=== PATIENT | male | born 1935 | race Caucasian/White ===

== ENCOUNTER 2016-09-10 12:15 | Emergency (ER) | payer OTHER, MEDICARE ==
[2016-09-10] MEDS ORDERED: SODIUM CHLORIDE 1,000 ML IV STA (12:25)
--- NOTE | 2016-09-10 12:25 | PDOC ---
History of Present Illness - History of Present Illness Initial Comments: 09/10/16 12:51 The patient is a 80 year old male with a past medical hx of CAD, ESRD on dialysis (, , and ), CHF, COPD, syncope, bronchitis, anemia, HTN, hypercholesterolemia, afib on coumadin, and thoracic aortic aneurysm who presents to the ED from dialysis for evaluation of bleeding from his fistula for three hours. The patient states he was at his routine fistula appointment today when he began to bleed from his fistula. He reports Dr. Martel held pressure on the site of bleeding for three hours and then decided to send the patient to the ED for further evaluation. The patient denies chest pain, SOB, headache, weakness The patient denies fever, chills The patient denies nausea, vomiting, diarrhea Allergies: enoxaparin sodium, lidocaine, and heparin Social: No toxic habits reported PCP: <Loren Short - Last Filed: 09/10/16 12:54> <Jalen Neff - Last Filed: 09/10/16 19:17> - General Stated Complaint: BLEEDING Time Seen by Provider: 09/10/16 12:24 Past History <Loren Short - Last Filed: 09/10/16 12:54> - Past Medical History Anemia: Yes Asthma: No Cancer: No Cardiac Disorders: Yes (atrial fibrillation,CAD, aortic stenosis, aortic aneurysm) CVA: No COPD: Yes CHF: No Dementia: No Diabetes: Yes Dialysis: Yes (//WED) GI Disorders: No Disorders: No HTN: Yes Hypercholesterolemia: Yes Kidney Stones: (renal failure shiley to right chest, av fistula to left arm) Liver Disease: No Seizures: No Thyroid Disease: No - Surgical History Abdominal Surgery: No Appendectomy: No Cardiac Surgery: No Cholecystectomy: No Lung Surgery: (left arm fistula, right chest shiley) Neurologic Surgery: No Orthopedic Surgery: No - Psycho/Social/Smoking Cessation Hx Anxiety: No Suicidal Ideation: No Smoking Status: No Smoking History: Never smoked Have you smoked in the past 12 months: No Number of Cigarettes Smoked Daily: 0 If you are a former smoker, when did you quit?: 40 years ago Hx Alcohol Use: No Drug/Substance Use Hx: No Substance Use Type: None Hx Substance Use Treatment: No <Jalen Neff - Last Filed: 09/10/16 19:17> - Past Medical History Allergies/Adverse Reactions: Allergies Allergy/AdvReac Type Severity Reaction Status Date / Time enoxaparin sodium Allergy Verified 09/10/16 12:28 [From Lovenox] heparin (porcine) Allergy heparin Verified 09/10/16 12:28 [Heparin,Porcine] induced platelet antibody lidocaine Allergy Verified 09/10/16 12:28 Home Medications: Ambulatory Orders Alprazolam 0.25 mg PO DAILY 10/07/13 Atorvastatin Ca [Lipitor] 10 mg PO HS 10/07/13 Sevelamer Carbonate [Renvela -] 3 tab PO TID 10/07/13 Warfarin Sodium [Coumadin] 7.5 mg PO DAILY 10/07/13 Metoprolol Succinate [Toprol XL -] 25 mg PO DAILY #0 10/13/13 Cinacalcet HCl [Sensipar] 30 mg PO DAILY 10/30/14 Sodium Bicarbonate 650 mg PO DAILY 10/30/14 Review of Systems - Review of Systems Able to Perform ROS?: Yes Comments:: 09/10/16 12:52 CONSTITUTIONAL: Absent: fever, chills, diaphoresis, generalized weakness, malaise, loss of appetite HEENT: Absent: rhinorrhea, nasal congestion, throat pain, throat swelling, difficulty swallowing, mouth swelling, ear pain, eye pain, visual Changes CARDIOVASCULAR: Absent: chest pain, syncope, palpitations, irregular heart rate, lightheadedness , peripheral edema RESPIRATORY: Absent: cough, shortness of breath, dyspnea with exertion, orthopnea, wheezing, stridor, hemoptysis GASTROINTESTINAL: Absent: abdominal pain, abdominal distension, nausea, vomiting, diarrhea, constipation, melena, hematochezia GENITOURINARY: Absent: dysuria, frequency, urgency, hesitancy, hematuria, flank pain, genital pain MUSCULOSKELETAL: +Left upper fistula bleeding. Absent: myalgia, arthralgia, joint swelling SKIN: Absent: rash, itching, pallor HEMATOLOGIC/IMMUNOLOGIC: Absent: easy bleeding, easy bruising, lymphadenopathy, frequent infections ENDOCRINE: Absent: unexplained weight gain, unexplained weight loss, heat intolerance, cold intolerance NEUROLOGIC: Absent: headache, focal weakness or paresthesias, dizziness, unsteady gait, seizure, mental status changes, bladder or bowel incontinence PSYCHIATRIC: Absent: anxiety, depression, suicidal or homicidal ideation, hallucinations. <Loren Short - Last Filed: 09/10/16 12:54> *Physical Exam - Vital Signs Last Vital Signs Temp Pulse Resp BP Pulse Ox 97.3 F L 82 20 159/104 100 09/10/16 12:28 09/10/16 12:28 09/10/16 12:28 09/10/16 12:28 09/10/16 12:28 - Physical Exam Comments: 09/10/16 12:54 GENERAL: +Conversant. Well developed, well nourished. Awake and alert. In no acute distress. HEENT: Normocephalic, atraumatic. PERRLA, EOMI. No conjunctival pallor. Sclera are non- icteric. Moist mucous membranes. Oropharynx is clear. NECK: Supple. Full ROM. No JVD. Carotid pulses 2+ and symmetric, without bruits. No thyromegaly. No lymphadenopathy. CARDIOVASCULAR: Regular rate and rhythm. No murmurs, rubs, or gallops. Distal pulses are 2+ and symmetric. PULMONARY: No evidence of respiratory distress. Lungs clear to auscultation bilaterally. No wheezing, rales or rhonchi. ABDOMINAL: Soft. Non-tender. Non-distended. No rebound or guarding. No organomegaly. Normoactive bowel sounds. MUSCULOSKELETAL Normal range of motion at all joints. No bony deformities or tenderness. No CVA tenderness. EXTREMITIES: +Left upper fistula, can feel the thrill of the fistula, arterial pump shooting up in the air three feet. No cyanosis. No clubbing. No edema. No calf tenderness. SKIN: Warm and dry. Normal capillary refill. No rashes. No jaundice. NEUROLOGICAL: Alert, awake, appropriate. Cranial nerves 2-12 intact. No deficits to light touch and temperature in face, upper extremities and lower extremities. No motor deficits in the in face, upper extremities and lower extremities. Normoreflexic in the upper and lower extremities. PSYCHIATRIC: Cooperative. Good eye contact. Appropriate mood and affect. <PiliLoren singh - Last Filed: 09/10/16 12:54> ED Treatment Course - LABORATORY CBC & Chemistry Diagram: 09/10/16 12:35 <DejaLoren - Last Filed: 09/10/16 12:54> - LABORATORY CBC & Chemistry Diagram: 09/10/16 11:30 09/10/16 12:35 <Jalen Neff - Last Filed: 09/10/16 19:17> Medical Decision Making - Critical Care Time Total Critical Care Time (minutes): 35 Critical Care Statement: The care of this patient involved high complexity decision making to prevent further life threatening deterioration of the patient 's condition and/or to evalute & treat vital organ system(s) failure or risk of failure. - Medical Decision Making 09/10/16 15:38 bleeding shunt stopped by Dr. Coco Griffith. No further bleeding. <Jalen Neff - Last Filed: 09/10/16 19:17> *DC/Admit/Observation/Transfer - Attestations Scribe Attestion: 09/10/16 12:51 Documentation prepared by Loren Short, acting as medical center manager for Jalen Neff MD, MD/DO. <Loren Short - Last Filed: 09/10/16 12:54> - Discharge Dispostion Admit: No <Jalen Neff - Last Filed: 09/10/16 19:17> Diagnosis at time of Disposition: Hemorrhage from dialysis shunt - Discharge Dispostion Disposition: HOME Condition at time of disposition: Improved - Referrals Referrals: Paul Harris MD [Primary Care Provider] -
[2016-09-10 12:30] VITALS: BMI 26.6
[2016-09-10 13:04] LABS: ALBUMIN 3.8 g/dl (3.4-5.0); BILIRUBIN,TOTAL 0.5 mg/dL (0.2-1.0); CALCIUM 9.1 mg/dL (8.5-10.1); CREATININE 6.4 mg/dL (0.7-1.3); TOT PROT 7.7 g/dl (6.4-8.2)
[2016-09-10 13:12] LABS: INR 3.91 (0.82-1.09); PROTHROMBIN TIME (PATIENT) 44.2 SEC (9.98-11.88)
[2016-09-10] MEDS ORDERED: LIDOCAINE HCL 2% (20ML MULTI-DOSE VIAL) NR ONE (13:20)
[2016-09-10 14:46] LABS: BASOPHIL 1.6 % (0-2.0); EOSINOPHIL 5.4 % (0-4.5); MCH 33.2 pg (25.7-33.7); MCHC 32.9 g/dl (32.0-35.9); MEAN PLT VOLUME 8.3 fl (7.5-11.1); NEUTROPHILS 63.1 % (42.8-82.8); PLATELET COUNT 275 K/MM3 (134-434); RDW 15.1 % (11.9-15.9); WHITE BLOOD COUNT 7.1 K/mm3 (4.0-10.0)
[2016-09-10 15:07] VITALS: BP 137/73; PULSE 80; TEMP 97.9
--- NOTE | 2016-09-14 16:24 | EKG ---
Test Reason : Blood Pressure : / mmHG Vent. Rate : 082 BPM Atrial Rate : 416 BPM P-R Int : 000 ms QRS Dur : 090 ms QT Int : 410 ms P-R-T Axes : 000 049 051 degrees QTc Int : 479 ms ATRIAL FIBRILLATION ABNORMAL ECG WHEN COMPARED WITH ECG OF 09-OCT-2013 14:59, NO SIGNIFICANT CHANGE WAS FOUND Confirmed by BERT STORY MD ([id number]) on 09/14/2016 4:23:45 PM Referred By: Confirmed By:BERT STORY MD
== END 2016-09-10 15:55 | disposition home or self-care (01) ==
LOC: JER 12:15
PROC: 3E0337Z Introduction of Electrolytic and Water Balance Substance into Peripheral Vein, Percutaneous Approach (ICD-10-PCS; principal; 2016-09-10)
DX: T82.838A Hemorrhage due to vascular prosthetic devices, implants and grafts, initial encounter (principal); I25.10 Atherosclerotic heart disease of native coronary artery without angina pectoris; I13.2 Hypertensive heart and chronic kidney disease with heart failure and with stage 5 chronic kidney disease, or end stage renal disease; N18.6 End stage renal disease; I50.9 Heart failure, unspecified; Z99.2 Dependence on renal dialysis; I48.91 Unspecified atrial fibrillation; Z79.01 Long term (current) use of anticoagulants; E78.00 Pure hypercholesterolemia, unspecified; Z86.79 Personal history of other diseases of the circulatory system
CPT/HCPCS: 36415; 80053; 85025; 85610; 85730; 86850; 86900; 86901; 93005; 93010; 99283-25

== ENCOUNTER 2017-10-29 12:08 | Inpatient (IN) | payer OTHER, MEDICARE ==
--- NOTE | 2017-10-29 12:44 | PDOC ---
History of Present Illness - General Chief Complaint: Pain Stated Complaint: RIGHT HIP PAIN Time Seen by Provider: 10/29/17 12:13 History Source: Patient Exam Limitations: No Limitations - History of Present Illness Initial Comments: 10/29/17 12:46 81y M hx of CAD, ESRD (T, , , last dialysis yesterday), CHF, COPD, Afib on coumadin, anemia, htn, hl, presents with complaint of R hip pain. The patient noticed having mild R hip pain starting yesterday. The pain was worse with movement especially when he is sitting or gettin gup from a seated position. Pt notes the pain is worse in the r hip/groin and radiates up to the r flank. pt deniess any injuries, falls. he noticed the pain after coming bcak from dialysis yesterday while he was in bed. Pt denies any fever/chills, n/v, diarrhea. pt does not produce urine. pt does endorse history of a kidney stone in the past but does not recall if this is simialr as it was 30 years + since his last kidney stone. pt denies any cp, sob, numbness/tingling/weakness. pt took tylenol with minimal improvement of his pain 1 hr ago. Past History - Past Medical History Allergies/Adverse Reactions: Allergies Allergy/AdvReac Type Severity Reaction Status Date / Time enoxaparin sodium Allergy Verified 10/29/17 12:29 [From Lovenox] heparin (porcine) Allergy heparin Verified 10/29/17 12:29 [Heparin,Porcine] induced platelet antibody lidocaine Allergy Verified 10/29/17 12:29 Home Medications: Ambulatory Orders Sevelamer Carbonate [Renvela -] 3 tab PO TID 10/07/13 Metoprolol Succinate [Toprol XL -] 25 mg PO DAILY #0 10/13/13 Warfarin Na [Coumadin] 6 mg PO HS 10/29/17 Anemia: Yes Asthma: No Cancer: No Cardiac Disorders: Yes (atrial fibrillation,CAD, aortic stenosis, aortic aneurysm) CVA: No COPD: No CHF: No Dementia: No Diabetes: Yes Dialysis: Yes (//WED) GI Disorders: No Disorders: No HTN: Yes Hypercholesterolemia: Yes Kidney Stones: (renal failure shiley to right chest, av fistula to left arm) Liver Disease: No Seizures: No Thyroid Disease: No - Surgical History Abdominal Surgery: No Appendectomy: No Cardiac Surgery: No Cholecystectomy: No Lung Surgery: (left arm fistula, right chest shiley) Neurologic Surgery: No Orthopedic Surgery: No - Suicide/Smoking/Psychosocial Hx Smoking Status: No Smoking History: Former smoker Have you smoked in the past 12 months: No Number of Cigarettes Smoked Daily: 0 If you are a former smoker, when did you quit?: 42 years ago Information on smoking cessation initiated: No Hx Alcohol Use: No Drug/Substance Use Hx: No Substance Use Type: None Hx Substance Use Treatment: No Review of Systems - Review of Systems Able to Perform ROS?: Yes Comments:: 10/29/17 12:50 Constitutional - no reported Fever, Chills, HEENT: no reported vision changes, sore throat Respiratory: no reported cough, sob, hemoptysis Cardiac: no reported chest pain, palpitations, light headedness, leg swelling Abd/GI: no reported abd pain, nausea, vomiting, blood per rectum, melena, diarrhea : no reported dysuria, frequency, discharge Musculskelatal +hip pain no reported back pain, joint swelling skin - no reported bruising, erythema, rash neurological: no reported headache, numbness, focal weakness, tingling, ataxia, hematologic: no reported anemia, easy bruising, easy bleeding *Physical Exam - Vital Signs Last Vital Signs Temp Pulse Resp BP Pulse Ox 97.6 F 68 18 157/76 96 10/29/17 12:10 10/29/17 12:10 10/29/17 12:10 10/29/17 12:10 10/29/17 12:10 - Physical Exam Comments: 10/29/17 12:50 GENERAL: The patient is awake, alert, and fully oriented, Nontoxic - in no acute distress. HEAD: Normocephalic, atraumatic. EYES: extraocular movements intact, sclera anicteric, conjunctiva clear. ENT: Normal voice, Moist mucous membranes. NECK: Normal range of motion, supple LUNGS: Breath sounds equal, clear to auscultation bilaterally. No wheezes, no rhonchi, no rales. HEART:irregular, systolic murmer noted on left sternal border ABDOMEN: Soft, mild lower quadrant tenderness, normoactive bowel sounds. No guarding, no rebound. No CVA tenderness, no hernias appreciated, no testicular or scrotal tenderness appreciated. EXTREMITIES: minimal discomfort on passive flexion of his right hip, no discomfort on logroll, normal range of motion. NEUROLOGICAL: No facial assymetry, Normal speech, PSYCH: Normal mood, normal affect. SKIN: Warm, Dry, normal turgor ED Treatment Course - LABORATORY CBC & Chemistry Diagram: 10/29/17 15:30 10/29/17 15:30 Medical Decision Making - Medical Decision Making 10/29/17 12:54 81-year-old gentleman history of multiple medical problems presenting with 1 day of mild right hip pain that is worse when he gets up from a seated position , no associated fever, chills, nausea, vomiting, urinary symptoms, diarrhea. On exam the patient has mild tenderness in the right lower quadrant, unremarkable hip exam. Differential for the patient's symptoms includes, MSK cause, kidney stone, appendicitis. No clinical signs of infection, obstruction Will obtain hip x-ray and will reassess need for further imaging 10/29/17 14:18 pts xray negative for acute disease pt still with mild RLQ tenderness will ck CT abd to r/o stone vs appendicitis 10/29/17 17:07 CT shows large rectus sheath heamtoma inR suprahterapehtic will observe in med/surg agree with admission *DC/Admit/Observation/Transfer Diagnosis at time of Disposition: Elevated INR Hematoma of rectus sheath Qualifiers: Encounter type: initial encounter Qualified Code(s): S30.1XXA - Contusion of abdominal wall, initial encounter - Discharge Dispostion Condition at time of disposition: Stable Admit: Yes - Referrals Referrals: Brittany Hanna MD [Staff Physician] - - Patient Instructions - Post Discharge Activity
[2017-10-29 15:52] LABS: BASO % 0.7 % (0-2.0); EOS % 1.4 % (0-4.5); HEMATOCRIT 36.8 % (35.4-49); HEMOGLOBIN 12.1 GM/dl (11.7-16.9); LYMPH % 8.9 % (8-40); MCH 32.3 pg (25.7-33.7); MCHC 32.9 g/dl (32.0-35.9); MEAN CELL VOLUME 98.2 fl (80-96); MEAN PLT VOLUME 8.9 fl (7.5-11.1); MONO % 11.3 % (3.8-10.2); NEUT % 77.7 % (42.8-82.8); PLATELET COUNT 197 K/MM3 (134-434); RBC 3.74 M/mm3 (4.00-5.60); RDW 17.2 % (11.9-15.9); WHITE BLOOD COUNT 10.5 K/mm3 (4.0-10.8)
[2017-10-29 16:03] LABS: INR 3.83 (0.82-1.09); PROTHROMBIN TIME (PATIENT) 41.8 SEC (10.2-13.0)
[2017-10-29 16:06] LABS: ALBUMIN 3.6 g/dl (3.5-5.0); ALK PHOS 84 U/L (32-92); ANION GAP 13 (8-16); BILIRUBIN,TOTAL 1.2 mg/dl (0.2-1.0); BLOOD UREA NITROGEN 72 mg/dl (7-18); CALCIUM 9.3 mg/dl (8.4-10.2); CHLORIDE 97 mmol/L (98-107); CO2 25 mmol/L (22-28); CREATININE 6.5 mg/dl (0.6-1.3); GLUCOSE,RANDOM 86 mg/dl (74-106); POTASSIUM 4.7 mmol/L (3.5-5.1); SGOT/AST 17 U/L (10-42); SGPT/ALT 19 U/L (10-40); SODIUM 135 mmol/L (136-145); TOT PROT 6.8 g/dl (6.4-8.3)
[2017-10-29] MEDS ORDERED: traMADol HCL 50 MG TABLET PO ONE (16:46)
[2017-10-29] MEDS ORDERED: traMADol HCL 50 MG TABLET ONE (17:05)
--- NOTE | 2017-10-29 22:00 | HP ---
Admitting History and Physical - Admission Chief Complaint: Rt Groin and Hip Pain History of Present Illness: 81 yrs old man H/O HTN, CKD stage 5 on HD Wednesday, and wednesday, Chronic afib on Coumadin rate controlled, ASa AR and TR under close monitoring, yesterday resent to Ed width C/O Rt Hip and groin pain after he received HD on , patient denies any trauma, fall , fever chills or dysuria, in the Ed patient patient INR was supratherapeutric Ct abd shows large rectal seath mematoma with stable H/h patient admitted for close observation , no c/o chest pain SOB or Palpitation - Past Medical History Cardiovascular: Yes: AFIB, Aneurysm, CAD, CHF, HTN, Hyperlipdemia Pulmonary: Yes: Bronchitis, COPD Renal/: Yes: Renal Failure, Hemodialysis - Past Surgical History Past Surgical History: Yes: AV Fistula/Graft - Smoking History Smoking history: Former smoker Have you smoked in the past 12 months: No Aproximately how many cigarettes per day: 0 If you are a former smoker, when did you quit?: 42 years ago - Alcohol/Substance Use Hx Alcohol Use: No Home Medications - Allergies Allergies/Adverse Reactions: Allergies Allergy/AdvReac Type Severity Reaction Status Date / Time enoxaparin sodium Allergy Verified 10/29/17 12:29 [From Lovenox] heparin (porcine) Allergy heparin Verified 10/29/17 12:29 [Heparin,Porcine] induced platelet antibody lidocaine Allergy Verified 10/29/17 12:29 - Home Medications Home Medications: Ambulatory Orders Sevelamer Carbonate [Renvela -] 3 tab PO TID 10/07/13 Metoprolol Succinate [Toprol XL -] 25 mg PO DAILY #0 10/13/13 Warfarin Na [Coumadin] 6 mg PO HS 10/29/17 Family Disease History - Family Disease History Family History: Unremarkable Review of Systems - Review of Systems Constitutional: denies: Chills, Diaphoresis HENT: denies: Difficult Swallowing, Ear Discharge Neck: denies: Decreased ROM, Lumps, Pain on Movement Cardiovascular: denies: Chest Pain, Edema, Palpitations, Shortness of Breath Respiratory: denies: Cough, Exercise Intolerance, Hemoptysis, Orthopnea Gastrointestinal: denies: Abdominal Pain, Bloating, Constipation Genitourinary: denies: Burning, Discharge, Dysuria Musculoskeletal: reports: Other (Rt Hip and Groin Pain) Neurological: denies: Change in LOC, Change in Speech Endocrine: denies: Excessive Sweating, Flushing Hematology/Lymphatic: reports: Easily Bruised, Excessive Bleeding Physical Examination Vital Signs: Vital Signs Temperature 97.8 F 10/29/17 20:34 Pulse Rate 69 10/29/17 20:34 Respiratory Rate 18 10/29/17 20:34 Blood Pressure 155/80 10/29/17 20:34 O2 Sat by Pulse Oximetry (%) 95 10/29/17 17:59 Constitutional: Yes: Well Nourished, No Distress Eyes: Yes: Conjunctiva Clear, EOM Intact, PERRL HENT: Yes: Atraumatic, Normocephalic. No: Drooling Neck: Yes: Supple, Trachea Midline. No: Decreased ROM Cardiovascular: Yes: Pulse Irregular, Murmur (Systolic), S1, S2. No: Bruit, JVD Gastrointestinal: Yes: Normal Bowel Sounds, Soft, Abdomen, Obese, Other Renal/: No: CVA Tenderness - Left Musculoskeletal: Yes: Other (Rt Groin pain and Hip ain). No: Joint Swelling, Muscle Pain, Muscle Weakness Edema: No Peripheral Pulses WNL: Yes Peripheral Pulses: Left Doralis Pedis: 0, Right Dorsalis Pedis: 0 Integumentary: Yes: Bruising (Ant bad wall Rt just below umbilicus) Neurological: Yes: Alert, Oriented. No: Aphasia, Asterixis, Ataxia ...Motor Strength: WNL, LUE, LLE, RUE, RLE Psychiatric: Yes: WNL, Alert, Oriented Labs: CBC, BMP 10/29/17 15:30 10/29/17 15:30 Laboratory Results - last 24 hr 10/29/17 10/29/17 10/29/17 15:30 15:30 15:30 WBC 10.5 RBC 3.74 L Hgb 12.1 Hct 36.8 MCV 98.2 H MCH 32.3 MCHC 32.9 RDW 17.2 H Plt Count 197 MPV 8.9 Neutrophils % 77.7 Lymphocytes % 8.9 Monocytes % 11.3 H Eosinophils % 1.4 Basophils % 0.7 PT with INR 41.8 H INR 3.83 H Sodium 135 L Potassium 4.7 Chloride 97 L Carbon Dioxide 25 Anion Gap 13 BUN 72 H Creatinine 6.5 H Creat Clearance w eGFR 8.29 Random Glucose 86 Calcium 9.3 Total Bilirubin 1.2 H AST 17 ALT 19 Alkaline Phosphatase 84 Total Protein 6.8 Albumin 3.6 Blood Type Antibody Screen Imaging - Results Cat Scan: Report Reviewed (Abd: Rt Rectal sheath Hematoma 8.5X 4.5 X9.5) Problem List - Problems (1) Supratherapeutic INR Assessment/Plan: Will Hold Coumadin Vit K 2.5 mg PO patient is hemodynamically stable and no major bleeding F/U H/H after q6 hrs Code(s): R79.1 - ABNORMAL COAGULATION PROFILE (2) Hematoma of rectus sheath Assessment/Plan: Spontaneous /Traumatic cold compression F/U H/h Code(s): S30.1XXA - CONTUSION OF ABDOMINAL WALL, INITIAL ENCOUNTER Qualifiers: Encounter type: initial encounter Qualified Code(s): S30.1XXA - Contusion of abdominal wall, initial encounter (3) ESRD (end stage renal disease) on dialysis Code(s): N18.6 - END STAGE RENAL DISEASE; Z99.2 - DEPENDENCE ON RENAL DIALYSIS (4) HTN (hypertension) Assessment/Plan: Well controlledcont all home meds Code(s): I10 - ESSENTIAL (PRIMARY) HYPERTENSION (5) COPD (chronic obstructive pulmonary disease) Assessment/Plan: Stable cont all home meds Code(s): J44.9 - CHRONIC OBSTRUCTIVE PULMONARY DISEASE, UNSPECIFIED (6) Rt groin pain Assessment/Plan: Due To Heamtoma Tylenol No 3 PRN Code(s): R10.31 - RIGHT LOWER QUADRANT PAIN (7) Chronic a-fib Assessment/Plan: Rate controlled on AC , Hold Coumadin Code(s): I48.2 - CHRONIC ATRIAL FIBRILLATION
[2017-10-29] MEDS: ACETAMINOPHEN WITH CODEINE 300MG/30MG TABLET PO SCH ×2 (23:55→23:59)
[2017-10-29] MEDS: SEVELAMER CARBONATE 800 MG TAB (FP) PO SCH (23:55)
[2017-10-30] MEDS: ACETAMINOPHEN WITH CODEINE 300MG/30MG TABLET PO SCH ×2 (00:03→06:10)
[2017-10-30 00:17] LABS: BASO % 0.4 % (0-2.0); EOS % 2.4 % (0-4.5); HEMATOCRIT 31.3 % (35.4-49); HEMOGLOBIN 10.5 GM/dL (11.7-16.9); LYMPH % 11.1 % (8-40); MCH 33.2 pg (25.7-33.7); MCHC 33.7 g/dl (32.0-35.9); MEAN CELL VOLUME 98.6 fl (80-96); MEAN PLT VOLUME 8.9 fl (7.5-11.1); MONO % 12.2 % (3.8-10.2); NEUT % 73.9 % (42.8-82.8); PLATELET COUNT 171 K/MM3 (134-434); RBC 3.18 M/mm3 (4.00-5.60); RDW 17.7 % (11.9-15.9)
[2017-10-30] MEDS ORDERED: PHYTONADIONE 5 MG TABLET PO ONE (01:07)
[2017-10-30 03:44] VITALS: BMI 29.7
[2017-10-30 08:21] LABS: BASO % 0.8 % (0-2.0); EOS % 2.7 % (0-4.5); HEMATOCRIT 30.1 % (35.4-49); HEMOGLOBIN 10.2 GM/dL (11.7-16.9); LYMPH % 12.2 % (8-40); MCH 33.6 pg (25.7-33.7); MEAN PLT VOLUME 8.9 fl (7.5-11.1); MONO % 12.7 % (3.8-10.2); NEUT % 71.6 % (42.8-82.8); PLATELET COUNT 156 K/MM3 (134-434); RBC 3.04 M/mm3 (4.00-5.60); RDW 17.1 % (11.9-15.9)
[2017-10-30 08:27] LABS: PROTHROMBIN TIME (PATIENT) 45.4 SEC (9.98-11.88)
[2017-10-30 08:35] LABS: INR 4.02 (0.82-1.09)
[2017-10-30 08:41] LABS: ALBUMIN 3.2 g/dl (3.4-5.0); ANION GAP 12 (8-16); BLOOD UREA NITROGEN 91 mg/dL (7-18); CALCIUM 8.5 mg/dL (8.5-10.1); CHLORIDE 99 mmol/L (98-107); CO2 26 mmol/L (21-32); GLUCOSE,RANDOM 79 mg/dL (74-106); POTASSIUM 4.6 mmol/L (3.5-5.1); SODIUM 137 mmol/L (136-145)
[2017-10-30 08:51] LABS: ALK PHOS 86 U/L (45-117); BILIRUBIN,TOTAL 0.9 mg/dL (0.2-1.0); SGOT/AST 12 U/L (15-37); SGPT/ALT 17 U/L (12-78); TOT PROT 6.3 g/dl (6.4-8.2)
[2017-10-30 09:30] LABS: CREATININE 7.8 mg/dL (0.7-1.3)
[2017-10-30] MEDS ORDERED: SODIUM CHLORIDE 250 ML IV PRN (10:20)
[2017-10-30] MEDS ORDERED: EPOETIN ALFA 10,000 UNIT/1 ML VIAL IVPUSH ONE (10:24)
[2017-10-30] MEDS: metoPROLOL SUCCINATE 25 MG TAB.SR.24H (FP) PO SCH (10:27)
[2017-10-30] MEDS: SEVELAMER CARBONATE 800 MG TAB (FP) PO SCH ×3 (10:27→17:33)
--- NOTE | 2017-10-30 10:34 | CONSULT ---
Consult - text type - Consultation Consultation Note: Renal Consult for ESRD on HD This is a 81 year old woman with PMhx of ESRD on HD, Hypertension, AFib on Coumadin who presented with complaints of right sided abd pain/hip pain and to have a rectus sheath hematoma with INR of 4. Pt denies any trauma to his abdomen. No flank pain. No recent procedures done. Last had dialysis on w/o complication. No SOB, chest pain, N/V/D, lightheadedness. PMhx: as above Allergies: NDKA ROS: as per HPI Family Hx: NC Social Hx NO T/A/D Home Medications Medication Instructions Recorded Sevelamer Carbonate [Renvela -] 3 tab PO TID 10/07/13 Metoprolol Succinate [Toprol XL -] 25 mg PO DAILY #0 10/13/13 Warfarin Na [Coumadin] 6 mg PO HS 10/29/17 Vital Signs Temperature 98.2 F 10/30/17 06:00 Pulse Rate 80 10/30/17 06:00 Respiratory Rate 20 10/30/17 06:00 Blood Pressure 120/68 10/30/17 06:00 O2 Sat by Pulse Oximetry (%) 95 10/29/17 17:59 Intake & Output 10/27/17 10/28/17 10/29/17 10/30/17 23:59 23:59 23:59 23:59 Intake Total 400 240 Output Total 0 Balance 400 240 Weight 83.007 kg 83.642 kg NAD awake and alert RRR, NO M/R CTA, no rales soft, mild tenderness, right sided brusing No LE edema, clubbing or cyanosis left arm AVF CBC, BMP 10/30/17 07:50 10/30/17 07:50 Current Medications Epoetin Randy (Epogen -) 10,000 unit IVPUSH ONCE ONE Stop: 10/30/17 10:25 Sodium Chloride (Normal Saline -) 250 mls @ 3,000 mls/hr IV PRN PRN PRN Reason: hypotension Metoprolol Succinate (Toprol Xl -) 25 mg PO DAILY [facility] Last Admin: 10/30/17 10:27 Dose: 25 mg Sevelamer Carbonate (Renvela -) 2,400 mg PO TIDCM [facility] Last Admin: 10/30/17 10:27 Dose: 2,400 mg 81 year old woman with PMhx of ESRD on HD, Hypertension, AFib on Coumadin who presented with complaints of right sided abd pain/hip pain and to have a rectus sheath hematoma with INR of 4 #ESRD on HD for dialysis today as inpatient Tx time 3 hrs 15 mins goal UF 1.5L as tolerated will continue HD 3x weekly dose all meds for intermittent HD no heparin to be given with dialysis #Rectus Sheath hematoma/Anemia Hgb stable over the past 8 hours holding warfarin trend INR Trend CBC shamar give YESSICA with HD no acute indication for transfusion #Renal Osteodystrophy continue Renvela, Renal diet trend phos levels Thank you Will follow Juan Christensen DO
--- NOTE | 2017-10-30 10:44 | PN ---
Progress Note, Physician Chief Complaint: C/O Rt Groin Pain - Current Medication List Current Medications: Active Medications Epoetin Randy (Procrit -) 10,000 unit IVPUSH ONCE ONE Stop: 10/30/17 10:25 Sodium Chloride (Normal Saline -) 250 mls @ 3,000 mls/hr IV PRN PRN PRN Reason: hypotension Metoprolol Succinate (Toprol Xl -) 25 mg PO DAILY [facility] Last Admin: 10/30/17 10:27 Dose: 25 mg Sevelamer Carbonate (Renvela -) 2,400 mg PO TIDCM [facility] Last Admin: 10/30/17 10:27 Dose: 2,400 mg - Objective Vital Signs: Vital Signs Temperature 98.2 F 10/30/17 06:00 Pulse Rate 80 10/30/17 06:00 Respiratory Rate 20 10/30/17 06:00 Blood Pressure 120/68 10/30/17 06:00 O2 Sat by Pulse Oximetry (%) 95 10/29/17 17:59 Constitutional: Yes: Well Nourished, No Distress Eyes: Yes: Conjunctiva Clear, EOM Intact, PERRL HENT: Yes: Atraumatic, Normocephalic. No: Drooling Neck: Yes: Supple, Trachea Midline. No: Decreased ROM Cardiovascular: Yes: Pulse Irregular, Murmur (Systolic), S1, S2. No: Bruit, JVD Gastrointestinal: Yes: Normal Bowel Sounds, Soft, Abdomen, Obese, Other Renal/: No: CVA Tenderness - Left Musculoskeletal: Yes: Other (Rt Groin pain and Hip ain). No: Joint Swelling, Muscle Pain, Muscle Weakness Edema: No Peripheral Pulses WNL: Yes Peripheral Pulses: Left Doralis Pedis: 0, Right Dorsalis Pedis: 0 Integumentary: Yes: Bruising (Ant bad wall Rt just below umbilicus) Neurological: Yes: Alert, Oriented. No: Aphasia, Asterixis, Ataxia ...Motor Strength: WNL, LUE, LLE, RUE, RLE Labs: CBC, BMP 10/30/17 07:50 10/30/17 07:50 INR, PTT INR 4.02 (0.82-1.09) H* 10/30/17 07:50 Problem List - Problems (1) Supratherapeutic INR Assessment/Plan: Will Hold Coumadin recived Vit K 2.5 mg PO patient is hemodynamically stable 2nd H/H drop am H/H stable will F/U H/H in PM Rpt INR 4.0 will F/U INR in PM Code(s): R79.1 - ABNORMAL COAGULATION PROFILE (2) Hematoma of rectus sheath Assessment/Plan: Spontaneous /Traumatic cold compression F/U H/h Code(s): S30.1XXA - CONTUSION OF ABDOMINAL WALL, INITIAL ENCOUNTER Qualifiers: Encounter type: initial encounter Qualified Code(s): S30.1XXA - Contusion of abdominal wall, initial encounter (3) ESRD (end stage renal disease) on dialysis Assessment/Plan: On HD F/U Renal recommendations, schedule for HD Today Code(s): N18.6 - END STAGE RENAL DISEASE; Z99.2 - DEPENDENCE ON RENAL DIALYSIS (4) HTN (hypertension) Assessment/Plan: Well controlledcont all home meds Code(s): I10 - ESSENTIAL (PRIMARY) HYPERTENSION (5) COPD (chronic obstructive pulmonary disease) Assessment/Plan: Stable cont all home meds Code(s): J44.9 - CHRONIC OBSTRUCTIVE PULMONARY DISEASE, UNSPECIFIED (6) Rt groin pain Assessment/Plan: Due To Heamtoma Tylenol No 3 PRN Code(s): R10.31 - RIGHT LOWER QUADRANT PAIN (7) Chronic a-fib Assessment/Plan: Rate controlled on AC , Hold Coumadin Code(s): I48.2 - CHRONIC ATRIAL FIBRILLATION (8) Anemia due to blood loss Assessment/Plan: In the setting High INR now H/H stable F/U H/H in PM Code(s): D50.0 - IRON DEFICIENCY ANEMIA SECONDARY TO BLOOD LOSS (CHRONIC)
[2017-10-30] MEDS: oxyCODONE HCL 5 MG TABLET PO PRN ×2 (11:26→18:28)
[2017-10-30 18:46] LABS: BASO % 0.5 % (0-2.0); EOS % 1.9 % (0-4.5); HEMATOCRIT 32.5 % (35.4-49); HEMOGLOBIN 10.9 GM/dL (11.7-16.9); LYMPH % 8.5 % (8-40); MCH 33.2 pg (25.7-33.7); MCHC 33.5 g/dl (32.0-35.9); MEAN CELL VOLUME 99.2 fl (80-96); MEAN PLT VOLUME 9.1 fl (7.5-11.1); MONO % 11.1 % (3.8-10.2); PLATELET COUNT 182 K/MM3 (134-434); RBC 3.27 M/mm3 (4.00-5.60); RDW 17.3 % (11.9-15.9); WHITE BLOOD COUNT 8.2 K/mm3 (4.0-10.0)
[2017-10-30 18:57] LABS: INR 2.74 (0.82-1.09)
[2017-10-31] MEDS: oxyCODONE HCL 5 MG TABLET PO PRN ×2 (06:18→12:26)
[2017-10-31 07:28] LABS: BASO % 0.8 % (0-2.0); EOS % 2.4 % (0-4.5); HEMOGLOBIN 10.8 GM/dL (11.7-16.9); LYMPH % 11.6 % (8-40); MCH 33.5 pg (25.7-33.7); MCHC 33.7 g/dl (32.0-35.9); MEAN CELL VOLUME 99.6 fl (80-96); MEAN PLT VOLUME 8.8 fl (7.5-11.1); MONO % 12.1 % (3.8-10.2); NEUT % 73.1 % (42.8-82.8); PLATELET COUNT 177 K/MM3 (134-434); RBC 3.22 M/mm3 (4.00-5.60); RDW 17.7 % (11.9-15.9); WHITE BLOOD COUNT 9.3 K/mm3 (4.0-10.0)
[2017-10-31 07:51] LABS: INR 1.9 (0.82-1.09); PROTHROMBIN TIME (PATIENT) 21.5 SEC (9.98-11.88)
[2017-10-31 07:55] LABS: ANION GAP 15 (8-16); BLOOD UREA NITROGEN 47 mg/dL (7-18); CALCIUM 9.3 mg/dL (8.5-10.1); CHLORIDE 96 mmol/L (98-107); CO2 28 mmol/L (21-32); CREATININE 5.5 mg/dL (0.7-1.3); GLUCOSE,RANDOM 88 mg/dL (74-106); MAGNESIUM 2.5 mg/dL (1.8-2.4); PHOSPHOROUS 5.1 mg/dL (2.5-4.9); POTASSIUM 4.2 mmol/L (3.5-5.1); SODIUM 139 mmol/L (136-145)
[2017-10-31] MEDS: SEVELAMER CARBONATE 800 MG TAB (FP) PO SCH ×2 (08:38→12:30)
--- NOTE | 2017-10-31 09:34 | CON.CARD ---
Consult Consult Specialty:: Cardiology dr. Metzger - History of Present Illness Chief Complaint: r flank/rrectus abdominal muscle pain History of Present Illness: 81y M hx of CAD, ESRD (T, , , last dialysis yesterday), CHF, COPD, Afib on coumadin, anemia, htn, hl, presents with complaint of R hip pain. The patient noticed having mild R hip pain starting yesterday. The pain was worse with movement especially when he is sitting or gettin gup from a seated position. Pt notes the pain is worse in the r hip/groin and radiates up to the r flank. pt deniess any injuries, falls. he noticed the pain after coming bcak from dialysis yesterday while he was in bed. Pt denies any fever/chills, n/v, diarrhea. pt does not produce urine. pt does endorse history of a kidney stone in the past but does not recall if this is simialr as it was 30 years + since his last kidney stone. pt denies any cp, sob, numbness/tingling/weakness. pt took tylenol with minimal improvement of his pain 1 hr ago. - Past Medical History Cardio/Vascular: Yes: AFIB, Aneurysm, CAD, CHF, HTN, Hyperlipdemia Pulmonary: Yes: Bronchitis, COPD Renal/: Yes: Renal Failure, Hemodialysis - Past Surgical History Past Surgical History: Yes: AV Fistula/Graft - Alcohol/Substance Use Hx Alcohol Use: No - Smoking History Smoking history: Former smoker Have you smoked in the past 12 months: No Aproximately how many cigarettes per day: 0 If you are a former smoker, when did you quit?: 42 years ago Home Medications - Allergies Allergies/Adverse Reactions: Allergies Allergy/AdvReac Type Severity Reaction Status Date / Time enoxaparin sodium Allergy Verified 10/29/17 12:29 [From Lovenox] heparin (porcine) Allergy heparin Verified 10/29/17 12:29 [Heparin,Porcine] induced platelet antibody lidocaine Allergy Verified 10/29/17 12:29 - Home Medications Home Medications: Ambulatory Orders Sevelamer Carbonate [Renvela -] 3 tab PO TID 10/07/13 Metoprolol Succinate [Toprol XL -] 25 mg PO DAILY #0 10/13/13 Warfarin Na [Coumadin] 6 mg PO HS 03/09/18 Review of Systems - Review of Systems Constitutional: reports: No Symptoms Eyes: reports: No Symptoms HENT: reports: No Symptoms Neck: reports: No Symptoms Cardiovascular: reports: No Symptoms Gastrointestinal: reports: No Symptoms Genitourinary: reports: No Symptoms Breasts: reports: No Symptoms Reported Musculoskeletal: reports: Muscle Pain Integumentary: reports: No Symptoms Neurological: reports: No Symptoms Endocrine: reports: No Symptoms Hematology/Lymphatic: reports: No Symptoms Psychiatric: reports: No Symptoms Vital Signs: Vital Signs Temperature 99.2 F 10/31/17 06:00 Pulse Rate 93 H 10/31/17 06:00 Respiratory Rate 17 10/31/17 06:00 Blood Pressure 122/74 10/31/17 06:00 O2 Sat by Pulse Oximetry (%) 94 L 10/30/17 21:00 Constitutional: Yes: Well Nourished, No Distress, Calm Eyes: Yes: WNL, Conjunctiva Clear, EOM Intact HENT: Yes: WNL, Atraumatic, Normocephalic Neck: Yes: WNL, Supple, Trachea Midline Respiratory: Yes: WNL, Regular, CTA Bilaterally Gastrointestinal: Yes: WNL, Normal Bowel Sounds Renal/: Yes: WNL Cardiovascular: Yes: WNL, Pulse Irregular Heart Sounds: Yes: S1, S2 Murmur: Yes: Systolic Murmur Musculoskeletal: Yes: Other (hematoma, eccymoisis of r abd rectus muscle.) Extremities: Yes: WNL Integumentary: Yes: WNL Neurological: Yes: WNL, Alert, Oriented ...Motor Strength: WNL Psychiatric: Yes: WNL, Alert, Oriented - Other Data Labs, Other Data: CBC, BMP 10/31/17 07:05 10/31/17 07:05 INR, PTT INR 1.90 (0.82-1.09) H D 10/31/17 07:05 Laboratory Tests 10/29/17 10/29/17 10/29/17 15:30 15:30 15:30 WBC 10.5 RBC 3.74 L Hgb 12.1 Hct 36.8 MCV 98.2 H MCH 32.3 MCHC 32.9 RDW 17.2 H Plt Count 197 MPV 8.9 Neutrophils % 77.7 Lymphocytes % 8.9 Monocytes % 11.3 H Eosinophils % 1.4 Basophils % 0.7 PT with INR 41.8 H INR 3.83 H Sodium 135 L Potassium 4.7 Chloride 97 L Carbon Dioxide 25 Anion Gap 13 BUN 72 H Creatinine 6.5 H Creat Clearance w eGFR 8.29 Random Glucose 86 Calcium 9.3 Phosphorus Magnesium Total Bilirubin 1.2 H AST 17 ALT 19 Alkaline Phosphatase 84 Total Protein 6.8 Albumin 3.6 Blood Type Antibody Screen 10/30/17 10/30/17 10/30/17 00:00 02:35 07:50 WBC 9.0 8.0 RBC 3.18 L 3.04 L Hgb 10.5 L 10.2 L Hct 31.3 L 30.1 L MCV 98.6 H 99.0 H MCH 33.2 33.6 MCHC 33.7 34.0 RDW 17.7 H D 17.1 H Plt Count 171 D 156 MPV 8.9 8.9 Neutrophils % 73.9 71.6 Lymphocytes % 11.1 D 12.2 Monocytes % 12.2 H 12.7 H Eosinophils % 2.4 2.7 Basophils % 0.4 0.8 PT with INR INR Sodium Potassium Chloride Carbon Dioxide Anion Gap BUN Creatinine Creat Clearance w eGFR Random Glucose Calcium Phosphorus Magnesium Total Bilirubin AST ALT Alkaline Phosphatase Total Protein Albumin Blood Type B POSITIVE Antibody Screen Negative 10/30/17 10/30/17 10/30/17 07:50 07:50 18:15 WBC 8.2 RBC 3.27 L Hgb 10.9 L Hct 32.5 L MCV 99.2 H MCH 33.2 MCHC 33.5 RDW 17.3 H Plt Count 182 MPV 9.1 Neutrophils % 78.0 Lymphocytes % 8.5 D Monocytes % 11.1 H Eosinophils % 1.9 Basophils % 0.5 PT with INR 45.40 H INR 4.02 H* Sodium 137 Potassium 4.6 D Chloride 99 Carbon Dioxide 26 Anion Gap 12 BUN 91 H D Creatinine 7.8 H* Creat Clearance w eGFR 6.72 Random Glucose 79 Calcium 8.5 Phosphorus Magnesium Total Bilirubin 0.9 D AST 12 L D ALT 17 D Alkaline Phosphatase 86 Total Protein 6.3 L Albumin 3.2 L Blood Type Antibody Screen 10/30/17 10/31/17 10/31/17 18:15 07:05 07:05 WBC 9.3 RBC 3.22 L Hgb 10.8 L Hct 32.0 L MCV 99.6 H MCH 33.5 MCHC 33.7 RDW 17.7 H Plt Count 177 MPV 8.8 Neutrophils % 73.1 Lymphocytes % 11.6 D Monocytes % 12.1 H Eosinophils % 2.4 Basophils % 0.8 PT with INR 31.00 H 21.50 H INR 2.74 H D 1.90 H D Sodium Potassium Chloride Carbon Dioxide Anion Gap BUN Creatinine Creat Clearance w eGFR Random Glucose Calcium Phosphorus Magnesium Total Bilirubin AST ALT Alkaline Phosphatase Total Protein Albumin Blood Type Antibody Screen 10/31/17 07:05 WBC RBC Hgb Hct MCV MCH MCHC RDW Plt Count MPV Neutrophils % Lymphocytes % Monocytes % Eosinophils % Basophils % PT with INR INR Sodium 139 Potassium 4.2 Chloride 96 L Carbon Dioxide 28 Anion Gap 15 BUN 47 H D Creatinine 5.5 H D Creat Clearance w eGFR Random Glucose 88 Calcium 9.3 Phosphorus 5.1 H Magnesium 2.5 H D Total Bilirubin AST ALT Alkaline Phosphatase Total Protein Albumin Blood Type Antibody Screen Imaging - Results EKG: Image Reviewed (af rep abn) Problem List - Problems (1) Anemia due to blood loss Code(s): D50.0 - IRON DEFICIENCY ANEMIA SECONDARY TO BLOOD LOSS (CHRONIC) (2) COPD (chronic obstructive pulmonary disease) Code(s): J44.9 - CHRONIC OBSTRUCTIVE PULMONARY DISEASE, UNSPECIFIED (3) Chronic a-fib Code(s): I48.2 - CHRONIC ATRIAL FIBRILLATION (4) ESRD (end stage renal disease) on dialysis Code(s): N18.6 - END STAGE RENAL DISEASE; Z99.2 - DEPENDENCE ON RENAL DIALYSIS (5) Elevated INR Code(s): R79.1 - ABNORMAL COAGULATION PROFILE (6) HTN (hypertension) Code(s): I10 - ESSENTIAL (PRIMARY) HYPERTENSION (7) Hematoma of rectus sheath Code(s): S30.1XXA - CONTUSION OF ABDOMINAL WALL, INITIAL ENCOUNTER Qualifiers: Encounter type: initial encounter Qualified Code(s): S30.1XXA - Contusion of abdominal wall, initial encounter (8) Rt groin pain Code(s): R10.31 - RIGHT LOWER QUADRANT PAIN (9) Supratherapeutic INR Code(s): R79.1 - ABNORMAL COAGULATION PROFILE (10) Bleeding from dialysis shunt Code(s): T82.838A - HEMORRHAGE DUE TO VASCULAR PROSTH DEV/GRFT, INIT Qualifiers: Encounter type: initial encounter Qualified Code(s): T82.838A - Hemorrhage due to vascular prosthetic devices, implants and grafts, initial encounter (11) Hemorrhage from dialysis shunt Code(s): T82.838A - HEMORRHAGE DUE TO VASCULAR PROSTH DEV/GRFT, INIT Assessment/Plan supraterapeutic INR - abdominal rectus muscle bleed CAD, ESRD (T, Th, SA, last dialysis yesterday), CHF, COPD, Afib on coumadin, anemia, htn thoracic aortic aneurysm systolic ejection murmur - severe TR 2012 mild 2012 Plan; hold Coumadin risks of CVA explained INR normalizing s/p vit K obtain records re prior cardiac w/u ?CAD, aortic aneurysm recent ECHO etc. Cardiac wei stable coverage dr. Metzger
[2017-10-31] MEDS: metoPROLOL SUCCINATE 25 MG TAB.SR.24H (FP) PO SCH (09:35)
[2017-10-31] MEDS ORDERED: DOCUSATE SODIUM 100 MG CAPSULE (FP) PO PRN (13:06)
--- NOTE | 2017-10-31 13:12 | DS ---
Physical Examination Vital Signs: Vital Signs Temperature 99.2 F 10/31/17 06:00 Pulse Rate 93 H 10/31/17 06:00 Respiratory Rate 17 10/31/17 06:00 Blood Pressure 122/74 10/31/17 06:00 O2 Sat by Pulse Oximetry (%) 94 L 10/30/17 21:00 HEENT: MM Moist mild anemia NECK: No JVd No bruit CHEST: CTA B/L CVS: S!S2 IR no m/g/r ABD:Rt lower q ant abd wall just below umbilicus echymoses, Rt Groin tenderness , BS + EXT: Trace mikayla afeet, no calf tenderness [facility] non focal Labs: CBC, BMP 10/31/17 07:05 10/31/17 07:05 Laboratory Results - last 24 hr 10/30/17 10/30/17 10/31/17 18:15 18:15 07:05 WBC 8.2 9.3 RBC 3.27 L 3.22 L Hgb 10.9 L 10.8 L Hct 32.5 L 32.0 L MCV 99.2 H 99.6 H MCH 33.2 33.5 MCHC 33.5 33.7 RDW 17.3 H 17.7 H Plt Count 182 177 MPV 9.1 8.8 Neutrophils % 78.0 73.1 Lymphocytes % 8.5 D 11.6 D Monocytes % 11.1 H 12.1 H Eosinophils % 1.9 2.4 Basophils % 0.5 0.8 PT with INR 31.00 H INR 2.74 H D Sodium Potassium Chloride Carbon Dioxide Anion Gap BUN Creatinine Random Glucose Calcium Phosphorus Magnesium 10/31/17 10/31/17 07:05 07:05 WBC RBC Hgb Hct MCV MCH MCHC RDW Plt Count MPV Neutrophils % Lymphocytes % Monocytes % Eosinophils % Basophils % PT with INR 21.50 H INR 1.90 H D Sodium 139 Potassium 4.2 Chloride 96 L Carbon Dioxide 28 Anion Gap 15 BUN 47 H D Creatinine 5.5 H D Random Glucose 88 Calcium 9.3 Phosphorus 5.1 H Magnesium 2.5 H D Discharge Summary Reason For Visit: RIGHT HIP PAIN Current Active Problems Anemia due to blood loss (Acute) COPD (chronic obstructive pulmonary disease) (Acute) Chronic a-fib (Acute) ESRD (end stage renal disease) on dialysis (Acute) Elevated INR (Acute) HTN (hypertension) (Acute) Hematoma of rectus sheath (Acute) Rt groin pain (Acute) Supratherapeutic INR (Acute) Hospital Course: 81 yrs old man H/O HTN, CKD stage 5 on HD Wednesday, and wednesday, Chronic afib on Coumadin rate controlled, ASa AR and TR under close monitoring, yesterday resent to Ed width C/O Rt Hip and groin pain after he received HD on , patient denies any trauma, fall , fever chills or dysuria, in the Ed patient patient INR was supratherapeutric Ct abd shows large rectus sheath Hematoma with stable H/h, patient dropped H/h in subsequent CBC, so received 2 .5 mg Vit K PO, subsequence H/h remained stable, INR dropped to 1.92, evaluated by cardiology consult, patient Rt Groin pain improved but persisted . RpT CT shows no enlargement of Hematoma, discusses with Cardiology consult to resume Coumadin at half dose 3.0 mg daily and Tpt H/H in PMD office, Condition: Stable - Instructions Diet, Activity, Other Instructions: as advised Referrals: Brittany Hanna MD [Staff Physician] - Paul Harris MD [Primary Care Provider] - 11/02/17 Disposition: HOME - Home Medications Comprehensive Discharge Medication List: Ambulatory Orders Sevelamer Carbonate [Renvela -] 3 tab PO TID 10/07/13 Metoprolol Succinate [Toprol XL -] 25 mg PO DAILY #0 10/13/13 Docusate Sodium [Colace -] 100 mg PO BID PRN capsule 10/31/17 Warfarin Na [Coumadin -] 3 mg PO DAILY@1800 tablet 10/31/17 oxyCODONE HCL [Roxicodone -] 5 mg PO Q6H PRN 7 Days #28 tablet MDD 4 10/31/17
[2017-10-31 13:43] VITALS: BP 128/66; PULSE 84; TEMP 97.6
[2017-10-31] MEDS ORDERED: WARFARIN NA 3 MG TABLET PO SCH (18:00)
[2017-11-02 00:10] LABS: HBSAG SCREEN Negative (Negative); HEP A AB, IGM Negative (Negative); HEP B CORE AB, TOT Positive (Negative)
--- NOTE | 2017-11-02 12:55 | EKG ---
Test Reason : Blood Pressure : / mmHG Vent. Rate : 082 BPM Atrial Rate : 082 BPM P-R Int : 000 ms QRS Dur : 098 ms QT Int : 376 ms P-R-T Axes : 000 059 -07 degrees QTc Int : 439 ms Poor data quality ATRIAL FIBRILLATION NONSPECIFIC ST AND T WAVE ABNORMALITY ABNORMAL ECG WHEN COMPARED WITH ECG OF 10-SEP-2016 13:39, ST NOW DEPRESSED IN ANTERIOR LEADS T WAVE INVERSION NOW EVIDENT IN INFERIOR LEADS T WAVE INVERSION NOW EVIDENT IN ANTERIOR LEADS Confirmed by MD NELLY, RACIEL ([id number]) on 11/02/2017 12:54:46 PM Referred By: MD SHARPE Confirmed By:RACIEL VILLEGAS MD
== END 2017-10-31 15:39 | disposition home or self-care (01) | DRG 604 ==
LOC: FER 12:08 → SUPCPDRO 12:08 → J5S 21:20
PROVIDERS: ADMIT Internal Medicine; ATTEND Internal Medicine
PROC: 5A1D90Z Performance of Urinary Filtration, Continuous, Greater than 18 hours Per Day (ICD-10-PCS; principal; 2017-10-30)
DX: S30.1XXA Contusion of abdominal wall, initial encounter (principal); N18.6 End stage renal disease; I12.0 Hypertensive chronic kidney disease with stage 5 chronic kidney disease or end stage renal disease; T82.838A Hemorrhage due to vascular prosthetic devices, implants and grafts, initial encounter; X58.XXXA Exposure to other specified factors, initial encounter; Y93.9 Activity, unspecified; Y92.89 Other specified places as the place of occurrence of the external cause; Y99.9 Unspecified external cause status; R79.1 Abnormal coagulation profile; Z99.2 Dependence on renal dialysis; I48.2 Chronic atrial fibrillation; D50.0 Iron deficiency anemia secondary to blood loss (chronic); R10.31 Right lower quadrant pain; J44.9 Chronic obstructive pulmonary disease, unspecified; N25.0 Renal osteodystrophy; I71.2 Thoracic aortic aneurysm, without rupture
CPT/HCPCS: 36415; 73523-TC-FY; 74176-TC; 80048; 80053; 83735; 84100; 85025; 85610; 86704; 86706; 86708; 86850; 86900; 86901; 87340; 93005; 93010; 99283-25; J0885

== ENCOUNTER 2018-01-23 00:30 | Inpatient (IN) | payer OTHER, MEDICARE ==
--- NOTE | 2018-01-23 03:12 | PDOC ---
History of Present Illness - General Chief Complaint: Shortness of Breath Stated Complaint: SOB Time Seen by Provider: 01/23/18 03:08 - History of Present Illness Initial Comments: 01/23/18 04:17 The patient is an 82 year old with a history of CHF, COPD, ESRD on dialysis ( , , Wed) who presents for evaluation of SOB. The patient reports receiving his Wednesday dialysis and after began experiencing a sensation of SOB prompting his presentation to the ED for further evaluation. He otherwise denies fevers, chills, chest pain, cough, nausea, vomiting, abdominal pain, increased swelling, or changes with urination or bowel movements. Past History - Past Medical History Allergies/Adverse Reactions: Allergies Allergy/AdvReac Type Severity Reaction Status Date / Time enoxaparin sodium Allergy Verified 01/23/18 02:44 [From Lovenox] heparin (porcine) Allergy heparin Verified 01/23/18 02:44 [Heparin,Porcine] induced platelet antibody lidocaine Allergy Verified 01/23/18 02:44 Home Medications: Ambulatory Orders Sevelamer Carbonate [Renvela -] 3 tab PO TID 10/07/13 Metoprolol Succinate [Toprol XL -] 25 mg PO DAILY #0 10/13/13 Docusate Sodium [Colace -] 100 mg PO BID PRN capsule 10/31/17 Warfarin Na [Coumadin -] 3 mg PO DAILY@1800 tablet 10/31/17 oxyCODONE HCL [Roxicodone -] 5 mg PO Q6H PRN 7 Days #28 tablet MDD 4 10/31/17 Cinacalcet HCl [Sensipar -] 30 mg PO BID 01/24/18 Anemia: Yes Asthma: No Cancer: No Cardiac Disorders: Yes (atrial fibrillation,CAD, aortic stenosis, aortic aneurysm) CVA: No COPD: No CHF: No Dementia: No Diabetes: Yes Dialysis: Yes (//WED) GI Disorders: No Disorders: No HTN: Yes Hypercholesterolemia: Yes Kidney Stones: (renal failure shiley to right chest, av fistula to left arm) Liver Disease: No Seizures: No Thyroid Disease: No - Surgical History Abdominal Surgery: No Appendectomy: No Cardiac Surgery: No Cholecystectomy: No Lung Surgery: (left arm fistula, right chest shiley) Neurologic Surgery: No Orthopedic Surgery: No - Suicide/Smoking/Psychosocial Hx Smoking Status: No Smoking History: Never smoked Have you smoked in the past 12 months: No Number of Cigarettes Smoked Daily: 0 If you are a former smoker, when did you quit?: 42 years ago Information on smoking cessation initiated: No Hx Alcohol Use: No Drug/Substance Use Hx: No Substance Use Type: None Hx Substance Use Treatment: No Review of Systems - Review of Systems Comments:: 01/23/18 04:20 Constitutional: No fevers, chills, fatigue, malaise HEENT: No Rhinorrhea, nasal congestion, visual changes Cardiovascular: No chest pain, syncope, palpitations, lightheadedness Respiratory: SOB. No Cough, Hemoptysis, Gastrointestinal: No Abdominal pain, Nausea, Vomiting, Constipation, Diarrhea, Melena Genitourinary: No Dysuria, Frequency, Urgency, Hesitancy, Hematuria, Flank pain Musculoskeletal: No Myalgia, arthralgia Skin: No rashes, itching, bruising, pallor Neurologic: No Headache, Dizziness, Numbness, Weakness, or Tingling Psychiatric: No Hallucinations. No SI or HI *Physical Exam - Vital Signs Last Vital Signs Temp Pulse Resp BP Pulse Ox 97.4 F L 88 19 118/74 96 01/23/18 00:55 01/23/18 00:55 01/23/18 00:55 01/23/18 00:55 01/23/18 00:55 - Physical Exam Comments: 01/23/18 04:21 General Appearance: Nourished. No Apparent Distress HEENT: EOMI, RL. No Pharyngeal Erythema, Tonsillar Exudate, Tonsillar Erythema Neck: No Cervical Lymphadenopathy Respiratory/Chest: Lungs Clear, Normal Breath Sounds. No Crackles, Rales, Rhonchi, Wheezing Cardiovascular: Regular Rhythm, Regular Rate. No Murmur, Gallops, Rubs Gastrointestinal/Abdominal: Normal Bowel Sounds, Soft. No Guarding, Rebound, Tenderness Musculoskeletal: No CVA Tenderness Extremity: Left AV Fistula. Normal Capillary Refill Integumentary: Normal Color, Dry, Warm Neurologic: Fully Oriented, Alert, Normal Mood/Affect, Normal Response, ED Treatment Course - LABORATORY CBC & Chemistry Diagram: 01/25/18 05:30 01/25/18 05:30 Medical Decision Making - Medical Decision Making 01/23/18 04:22 The patient is an 82 year old with a history of CHF, COPD, ESRD on dialysis ( Tues, Thurs, Sat) who presents for evaluation of SOB. Differential includes but is not limited to: CHF, ACS, COPD, Infectious, metabolic derangement. Given the patient's history and physical exam, we will obtain a cbc, cmp, troponin, bnp, ekg, and chest plain film to evaluate further for possible etiologies. We will continue to monitor and reassess while here in the ED. 01/23/18 06:23 CBC, cmp, are unremarkable. BNP is elevated to [id number] and troponin is elevated to 0.06. Given the patient's results and chest plain film, we are concerned his symptoms are due to a chf exacerbation. We believe the patient requires admission for further management at this time. *DC/Admit/Observation/Transfer Diagnosis at time of Disposition: CHF exacerbation - Discharge Dispostion Condition at time of disposition: Stable - Referrals - Patient Instructions - Post Discharge Activity
[2018-01-23] MEDS ORDERED: ACETAMINOPHEN 325 MG TABLET (FP) PO ONE (04:08)
[2018-01-23 05:18] LABS: BASO % 1.1 % (0-2.0); EOS % 3.8 % (0-4.5); HEMATOCRIT 32.3 % (35.4-49); HEMOGLOBIN 10.6 GM/dL (11.7-16.9); LYMPH % 12.2 % (8-40); MCH 33.2 pg (25.7-33.7); MCHC 32.7 g/dl (32.0-35.9); MEAN CELL VOLUME 101.4 fl (80-96); MEAN PLT VOLUME 8.6 fl (7.5-11.1); MONO % 13.4 % (3.8-10.2); NEUT % 69.5 % (42.8-82.8); PLATELET COUNT 191 K/MM3 (134-434); RBC 3.19 M/mm3 (4.00-5.60); RDW 19.9 % (11.9-15.9); WHITE BLOOD COUNT 5.4 K/mm3 (4.0-10.0)
--- NOTE | 2018-01-23 05:35 | PDOC ---
Attending Attestation - Resident Resident Name: Will Hilliard - ED Attending Attestation I have performed the following: I have examined & evaluated the patient, The case was reviewed & discussed with the resident, I agree w/resident's findings & plan - HPI HPI: 01/23/18 05:31 Pt comes with SOB; he was dialyzed earlier today. No fevers and no chills. - Physicial Exam PE: 01/23/18 05:31 Agree with resident exam. - Medical Decision Making 01/23/18 05:35 Pt has cardiomegaly on the CXR 01/23/18 07:11 BNP is 100,000+; pt will be admitted or CHF exacerbation
[2018-01-23 05:38] LABS: INR 2.57 (0.82-1.09)
[2018-01-23 05:50] LABS: ALBUMIN 3.3 g/dl (3.4-5.0); ALK PHOS 141 U/L (45-117); ANION GAP 10 (8-16); BILIRUBIN,TOTAL 0.9 mg/dL (0.2-1.0); BLOOD UREA NITROGEN 38 mg/dL (7-18); CALCIUM 8.6 mg/dL (8.5-10.1); CHLORIDE 101 mmol/L (98-107); CO2 28 mmol/L (21-32); GLUCOSE,RANDOM 87 mg/dL (74-106); POTASSIUM 3.9 mmol/L (3.5-5.1); SGOT/AST 27 U/L (15-37); SGPT/ALT 19 U/L (12-78); SODIUM 139 mmol/L (136-145); TOT PROT 7.4 g/dl (6.4-8.2)
[2018-01-23] MEDS ORDERED: ACETAMINOPHEN 325 MG TABLET (FP) ONE ×2 (05:54→19:00)
[2018-01-23 06:04] LABS: N-TERMINAL BNP 120006.45 pg/ml (5-450)
[2018-01-23] MEDS ORDERED: METOCLOPRAMIDE HCL INJECTION 10 MG/2 ML VIAL IVPUSH ONE (07:29)
[2018-01-23] MEDS ORDERED: METOCLOPRAMIDE HCL INJECTION 10 MG/2 ML VIAL ONE (07:39)
--- NOTE | 2018-01-23 07:52 | PDOC ---
*Physical Exam - Vital Signs Last Vital Signs Temp Pulse Resp BP Pulse Ox 97.9 F 88 18 152/79 96 01/23/18 05:03 01/23/18 00:55 01/23/18 05:03 01/23/18 05:03 01/23/18 05:03 - Physical Exam Comments: 01/23/18 07:48 GENERAL: Awake, alert, and fully oriented, in no acute distress HEAD: No signs of trauma, normocephalic, atraumatic EYES: PERRLA, EOMI, sclera anicteric, conjunctiva clear ENT: Auricles normal inspection, hearing grossly normal, nares patent, oropharynx clear without exudates. Moist mucosa LUNGS: No distress, speaks full sentences, clear to auscultation bilaterally HEART: Regular rate and rhythm, normal S1 and S2, no murmurs, rubs or gallops, peripheral pulses normal and equal bilaterally. EXTREMITIES: Normal inspection, Normal range of motion, no edema. No clubbing or cyanosis. NEUROLOGICAL: Cranial nerves II through XII grossly intact. Normal speech, no focal sensorimotor deficits SKIN: Warm, Dry, normal turgor, no rashes or lesions noted. ED Treatment Course - LABORATORY CBC & Chemistry Diagram: 01/23/18 05:03 01/23/18 05:03 - ADDITIONAL ORDERS Additional order review: Laboratory Results 01/23/18 01/23/18 01/23/18 05:06 05:03 05:03 PT with INR 29.00 H INR 2.57 H D PTT (Actin FS) 37.0 H Sodium 139 Potassium 3.9 Chloride 101 Carbon Dioxide 28 Anion Gap 10 BUN 38 H Creatinine 5.0 H Creat Clearance w eGFR 11.19 Random Glucose 87 Calcium 8.6 Total Bilirubin 0.9 AST 27 D ALT 19 Alkaline Phosphatase 141 H D Creatine Kinase 55 Troponin I 0.06 H D B-Natriuretic Peptide Cancelled 918714.45 H Total Protein 7.4 Albumin 3.3 L 01/23/18 05:03 RBC 3.19 L MCV 101.4 H MCHC 32.7 RDW 19.9 H MPV 8.6 Neutrophils % 69.5 Lymphocytes % 12.2 Monocytes % 13.4 H Eosinophils % 3.8 Basophils % 1.1 - Medications Given in the ED: ED Medications Discontinued Medications Generic Name Dose Route Start Last Admin Trade Name Freq PRN Reason Stop Dose Admin Acetaminophen 650 mg 06/03/18 04:08 01/23/18 04:57 Tylenol - PO 01/23/18 04:09 650 mg ONCE ONE Administration Medical Decision Making - Medical Decision Making 01/23/18 07:[address] Hilliard. Patient is 82M with history of CHF, COPD, ESRD here with SOB. Pending admission call-back, stable. Admitted to Dr Cook. Given reglan for headache of insidious onset after tylenol failed. *DC/Admit/Observation/Transfer Diagnosis at time of Disposition: CHF exacerbation - Discharge Dispostion Condition at time of disposition: Stable Decision to Admit order: Yes Decision to Admit order Date/Time: Decision to Admit Order Category Date Time Status Decision to Admit to Hospital Routine Admission 01/23/18 07:47 Ordered - Referrals Referrals: Paul Harris MD [Primary Care Provider] - - Patient Instructions - Post Discharge Activity
[2018-01-23] MEDS ORDERED: DOCUSATE SODIUM 100 MG CAPSULE (FP) PO PRN (07:58)
[2018-01-23] MEDS: metoPROLOL SUCCINATE 25 MG TAB.SR.24H (FP) PO SCH (10:09)
[2018-01-23] MEDS ORDERED: METOPROLOL TARTRATE 25 MG TABLET (FP) ONE (10:22)
--- NOTE | 2018-01-23 12:45 | HP ---
Admitting History and Physical - Primary Care Physician PCP: Paul Harris - Admission Chief Complaint: SOB History of Present Illness: 81 yrs old man H/O HTN, CKD stage 5 on HD, anuric, Wednesday, and Wednesday, Chronic afib on Coumadin rate controlled, AR S/P TAVR at [facility] 4 wks ago, subsequent ECHO show normal functioning valve 2 wks ago, and TR , patient has been having SOB and Rt sided temporal head ache for past few days, under close monitoring, yesterday after dialysis session went home and c /o worsening SON , PNd and orthopnea family brought him to [facility] for evaluation, on arrival to [facility] patient was SOB and mild tachycardia denies any chest pain , cough or SOB , lab shows elevated BNP and mildly elevated trop I admitted for further management, at the time of examinationstill c/o SOB, denies any chest pain, patient also c/o Rt temporal and ocular pain, no visusal changes , no H/O migraine. - Past Medical History Cardiovascular: Yes: AFIB, Aneurysm, CAD, CHF, HTN, Hyperlipdemia Pulmonary: Yes: Bronchitis, COPD Renal/: Yes: Renal Failure, Hemodialysis - Past Surgical History Past Surgical History: Yes: AV Fistula/Graft - Smoking History Smoking history: Never smoked Have you smoked in the past 12 months: No Aproximately how many cigarettes per day: 0 If you are a former smoker, when did you quit?: 42 years ago - Alcohol/Substance Use Hx Alcohol Use: No Home Medications - Allergies Allergies/Adverse Reactions: Allergies Allergy/AdvReac Type Severity Reaction Status Date / Time enoxaparin sodium Allergy Verified 01/23/18 02:44 [From Lovenox] heparin (porcine) Allergy heparin Verified 01/23/18 02:44 [Heparin,Porcine] induced platelet antibody lidocaine Allergy Verified 01/23/18 02:44 - Home Medications Home Medications: Ambulatory Orders Sevelamer Carbonate [Renvela -] 3 tab PO TID 10/07/13 Metoprolol Succinate [Toprol XL -] 25 mg PO DAILY #0 10/13/13 Docusate Sodium [Colace -] 100 mg PO BID PRN capsule 10/31/17 Warfarin Na [Coumadin -] 3 mg PO DAILY@1800 tablet 10/31/17 oxyCODONE HCL [Roxicodone -] 5 mg PO Q6H PRN 7 Days #28 tablet MDD 4 10/31/17 Family Disease History - Family Disease History Family History: Unremarkable Review of Systems - Review of Systems Constitutional: denies: Chills, Diaphoresis, Fever HENT: denies: Difficult Swallowing, Ear Discharge, Ear Pain Neck: denies: Decreased ROM, Lumps, Pain on Movement, Stiffness Cardiovascular: reports: Palpitations, Shortness of Breath. denies: Chest Pain , Edema Respiratory: reports: Exercise Intolerance, Orthopnea. denies: Cough, Hemoptysis Gastrointestinal: denies: Abdominal Pain, Bloating, Constipation, Diarrhea Genitourinary: denies: Burning, Discharge, Dysuria Musculoskeletal: denies: Back Pain, Crepitus, Decreased ROM Hematology/Lymphatic: denies: Easily Bruised, Excessive Bleeding Physical Examination Vital Signs: Vital Signs Temperature 98.4 F 01/23/18 10:35 Pulse Rate 77 01/23/18 10:35 Respiratory Rate 16 01/23/18 10:35 Blood Pressure 111/74 01/23/18 10:35 O2 Sat by Pulse Oximetry (%) 97 01/23/18 10:35 Constitutional: Yes: Well Nourished, No Distress, Calm HENT: Yes: Atraumatic, Normocephalic. No: Drooling, Epistaxis, Pharyngeal Erythema Neck: Yes: Supple, Trachea Midline. No: Decreased ROM, Lymphadenopathy Cardiovascular: Yes: Pulse Irregular, Murmur (SM in AA), S1, S2. No: JVD Respiratory: Yes: Regular, Rales, SOB Gastrointestinal: Yes: Normal Bowel Sounds, Soft. No: Distention, Hematemesis Musculoskeletal: No: Back Pain, Joint Stiffness, Joint Swelling Edema: RUE: Trace, LLE: Trace Peripheral Pulses WNL: Yes Peripheral Pulses: Right Radial: 0, Left Doralis Pedis: 0 Neurological: Yes: Alert, Oriented. No: Aphasia, Asterixis ...Motor Strength: WNL Labs: CBC, BMP 01/23/18 05:03 01/23/18 05:03 Imaging - Results Chest X-ray: Report Reviewed (Pulmonary congestion) EKG: Report Reviewed (Afib) Problem List - Problems (1) CHF exacerbation Assessment/Plan: Unknown EF will F/U Cardiology recommondation patient has Diastolic dysfunctions due to AR and , ECHO cardiogram, cardiology and Renal consultation to evaluate iif patient needs extra volume removal Code(s): I50.9 - HEART FAILURE, UNSPECIFIED (2) COPD (chronic obstructive pulmonary disease) Assessment/Plan: Albuterol MDI PRN Code(s): J44.9 - CHRONIC OBSTRUCTIVE PULMONARY DISEASE, UNSPECIFIED (3) Chronic a-fib Assessment/Plan: Rate controlled on Coumadin INR therapeutic Code(s): I48.2 - CHRONIC ATRIAL FIBRILLATION (4) HTN (hypertension) Assessment/Plan: Well controlled cont Current meds Code(s): I10 - ESSENTIAL (PRIMARY) HYPERTENSION (5) ESRD (end stage renal disease) on dialysis Assessment/Plan: 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 Code(s): R51 - HEADACHE
[2018-01-23] MEDS: SEVELAMER CARBONATE 800 MG TAB (FP) PO SCH ×2 (13:30→22:07)
[2018-01-23] MEDS: oxyCODONE HCL 5 MG TABLET PO PRN (13:56)
[2018-01-23] MEDS ORDERED: oxyCODONE HCL 5 MG TABLET ONE (13:59)
[2018-01-23] MEDS ORDERED: LORATADINE 10 MG TABLET ONE (16:44)
[2018-01-23] MEDS: LORATADINE 10 MG TABLET PO SCH (16:45)
[2018-01-23] MEDS ORDERED: WARFARIN NA 3 MG TABLET PO SCH (18:00)
[2018-01-23] MEDS ORDERED: WARFARIN NA 1 MG TABLET (FP) ONE (18:42)
[2018-01-23] MEDS: ARTIFICIAL TEARS (POLYVINYL ALCOHOL 1.4%) OPTH DROPS OU PRN (18:59)
[2018-01-23] MEDS: ACETAMINOPHEN 325 MG TABLET (FP) PO PRN (19:01)
--- NOTE | 2018-01-23 22:06 | EKG ---
Test Reason : Blood Pressure : / mmHG Vent. Rate : 078 BPM Atrial Rate : 044 BPM P-R Int : 000 ms QRS Dur : 096 ms QT Int : 420 ms P-R-T Axes : 000 076 011 degrees QTc Int : 478 ms ATRIAL FLUTER WITH VARIABLE CONDUCTION INCOMPLETE RIGHT BUNDLE BRANCH BLOCK ABNORMAL ECG WHEN COMPARED WITH ECG OF 29-OCT-2017 19:24, INCOMPLETE RIGHT BUNDLE BRANCH BLOCK IS NOW PRESENT Confirmed by OSCAR RYAN MD ([id number]) on 01/23/2018 10:06:02 PM Referred By: Confirmed By:OSCAR RYAN MD
[2018-01-24] MEDS ORDERED: ACETAMINOPHEN 325 MG TABLET (FP) ONE ×3 (02:14→16:13)
[2018-01-24] MEDS ORDERED: oxyCODONE HCL 5 MG TABLET ONE ×3 (02:15→16:13)
[2018-01-24] MEDS: oxyCODONE HCL 5 MG TABLET PO PRN ×3 (02:22→22:04)
[2018-01-24] MEDS: ARTIFICIAL TEARS (POLYVINYL ALCOHOL 1.4%) OPTH DROPS OU PRN (02:23)
[2018-01-24] MEDS: ACETAMINOPHEN 325 MG TABLET (FP) PO PRN ×3 (02:23→22:05)
[2018-01-24 06:14] LABS: BASO % 1.9 % (0-2.0); EOS % 4.1 % (0-4.5); HEMATOCRIT 32.7 % (35.4-49); HEMOGLOBIN 10.8 GM/dL (11.7-16.9); LYMPH % 27.3 % (8-40); MCH 33.3 pg (25.7-33.7); MCHC 32.9 g/dl (32.0-35.9); MEAN PLT VOLUME 8.8 fl (7.5-11.1); NEUT % 46.7 % (42.8-82.8); PLATELET COUNT 181 K/MM3 (134-434); RBC 3.23 M/mm3 (4.00-5.60); RDW 19.5 % (11.9-15.9); WHITE BLOOD COUNT 5.1 K/mm3 (4.0-10.0)
[2018-01-24 06:28] LABS: INR 2.39 (0.82-1.09)
[2018-01-24 06:46] LABS: ANION GAP 15 (8-16); BLOOD UREA NITROGEN 59 mg/dL (7-18); CALCIUM 8.9 mg/dL (8.5-10.1); CHLORIDE 100 mmol/L (98-107); CO2 24 mmol/L (21-32); CREATININE 6.4 mg/dL (0.7-1.3); GLUCOSE,RANDOM 86 mg/dL (74-106); POTASSIUM 4.3 mmol/L (3.5-5.1); SODIUM 139 mmol/L (136-145)
[2018-01-24 07:09] LABS: ERYTHROCYTE SEDIMENTATION RATE 69 mm/hr (0-20)
--- NOTE | 2018-01-24 09:15 | CON.CARD ---
Cardiology Consult (text) - Consultation Consultation Note: Cardiology Consult Dictated IMP: ESRD Permanent AF on warfarin Severe s/p TAVR recently at [place] Severe PHTN H/o HIT, DVT, IVC filter Now with worsening GRAVES, right sided facial pruritis/discomfort REC: 1. TELE 2. Echo to assess AVR, PHTN, r/o pericardial disease 3. Coumadin for INR goal 2.5-3.0 4. Optho eval 5. Will consult pulmonary as CXR does not show signs of gross overload despite markedly elevated BNP which may be due to chronic valve disease, severe PHTN in setting of ESRD.
[2018-01-24] MEDS: SEVELAMER CARBONATE 800 MG TAB (FP) PO SCH ×3 (09:29→18:02)
[2018-01-24] MEDS: metoPROLOL SUCCINATE 25 MG TAB.SR.24H (FP) PO SCH (09:30)
[2018-01-24] MEDS: LORATADINE 10 MG TABLET PO SCH (09:30)
--- NOTE | 2018-01-24 10:18 | CONS ---
DATE OF CONSULTATION: 01/24/2018 CARDIOLOGY CONSULTATION REQUESTED BY: Paul Harris MD REASON FOR CONSULTATION: Shortness of breath. 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 Patient had severe aortic stenosis, symptomatic, and recently underwent TAVR at [facility] approximately 1.5 months ago. He recovered well and had been feeling much improved with decreased exertional dizziness and more overall energy with improved exertional capacity. He now presents to the emergency room with several days of a constellation of symptoms including rhinorrhea, worsening dyspnea on exertion since Wednesday, as well as right-sided facial pruritus and ocular discomfort which began 2 days ago. Despite trying some [id number] allergy medication, his symptoms of rhinorrhea and dyspnea progressed prompting him to come to the emergency room. In the ER, his BNP was found to be markedly elevated. His chest x-ray, which I reviewed personally, shows cardiomegaly, but does not show any gross evidence of CHF. He denies fevers, chills, cough. He denies palpitations or chest pain. He does have some mild bilateral lower extremity edema which began about 1 week ago. PAST MEDICAL HISTORY: He denied any recent dietary indiscretions. CURRENT MEDICATIONS: Include Tylenol 650 mg p.o. q.6 p.r.n., Colace 100 mg p.o. b.i.d. p.r.n., Claritin 10 mg p.o. daily, Toprol XL 25 mg p.o. daily, oxycodone 5 mg p.o. q.6 p.r.n., Renvela and Coumadin 3 mg p.o. q.6 p.r.n. ALLERGIES: HE IS ALLERGIC TO LOVENOX, HEPARIN, AND LIDOCAINE. It should be noted that he had a history of heparin-induced thrombocytopenia. FAMILY HISTORY: Noncontributory to this presentation. SOCIAL HISTORY: Patient lives alone, has a daughter who is actively involved in his care. 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 He nerve smoked. He denies any alcohol or drugs. PHYSICAL EXAMINATION: General: He is comfortable in no distress. Vital Signs: Temperature 97.9, pulse 85, blood pressure 136/79, initial blood pressure 152/80. His oxygen saturation is 97% on room air. HEENT: His right eye is mildly erythematous and watery. He is anicteric. Neck: No JVD or bruits. Heart: S1, 2. Soft systolic murmur at the right sternal border. Chest: Decreased breath sounds at the bases but otherwise no active wheezing. Abdomen: Soft, nontender. No rebound or guarding. Extremities: Significant for 1+ ankle edema bilaterally. DIAGNOSTIC STUDIES: His EKG showed atrial fibrillation, 78 beats per minute with nonspecific ST changes as well as an incomplete right bundle branch block. LABS: White count 5.1, hematocrit 32.7, platelets 181. INR 2.4. Sodium 139, potassium 4.3, BUN 59, creatinine 6.4. Troponin 0.06. CK negative, 55. Second troponin stable at 0.06. His BNP was 120,000. IMPRESSION:1. End-stage renal disease on dialysis. 2. Permanent atrial fibrillation on warfarin. 3. Severe aortic stenosis, status post transcatheter aortic valve replacement at [facility]. 4. Severe pulmonary hypertension. 5. History of heparin-induced thrombocytopenia. 6. Deep vein thrombosis, inferior vena cava filter many years ago. 7. Worsening dyspnea on exertion, right-sided facial pruritus, and discomfort. RECOMMENDATIONS: 1. Telemetry monitoring to rule out rapid atrial fibrillation as an etiology of dyspnea. 2. Echocardiogram today to assess his aortic valve replacement, reassess pulmonary hypertension, and to rule out pericardial disease which can occur post procedurally in TAVR as well as in patients with end-stage renal disease. 3. Coumadin for an INR goal of 2.5 to 3.0. 4. Opto evaluation for his right-sided ocular pruritus/pain. 5. Will also consult Pulmonary as his chest x-ray does not show any cross evidence of volume overload despite the markedly elevated BNP which could be due to chronic valvular disease, chronic severe pulmonary hypertension in the setting of end-stage renal disease. ROSITA NOE M.D. [id number]
[2018-01-24 10:24] LABS: ANISOCYTOSIS 1+; PLATELET ESTIMATE NORMAL
--- NOTE | 2018-01-24 13:29 | PN ---
Progress Note, Physician Chief Complaint: pt sitting in chair in no acute distress. reports moderate pain of right frontal / optic region without improvement. also reports mild sob, unable to lay flat per pt. denies chest pain, n/v/d, unilateral weakness, loss of vision, diplopia - Current Medication List Current Medications: Active Medications Acetaminophen (Tylenol -) 650 mg PO Q6H PRN PRN Reason: HEADACHE Last Admin: 01/24/18 09:23 Dose: 650 mg Artificial Tears (Artificial Tears) 1 drop OU Q6H PRN PRN Reason: DRY EYES Last Admin: 01/24/18 02:23 Dose: 1 drop Docusate Sodium (Colace -) 100 mg PO BID PRN PRN Reason: CONSTIPATION Last Admin: 01/23/18 13:56 Dose: 100 mg Loratadine (Claritin -) 10 mg PO DAILY [facility] Last Admin: 01/24/18 09:30 Dose: 10 mg Metoprolol Succinate (Toprol Xl -) 25 mg PO DAILY [facility] Last Admin: 01/24/18 09:30 Dose: 25 mg Oxycodone HCl (Roxicodone -) 5 mg PO Q6H PRN PRN Reason: PAIN LEVEL 6-10 Last Admin: 01/24/18 09:23 Dose: 5 mg Sevelamer Carbonate (Renvela -) 2,400 mg PO TIDCM [facility] Last Admin: 01/24/18 09:29 Dose: 2,400 mg Warfarin Sodium (Coumadin -) 3 mg PO DAILY@1800 [facility] Last Admin: 01/23/18 18:42 Dose: 3 mg - Objective Vital Signs: Vital Signs Temperature 97.5 F L 01/24/18 10:52 Pulse Rate 88 01/24/18 10:52 Respiratory Rate 17 01/24/18 10:52 Blood Pressure 140/77 01/24/18 10:52 O2 Sat by Pulse Oximetry (%) 97 01/24/18 07:06 Constitutional: Yes: Well Nourished, No Distress Eyes: Yes: Conjunctiva Clear, Other (protruding, +pain, +numbness). No: Diplopia, Ptosis Cardiovascular: Yes: WNL, Regular Rate and Rhythm Respiratory: Yes: WNL, Regular, CTA Bilaterally, SOB. No: Rhonchi, Tachypnea, Wheezes Gastrointestinal: Yes: WNL, Normal Bowel Sounds. No: Distention, Tenderness Edema: Yes Edema: LLE: 2+, RLE: 2+ Neurological: Yes: WNL, Alert, Oriented Psychiatric: Yes: WNL, Alert, Oriented Labs: CBC, BMP 01/24/18 05:48 01/24/18 05:48 INR, PTT INR 2.39 (0.82-1.09) H 01/24/18 05:48 - ....Imaging Chest X-ray: Report Reviewed Ultrasound: Report Reviewed (B/L doppler of LE's neg) EKG: Report Reviewed Problem List - Problems (1) Temporal headache Code(s): R51 - HEADACHE (2) COPD (chronic obstructive pulmonary disease) Code(s): J44.9 - CHRONIC OBSTRUCTIVE PULMONARY DISEASE, UNSPECIFIED (3) Chronic a-fib Code(s): I48.2 - CHRONIC ATRIAL FIBRILLATION (4) ESRD (end stage renal disease) on dialysis Code(s): N18.6 - END STAGE RENAL DISEASE; Z99.2 - DEPENDENCE ON RENAL DIALYSIS (5) HTN (hypertension) Code(s): I10 - ESSENTIAL (PRIMARY) HYPERTENSION Assessment/Plan IMP: ESRD- //wed schedule Permanent AF on warfarin Severe s/p TAVR recently at [facility] Severe PHTN H/o HIT, DVT, IVC filter Worsening GRAVES right sided temporal/optic pain/discomfort PLAN: 1. Nephrology consulted, HD tmrw 2. Echo reviewed, no acute findings, continue home meds, cardiology following 3. INR at goal , Home dose coumadin :6mg, verified with PCP, resume 4. Optho eval pending, rheum consult ordered, esr elevation in 60s- r/o temp arteritis, prn analgesics 5. pulm consult pending to r/o pulm etiology of worsening sob Throughout the day, pt started to c/o worsening right sided optic pain/headache with optic numbess/increased projection. Case discussed with , , . and I spoke to Opth and he has refused to see the pt. consulted for ophtho. Rheum to see pt tonight. In the setting of pt's symptoms, and elevated ESR, will need to r/o temp arteritis, will try 1 dose of 60mg predisone and monitor. Head CT and Chest CT without acute findings. I will start pt on Tobramycin eye drops to assess improvement as well. Will continue to monitor.
--- NOTE | 2018-01-24 15:49 | PN ---
Progress Note (short form) - Note Progress Note: Cardiology follow up Echo shows normal fxn TAVR Moderate MR No pericardial effusion Normal EF PA pressure severely elevated, chronically. RVSP 70s post TAVR now in 90s LE Duplex negative DVT b/l, INR therapeutic. Doubt PE. Now having worsening pain and numbness over right eye. No loss of vision. Elevated ESR REC: 1. Neuro consult/ optho counsult 2. Rheum to see 3. D/w Pulmonary, will repeat CXR given orthopnea sx 4. Admit to telemetry
[2018-01-24] MEDS ORDERED: CLOPIDOGREL BISULFATE 75 MG TABLET (FP) ONE (16:13)
--- NOTE | 2018-01-24 17:11 | CONSULT ---
Consult - text type - Consultation Consultation Note: Neurology History of Present Illness The patient is an 82 year old with a history of CHF, COPD, ESRD on dialysis ( , , Wed) who presents for evaluation of SOB. The patient reports receiving his Wednesday dialysis and after began experiencing a sensation of SOB prompting his presentation to the ED for further evaluation. I was consulted by Cardiology, Dr. St, as patient was reporting symptoms of R eye pain and discomfort. He states it has been occuring for a few weeks and was accompanied at bedside with his daughter. Extraoccular movements were intact and he did not have diplopia. Ct head completed and did not show acute changes. Discussed with family and nitroglycerin supervisor plan for MRI brain and they were in agreement. Also spoke to primary team. Optho consult pending and may provide more insight. Rheum consulted to evaluate for giant cell arteritis. He otherwise denies fevers, chills, chest pain, cough, nausea, vomiting, abdominal pain, increased swelling, or changes with urination or bowel movements. Past History - Past Medical History Allergies/Adverse Reactions: Allergies Allergy/AdvReac Type Severity Reaction Status Date / Time enoxaparin sodium Allergy Verified 01/23/18 02:44 [From Lovenox] heparin (porcine) Allergy heparin Verified 01/23/18 02:44 [Heparin,Porcine] induced platelet antibody lidocaine Allergy Verified 01/23/18 02:44 Home Medications: Ambulatory Orders Sevelamer Carbonate [Renvela -] 3 tab PO TID 10/07/13 Metoprolol Succinate [Toprol XL -] 25 mg PO DAILY #0 10/13/13 Docusate Sodium [Colace -] 100 mg PO BID PRN capsule 10/31/17 Warfarin Na [Coumadin -] 3 mg PO DAILY@1800 tablet 10/31/17 oxyCODONE HCL [Roxicodone -] 5 mg PO Q6H PRN 7 Days #28 tablet MDD 4 10/31/17 Anemia: Yes Asthma: No Cancer: No Cardiac Disorders: Yes (atrial fibrillation,CAD, aortic stenosis, aortic aneurysm) CVA: No COPD: No CHF: No Dementia: No Diabetes: Yes Dialysis: Yes (//WED) GI Disorders: No Disorders: No HTN: Yes Hypercholesterolemia: Yes Kidney Stones: (renal failure shiley to right chest, av fistula to left arm) Liver Disease: No Seizures: No Thyroid Disease: No - Surgical History Abdominal Surgery: No Appendectomy: No Cardiac Surgery: No Cholecystectomy: No Lung Surgery: (left arm fistula, right chest shiley) Neurologic Surgery: No Orthopedic Surgery: No - Suicide/Smoking/Psychosocial Hx Smoking Status: No Smoking History: Never smoked Have you smoked in the past 12 months: No Number of Cigarettes Smoked Daily: 0 If you are a former smoker, when did you quit?: 42 years ago Information on smoking cessation initiated: No Hx Alcohol Use: No Drug/Substance Use Hx: No Substance Use Type: None Hx Substance Use Treatment: No Review of Systems Constitutional: No fevers, chills, fatigue, malaise HEENT: No Rhinorrhea, nasal congestion, + R eye discomfort Cardiovascular: No chest pain, syncope, palpitations, lightheadedness Respiratory: SOB. No Cough, Hemoptysis, Gastrointestinal: No Abdominal pain, Nausea, Vomiting, Constipation, Diarrhea, Melena Genitourinary: No Dysuria, Frequency, Urgency, Hesitancy, Hematuria, Flank pain Musculoskeletal: No Myalgia, arthralgia Skin: No rashes, itching, bruising, pallor Neurologic: No Headache, Dizziness, Numbness, Weakness, or Tingling Psychiatric: No Hallucinations. No SI or HI *Physical Exam Vital Signs Period Temp Pulse Resp BP Sys/Montalvo Pulse Ox Last 24 Hr 97.5 F-97.9 F 85-88 17-18 135-140/69-77 97-97 General Appearance: Nourished. No Apparent Distress HEENT: EOMI, RL, R eye conunctival erythema noted, No Pharyngeal Erythema, Tonsillar Exudate, Tonsillar Erythema Neck: No Cervical Lymphadenopathy Respiratory/Chest: Lungs Clear, Normal Breath Sounds. No Crackles, Rales, Rhonchi, Wheezing Cardiovascular: Regular Rhythm, Regular Rate. No Murmur, Gallops, Rubs Gastrointestinal/Abdominal: Normal Bowel Sounds, Soft. No Guarding, Rebound, Tenderness Musculoskeletal: No CVA Tenderness Extremity: Left AV Fistula. Normal Capillary Refill Integumentary: Normal Color, Dry, Warm Neurologic: Fully Oriented, Alert, Normal Mood/Affect, Normal Response, Moves all extremities equally, light touch intact, gait deferred CBCD WBC 5.1 K/mm3 (4.0-10.0) 01/24/18 05:48 RBC 3.23 M/mm3 (4.00-5.60) L 01/24/18 05:48 Hgb 10.8 GM/dL (11.7-16.9) L 01/24/18 05:48 Hct 32.7 % (35.4-49) L 01/24/18 05:48 MCV 101.0 fl (80-96) H 01/24/18 05:48 MCHC 32.9 g/dl (32.0-35.9) 01/24/18 05:48 RDW 19.5 % (11.9-15.9) H 01/24/18 05:48 Plt Count 181 K/MM3 (134-434) 01/24/18 05:48 MPV 8.8 fl (7.5-11.1) 01/24/18 05:48 CMP Sodium 139 mmol/L (136-145) 01/24/18 05:48 Potassium 4.3 mmol/L (3.5-5.1) 01/24/18 05:48 Chloride 100 mmol/L (98-107) 01/24/18 05:48 Carbon Dioxide 24 mmol/L (21-32) 01/24/18 05:48 Anion Gap 15 (8-16) 01/24/18 05:48 BUN 59 mg/dL (7-18) H D 01/24/18 05:48 Creatinine 6.4 mg/dL (0.7-1.3) H D 01/24/18 05:48 Creat Clearance w eGFR 11.19 (>60) 01/23/18 05:03 Random Glucose 86 mg/dL (74-106) 01/24/18 05:48 Calcium 8.9 mg/dL (8.5-10.1) 01/24/18 05:48 Total Bilirubin 0.9 mg/dL (0.2-1.0) 01/23/18 05:03 AST 27 U/L (15-37) D 01/23/18 05:03 ALT 19 U/L (12-78) 01/23/18 05:03 Alkaline Phosphatase 141 U/L (45-117) H D 01/23/18 05:03 Total Protein 7.4 g/dl (6.4-8.2) 01/23/18 05:03 Albumin 3.3 g/dl (3.4-5.0) L 01/23/18 05:03 CARDIAC ENZYMES Creatine Kinase 55 IU/L (39-308) 01/23/18 05:03 Troponin I 0.06 ng/ml (0.00-0.05) H 01/23/18 08:55 CT head reviewed Plan: 82 year old with a history of CHF, COPD, ESRD on dialysis (, , Wed) who presents for evaluation of SOB. The patient reports receiving his Wednesday dialysis and after began experiencing a sensation of SOB prompting his presentation to the ED for further evaluation. I was consulted by Cardiology, Dr. St, as patient was reporting symptoms of R eye pain and discomfort. He states it has been occuring for a few weeks and was accompanied at bedside with his daughter. Extraoccular movements were intact and he did not have diplopia. Ct head completed and did not show acute changes. Discussed with family and nitroglycerin supervisor plan for MRI brain and they were in agreement. Also spoke to primary team. Optho consult pending and may provide more insight. Rheum consulted to evaluate for giant cell arteritis. Will order MRI brain to rule out CVA. Fall precautions. ESRD/HD per Renal. Monitor BP, maintain normotensive range, cardiology following.
--- NOTE | 2018-01-24 17:47 | PN ---
Progress Note (short form) - Note Progress Note: PULMONARY CONSULTATION DICTATED 01/24/18 IMP DYSPNEA/ORTHOPNEA SEVERE PULMONARY HTN,VOLUME OVERLOAD S/P TAVR AFIB ESRD ON HD H/O HIT,DVT S/P IVC FILTER ? TEMPORAL ARTERITIS PLAN HD PER RENAL SUPPLEMENTAL O2 DAILY WTS AC STRICT I+OS RHEUMATOLOGY EVALUATION DR SHARPE Problem List - Problems (1) Pulmonary hypertension Code(s): I27.20 - PULMONARY HYPERTENSION, UNSPECIFIED (2) Aortic stenosis Code(s): I35.0 - NONRHEUMATIC AORTIC (VALVE) STENOSIS (3) CHF exacerbation Code(s): I50.9 - HEART FAILURE, UNSPECIFIED Qualifiers: Heart failure type: diastolic Qualified Code(s): I50.33 - Acute on chronic diastolic (congestive) heart failure (4) Chronic a-fib Code(s): I48.2 - CHRONIC ATRIAL FIBRILLATION (5) ESRD (end stage renal disease) on dialysis Code(s): N18.6 - END STAGE RENAL DISEASE; Z99.2 - DEPENDENCE ON RENAL DIALYSIS (6) HTN (hypertension) Code(s): I10 - ESSENTIAL (PRIMARY) HYPERTENSION (7) Dyspnea and respiratory abnormalities Code(s): R06.00 - DYSPNEA, UNSPECIFIED; R06.89 - OTHER ABNORMALITIES OF BREATHING (8) Orthopnea Code(s): R06.01 - ORTHOPNEA
[2018-01-24 17:49] VITALS: BMI 29.2
[2018-01-24] MEDS ORDERED: WARFARIN NA 3 MG TABLET PO SCH (18:00)
[2018-01-24] MEDS ORDERED: TOBRAMYCIN 0.3% OPHTH SOLN 5 ML BOTTLE OD SCH (18:00)
[2018-01-24] MEDS: CLOPIDOGREL BISULFATE 75 MG TABLET (FP) PO SCH (18:06)
[2018-01-24] MEDS ORDERED: predniSONE 20 MG TABLET (UD) PO ONE ×2 (18:18→22:19)
--- NOTE | 2018-01-24 19:14 | CONS ---
PULMONARY CONSULTATION DATE OF CONSULTATION: 01/24/2018 REFERRING PHYSICIAN: Jalen Metzger MD The patient is an 82-year-old white male with past medical history of hypertension; chronic kidney disease, stage 5, currently maintained on hemodialysis 3 times weekly; chronic atrial fibrillation maintained on anticoagulation; AI status post TAVR at [facility] 4 weeks ago; severe pulmonary hypertension; tricuspid regurgitation; hyperlipidemia; hypertension; congestive heart failure, admitted to [facility] with increasing shortness of breath, dyspnea on exertion, and orthopnea. Patient states for the past few months and a half or so he started developing increasing shortness of breath and dyspnea on exertion, status post TAVR, did not offer significant improvement. He states he has been progressively more short of breath and developed orthopnea when he lies down. He has to get right up secondary to severe dyspnea. He denies any chest pain, nausea, vomiting, or diaphoresis. He also has been complaining of some right-sided temporal headache for the past few days. Patient was admitted with the above. On admission, he was evaluated by Dr. Metzger for cardiology consultation. Echocardiogram today reveals normal left ventricular systolic function with the right ventricle not well visualized. Left atrium is severely dilated, as well as the right atrium is severely dilated. There is [id number] mitral annulus calcification. There is also [id number] tricuspid regurgitation. Pulmonary systolic pressure was 91. Prostatic aortic valve was in normal position. Patient denies any history of tobacco use. There is no history of occupational exposure to chemicals or fumes. PAST MEDICAL HISTORY: Again includes end-stage renal disease on hemodialysis; permanent atrial fibrillation on Coumadin; abdominal wall hematoma several months ago; history of DVT with heparin-induced thrombocytopenia, status post IVC filter many years ago; severe pulmonary hypertension; severe aortic stenosis, status post TAVR. REVIEW OF SYSTEMS: Positive orthopnea. Positive dyspnea on exertion. No chest pain. No palpitations. No cough. No hemoptysis. No abdominal pain. Positive lower extremity edema. CURRENT MEDICATIONS: Include Tylenol, Tobrex, Coumadin, Toprol, Colace, Artificial Tears, Roxicodone, Renvela, Plavix, Claritin. PHYSICAL EXAMINATION: General: The patient is a well-developed, well-nourished male, awake, alert, in no acute distress, sitting out of bed in chair. Vital Signs: He is afebrile. Blood pressure 130/80, respiratory rate is 18, O2 saturation is 97% on room air. HEENT: Normocephalic, atraumatic. Neck: Supple. Heart: Regular. S1, S2. Chest: Clear. Abdomen: Soft. Bowel sounds positive. Extremities: Bilateral lower extremity edema, 3+ to 4+. LABORATORY DATA: WBC is 5.1, hemoglobin 10.8, hematocrit 32.7, with platelet count of 181,000. INR is 2.39. BUN 59, creatinine 6.4. Chest CT reveals no evidence of acute infiltrates or masses. There was chronic lung disease. No acute pathology within the chest and cardiomegaly and small pericardial effusion and trace amount of ascites. Head CT: No evidence of acute intracranial pathology. IMPRESSION: 1. Dyspnea, orthopnea, most likely secondary to severe pulmonary hypertension, volume overload 2. End-stage renal disease on hemodialysis. 3. Thoracic aortic aneurysm, stable. 4. History of anemia. 5. Hypertension. 6. History of heparin-induced thrombocytopenia status post inferior vena cava filter. 7. R/O Temporal Arteritis PLAN: Continue hemodialysis as per Renal, strict I's and O's, daily weights, supplemental O2, inhaled bronchodilators p.r.n.Rheumatology evaluation. PERNELL SHARPE M.D. THONY/[id number] MTDD
--- NOTE | 2018-01-24 20:15 | PN ---
Progress Note (short form) - Note Progress Note: spoke with Dr. Diamond who stated that his exam was significant for decreased sensation and blepharitis in right eye, symptoms of his external ocular disease. Rest of exam normal. Plan: 1. artificial tears for right eye, 1 gtt q3h 2. discontinue tobramycin eye drops
--- NOTE | 2018-01-24 20:41 | CONSULT ---
Consult - text type - Consultation Consultation Note: Renal Consult for ESRD on HD This is a 82 year old gentleman with PMhx of ESRD on HD (TTS), CHF, COPD who presented with SOB and admitted for evaluation. Pt last had dialysis on Wednesday. Pt reports experiencing SOB on wednesday night. + LE edmea, N/V/D. No Fever, chills. No LI, confusion, lethargy or weakness. PMhx: as above Allergies: NKDA Family Hx: NC Social hx: No T/A/D ROS: as per HPI Home Medications Medication Instructions Recorded Sevelamer Carbonate [Renvela -] 3 tab PO TID 10/07/13 Metoprolol Succinate [Toprol XL -] 25 mg PO DAILY #0 10/13/13 Docusate Sodium [Colace -] 100 mg PO BID PRN capsule 10/31/17 Warfarin Na [Coumadin -] 3 mg PO DAILY@1800 tablet 10/31/17 oxyCODONE HCL [Roxicodone -] 5 mg PO Q6H PRN 7 Days #28 tablet 10/31/17 MDD 4 Cinacalcet HCl [Sensipar -] 30 mg PO BID 01/24/18 Vital Signs Temperature 98.2 F 01/24/18 17:15 Pulse Rate 75 01/24/18 17:15 Respiratory Rate 18 01/24/18 17:15 Blood Pressure 130/80 01/24/18 17:15 O2 Sat by Pulse Oximetry (%) 98 01/24/18 17:49 NAD awake and alert MMM No JVD RRR CTA, no rales soft NT/ND + edema in LE CBC, BMP 01/24/18 05:48 01/24/18 05:48 Current Medications Acetaminophen (Tylenol -) 650 mg PO Q6H PRN PRN Reason: HEADACHE Last Admin: 01/24/18 09:23 Dose: 650 mg Artificial Tears (Artificial Tears) 1 drop OD Q3H PRN PRN Reason: DRY EYES Clopidogrel Bisulfate (Plavix -) 75 mg PO DAILY [facility] Last Admin: 01/24/18 18:06 Dose: 75 mg Docusate Sodium (Colace -) 100 mg PO BID PRN PRN Reason: CONSTIPATION Last Admin: 01/23/18 13:56 Dose: 100 mg Loratadine (Claritin -) 10 mg PO DAILY [facility] Last Admin: 01/24/18 09:30 Dose: 10 mg Metoprolol Succinate (Toprol Xl -) 25 mg PO DAILY [facility] Last Admin: 01/24/18 09:30 Dose: 25 mg Oxycodone HCl (Roxicodone -) 5 mg PO Q6H PRN PRN Reason: PAIN LEVEL 6-10 Last Admin: 01/24/18 09:23 Dose: 5 mg Sevelamer Carbonate (Renvela -) 2,400 mg PO TIDCM [facility] Last Admin: 01/24/18 18:02 Dose: 2,400 mg Warfarin Sodium (Coumadin -) 6 mg PO DAILY@1800 [facility] Last Admin: 01/24/18 18:23 Dose: 6 mg 82 year old gentleman with PMhx of ESRD on HD (TTS), CHF, COPD who presented with SOB and admitted for evaluation. #SOB w/o overt fluid overload/CHF #ESRD on HD #CHF #r/o temporal arteritis /LI #Renal Osteodystrophy CT of the chest w/o evidence of fluid overload will plan for dialysis tomorrow in AM with UF as tolerated Neurology and Rheum follow up for LI will continue YESSICA with HD Continue Renvela TID with meals Renal Diet, 1.2L fluid restriction Thank you Will follow Juan Berrios DO
[2018-01-24] MEDS ORDERED: SODIUM CHLORIDE 250 ML IV PRN (20:44)
[2018-01-24] MEDS: CINACALCET HCL 30 MG TAB (FP) PO SCH (21:32)
[2018-01-24] MEDS: ARTIFICIAL TEARS (POLYVINYL ALCOHOL 1.4%) OPTH DROPS OD PRN ×2 (21:33→22:35)
--- NOTE | 2018-01-24 21:59 | CONSULT ---
Consult Consult Specialty:: Rheumatology - History of Present Illness History of Present Illness: 82 year old with a history of CAD, CHF, Hyperlipidemia, HTN, severe aortic stenosis, S/P TAVR, pulmonary hypertension, A. fib, COPD, ESRD on HD admitted with headache and SOB. HPI: In previous notes in the chart it is indicated that the patient has had pain in the right supraorbital and parietal region for few weeks. The patient reports he started with the symptoms only 2 days ago. He denies shoulder, hip or other peripheral joint pain and denies jaw pain, jaw claudication or changes in vision. On admission ESR was 69 and today 86. Creatinine [address] scan of the head : changes suggestive of chronic small vessel ischemia. The patient received today one dose of Prednisone 60 mg PO. - History Source History Provided By: Patient, Medical Record Limitations to Obtaining History: No Limitations - Past Medical History Cardio/Vascular: Yes: AFIB, Aneurysm, CAD, CHF, HTN, Hyperlipdemia Pulmonary: Yes: Bronchitis, COPD Renal/: Yes: Renal Failure, Hemodialysis - Past Surgical History Past Surgical History: Yes: AV Fistula/Graft - Alcohol/Substance Use Hx Alcohol Use: No - Smoking History Smoking history: Never smoked Have you smoked in the past 12 months: No Aproximately how many cigarettes per day: 0 If you are a former smoker, when did you quit?: 42 years ago Home Medications - Allergies Allergies/Adverse Reactions: Allergies Allergy/AdvReac Type Severity Reaction Status Date / Time enoxaparin sodium Allergy Verified 01/23/18 02:44 [From Lovenox] heparin (porcine) Allergy heparin Verified 01/23/18 02:44 [Heparin,Porcine] induced platelet antibody lidocaine Allergy Verified 01/23/18 02:44 - Home Medications Home Medications: Ambulatory Orders Sevelamer Carbonate [Renvela -] 3 tab PO TID 10/07/13 Metoprolol Succinate [Toprol XL -] 25 mg PO DAILY #0 10/13/13 Docusate Sodium [Colace -] 100 mg PO BID PRN capsule 10/31/17 Warfarin Na [Coumadin -] 3 mg PO DAILY@1800 tablet 10/31/17 oxyCODONE HCL [Roxicodone -] 5 mg PO Q6H PRN 7 Days #28 tablet MDD 4 10/31/17 Cinacalcet HCl [Sensipar -] 30 mg PO BID 06/04/18 Review of Systems - Review of Systems Constitutional: reports: Malaise Eyes: reports: No Symptoms HENT: reports: No Symptoms Neck: reports: No Symptoms Cardiovascular: reports: Shortness of Breath Respiratory: reports: SOB Gastrointestinal: reports: No Symptoms Musculoskeletal: reports: No Symptoms Neurological: reports: Other (See HPI) Physical Exam Vital Signs: Vital Signs Temperature 98.6 F 01/24/18 21:14 Pulse Rate 77 01/24/18 21:14 Respiratory Rate 20 01/24/18 21:14 Blood Pressure 121/67 01/24/18 21:14 O2 Sat by Pulse Oximetry (%) 98 01/24/18 17:49 Constitutional: Yes: No Distress Eyes: Yes: WNL HENT: Yes: Other (Temporal artery in the right parieto-frontal region is prominent (as compared to the left side) but not tender.) Neck: Yes: WNL Cardiovascular: Yes: WNL Respiratory: Yes: WNL Musculoskeletal: Yes: Other (No active joints) Labs: CBC, BMP 01/24/18 05:48 01/24/18 05:48 Problem List - Problems (1) Temporal arteritis Assessment/Plan: Probable temporal arteritis. Plan: The patient received today Prednisone 60 mg. I will increase the dose to 80 mg/d (for 1 mg/kg/d). The patient is reluctant to have a temporal artery biopsy. I spoke with his daughter who suggested to have Dr Alba talk to him (he has done several procedures in the patient). Risk for the procedure based on anticoagulation. If it is no done he should continue treatment considering he has the disease. Code(s): M31.6 - OTHER GIANT CELL ARTERITIS
[2018-01-25] MEDS: oxyCODONE HCL 5 MG TABLET PO PRN (06:30)
[2018-01-25] MEDS: ACETAMINOPHEN 325 MG TABLET (FP) PO PRN ×2 (06:34→17:42)
[2018-01-25 06:54] LABS: BASO % 0.6 % (0-2.0); EOS % 0.1 % (0-4.5); HEMATOCRIT 33.7 % (35.4-49); HEMOGLOBIN 11.1 GM/dL (11.7-16.9); LYMPH % 15.9 % (8-40); MCH 33.4 pg (25.7-33.7); MCHC 33.1 g/dl (32.0-35.9); MEAN CELL VOLUME 101.2 fl (80-96); MEAN PLT VOLUME 9.2 fl (7.5-11.1); MONO % 2.2 % (3.8-10.2); NEUT % 81.2 % (42.8-82.8); PLATELET COUNT 175 K/MM3 (134-434); RBC 3.33 M/mm3 (4.00-5.60); RDW 19.8 % (11.9-15.9); WHITE BLOOD COUNT 2.5 K/mm3 (4.0-10.0)
[2018-01-25 07:19] LABS: CHLORIDE 98 mmol/L (98-107); POTASSIUM 5.7 mmol/L (3.5-5.1); SODIUM 135 mmol/L (136-145)
[2018-01-25 07:28] LABS: ANION GAP 16 (8-16); BLOOD UREA NITROGEN 76 mg/dL (7-18); CALCIUM 9.2 mg/dL (8.5-10.1); CO2 21 mmol/L (21-32); GLUCOSE,RANDOM 145 mg/dL (74-106)
[2018-01-25 07:33] LABS: CREATININE 7.7 mg/dL (0.7-1.3)
[2018-01-25] MEDS: predniSONE 20 MG TABLET (UD) PO SCH (07:52)
[2018-01-25] MEDS: SEVELAMER CARBONATE 800 MG TAB (FP) PO SCH ×3 (07:52→17:38)
--- NOTE | 2018-01-25 08:45 | PN ---
Progress Note, Physician Chief Complaint: Appreciate rheum input: prob temp arteritis, refused bx, started on Prednisone Appreciate optho consult, reviewed in paper chart TELE: reviewed, Controlled AF. Ventricular couplet. Head CT without acute changes Chest CT: chronic lung dz, ascites, small Pericardial effusion; no sig pleural effusions History of Present Illness: Still having pain in and around right eye. Less erythematous today Denies CP. +Orthopnea - Current Medication List Current Medications: Active Medications Acetaminophen (Tylenol -) 650 mg PO Q6H PRN PRN Reason: HEADACHE Last Admin: 01/25/18 06:34 Dose: 650 mg Artificial Tears (Artificial Tears) 1 drop OD Q3H PRN PRN Reason: DRY EYES Last Admin: 01/24/18 22:35 Dose: 1 drop Cinacalcet (Sensipar -) 30 mg PO BID [facility] Last Admin: 01/24/18 21:32 Dose: 30 mg Clopidogrel Bisulfate (Plavix -) 75 mg PO DAILY [facility] Last Admin: 01/24/18 18:06 Dose: 75 mg Docusate Sodium (Colace -) 100 mg PO BID PRN PRN Reason: CONSTIPATION Last Admin: 01/23/18 13:56 Dose: 100 mg Epoetin Randy (Epogen -) 4,000 unit IVPUSH ONCE ONE Stop: 01/25/18 06:01 Sodium Chloride (Normal Saline -) 250 mls @ 3,000 mls/hr IV PRN PRN PRN Reason: Hypotension during Dialysis Stop: 01/25/18 20:44 Loratadine (Claritin -) 10 mg PO DAILY [facility] Last Admin: 01/24/18 09:30 Dose: 10 mg Metoprolol Succinate (Toprol Xl -) 25 mg PO DAILY [facility] Last Admin: 01/24/18 09:30 Dose: 25 mg Oxycodone HCl (Roxicodone -) 5 mg PO Q6H PRN PRN Reason: PAIN LEVEL 6-10 Last Admin: 01/25/18 06:30 Dose: 5 mg Prednisone (Deltasone -) 80 mg PO DAILY@0800 [facility] Last Admin: 01/25/18 07:52 Dose: 80 mg Sevelamer Carbonate (Renvela -) 2,400 mg PO TIDCM [facility] Last Admin: 01/25/18 07:52 Dose: 2,400 mg Warfarin Sodium (Coumadin -) 6 mg PO DAILY@1800 [facility] Last Admin: 01/24/18 18:23 Dose: 6 mg - Objective Vital Signs: Vital Signs Temperature 98.2 F 01/25/18 05:33 Pulse Rate 70 01/25/18 05:33 Respiratory Rate 20 01/25/18 05:33 Blood Pressure 144/80 01/25/18 05:33 O2 Sat by Pulse Oximetry (%) 96 01/24/18 23:02 Constitutional: Yes: Calm Eyes: Yes: Other (Right sclera erythematous, watery.) Cardiovascular: Yes: Pulse Irregular Respiratory: Yes: CTA Bilaterally (no rales or wheezing) Gastrointestinal: Yes: Soft, Ascites Edema: Yes Edema: LLE: 1+, RLE: 1+ Neurological: Yes: Alert, Oriented ...Motor Strength: WNL Labs: CBC, BMP 01/25/18 05:30 01/25/18 05:30 INR, PTT INR 2.39 (0.82-1.09) H 01/24/18 05:48 Laboratory Tests 01/25/18 01/25/18 05:30 05:30 WBC 2.5 L D Hgb 11.1 L Plt Count 175 Sodium 135 L Potassium 5.7 H D BUN 76 H D Creatinine 7.7 H* D C-Reactive Protein 1.5 H - ....Imaging EKG: Image Reviewed Assessment/Plan IMP: Suspected temporal arteritis Severe chronic PHTN with GRAVES ESRD Permanent AF on warfarin Severe s/p TAVR recently at [place] H/o HIT, DVT, IVC filter REC: 1. Prednisone as per Rheum, Vascular to consult 2. For HD today 3. Echo shows normal fxning aortic prosthesis; moderate MR and severe chronic PHTN. His GRAVES is likely multifactorial and due to combination of chronic diastolic CHF secondary to hypertensive heart disease/ previous longstanding , chronic severe PHTN and MR which may behave more "severely" depending on BP and volume status. Recommend consultation with PHTN specialist once recovers from acute episode of temporal arteritis.
--- NOTE | 2018-01-25 09:02 | PN ---
Progress Note (short form) - Note Progress Note: Neurology History of Present Illness The patient is an 82 year old with a history of CHF, COPD, ESRD on dialysis ( , , Wed) who presents for evaluation of SOB. The patient reports receiving his Wednesday dialysis and after began experiencing a sensation of SOB prompting his presentation to the ED for further evaluation. I was consulted by Cardiology, Dr. St, as patient was reporting symptoms of R eye pain and discomfort. He states it has been occuring for a few weeks (though Rheum notes 2 days) and was accompanied at bedside with his daughter who I spoke to in detail in the ER. Extraoccular movements were intact and he did not have diplopia. Ct head completed and did not show acute changes. Discussed with family and business transformation analyst plan for MRI brain and they were in agreement. MRI brain ordered, pending, discussed with nurse to have imaging completed. Optho consult in chart (handwritten note, not in meditech, can be found in physical chart) which mentioned blephiritis but no acute retinal injury. Caratact report which is stable per Optho. 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 Rheum increased prednisone and recommended temporal artery biopsy. Per notes, patient reluctant but may be amenable to Dr. Alba performing procedure as he had relationship with the patient. He does continue to report retro-orbital and right temporal pain. Active Medications Acetaminophen (Tylenol -) 650 mg PO Q6H PRN PRN Reason: HEADACHE Last Admin: 01/25/18 06:34 Dose: 650 mg Artificial Tears (Artificial Tears) 1 drop OD Q3H PRN PRN Reason: DRY EYES Last Admin: 01/24/18 22:35 Dose: 1 drop Cinacalcet (Sensipar -) 30 mg PO BID [facility] Last Admin: 01/24/18 21:32 Dose: 30 mg Clopidogrel Bisulfate (Plavix -) 75 mg PO DAILY [facility] Last Admin: 01/24/18 18:06 Dose: 75 mg Docusate Sodium (Colace -) 100 mg PO BID PRN PRN Reason: CONSTIPATION Last Admin: 01/23/18 13:56 Dose: 100 mg Epoetin Randy (Epogen -) 4,000 unit IVPUSH ONCE ONE Stop: 01/25/18 06:01 Sodium Chloride (Normal Saline -) 250 mls @ 3,000 mls/hr IV PRN PRN PRN Reason: Hypotension during Dialysis Stop: 01/25/18 20:44 Loratadine (Claritin -) 10 mg PO DAILY [facility] Last Admin: 01/24/18 09:30 Dose: 10 mg Metoprolol Succinate (Toprol Xl -) 25 mg PO DAILY [facility] Last Admin: 01/24/18 09:30 Dose: 25 mg Oxycodone HCl (Roxicodone -) 5 mg PO Q6H PRN PRN Reason: PAIN LEVEL 6-10 Last Admin: 01/25/18 06:30 Dose: 5 mg Prednisone (Deltasone -) 80 mg PO DAILY@0800 [facility] Last Admin: 01/25/18 07:52 Dose: 80 mg Sevelamer Carbonate (Renvela -) 2,400 mg PO TIDCM [facility] Last Admin: 01/25/18 07:52 Dose: 2,400 mg Warfarin Sodium (Coumadin -) 6 mg PO DAILY@1800 [facility] Last Admin: 01/24/18 18:23 Dose: 6 mg *Physical Exam Vital Signs Period Temp Pulse Resp BP Sys/Montalvo Pulse Ox Last 24 Hr 97.5 F-98.6 F 70-88 17-20 121-144/62-80 96-98 General Appearance: Nourished. No Apparent Distress HEENT: EOMI, RL, R eye conunctival erythema noted, No Pharyngeal Erythema, Tonsillar Exudate, Tonsillar Erythema Neck: No Cervical Lymphadenopathy Respiratory/Chest: Lungs Clear, Normal Breath Sounds. No Crackles, Rales, Rhonchi, Wheezing Cardiovascular: Regular Rhythm, Regular Rate. No Murmur, Gallops, Rubs Gastrointestinal/Abdominal: Normal Bowel Sounds, Soft. No Guarding, Rebound, Tenderness Musculoskeletal: No CVA Tenderness Extremity: Left AV Fistula. Normal Capillary Refill Integumentary: Normal Color, Dry, Warm Neurologic: Fully Oriented, Alert, Normal Mood/Affect, Normal Response, Moves all extremities equally, light touch intact, gait deferred CBCD WBC 2.5 K/mm3 (4.0-10.0) L D 01/25/18 05:30 RBC 3.33 M/mm3 (4.00-5.60) L 01/25/18 05:30 Hgb 11.1 GM/dL (11.7-16.9) L 01/25/18 05:30 Hct 33.7 % (35.4-49) L 01/25/18 05:30 MCV 101.2 fl (80-96) H 01/25/18 05:30 MCHC 33.1 g/dl (32.0-35.9) 01/25/18 05:30 RDW 19.8 % (11.9-15.9) H 01/25/18 05:30 Plt Count 175 K/MM3 (134-434) 01/25/18 05:30 MPV 9.2 fl (7.5-11.1) 01/25/18 05:30 CMP Sodium 135 mmol/L (136-145) L 01/25/18 05:30 Potassium 5.7 mmol/L (3.5-5.1) H D 01/25/18 05:30 Chloride 98 mmol/L (98-107) 01/25/18 05:30 Carbon Dioxide 21 mmol/L (21-32) 01/25/18 05:30 Anion Gap 16 (8-16) 01/25/18 05:30 BUN 76 mg/dL (7-18) H D 01/25/18 05:30 Creatinine 7.7 mg/dL (0.7-1.3) H* D 01/25/18 05:30 Creat Clearance w eGFR 11.19 (>60) 01/23/18 05:03 Calcium 9.2 mg/dL (8.5-10.1) 01/25/18 05:30 Total Bilirubin 0.9 mg/dL (0.2-1.0) 01/23/18 05:03 AST 27 U/L (15-37) D 01/23/18 05:03 ALT 19 U/L (12-78) 01/23/18 05:03 Alkaline Phosphatase 141 U/L (45-117) H D 01/23/18 05:03 Total Protein 7.4 g/dl (6.4-8.2) 01/23/18 05:03 Albumin 3.3 g/dl (3.4-5.0) L 01/23/18 05:03 CT head reviewed Plan: 82 year old with a history of CHF, COPD, ESRD on dialysis ([place] [place]) who presents for evaluation of SOB. The patient reports receiving his Wednesday dialysis and after began experiencing a sensation of SOB prompting his presentation to the ED for further evaluation. I was consulted by Cardiology, Dr. St, as patient was reporting symptoms of R eye pain and discomfort. He states it has been occuring for a few weeks and was accompanied at bedside with his daughter. Extraoccular movements were intact and he did not have diplopia. Ct head completed and did not show acute changes. MRI brain ordered, pending, discussed with nurse to have imaging completed. Optho consult in chart (handwritten note, not in meditech, can be found in physical chart) which mentioned blephiritis but no acute retinal injury. Caratact report which is stable per Optho. 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 Rheum increased prednisone and recommended temporal artery biopsy. Per notes, patient reluctant but may be amenable to Dr. Alba performing procedure as he had relationship with the patient. Agree with steroids especially in context of symptoms with elevated ESR as noted ESRD/HD per Renal, not reviewed. Pain control Monitor BP, maintain normotensive range, cardiology following Fall precautions
[2018-01-25 10:40] LABS: ERYTHROCYTE SEDIMENTATION RATE 51 mm/hr (0-20)
[2018-01-25 11:09] LABS: PHOSPHOROUS 7.4 mg/dL (2.5-4.9)
[2018-01-25] MEDS ORDERED: EPOETIN ALFA 2,000 UNIT/1 ML VIAL IVPUSH ONE (12:00)
--- NOTE | 2018-01-25 12:36 | PN ---
Progress Note, Physician Chief Complaint: Mr Dahl says he still has right sided eye pain and headache. No cp or n/v. He is unsure if shortness of breath is improved or not. - Current Medication List Current Medications: Active Medications Acetaminophen (Tylenol -) 650 mg PO Q6H PRN PRN Reason: HEADACHE Last Admin: 01/25/18 06:34 Dose: 650 mg Artificial Tears (Artificial Tears) 1 drop OD Q3H PRN PRN Reason: DRY EYES Last Admin: 01/24/18 22:35 Dose: 1 drop Cinacalcet (Sensipar -) 30 mg PO BID [facility] Last Admin: 01/24/18 21:32 Dose: 30 mg Clopidogrel Bisulfate (Plavix -) 75 mg PO DAILY [facility] Last Admin: 01/24/18 18:06 Dose: 75 mg Docusate Sodium (Colace -) 100 mg PO BID PRN PRN Reason: CONSTIPATION Last Admin: 01/23/18 13:56 Dose: 100 mg Sodium Chloride (Normal Saline -) 250 mls @ 3,000 mls/hr IV PRN PRN PRN Reason: Hypotension during Dialysis Stop: 01/25/18 20:44 Loratadine (Claritin -) 10 mg PO DAILY [facility] Last Admin: 01/24/18 09:30 Dose: 10 mg Metoprolol Succinate (Toprol Xl -) 25 mg PO DAILY [facility] Last Admin: 01/24/18 09:30 Dose: 25 mg Oxycodone HCl (Roxicodone -) 5 mg PO Q6H PRN PRN Reason: PAIN LEVEL 6-10 Last Admin: 01/25/18 06:30 Dose: 5 mg Prednisone (Deltasone -) 80 mg PO DAILY@0800 [facility] Last Admin: 01/25/18 07:52 Dose: 80 mg Sevelamer Carbonate (Renvela -) 2,400 mg PO TIDCM [facility] Last Admin: 01/25/18 07:52 Dose: 2,400 mg Warfarin Sodium (Coumadin -) 6 mg PO DAILY@1800 [facility] Last Admin: 01/24/18 18:23 Dose: 6 mg - Objective Vital Signs: Vital Signs Temperature 36.4 C L 01/25/18 10:00 Pulse Rate 82 01/25/18 10:00 Respiratory Rate 18 01/25/18 10:00 Blood Pressure 138/82 01/25/18 10:00 O2 Sat by Pulse Oximetry (%) 98 01/25/18 07:00 Constitutional: Yes: Well Nourished, No Distress, Calm Cardiovascular: Yes: Regular Rate and Rhythm. No: Gallop, Murmur, Rub Respiratory: Yes: Regular, CTA Bilaterally. No: Rales, Rhonchi, Wheezes Gastrointestinal: Yes: Normal Bowel Sounds, Soft. No: Distention, Tenderness Extremities: Yes: WNL Edema: No Labs: CBC, BMP 01/25/18 05:30 01/25/18 05:30 INR, PTT INR 2.39 (0.82-1.09) H 01/24/18 05:48 Problem List - Problems (1) Temporal arteritis Assessment/Plan: -appreciate rheumatology and neurology assistance -awaiting MRI, attempting to get type of valve replacement -continue prednisone 80mg daily -patient refusing biopsy currently, but says will d/w vascular surgery Code(s): M31.6 - OTHER GIANT CELL ARTERITIS (2) Aortic stenosis Assessment/Plan: -replaced Code(s): I35.0 - NONRHEUMATIC AORTIC (VALVE) STENOSIS (3) CHF exacerbation Assessment/Plan: -continue HD for fluid removal -cardiology following Code(s): I50.9 - HEART FAILURE, UNSPECIFIED Qualifiers: Heart failure type: diastolic Qualified Code(s): I50.33 - Acute on chronic diastolic (congestive) heart failure (4) Chronic a-fib Assessment/Plan: -continue toprol xl and coumadin -cardiology following Code(s): I48.2 - CHRONIC ATRIAL FIBRILLATION (5) ESRD (end stage renal disease) on dialysis Assessment/Plan: -appreciate nephrology assistance -continue HD TRS Code(s): N18.6 - END STAGE RENAL DISEASE; Z99.2 - DEPENDENCE ON RENAL DIALYSIS (6) HTN (hypertension) Assessment/Plan: -controlled -continue current management Code(s): I10 - ESSENTIAL (PRIMARY) HYPERTENSION
--- NOTE | 2018-01-25 13:15 | PN ---
Progress Note (short form) - Note Progress Note: PULMONARY States breathing is improving. Currently on HD with close to 4kg removal. Last Vital Signs Temp Pulse Resp BP Pulse Ox 97.5 F L 70 18 121/69 98 01/25/18 10:00 01/25/18 12:30 01/25/18 12:30 01/25/18 12:30 01/25/18 07:00 Gen: NAD at rest Heart: RRR Lung: decreased breath sounds at the bases Abd: soft, nontender Ext: trace edema CBC, BMP 01/25/18 05:30 01/25/18 05:30 Active Medications Acetaminophen (Tylenol -) 650 mg PO Q6H PRN PRN Reason: HEADACHE Last Admin: 01/25/18 06:34 Dose: 650 mg Artificial Tears (Artificial Tears) 1 drop OD Q3H PRN PRN Reason: DRY EYES Last Admin: 01/24/18 22:35 Dose: 1 drop Cinacalcet (Sensipar -) 30 mg PO BID [facility] Last Admin: 01/24/18 21:32 Dose: 30 mg Clopidogrel Bisulfate (Plavix -) 75 mg PO DAILY [facility] Last Admin: 01/24/18 18:06 Dose: 75 mg Docusate Sodium (Colace -) 100 mg PO BID PRN PRN Reason: CONSTIPATION Last Admin: 01/23/18 13:56 Dose: 100 mg Sodium Chloride (Normal Saline -) 250 mls @ 3,000 mls/hr IV PRN PRN PRN Reason: Hypotension during Dialysis Stop: 01/25/18 20:44 Loratadine (Claritin -) 10 mg PO DAILY [facility] Last Admin: 01/24/18 09:30 Dose: 10 mg Metoprolol Succinate (Toprol Xl -) 25 mg PO DAILY [facility] Last Admin: 01/24/18 09:30 Dose: 25 mg Oxycodone HCl (Roxicodone -) 5 mg PO Q6H PRN PRN Reason: PAIN LEVEL 6-10 Last Admin: 01/25/18 06:30 Dose: 5 mg Prednisone (Deltasone -) 80 mg PO DAILY@0800 [facility] Last Admin: 01/25/18 07:52 Dose: 80 mg Sevelamer Carbonate (Renvela -) 2,400 mg PO TIDCM [facility] Last Admin: 01/25/18 07:52 Dose: 2,400 mg Warfarin Sodium (Coumadin -) 6 mg PO DAILY@1800 [facility] Last Admin: 01/24/18 18:23 Dose: 6 mg A/P Volume Overload Pulmonary HTN Aortic Stenosis s/p TAVR Atrial Fibrillation ESRD on HD h/o HIT h/o DVT - HD per renal with ultrafiltration - daily weights - O2 to keep SpO2>90% - rate controlled - continue anticoagulation
[2018-01-25] MEDS: LORATADINE 10 MG TABLET PO SCH (14:44)
[2018-01-25] MEDS: metoPROLOL SUCCINATE 25 MG TAB.SR.24H (FP) PO SCH (14:45)
[2018-01-25] MEDS: CLOPIDOGREL BISULFATE 75 MG TABLET (FP) PO SCH (14:45)
[2018-01-25] MEDS: CINACALCET HCL 30 MG TAB (FP) PO SCH ×2 (14:45→21:44)
[2018-01-25] MEDS: ARTIFICIAL TEARS (POLYVINYL ALCOHOL 1.4%) OPTH DROPS OD PRN (14:46)
[2018-01-25] MEDS: HYDROmorphone HCL 2 MG TABLET PO PRN (14:46)
[2018-01-25 16:07] LABS: INR 3.65 (0.82-1.09); PROTHROMBIN TIME (PATIENT) 41.3 SEC (9.7-13.0)
--- NOTE | 2018-01-25 17:43 | PN ---
Progress Note (short form) - Note Progress Note: Renal follow up for ESRD Pt seen and examined at the bedside awake and alert still feels sob had dialysis earlier today with 3L UF no fever, chills has right sided headache Vital Signs Temperature 98.0 F 01/25/18 15:41 Pulse Rate 86 01/25/18 14:00 Respiratory Rate 18 01/25/18 14:00 Blood Pressure 124/58 01/25/18 14:00 O2 Sat by Pulse Oximetry (%) 96 01/25/18 15:00 Intake & Output 01/22/18 01/23/18 01/24/18 01/25/18 23:59 23:59 23:59 23:59 Intake Total 1090 600 Balance 1090 600 Weight 74.843 kg 82 kg 82.645 kg NAD awake and alert MMM No JVD RRR CTA, no rales soft NT/ND + edema in LE CBC, BMP 01/25/18 05:30 01/25/18 05:30 Current Medications Acetaminophen (Tylenol -) 650 mg PO Q6H PRN PRN Reason: HEADACHE Last Admin: 01/25/18 06:34 Dose: 650 mg Artificial Tears (Artificial Tears) 1 drop OD Q3H PRN PRN Reason: DRY EYES Last Admin: 01/25/18 14:46 Dose: 1 drop Cinacalcet (Sensipar -) 30 mg PO BID [facility] Last Admin: 01/25/18 14:45 Dose: Not Given Clopidogrel Bisulfate (Plavix -) 75 mg PO DAILY [facility] Last Admin: 01/25/18 14:45 Dose: Not Given Docusate Sodium (Colace -) 100 mg PO BID PRN PRN Reason: CONSTIPATION Last Admin: 01/23/18 13:56 Dose: 100 mg Hydromorphone HCl (Dilaudid -) 2 mg PO Q6H PRN PRN Reason: PAIN LEVEL 6-10 Last Admin: 01/25/18 14:46 Dose: 2 mg Sodium Chloride (Normal Saline -) 250 mls @ 3,000 mls/hr IV PRN PRN PRN Reason: Hypotension during Dialysis Stop: 01/25/18 20:44 Loratadine (Claritin -) 10 mg PO DAILY [facility] Last Admin: 01/25/18 14:44 Dose: 10 mg Metoprolol Succinate (Toprol Xl -) 25 mg PO DAILY [facility] Last Admin: 01/25/18 14:45 Dose: 25 mg Prednisone (Deltasone -) 80 mg PO DAILY@0800 [facility] Last Admin: 01/25/18 07:52 Dose: 80 mg Sevelamer Carbonate (Renvela -) 2,400 mg PO TIDCM [facility] Last Admin: 01/25/18 17:38 Dose: 2,400 mg Warfarin Sodium (Coumadin -) 6 mg PO DAILY@1800 [facility] Last Admin: 01/24/18 18:23 Dose: 6 mg 82 year old gentleman with PMhx of ESRD on HD (TTS), CHF, COPD who presented with SOB and admitted for evaluation. #SOB w/o overt fluid overload/CHF #ESRD on HD #CHF #r/o temporal arteritis /LI #Renal Osteodystrophy tolerated HD with UF well continue steroids per Neurology/Rheum will likely need specific tx of pulmonary hypertension Juan Berrios DO
[2018-01-25] MEDS ORDERED: CLOPIDOGREL BISULFATE 75 MG TABLET (FP) PO ONE (20:45)
--- NOTE | 2018-01-25 22:19 | CONSULT ---
Consult - History of Present Illness History of Present Illness: 82 year old man with ESRD on HD, CAD, CHF, HTN, S/P TAVR, pulmonary hypertension , A. fib, COPD, admitted with headache and SOB. Right sided headache has been present for several days without nausea, vomiting or visual changes. - History Source History Provided By: Patient, Medical Record - Past Medical History Cardio/Vascular: Yes: AFIB, Aneurysm, CAD, CHF, HTN, Hyperlipdemia Pulmonary: Yes: Bronchitis, COPD Renal/: Yes: Renal Failure, Hemodialysis - Past Surgical History Past Surgical History: Yes: AV Fistula/Graft - Alcohol/Substance Use Hx Alcohol Use: No - Smoking History Smoking history: Never smoked Have you smoked in the past 12 months: No Aproximately how many cigarettes per day: 0 If you are a former smoker, when did you quit?: 42 years ago Home Medications - Allergies Allergies/Adverse Reactions: Allergies Allergy/AdvReac Type Severity Reaction Status Date / Time enoxaparin sodium Allergy Verified 01/23/18 02:44 [From Lovenox] heparin (porcine) Allergy heparin Verified 01/23/18 02:44 [Heparin,Porcine] induced platelet antibody lidocaine Allergy Verified 01/23/18 02:44 - Home Medications Home Medications: Ambulatory Orders Sevelamer Carbonate [Renvela -] 3 tab PO TID 10/07/13 Metoprolol Succinate [Toprol XL -] 25 mg PO DAILY #0 10/13/13 Docusate Sodium [Colace -] 100 mg PO BID PRN capsule 10/31/17 Warfarin Na [Coumadin -] 3 mg PO DAILY@1800 tablet 10/31/17 oxyCODONE HCL [Roxicodone -] 5 mg PO Q6H PRN 7 Days #28 tablet MDD 4 10/31/17 Cinacalcet HCl [Sensipar -] 30 mg PO BID 01/24/18 Physical Exam Vital Signs: Vital Signs Temperature 97.7 F 01/25/18 20:52 Pulse Rate 84 01/25/18 20:52 Respiratory Rate 18 01/25/18 21:00 Blood Pressure 116/63 01/25/18 20:52 O2 Sat by Pulse Oximetry (%) 98 01/25/18 21:00 Constitutional: Yes: No Distress Eyes: Yes: WNL, EOM Intact HENT: Yes: Other (Right temporal pulse present and not tender.) Neck: Yes: Supple Labs: CBC, BMP 01/25/18 05:30 01/25/18 05:30 Problem List - Problems (1) Temporal headache Assessment/Plan: Right sided headache with elevated ESR and CRP in 82 year old suggests possible temporal arteritis. He continues to have severe pain despite starting Prednisone which usually helps relieve symptoms quickly. Plans for temporal artery biopsy were discussed with patient but after conferring with Dr. Harris surgery was cancelled. He stated that a negative biopsy would not change the treatment plan and steroids would be continued no matter what the biopsy showed. Code(s): R51 - HEADACHE
[2018-01-26] MEDS: ACETAMINOPHEN 325 MG TABLET (FP) PO PRN ×3 (04:08→21:43)
[2018-01-26 06:34] LABS: PROTHROMBIN TIME (PATIENT) 59.5 SEC (9.7-13.0)
[2018-01-26 06:45] LABS: BASO % 0.3 % (0-2.0); HEMATOCRIT 31.7 % (35.4-49); HEMOGLOBIN 10.6 GM/dL (11.7-16.9); LYMPH % 8.1 % (8-40); MCH 33.4 pg (25.7-33.7); MCHC 33.4 g/dl (32.0-35.9); MEAN CELL VOLUME 100.2 fl (80-96); MEAN PLT VOLUME 9.2 fl (7.5-11.1); MONO % 4.1 % (3.8-10.2); NEUT % 87.5 % (42.8-82.8); PLATELET COUNT 170 K/MM3 (134-434); RBC 3.16 M/mm3 (4.00-5.60); RDW 18.8 % (11.9-15.9); WHITE BLOOD COUNT 3.6 K/mm3 (4.0-10.0)
[2018-01-26 06:49] LABS: CALCIUM 9.2 mg/dL (8.5-10.1); CHLORIDE 98 mmol/L (98-107); POTASSIUM 4.9 mmol/L (3.5-5.1); SODIUM 136 mmol/L (136-145)
[2018-01-26 06:53] LABS: ANION GAP 10 (8-16); BLOOD UREA NITROGEN 45 mg/dL (7-18); CO2 28 mmol/L (21-32); CREATININE 5.2 mg/dL (0.7-1.3); GLUCOSE,RANDOM 150 mg/dL (74-106); MAGNESIUM 2.3 mg/dL (1.8-2.4); PHOSPHOROUS 5.8 mg/dL (2.5-4.9)
[2018-01-26 07:19] LABS: INR 5.27 (0.82-1.09)
[2018-01-26] MEDS: SEVELAMER CARBONATE 800 MG TAB (FP) PO SCH ×3 (08:10→17:44)
[2018-01-26] MEDS: predniSONE 20 MG TABLET (UD) PO SCH (08:10)
--- NOTE | 2018-01-26 08:31 | PN ---
Progress Note, Physician Chief Complaint: Alert, oriented. No acute distress - Current Medication List Current Medications: Active Medications Acetaminophen (Tylenol -) 650 mg PO Q6H PRN PRN Reason: HEADACHE Last Admin: 01/26/18 04:08 Dose: 650 mg Artificial Tears (Artificial Tears) 1 drop OD Q3H PRN PRN Reason: DRY EYES Last Admin: 01/25/18 14:46 Dose: 1 drop Cinacalcet (Sensipar -) 30 mg PO BID [facility] Last Admin: 01/25/18 21:44 Dose: 30 mg Clopidogrel Bisulfate (Plavix -) 75 mg PO DAILY [facility] Last Admin: 01/25/18 14:45 Dose: Not Given Docusate Sodium (Colace -) 100 mg PO BID PRN PRN Reason: CONSTIPATION Last Admin: 01/23/18 13:56 Dose: 100 mg Hydromorphone HCl (Dilaudid -) 2 mg PO Q6H PRN PRN Reason: PAIN LEVEL 6-10 Last Admin: 01/25/18 14:46 Dose: 2 mg Loratadine (Claritin -) 10 mg PO DAILY [facility] Last Admin: 01/25/18 14:44 Dose: 10 mg Metoprolol Succinate (Toprol Xl -) 25 mg PO DAILY [facility] Last Admin: 01/25/18 14:45 Dose: 25 mg Prednisone (Deltasone -) 80 mg PO DAILY@0800 [facility] Last Admin: 01/26/18 08:10 Dose: 80 mg Sevelamer Carbonate (Renvela -) 2,400 mg PO TIDCM [facility] Last Admin: 01/26/18 08:10 Dose: 2,400 mg - Objective Vital Signs: Vital Signs Temperature 97.8 F 01/26/18 06:00 Pulse Rate 78 01/26/18 06:00 Respiratory Rate 20 01/26/18 06:00 Blood Pressure 114/56 01/26/18 06:00 O2 Sat by Pulse Oximetry (%) 99 01/26/18 05:00 Constitutional: Yes: No Distress Cardiovascular: Yes: Pulse Irregular Respiratory: Yes: CTA Bilaterally Gastrointestinal: Yes: Soft Edema: No Neurological: Yes: Alert Labs: CBC, BMP 01/26/18 06:00 01/26/18 06:00 INR, PTT INR 5.27 (0.82-1.09) H* D 01/26/18 06:00 - ....Imaging EKG: Image Reviewed (Rate controlled AF) Assessment/Plan IMP: Suspected temporal arteritis Severe chronic PHTN with GRAVES ESRD Permanent AF on warfarin Severe s/p TAVR recently at [facility] H/o HIT, DVT, IVC filter REC: 1. Prednisone as per Rheum; biopsy held as high clinical suspicion TA and plan to continue course of steroids. Interrupting AC and Plavix also poses risk given his AF and recent TAVR; difficult to bridge w/ h/o of HIT and Lovenox allergy. 2. HD TIW 3. Echo shows normal fxning aortic prosthesis; moderate MR and severe chronic PHTN. His GRAVES is likely multifactorial and due to combination of chronic diastolic CHF secondary to hypertensive heart disease/ previous longstanding , chronic severe PHTN and MR which may behave more "severely" depending on BP and volume status. Recommend consultation with PHTN specialist once recovers from acute episode of temporal arteritis.
--- NOTE | 2018-01-26 09:14 | PN ---
Progress Note (short form) - Note Progress Note: Neurology History of Present Illness The patient is an 82 year old with a history of CHF, COPD, ESRD on dialysis ( , , Sat) who presents for evaluation of SOB. The patient reports receiving his Wednesday dialysis and after began experiencing a sensation of SOB prompting his presentation to the ED for further evaluation. I was consulted by Cardiology, Dr. St, as patient was reporting symptoms of R eye pain and discomfort. He states it has been occuring for a few weeks (though Rheum notes 2 days) and was accompanied at bedside with his daughter who I spoke to in detail in the ER. Extraoccular movements were intact and he did not have diplopia. Ct head completed and did not show acute changes. Discussed with family and nursing secretary plan for MRI brain but not able to complete due to valve as per conversations with nurse from yesterday. Therefore, repeat CT head ordered and without acute changes. Optho consult in chart (handwritten note, not in meditech, can be found in physical chart) which mentioned blephiritis but no acute retinal injury. Caratact report which is stable per Optho. 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 Rheum increased prednisone and recommended temporal artery biopsy. Dr. Alba, vascular surgeon, note reviewed. Per note, discussed with Dr. Leyva, PCP, who felt that we would continue treatment regardless and therefore obtaining biopsy would not business change manager. Patient feeling much better today. Nurse reports still some pain but much improved. Likely with combination of tylenol and prednisone, dilaudid also ordered. Active Medications Acetaminophen (Tylenol -) 650 mg PO Q6H PRN PRN Reason: HEADACHE Last Admin: 01/26/18 04:08 Dose: 650 mg Artificial Tears (Artificial Tears) 1 drop OD Q3H PRN PRN Reason: DRY EYES Last Admin: 01/25/18 14:46 Dose: 1 drop Cinacalcet (Sensipar -) 30 mg PO BID [facility] Last Admin: 01/25/18 21:44 Dose: 30 mg Clopidogrel Bisulfate (Plavix -) 75 mg PO DAILY [facility] Last Admin: 01/25/18 14:45 Dose: Not Given Docusate Sodium (Colace -) 100 mg PO BID PRN PRN Reason: CONSTIPATION Last Admin: 06/03/18 13:56 Dose: 100 mg Hydromorphone HCl (Dilaudid -) 2 mg PO Q6H PRN PRN Reason: PAIN LEVEL 6-10 Last Admin: 01/25/18 14:46 Dose: 2 mg Loratadine (Claritin -) 10 mg PO DAILY [facility] Last Admin: 01/25/18 14:44 Dose: 10 mg Metoprolol Succinate (Toprol Xl -) 25 mg PO DAILY [facility] Last Admin: 01/25/18 14:45 Dose: 25 mg Prednisone (Deltasone -) 80 mg PO DAILY@0800 [facility] Last Admin: 01/26/18 08:10 Dose: 80 mg Sevelamer Carbonate (Renvela -) 2,400 mg PO TIDCM [facility] Last Admin: 01/26/18 08:10 Dose: 2,400 mg *Physical Exam Vital Signs Period Temp Pulse Resp BP Sys/Montalvo Pulse Ox Last 24 Hr 97.5 F-98.0 F 60-90 18-20 114-144/56-92 96-99 General Appearance: Nourished. No Apparent Distress HEENT: EOMI, RL, R eye conunctival erythema improved, No Pharyngeal Erythema, Tonsillar Exudate, Tonsillar Erythema Neck: No Cervical Lymphadenopathy Respiratory/Chest: Lungs Clear, Normal Breath Sounds. No Crackles, Rales, Rhonchi, Wheezing Cardiovascular: Regular Rhythm, Regular Rate. No Murmur, Gallops, Rubs Gastrointestinal/Abdominal: Normal Bowel Sounds, Soft. No Guarding, Rebound, Tenderness Musculoskeletal: No CVA Tenderness Extremity: Left AV Fistula. Normal Capillary Refill Integumentary: Normal Color, Dry, Warm Neurologic: Fully Oriented, Alert, Normal Mood/Affect, Normal Response, Moves all extremities equally, light touch intact, gait deferred CBCD WBC 3.6 K/mm3 (4.0-10.0) L D 01/26/18 06:00 RBC 3.16 M/mm3 (4.00-5.60) L 01/26/18 06:00 Hgb 10.6 GM/dL (11.7-16.9) L 01/26/18 06:00 Hct 31.7 % (35.4-49) L 01/26/18 06:00 MCV 100.2 fl (80-96) H 01/26/18 06:00 MCHC 33.4 g/dl (32.0-35.9) 01/26/18 06:00 RDW 18.8 % (11.9-15.9) H 01/26/18 06:00 Plt Count 170 K/MM3 (134-434) 01/26/18 06:00 MPV 9.2 fl (7.5-11.1) 01/26/18 06:00 CMP Sodium 136 mmol/L (136-145) 01/26/18 06:00 Potassium 4.9 mmol/L (3.5-5.1) 01/26/18 06:00 Chloride 98 mmol/L (98-107) 01/26/18 06:00 Carbon Dioxide 28 mmol/L (21-32) D 01/26/18 06:00 Anion Gap 10 (8-16) 01/26/18 06:00 BUN 45 mg/dL (7-18) H D 01/26/18 06:00 Creatinine 5.2 mg/dL (0.7-1.3) H D 01/26/18 06:00 Creat Clearance w eGFR 11.19 (>60) 01/23/18 05:03 Calcium 9.2 mg/dL (8.5-10.1) 01/26/18 06:00 Total Bilirubin 0.9 mg/dL (0.2-1.0) 01/23/18 05:03 AST 27 U/L (15-37) D 01/23/18 05:03 ALT 19 U/L (12-78) 01/23/18 05:03 Alkaline Phosphatase 141 U/L (45-117) H D 01/23/18 05:03 Total Protein 7.4 g/dl (6.4-8.2) 01/23/18 05:03 Albumin 3.3 g/dl (3.4-5.0) L 01/23/18 05:03 CT head reviewed X 2 Plan: 82 year old with a history of CHF, COPD, ESRD on dialysis (, , Wed) who presents for evaluation of SOB. The patient reports receiving his Wednesday dialysis and after began experiencing a sensation of SOB prompting his presentation to the ED for further evaluation. I was consulted by Cardiology, Dr. St, as patient was reporting symptoms of R eye pain and discomfort. He states it has been occuring for a few weeks and was accompanied at bedside with his daughter. Extraoccular movements were intact and he did not have diplopia. Ct head completed and did not show acute changes. MRI brain not able to be completed due to valve Repeat CT head reviewed, no acute changes Optho consult in chart (handwritten note, not in meditech, can be found in physical chart) which mentioned blephiritis but no acute retinal injury. Caratact report which is stable per Optho. 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 Rheum increased prednisone and recommended temporal artery biopsy Dr. Alba, vascular surgeon, note reviewed. Per note, discussed with Dr. Leyva, PCP, who felt that we would continue treatment regardless and therefore obtaining biopsy would not business change manager. Defer to them regarding this Agree with steroids ESRD/HD per Renal, Pain control, on tylenol, Dilaudid also ordered PRN Monitor BP, maintain normotensive range, cardiology following Fall precautions
[2018-01-26] MEDS ORDERED: PHYTONADIONE 5 MG TABLET PO ONE (09:59)
[2018-01-26] MEDS: metoPROLOL SUCCINATE 25 MG TAB.SR.24H (FP) PO SCH (10:08)
[2018-01-26] MEDS: LORATADINE 10 MG TABLET PO SCH (10:08)
[2018-01-26] MEDS: PANTOPRAZOLE 40 MG TABLET (FP) PO SCH (10:09)
[2018-01-26] MEDS: CINACALCET HCL 30 MG TAB (FP) PO SCH ×2 (10:09→21:45)
[2018-01-26] MEDS: CLOPIDOGREL BISULFATE 75 MG TABLET (FP) PO SCH (10:11)
--- NOTE | 2018-01-26 10:45 | PN ---
Progress Note, Physician Chief Complaint: pt sitting in chair in no acute distress. reports moderate pain of right frontal / optic region with slight improvement. still has dyspnea. denies chest pain, n/ v/d, unilateral weakness, loss of vision, diplopia - Current Medication List Current Medications: Active Medications Acetaminophen (Tylenol -) 650 mg PO Q6H PRN PRN Reason: HEADACHE Last Admin: 01/26/18 04:08 Dose: 650 mg Artificial Tears (Artificial Tears) 1 drop OD Q3H PRN PRN Reason: DRY EYES Last Admin: 01/25/18 14:46 Dose: 1 drop Cinacalcet (Sensipar -) 30 mg PO BID [facility] Last Admin: 01/26/18 10:09 Dose: 30 mg Clopidogrel Bisulfate (Plavix -) 75 mg PO DAILY [facility] Last Admin: 01/26/18 10:11 Dose: 75 mg Docusate Sodium (Colace -) 100 mg PO BID PRN PRN Reason: CONSTIPATION Last Admin: 01/23/18 13:56 Dose: 100 mg Hydromorphone HCl (Dilaudid -) 2 mg PO Q6H PRN PRN Reason: PAIN LEVEL 6-10 Last Admin: 01/25/18 14:46 Dose: 2 mg Loratadine (Claritin -) 10 mg PO DAILY [facility] Last Admin: 01/26/18 10:08 Dose: 10 mg Metoprolol Succinate (Toprol Xl -) 25 mg PO DAILY [facility] Last Admin: 01/26/18 10:08 Dose: 25 mg Pantoprazole Sodium (Protonix -) 40 mg PO DAILY [facility] Last Admin: 01/26/18 10:09 Dose: 40 mg Prednisone (Deltasone -) 80 mg PO DAILY@0800 [facility] Last Admin: 01/26/18 08:10 Dose: 80 mg Sevelamer Carbonate (Renvela -) 2,400 mg PO TIDCM [facility] Last Admin: 01/26/18 08:10 Dose: 2,400 mg - Objective Vital Signs: Vital Signs Temperature 97.8 F 01/26/18 06:00 Pulse Rate 78 01/26/18 06:00 Respiratory Rate 20 01/26/18 06:00 Blood Pressure 114/56 01/26/18 06:00 O2 Sat by Pulse Oximetry (%) 99 01/26/18 05:00 Constitutional: Yes: Well Nourished, No Distress, Calm Eyes: Yes: Conjunctiva Clear, Other (right eye lid tenderness, mild erythema of lids, no drainage). No: Ptosis Cardiovascular: Yes: Pulse Irregular, Murmur Respiratory: Yes: Regular, CTA Bilaterally, Orthopnea, Rales (bibasilar), SOB on Exertion. No: Accessory Muscle Use, On Nasal O2, Rhonchi, Tachypnea, Wheezes Gastrointestinal: Yes: WNL, Normal Bowel Sounds, Soft. No: Distention, Tenderness Genitourinary: Yes: WNL Musculoskeletal: Yes: WNL Edema: Yes Edema: LLE: 1+, RLE: 1+ Neurological: Yes: WNL, Alert, Oriented Psychiatric: Yes: WNL, Alert, Oriented Labs: CBC, BMP 01/26/18 06:00 01/26/18 06:00 INR, PTT INR 5.27 (0.82-1.09) H* D 01/26/18 06:00 Problem List - Problems (1) Temporal headache Code(s): R51 - HEADACHE (2) COPD (chronic obstructive pulmonary disease) Code(s): J44.9 - CHRONIC OBSTRUCTIVE PULMONARY DISEASE, UNSPECIFIED (3) Chronic a-fib Code(s): I48.2 - CHRONIC ATRIAL FIBRILLATION (4) ESRD (end stage renal disease) on dialysis Code(s): N18.6 - END STAGE RENAL DISEASE; Z99.2 - DEPENDENCE ON RENAL DIALYSIS (5) HTN (hypertension) Code(s): I10 - ESSENTIAL (PRIMARY) HYPERTENSION (6) Aortic stenosis Code(s): I35.0 - NONRHEUMATIC AORTIC (VALVE) STENOSIS (7) CHF exacerbation Code(s): I50.9 - HEART FAILURE, UNSPECIFIED Qualifiers: Heart failure type: diastolic Qualified Code(s): I50.33 - Acute on chronic diastolic (congestive) heart failure (8) Orthopnea Code(s): R06.01 - ORTHOPNEA (9) Pulmonary hypertension Code(s): I27.20 - PULMONARY HYPERTENSION, UNSPECIFIED (10) Temporal arteritis Code(s): M31.6 - OTHER GIANT CELL ARTERITIS (11) Supratherapeutic INR Code(s): R79.1 - ABNORMAL COAGULATION PROFILE Assessment/Plan (1) Temporal arteritis Assessment/Plan: consistent with GCA mild relief of symptoms post steroids continue prednisone 80mg daily opth consult noted- blephiritis but no acute retinal injury rheum/vasc/neuro consult appreciated biopsy cancelled as pt and pcp do not prefer it at the moment Code(s): M31.6 - OTHER GIANT CELL ARTERITIS (2) Aortic stenosis Assessment/Plan: s/p TAVR Code(s): I35.0 - NONRHEUMATIC AORTIC (VALVE) STENOSIS (3) CHF exacerbation Assessment/Plan: echo without acute findings,shows normal fxning aortic prosthesis; moderate MR and severe chronic PHTN. cardiology following Code(s): I50.9 - HEART FAILURE, UNSPECIFIED Qualifiers: Heart failure type: diastolic Qualified Code(s): I50.33 - Acute on chronic diastolic (congestive) heart failure (4) Chronic a-fib Assessment/Plan: continue toprol xl inr supratherapeutic, no signs of bleeding, hold Coumadin for now cardiology following Code(s): I48.2 - CHRONIC ATRIAL FIBRILLATION (5) ESRD (end stage renal disease) on dialysis Assessment/Plan: HD TIW Nephrology following Code(s): N18.6 - END STAGE RENAL DISEASE; Z99.2 - DEPENDENCE ON RENAL DIALYSIS (6) HTN (hypertension) Assessment/Plan: controlled continue home meds Code(s): I10 - ESSENTIAL (PRIMARY) HYPERTENSION (9) Pulmonary hypertension Assessment/Plan: now with wilson/orthopnea pulm following PHTN specialist referral outpt Code(s): I27.20 - PULMONARY HYPERTENSION, UNSPECIFIED (11) Supratherapeutic INR Assessment/Plan: No signs of bleeding hold coumadin and monitor INR Code(s): R79.1 - ABNORMAL COAGULATION PROFILE 1300 called by RN to evaluate pt. Pt c/o dizziness without improvement. BP wnl. denies chest pain, sob, n/v/d, unilateral weakness. EKG, troponin, cbc ordered. Discussed with Neuro whether head CT should be repeated to r/o ICH, Neuro states low suspicion, monitor at the moment. Will closely monitor pt for further changes
--- NOTE | 2018-01-26 10:51 | PN ---
Progress Note, Physician History of Present Illness: pulmonary alert,oob-chair,less dyspneic. - Current Medication List Current Medications: Active Medications Acetaminophen (Tylenol -) 650 mg PO Q6H PRN PRN Reason: HEADACHE Last Admin: 01/26/18 04:08 Dose: 650 mg Artificial Tears (Artificial Tears) 1 drop OD Q3H PRN PRN Reason: DRY EYES Last Admin: 01/25/18 14:46 Dose: 1 drop Cinacalcet (Sensipar -) 30 mg PO BID [facility] Last Admin: 01/26/18 10:09 Dose: 30 mg Clopidogrel Bisulfate (Plavix -) 75 mg PO DAILY [facility] Last Admin: 01/26/18 10:11 Dose: 75 mg Docusate Sodium (Colace -) 100 mg PO BID PRN PRN Reason: CONSTIPATION Last Admin: 01/23/18 13:56 Dose: 100 mg Hydromorphone HCl (Dilaudid -) 2 mg PO Q6H PRN PRN Reason: PAIN LEVEL 6-10 Last Admin: 01/25/18 14:46 Dose: 2 mg Loratadine (Claritin -) 10 mg PO DAILY [facility] Last Admin: 01/26/18 10:08 Dose: 10 mg Metoprolol Succinate (Toprol Xl -) 25 mg PO DAILY [facility] Last Admin: 01/26/18 10:08 Dose: 25 mg Pantoprazole Sodium (Protonix -) 40 mg PO DAILY [facility] Last Admin: 01/26/18 10:09 Dose: 40 mg Prednisone (Deltasone -) 80 mg PO DAILY@0800 [facility] Last Admin: 01/26/18 08:10 Dose: 80 mg Sevelamer Carbonate (Renvela -) 2,400 mg PO TIDCM [facility] Last Admin: 01/26/18 08:10 Dose: 2,400 mg - Objective Vital Signs: Vital Signs Temperature 97.8 F 01/26/18 06:00 Pulse Rate 78 01/26/18 06:00 Respiratory Rate 20 01/26/18 06:00 Blood Pressure 114/56 01/26/18 06:00 O2 Sat by Pulse Oximetry (%) 99 01/26/18 05:00 Constitutional: Yes: Well Nourished, Calm Eyes: Yes: WNL HENT: Yes: WNL Neck: Yes: WNL Cardiovascular: Yes: Pulse Irregular, S1, S2 Respiratory: Yes: Rales (bibasilar rales) Gastrointestinal: Yes: Normal Bowel Sounds, Soft Extremities: Yes: WNL Edema: No Labs: CBC, BMP 01/26/18 06:00 01/26/18 06:00 INR, PTT INR 5.27 (0.82-1.09) H* D 01/26/18 06:00 Problem List - Problems (1) Pulmonary hypertension Code(s): I27.20 - PULMONARY HYPERTENSION, UNSPECIFIED (2) Aortic stenosis Code(s): I35.0 - NONRHEUMATIC AORTIC (VALVE) STENOSIS (3) CHF exacerbation Code(s): I50.9 - HEART FAILURE, UNSPECIFIED Qualifiers: Qualified Code(s): I50.33 - Acute on chronic diastolic (congestive) heart failure (4) Chronic a-fib Code(s): I48.2 - CHRONIC ATRIAL FIBRILLATION (5) ESRD (end stage renal disease) on dialysis Code(s): N18.6 - END STAGE RENAL DISEASE; Z99.2 - DEPENDENCE ON RENAL DIALYSIS (6) HTN (hypertension) Code(s): I10 - ESSENTIAL (PRIMARY) HYPERTENSION (7) Dyspnea and respiratory abnormalities Code(s): R06.00 - DYSPNEA, UNSPECIFIED; R06.89 - OTHER ABNORMALITIES OF BREATHING (8) Orthopnea Code(s): R06.01 - ORTHOPNEA Assessment/Plan MP DYSPNEA/ORTHOPNEA SEVERE PULMONARY HTN,VOLUME OVERLOAD S/P TAVR AFIB ESRD ON HD H/O HIT,DVT S/P IVC FILTER TEMPORAL ARTERITIS PLAN HD PER RENAL SUPPLEMENTAL O2 DAILY WTS AC STRICT I+OS PREDNISONE DR SHARPE Problem List - Problems (1) Pulmonary hypertension Code(s): I27.20 - PULMONARY HYPERTENSION, UNSPECIFIED (2) Aortic stenosis Code(s): I35.0 - NONRHEUMATIC AORTIC (VALVE) STENOSIS (3) CHF exacerbation Code(s): I50.9 - HEART FAILURE, UNSPECIFIED Qualifiers: Heart failure type: diastolic Qualified Code(s): I50.33 - Acute on chronic diastolic (congestive) heart failure (4) Chronic a-fib Code(s): I48.2 - CHRONIC ATRIAL FIBRILLATION (5) ESRD (end stage renal disease) on dialysis Code(s): N18.6 - END STAGE RENAL DISEASE; Z99.2 - DEPENDENCE ON RENAL DIALYSIS (6) HTN (hypertension) Code(s): I10 - ESSENTIAL (PRIMARY) HYPERTENSION (7) Dyspnea and respiratory abnormalities Code(s): R06.00 - DYSPNEA, UNSPECIFIED; R06.89 - OTHER ABNORMALITIES OF BREATHING (8) Orthopnea Code(s): R06.01 - ORTHOPNEA
[2018-01-26 14:01] LABS: BASO % 0.2 % (0-2.0); HEMATOCRIT 34.2 % (35.4-49); HEMOGLOBIN 11.1 GM/dL (11.7-16.9); LYMPH % 6.7 % (8-40); MCH 32.9 pg (25.7-33.7); MCHC 32.4 g/dl (32.0-35.9); MEAN CELL VOLUME 101.8 fl (80-96); MEAN PLT VOLUME 9.1 fl (7.5-11.1); MONO % 6.6 % (3.8-10.2); NEUT % 86.5 % (42.8-82.8); PLATELET COUNT 184 K/MM3 (134-434); RBC 3.36 M/mm3 (4.00-5.60); RDW 19.8 % (11.9-15.9); WHITE BLOOD COUNT 5.6 K/mm3 (4.0-10.0)
[2018-01-26] MEDS: POLYETHYLENE GLYCOL 3350 119 GM BTL PO SCH ×2 (14:58→21:46)
[2018-01-26] MEDS ORDERED: SODIUM CHLORIDE 250 ML IV PRN (17:36)
[2018-01-26] MEDS ORDERED: DOCUSATE SODIUM 100 MG CAPSULE (FP) PO PRN (19:30)
[2018-01-26] MEDS: HYDROmorphone HCL 2 MG TABLET PO PRN (20:15)
[2018-01-26] MEDS: ARTIFICIAL TEARS (POLYVINYL ALCOHOL 1.4%) OPTH DROPS OD PRN (21:42)
[2018-01-26] MEDS ORDERED: LORazepam 0.5 MG TABLET PO ONE (21:45)
[2018-01-27 00:07] LABS: HBSAG SCREEN Negative (Negative); HEP A AB, IGM Negative (Negative); HEP B CORE AB, TOT Positive (Negative)
[2018-01-27] MEDS: ARTIFICIAL TEARS (POLYVINYL ALCOHOL 1.4%) OPTH DROPS OD PRN ×2 (02:17→05:41)
[2018-01-27] MEDS: HYDROmorphone HCL 2 MG TABLET PO PRN ×2 (02:35→08:56)
[2018-01-27] MEDS: ACETAMINOPHEN 325 MG TABLET (FP) PO PRN (05:39)
[2018-01-27 06:30] LABS: BASO % 0.1 % (0-2.0); HEMATOCRIT 36.8 % (35.4-49); LYMPH % 8.7 % (8-40); MCH 33.2 pg (25.7-33.7); MCHC 32.5 g/dl (32.0-35.9); MEAN PLT VOLUME 9.3 fl (7.5-11.1); MONO % 4.6 % (3.8-10.2); NEUT % 86.6 % (42.8-82.8); PLATELET COUNT 188 K/MM3 (134-434); RBC 3.61 M/mm3 (4.00-5.60); RDW 19.7 % (11.9-15.9); WHITE BLOOD COUNT 7.4 K/mm3 (4.0-10.0)
[2018-01-27 06:49] LABS: ANION GAP 18 (8-16); BLOOD UREA NITROGEN 69 mg/dL (7-18); CALCIUM 9.7 mg/dL (8.5-10.1); CHLORIDE 90 mmol/L (98-107); CO2 25 mmol/L (21-32); CREATININE 6.3 mg/dL (0.7-1.3); GLUCOSE,RANDOM 142 mg/dL (74-106); MAGNESIUM 2.6 mg/dL (1.8-2.4); POTASSIUM 5.2 mmol/L (3.5-5.1); PROTHROMBIN TIME (PATIENT) 106.8 SEC (9.7-13.0); SODIUM 133 mmol/L (136-145)
[2018-01-27 06:50] LABS: INR 9.45 (0.82-1.09)
[2018-01-27] MEDS ORDERED: PHYTONADIONE 10 MG/1 ML AMP IVPB ONE (08:39)
--- NOTE | 2018-01-27 08:48 | PN ---
Progress Note, Physician Chief Complaint: persistent severe pain right eye History of Present Illness: TELE: rate controlled AF - Current Medication List Current Medications: Active Medications Acetaminophen (Tylenol -) 650 mg PO Q6H PRN PRN Reason: HEADACHE Last Admin: 01/27/18 05:39 Dose: 650 mg Artificial Tears (Artificial Tears) 1 drop OD Q3H PRN PRN Reason: DRY EYES Last Admin: 01/27/18 05:41 Dose: 1 drop Cinacalcet (Sensipar -) 30 mg PO BID [facility] Last Admin: 01/26/18 21:45 Dose: 30 mg Clopidogrel Bisulfate (Plavix -) 75 mg PO DAILY [facility] Docusate Sodium (Colace -) 100 mg PO BID PRN PRN Reason: CONSTIPATION Last Admin: 01/26/18 20:17 Dose: 100 mg Hydromorphone HCl (Dilaudid -) 2 mg PO Q6H PRN PRN Reason: PAIN LEVEL 6-10 Last Admin: 01/27/18 02:35 Dose: 2 mg Sodium Chloride (Normal Saline -) 250 mls @ 3,000 mls/hr IV PRN PRN PRN Reason: Hypotension during Dialysis Stop: 01/27/18 17:36 Loratadine (Claritin -) 10 mg PO DAILY [facility] Metoprolol Succinate (Toprol Xl -) 25 mg PO DAILY [facility] Pantoprazole Sodium (Protonix -) 40 mg PO DAILY [facility] Last Admin: 01/26/18 10:09 Dose: 40 mg Polyethylene Glycol (Miralax (For Daily Use) -) 17 gm PO BID [facility] Last Admin: 01/26/18 21:46 Dose: 17 gm Prednisone (Deltasone -) 80 mg PO DAILY@0800 [facility] Last Admin: 01/26/18 08:10 Dose: 80 mg Sevelamer Carbonate (Renvela -) 2,400 mg PO TIDCM [facility] - Objective Vital Signs: Vital Signs Temperature 97.6 F 01/27/18 05:00 Pulse Rate 71 01/27/18 05:00 Respiratory Rate 18 01/27/18 05:00 Blood Pressure 125/68 01/27/18 05:00 O2 Sat by Pulse Oximetry (%) 99 01/26/18 20:30 Constitutional: Yes: Anxious Cardiovascular: Yes: Pulse Irregular Respiratory: Yes: CTA Bilaterally (no rales, wheezing.) Gastrointestinal: Yes: Soft Edema: No Neurological: Yes: Alert, Oriented ...Motor Strength: WNL Labs: CBC, BMP 01/27/18 05:30 01/27/18 05:30 INR, PTT INR 9.45 (0.82-1.09) H* D 01/27/18 05:30 - ....Imaging EKG: Image Reviewed (Controlled AF, short 3 beat run NSVT) Assessment/Plan IMP: Suspected temporal arteritis, now with worsening eye pain, periorbital pain. Severe chronic PHTN with GRAVES ESRD Permanent AF on warfarin Supratherapeutic INR Severe s/p TAVR recently at [facility] H/o HIT, DVT, IVC filter REC: 1. Despite several days of steroids, patient now with worsened right periorbital pain since last night. Significant clinical change from yesterday. Discussed with PMD. Will transfer to tertiary center today for further evaluation. Patient accepted for transfer by Dr. Herrera at [facility]. 2. HD TIW- due today. Have d/w renal to perform HD prior to transfer. 3. Elevated INR, rising despite holding coumadin. Will give small dose Vitamin K and hold coumadin. 3. Echo shows normal fxning aortic prosthesis; moderate MR and severe chronic PHTN. His GRAVES is likely multifactorial and due to combination of chronic diastolic CHF secondary to hypertensive heart disease/ previous longstanding , chronic severe PHTN and MR which may behave more "severely" depending on BP and volume status. Recommend consultation with PHTN specialist at [facility]. Case d/w patient, PMD, Renal and daughter Marla.
[2018-01-27] MEDS: SEVELAMER CARBONATE 800 MG TAB (FP) PO SCH ×2 (08:56→12:00)
[2018-01-27] MEDS: predniSONE 20 MG TABLET (UD) PO SCH (08:57)
--- NOTE | 2018-01-27 09:14 | PN ---
Progress Note (short form) - Note Progress Note: Neurology History of Present Illness The patient is an 82 year old with a history of CHF, COPD, ESRD on dialysis ( , , Wed) who presents for evaluation of SOB. The patient reports receiving his Wednesday dialysis and after began experiencing a sensation of SOB prompting his presentation to the ED for further evaluation. I was consulted by Cardiology, Dr. St, as patient was reporting symptoms of R eye pain and discomfort. He states it has been occuring for a few weeks (though Rheum notes 2 days) and was accompanied at bedside with his daughter who I spoke to in detail in the ER. Extraoccular movements were intact and he did not have diplopia. Ct head completed and did not show acute changes. Discussed with family and roast master plan for MRI brain but not able to complete due to valve as per conversations with nurse from yesterday. Therefore, repeat CT head ordered and without acute changes. Optho consult in chart (handwritten note, not in meditech, can be found in physical chart) which mentioned blephiritis but no acute retinal injury. Caratact report which is stable per Optho. 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 Rheum increased prednisone and recommended temporal artery biopsy. Dr. Alba, vascular surgeon, note reviewed. Per note, discussed with Dr. Leyva, PCP, who felt that we would continue treatment regardless and therefore obtaining biopsy would not electronic data interchange specialist. Patient was feeling better yesterday morning during my encounter but today saying he's not feeling better at all. He says he still has pain behind his eye. Also c/o shortness of breath though comfortable appearing. Pulmonary following. Primary team mentioned dizzyness to my yesterday afternoon, when asked about it, he does says he's getting dizzy. Spoke with cardiology who has coordinated transfer to cardiology service at [facility] for higher level care. Active Medications Acetaminophen (Tylenol -) 650 mg PO Q6H PRN PRN Reason: HEADACHE Last Admin: 01/27/18 05:39 Dose: 650 mg Artificial Tears (Artificial Tears) 1 drop OD Q3H PRN PRN Reason: DRY EYES Last Admin: 01/27/18 05:41 Dose: 1 drop Cinacalcet (Sensipar -) 30 mg PO BID [facility] Last Admin: 01/26/18 21:45 Dose: 30 mg Clopidogrel Bisulfate (Plavix -) 75 mg PO DAILY [facility] Docusate Sodium (Colace -) 100 mg PO BID PRN PRN Reason: CONSTIPATION Last Admin: 01/26/18 20:17 Dose: 100 mg Hydromorphone HCl (Dilaudid -) 2 mg PO Q6H PRN PRN Reason: PAIN LEVEL 6-10 Last Admin: 01/27/18 08:56 Dose: 2 mg Sodium Chloride (Normal Saline -) 250 mls @ 3,000 mls/hr IV PRN PRN PRN Reason: Hypotension during Dialysis Stop: 01/27/18 17:36 Loratadine (Claritin -) 10 mg PO DAILY [facility] Metoprolol Succinate (Toprol Xl -) 25 mg PO DAILY [facility] Pantoprazole Sodium (Protonix -) 40 mg PO DAILY [facility] Last Admin: 01/26/18 10:09 Dose: 40 mg Phytonadione (Aqua Mephyton Injection -) 0.5 mg IVPB ONCE ONE Stop: 01/27/18 08:40 Polyethylene Glycol (Miralax (For Daily Use) -) 17 gm PO BID [facility] Last Admin: 01/26/18 21:46 Dose: 17 gm Prednisone (Deltasone -) 80 mg PO DAILY@0800 [facility] Last Admin: 01/27/18 08:57 Dose: 80 mg Sevelamer Carbonate (Renvela -) 2,400 mg PO TIDCM [facility] Last Admin: 01/27/18 08:56 Dose: 2,400 mg *Physical Exam Vital Signs Period Temp Pulse Resp BP Sys/Montalvo Pulse Ox Last 24 Hr 97.5 F-98.8 F 67-81 18-20 112-126/64-78 99-99 General Appearance: Nourished. No Apparent Distress HEENT: EOMI, RL, R eye conunctival erythema improved, No Pharyngeal Erythema, Tonsillar Exudate, Tonsillar Erythema Neck: No Cervical Lymphadenopathy Respiratory/Chest: Lungs Clear, Normal Breath Sounds. No Crackles, Rales, Rhonchi, Wheezing Cardiovascular: Regular Rhythm, Regular Rate. No Murmur, Gallops, Rubs Gastrointestinal/Abdominal: Normal Bowel Sounds, Soft. No Guarding, Rebound, Tenderness Musculoskeletal: No CVA Tenderness Extremity: Left AV Fistula. Normal Capillary Refill Integumentary: Normal Color, Dry, Warm Neurologic: Fully Oriented, Alert, Normal Mood/Affect, Normal Response, Moves all extremities equally, light touch intact, gait deferred CBCD WBC 7.4 K/mm3 (4.0-10.0) D 01/27/18 05:30 RBC 3.61 M/mm3 (4.00-5.60) L 01/27/18 05:30 Hgb 12.0 GM/dL (11.7-16.9) 01/27/18 05:30 Hct 36.8 % (35.4-49) 01/27/18 05:30 MCV 102.0 fl (80-96) H 01/27/18 05:30 MCHC 32.5 g/dl (32.0-35.9) 01/27/18 05:30 RDW 19.7 % (11.9-15.9) H 01/27/18 05:30 Plt Count 188 K/MM3 (134-434) 01/27/18 05:30 MPV 9.3 fl (7.5-11.1) 01/27/18 05:30 CMP Sodium 133 mmol/L (136-145) L 01/27/18 05:30 Potassium 5.2 mmol/L (3.5-5.1) H 01/27/18 05:30 Chloride 90 mmol/L (98-107) L 01/27/18 05:30 Carbon Dioxide 25 mmol/L (21-32) 01/27/18 05:30 Anion Gap 18 (8-16) H 01/27/18 05:30 BUN 69 mg/dL (7-18) H D 01/27/18 05:30 Creatinine 6.3 mg/dL (0.7-1.3) H D 01/27/18 05:30 Creat Clearance w eGFR 11.19 (>60) 01/23/18 05:03 Calcium 9.7 mg/dL (8.5-10.1) 01/27/18 05:30 Total Bilirubin 0.9 mg/dL (0.2-1.0) 01/23/18 05:03 AST 27 U/L (15-37) D 01/23/18 05:03 ALT 19 U/L (12-78) 01/23/18 05:03 Alkaline Phosphatase 141 U/L (45-117) H D 01/23/18 05:03 Total Protein 7.4 g/dl (6.4-8.2) 01/23/18 05:03 Albumin 3.3 g/dl (3.4-5.0) L 01/23/18 05:03 CT head reviewed X 2 Plan: 82 year old with a history of CHF, COPD, ESRD on dialysis (Tu, Th, Sat) who presents for evaluation of SOB. The patient reports receiving his Wednesday dialysis and after began experiencing a sensation of SOB prompting his presentation to the ED for further evaluation. I was consulted by Cardiology, Dr. St, as patient was reporting symptoms of R eye pain and discomfort. He states it has been occuring for a few weeks and was accompanied at bedside with his daughter. Extraoccular movements were intact and he did not have diplopia. Ct head completed and did not show acute changes. MRI brain not able to be completed due to valve Repeat CT head reviewed, no acute changes Optho consult in chart (handwritten note, not in meditech, can be found in physical chart) which mentioned blephiritis but no acute retinal injury. Caratact report which is stable per Optho. 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 Rheum increased prednisone and recommended temporal artery biopsy Dr. Alba, vascular surgeon, note reviewed. Per note, discussed with Dr. Leyva, PCP, who felt that we would continue treatment regardless and therefore obtaining biopsy would not electronic data interchange specialist. Defer to them regarding this Reports continued pain behind eye despite high dose steroids Plan for transfer per cardiology INR now increased to 9, consider holding plavix if cards agrees Will order repeat CT head ESRD/HD per Renal, Pain control, on tylenol, Dilaudid also ordered PRN Monitor BP, maintain normotensive range Rheum followup Fall precautions
[2018-01-27] MEDS ORDERED: HYDROmorphone HCL CARPU-JECT 1 MG/1 ML DISP.SYRIN IVPUSH ONE (09:16)
[2018-01-27] MEDS ORDERED: metoPROLOL SUCCINATE 25 MG TAB.SR.24H (FP) PO SCH (10:00)
[2018-01-27] MEDS ORDERED: LORATADINE 10 MG TABLET PO SCH (10:00)
[2018-01-27] MEDS ORDERED: CLOPIDOGREL BISULFATE 75 MG TABLET (FP) PO SCH (10:00)
[2018-01-27] MEDS ORDERED: PHYTONADIONE 10 MG/1 ML AMP ONE (10:22)
[2018-01-27] MEDS: morphine SULFATE 4 MG/ML VIAL IVPUSH PRN ×2 (10:29→19:49)
[2018-01-27] MEDS: CINACALCET HCL 30 MG TAB (FP) PO SCH (10:29)
--- NOTE | 2018-01-27 10:44 | DS ---
Physical Examination Vital Signs: Vital Signs Temperature 97.6 F 01/27/18 05:00 Pulse Rate 71 01/27/18 05:00 Respiratory Rate 18 01/27/18 05:00 Blood Pressure 125/68 01/27/18 05:00 O2 Sat by Pulse Oximetry (%) 99 01/26/18 20:30 Constitutional: Yes: Well Nourished, No Distress Eyes: Yes: Conjunctiva Clear, Other (right eye lid tenderness, mild erythema of lids, no drainage). No: Diplopia, Ptosis, Tearing Cardiovascular: Yes: Pulse Irregular, Murmur Respiratory: Yes: WNL, Regular, CTA Bilaterally, Orthopnea, Rales (bibasilar), SOB on Exertion. No: Accessory Muscle Use, On Nasal O2, Tachypnea, Wheezes Gastrointestinal: Yes: WNL, Normal Bowel Sounds, Soft, Abdomen, Obese. No: Distention, Tenderness Edema: Yes Edema: LLE: 1+, RLE: 1+ Neurological: Yes: WNL, Alert, Oriented. No: Confusion, Facial Droop, Loss of Sensation Psychiatric: Yes: WNL, Alert, Oriented Labs: CBC, BMP 01/27/18 05:30 01/27/18 05:30 Discharge Summary Reason For Visit: SOB Current Active Problems Aortic stenosis (Acute) CHF exacerbation (Acute) Dyspnea and respiratory abnormalities (Acute) Head ache (Acute) Orthopnea (Acute) Pulmonary hypertension (Acute) Supratherapeutic INR (Acute) Temporal arteritis (Acute) Temporal headache (Acute) Hospital Course: The patient is an 82 year old male with a history of CHF, COPD, ESRD on dialysis (, , Wed) who presents for evaluation of SOB/GRAVES/orthopnea after Wednesday dialysis & right eye discomfort/pain. Cardiology consulted. Echo shows normal fxning aortic prosthesis; moderate MR and severe chronic PHTN. Per cardiology, His GRAVES is likely multifactorial and due to combination of chronic diastolic CHF secondary to hypertensive heart disease/ previous longstanding , chronic severe PHTN and MR which can be aggravated depending on BP and volume status.Recommended consultation with PHTN specialist at [facility]. Pulm consult appreciated Patient reporting symptoms of R eye pain and discomfort without temporal artery tenderness. ESR elevation in 80s. With gradual worsening of his eye symptoms, pt started on po prednisone concerning for GCA. PT evaluated by Ophthalmology which mentioned blepharitis but no acute retinal injury. Caratact report which is stable per Optho. 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 Rheum recommended temporal artery biopsy. Vascular consult appreciated. After discussion with PCP, and pt, biopsy was not pursued as it would not mold changer/outcome. CT of head x3 benign. MRI unable to do due to recent valve repair. Patient was feeling better yesterday morning during my interaction. However in the afternoon, he c/o dizziness x 30 mins which resolved. Pt hemodynamically stable. CBC wnl. Today, pt reports he is feeling worse, with more right eye pain and worsening dizziness. His INR elevated today >9, low dose vitamin k 0.5mg given by cardiology. Repeat Head CT neg. Case discussed with cardiology and PCP who has coordinated transfer to cardiology service at [facility] for higher level care. Condition: Critical - Instructions Diet, Activity, Other Instructions: HOLD COUMADIN, MONITOR INR CLOSELY Referrals: Paul Harris MD [Primary Care Provider] - 1 Week Jalen Metzger MD [Staff Physician] - 1 Week Disposition: TRANSFER ACUTE CARE/OTHER HOSP - Home Medications Comprehensive Discharge Medication List: Ambulatory Orders Sevelamer Carbonate [Renvela -] 3 tab PO TID 10/07/13 Metoprolol Succinate [Toprol XL -] 25 mg PO DAILY #0 10/13/13 Docusate Sodium [Colace -] 100 mg PO BID PRN capsule 10/31/17 Cinacalcet HCl [Sensipar -] 30 mg PO BID 01/24/18 Acetaminophen [Tylenol .Regular Strength -] 650 mg PO Q6H PRN tablet 01/27/18 Clopidogrel Bisulfate [Plavix -] 75 mg PO DAILY tablet 01/27/18 HYDROmorphone [Dilaudid -] 2 mg PO Q6H PRN tablet MDD 15 01/27/18 Loratadine [Claritin -] 10 mg PO DAILY tablet 01/27/18 Pantoprazole Sodium [Protonix -] 40 mg PO DAILY tablet.ec 01/27/18 Polyethylene Glycol 3350 [Miralax 119 gm Btl -] 17 gm PO BID bottle 01/27/18 Polyvinyl Alcohol [Artificial Tears] 1 drop OD Q3H PRN drops 01/27/18 predniSONE [Deltasone -] 80 mg PO DAILY@0800 tablet 01/27/18
[2018-01-27] MEDS: POLYETHYLENE GLYCOL 3350 119 GM BTL PO SCH (10:59)
[2018-01-27] MEDS: PANTOPRAZOLE 40 MG TABLET (FP) PO SCH (11:00)
--- NOTE | 2018-01-27 15:59 | PN ---
Progress Note (short form) - Note Progress Note: Brief Hematology Consult Note: Chart reviewed. D/w daughter at bedside. Pt receiving HD. pt very fatigued/tired/eye pain. Most hx obtained from daughter and chart Constitutional: Yes: Well Nourished, No Distress, Calm Eyes: Yes: Conjunctiva Clear, Other (right eye lid tenderness, mild erythema of lids, no drainage). No: Ptosis Cardiovascular: Yes: Pulse Irregular, Murmur Respiratory: Decreased sounds Gastrointestinal: Yes: WNL, Normal Bowel Sounds, Soft. No: Distention, Tenderness Genitourinary: Yes: WNL Musculoskeletal: Yes: WNL Edema: Yes Edema: LLE: 1+, RLE: 1+ Neurological: Yes: drowsy Psychiatric: Yes: WNL, Alert, Oriente Temp Pulse Resp BP Pulse Ox 97.8 F 78 18 123/60 99 01/27/18 15:00 01/27/18 15:40 01/27/18 15:40 01/27/18 15:40 01/27/18 10:00 CBC, BMP 01/27/18 05:30 01/27/18 05:30 Current Medications Generic Name Dose Route Start Last Admin Trade Name Freq PRN Reason Stop Dose Admin Acetaminophen 650 mg 01/26/18 19:30 01/27/18 05:39 Tylenol - PO 650 mg Q6H PRN Administration HEADACHE Artificial Tears 1 drop 01/24/18 20:13 01/27/18 05:41 Artificial Tears OD 1 drop Q3H PRN Administration DRY EYES Cinacalcet 30 mg 01/24/18 22:00 01/27/18 10:29 Sensipar - PO Not Given BID [facility] Clopidogrel Bisulfate 75 mg 01/27/18 10:00 01/27/18 11:00 Plavix - PO Not Given DAILY [facility] Docusate Sodium 100 mg 01/26/18 19:30 01/26/18 20:17 Colace - PO 100 mg BID PRN Administration CONSTIPATION Sodium Chloride 250 mls @ 3,000 mls/hr 01/26/18 17:36 Normal Saline - IV 01/27/18 19:00 PRN PRN Hypotension during Dialysis Loratadine 10 mg 01/27/18 10:00 01/27/18 10:59 Claritin - PO Not Given DAILY [facility] Metoprolol Succinate 25 mg 01/27/18 10:00 01/27/18 10:30 Toprol Xl - PO Not Given DAILY [facility] Morphine Sulfate 2 mg 01/27/18 09:34 01/27/18 10:29 Morphine Sulfate IVPUSH 2 mg Q6H PRN Administration PAIN LEVEL 6-10 Pantoprazole Sodium 40 mg 01/26/18 10:00 01/27/18 11:00 Protonix - PO Not Given DAILY [facility] Polyethylene Glycol 17 gm 01/26/18 13:45 01/27/18 10:59 Miralax (For Daily Use) - PO Not Given BID [facility] Prednisone 80 mg 01/25/18 08:00 01/27/18 08:57 Deltasone - PO 80 mg DAILY@0800 [facility] Administration Sevelamer Carbonate 2,400 mg 01/27/18 08:00 01/27/18 12:00 Renvela - PO Not Given TIDCM [facility] Cause of elevated INR in 's case is multi-factorial, poor PO intake, high inflammorty state, congestion along with iatrogenic suppression of VitK. No Hepa being given in HD confirmed Vit K was administered today. r/o DIC. Pt presently undergoing HD, requested to repeat PT/INR/PTT/Fibrinogen . If stays here will follow closely, will need q12h coag studies.
--- NOTE | 2018-01-27 16:17 | PN ---
Progress Note (short form) - Note Progress Note: Renal follow up for ESRD Pt seen and examined at the bedside awake and alert continues to report SOB, and right sided headache for transfer to tertiary care center for dialysis today no fever, chills Vital Signs Temperature 97.8 F 01/27/18 15:00 Pulse Rate 78 01/27/18 15:40 Respiratory Rate 18 01/27/18 15:40 Blood Pressure 123/60 01/27/18 15:40 O2 Sat by Pulse Oximetry (%) 99 01/27/18 10:00 NAD RRR CTA, no rales soft NT/ND trace edema in LE CBC, BMP 01/27/18 05:30 01/27/18 05:30 Current Medications Acetaminophen (Tylenol -) 650 mg PO Q6H PRN PRN Reason: HEADACHE Last Admin: 01/27/18 05:39 Dose: 650 mg Artificial Tears (Artificial Tears) 1 drop OD Q3H PRN PRN Reason: DRY EYES Last Admin: 01/27/18 05:41 Dose: 1 drop Cinacalcet (Sensipar -) 30 mg PO BID [facility] Last Admin: 01/27/18 10:29 Dose: Not Given Clopidogrel Bisulfate (Plavix -) 75 mg PO DAILY [facility] Last Admin: 01/27/18 11:00 Dose: Not Given Docusate Sodium (Colace -) 100 mg PO BID PRN PRN Reason: CONSTIPATION Last Admin: 01/26/18 20:17 Dose: 100 mg Sodium Chloride (Normal Saline -) 250 mls @ 3,000 mls/hr IV PRN PRN PRN Reason: Hypotension during Dialysis Stop: 01/27/18 19:00 Loratadine (Claritin -) 10 mg PO DAILY [facility] Last Admin: 01/27/18 10:59 Dose: Not Given Metoprolol Succinate (Toprol Xl -) 25 mg PO DAILY [facility] Last Admin: 01/27/18 10:30 Dose: Not Given Morphine Sulfate (Morphine Sulfate) 2 mg IVPUSH Q6H PRN PRN Reason: PAIN LEVEL 6-10 Last Admin: 01/27/18 10:29 Dose: 2 mg Pantoprazole Sodium (Protonix -) 40 mg PO DAILY [facility] Last Admin: 01/27/18 11:00 Dose: Not Given Polyethylene Glycol (Miralax (For Daily Use) -) 17 gm PO BID [facility] Last Admin: 01/27/18 10:59 Dose: Not Given Prednisone (Deltasone -) 80 mg PO DAILY@0800 [facility] Last Admin: 01/27/18 08:57 Dose: 80 mg Sevelamer Carbonate (Renvela -) 2,400 mg PO TIDCM [facility] Last Admin: 01/27/18 12:00 Dose: Not Given 82 year old gentleman with PMhx of ESRD on HD (TTS), CHF, COPD who presented with SOB and admitted for evaluation. 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
[2018-01-27 17:30] LABS: PROTHROMBIN TIME (PATIENT) 53.6 SEC (9.7-13.0)
[2018-01-27 17:51] LABS: ACTIVATED PTT 36.2 SECONDS (26.9-34.4)
[2018-01-27 18:08] LABS: INR 4.74 (0.82-1.09)
[2018-01-27 19:51] VITALS: BP 132/73; PULSE 94; TEMP 98.4
== END 2018-01-27 20:26 | disposition short-term general hospital (02) | DRG 314 ==
LOC: JER 00:30 → JERBED 07:47 → J4W 01-24 17:09 → OBSVTOIN 01-26 10:57
PROVIDERS: ADMIT Internal Medicine; ATTEND Internal Medicine
DX: I27.20 Pulmonary hypertension, unspecified (principal); I50.33 Acute on chronic diastolic (congestive) heart failure; N18.6 End stage renal disease; I13.11 Hypertensive heart and chronic kidney disease without heart failure, with stage 5 chronic kidney disease, or end stage renal disease; I31.3 Pericardial effusion (noninflammatory); R18.8 Other ascites; J44.9 Chronic obstructive pulmonary disease, unspecified; Z99.2 Dependence on renal dialysis; I48.2 Chronic atrial fibrillation; Z79.01 Long term (current) use of anticoagulants; E78.5 Hyperlipidemia, unspecified; I35.0 Nonrheumatic aortic (valve) stenosis; R51 Headache; I34.0 Nonrheumatic mitral (valve) insufficiency; I36.1 Nonrheumatic tricuspid (valve) insufficiency; I71.2 Thoracic aortic aneurysm, without rupture; M31.6 Other giant cell arteritis; R79.1 Abnormal coagulation profile
CPT/HCPCS: 36415; 70450-TC; 71046-TC-FY; 71250-TC; 80048; 80053; 82550; 82962; 83735; 83880; 84100; 84484; 85025; 85384; 85610; 85651; 85730; 86140; 86704; 86706; 86708; 87081; 87340; 93005; 93010; 93306-TC; 93970-TC; 99285-25; G0378; J0885

== ENCOUNTER 2018-03-09 17:40 | Inpatient (IN) | payer OTHER, MEDICARE ==
--- NOTE | 2018-03-09 17:43 | PDOC ---
Rapid Medical Evaluation Time Seen by Provider: 03/09/18 17:40 Medical Evaluation: Allergies Allergy/AdvReac Type Severity Reaction Status Date / Time enoxaparin sodium Allergy Verified 01/23/18 02:44 [From Lovenox] heparin (porcine) Allergy heparin Verified 01/23/18 02:44 [Heparin,Porcine] induced platelet antibody lidocaine Allergy Verified 01/23/18 02:44 I have performed a brief in-person evaluation of this patient. The patient presents with a chief complaint of: sent in by Dr. Gonzales because INR is too high and needs vitamin K. No bleeding. INR was "unreadable " in the lab because it was so high. Pertinent physical exam findings: nothing I have ordered the following: labs, EKG The patient will proceed to the ED for further evaluation. Discharge Disposition - Diagnosis Elevated INR - Referrals - Patient Instructions - Post Discharge Activity
--- NOTE | 2018-03-09 17:46 | PDOC ---
History of Present Illness - General Chief Complaint: Revisit, Lab Variance Stated Complaint: WEAKNESS Time Seen by Provider: 03/09/18 17:40 - History of Present Illness Initial Comments: 82 year old male with PMH of Afib ( on Coumadin), ESRD (T, Th, Sat), and recent cardiac valve replacement (one month prior at [facility]) presenting because of "out of range" INR at his Coumadin check. Patient also admits to overall weakness over the past few days as well but no headaches, nausea, vomiting. FND, falls, chest pain, SOB, or other symptoms. Of note, patient has a resolving episode of right sided facial herpes Zoster with complication of right sided facial pain that is slowly resolving. 03/09/18 19:02 Past History - Past Medical History Allergies/Adverse Reactions: Allergies Allergy/AdvReac Type Severity Reaction Status Date / Time enoxaparin sodium Allergy Verified 03/09/18 17:41 [From Lovenox] heparin (porcine) Allergy heparin Verified 03/09/18 17:41 [Heparin,Porcine] induced platelet antibody lidocaine Allergy Verified 03/09/18 17:41 Home Medications: Ambulatory Orders Sevelamer Carbonate [Renvela -] 3 tab PO TID 10/07/13 Cinacalcet HCl [Sensipar -] 30 mg PO BID 01/24/18 Clopidogrel Bisulfate [Plavix -] 75 mg PO DAILY tablet 01/27/18 Polyvinyl Alcohol [Artificial Tears] 1 drop OD Q3H PRN drops 01/27/18 Metoprolol Succinate [Toprol XL -] 25 mg PO HS 03/09/18 Oxycodone HCl/Acetaminophen [Percocet 5-325 mg Tablet] 1 tab PO Q6H 03/09/18 Polyethylene Glycol 3350 [Miralax 119 gm Btl -] 17 gm PO Q2D 03/09/18 Warfarin Sodium [Coumadin] 6 mg PO 03/10/18 Acetaminophen [Tylenol .Regular Strength -] 325 mg PO Q6H PRN tablet 03/11/18 Amitriptyline HCl [Elavil -] 25 mg PO HS #14 tablet 03/11/18 Cinacalcet HCl [Sensipar -] 30 mg PO BID tab 03/11/18 Ciprofloxacin 0.3% Eye Drops [Ciloxan 0.3% Eye Drops -] 1 drop OD Q6HPO 7 Days # 1 drops 03/11/18 Gabapentin [Neurontin -] 300 mg PO DAILY capsule 03/11/18 Sulfacetamide/Prednisolone [Blephamide Eye Ointment] 3.5 gm OP TID 7 Days #2 oint...g. 03/11/18 oxyCODONE HCL [Roxicodone -] 5 mg PO Q6H PRN tablet MDD 30 03/11/18 Anemia: Yes Asthma: No Cancer: No Cardiac Disorders: Yes (atrial fibrillation,CAD, aortic stenosis, aortic aneurysm) CVA: No COPD: No CHF: No Dementia: No Diabetes: Yes Dialysis: Yes (//WED) GI Disorders: No Disorders: No HTN: Yes Hypercholesterolemia: Yes Kidney Stones: (renal failure shiley to right chest, av fistula to left arm) Liver Disease: No Seizures: No Thyroid Disease: No - Surgical History Abdominal Surgery: No Appendectomy: No Cardiac Surgery: No Cholecystectomy: No Lung Surgery: (left arm fistula, right chest shiley) Neurologic Surgery: No Orthopedic Surgery: No - Suicide/Smoking/Psychosocial Hx Smoking Status: No Smoking History: Never smoked Have you smoked in the past 12 months: No Number of Cigarettes Smoked Daily: 0 If you are a former smoker, when did you quit?: 42 years ago Hx Alcohol Use: No Drug/Substance Use Hx: No Substance Use Type: None Hx Substance Use Treatment: No Review of Systems - Review of Systems Constitutional: No: Chills, Diaphoresis HEENTM: No: Blurred Vision, Tearing, Recent change in vision Respiratory: No: Cough, Orthopnea, Stridor, Wheezing, Productive cough Cardiac (ROS): No: Chest Pain, Edema, Irregular Heart Rate, Lightheadedness ABD/GI: No: Nausea, Vomiting : No: Burning, Dysuria, Discharge Musculoskeletal: No: Back Pain, Gout Integumentary: No: Bruising, Erythema, Flushing, Lesions Neurological: No: Headache, Numbness, Paresthesia Psychiatric: No: Anxiety, Depression Hematologic/Lymphatic: Yes: Blood Clots, Easy Bleeding *Physical Exam - Physical Exam General Appearance: Yes: Nourished, Appropriately Dressed. No: Apparent Distress HEENT: positive: EOMI, RL, Normal Voice. negative: Normal ENT Inspection ( right sided slight conjunctival injection and scarring over upper right sided face from previous herpes zoster) Neck: positive: Trachea midline, Normal Thyroid, Supple. negative: Tender, Rigid Respiratory/Chest: positive: Lungs Clear, Normal Breath Sounds. negative: Chest Tender, Respiratory Distress, Accessory Muscle Use Cardiovascular: positive: Regular Rhythm, Regular Rate Gastrointestinal/Abdominal: positive: Normal Bowel Sounds, Flat, Soft. negative : Tender Lymphatic: negative: Adenopathy, Tenderness Musculoskeletal: positive: Normal Inspection. negative: Decreased Range of Motion Extremity: positive: Normal Capillary Refill, Normal Inspection, Normal Range of Motion. negative: Tender Integumentary: positive: Normal Color, Dry, Warm Neurologic: positive: Fully Oriented, Alert, Normal Mood/Affect, Normal Response , Motor Strength 12/25 ED Treatment Course - LABORATORY CBC & Chemistry Diagram: 03/13/18 06:10 03/13/18 06:10 Medical Decision Making - Medical Decision Making Patient with elevated INR for unclear reason and other labs WNL. CT head clear and patient will be admitted for further monitoring with supratherapeutic INR and workup for weakness. *DC/Admit/Observation/Transfer Diagnosis at time of Disposition: Elevated INR - Discharge Dispostion Condition at time of disposition: Fair - Prescriptions - Referrals - Patient Instructions - Post Discharge Activity
[2018-03-09 18:12] LABS: BASO % 1.4 % (0-2.0); HEMOGLOBIN 11.6 GM/dL (11.7-16.9); LYMPH % 17.5 % (8-40); MCH 33.5 pg (25.7-33.7); MCHC 32.3 g/dl (32.0-35.9); MEAN CELL VOLUME 103.6 fl (80-96); MEAN PLT VOLUME 9.1 fl (7.5-11.1); MONO % 14.9 % (3.8-10.2); NEUT % 63.2 % (42.8-82.8); PLATELET COUNT 213 K/MM3 (134-434); RBC 3.48 M/mm3 (4.00-5.60); RDW 20.6 % (11.9-15.9)
[2018-03-09 18:43] LABS: PROTHROMBIN TIME (PATIENT) 121.7 SEC (9.7-13.0)
[2018-03-09 18:44] LABS: INR 10.77 (0.82-1.09)
[2018-03-09 18:50] LABS: ALBUMIN 3.5 g/dl (3.4-5.0); ANION GAP 12 (8-16); BILIRUBIN,TOTAL 0.7 mg/dL (0.2-1.0); BLOOD UREA NITROGEN 44 mg/dL (7-18); CHLORIDE 101 mmol/L (98-107); CO2 25 mmol/L (21-32); CREATININE 6.3 mg/dL (0.7-1.3); GLUCOSE,RANDOM 104 mg/dL (74-106); SGOT/AST 22 U/L (15-37); SGPT/ALT 18 U/L (12-78); SODIUM 138 mmol/L (136-145); TOT PROT 7.5 g/dl (6.4-8.2)
[2018-03-09 18:52] LABS: ALK PHOS 142 U/L (45-117)
--- NOTE | 2018-03-09 19:38 | PDOC ---
Attending Attestation - Resident Resident Name: Mary Alice Garza - ED Attending Attestation I have performed the following: I have examined & evaluated the patient, The case was reviewed & discussed with the resident, I agree w/resident's findings & plan, Exceptions are as noted - Physicial Exam PE: 03/09/18 19:36 *Physical Exam General Appearance: Yes: Appropriately Dressed. No: Apparent Distress, Intoxicated HEENT: positive: EOMI, RL, Normal ENT Inspection, Normal Voice, TMs Normal, Pharynx Normal. negative: Pale Conjunctivae, Photophobia, Scleral Icterus (R), Scleral Icterus (L) Neck: positive: Trachea midline, Normal Thyroid, Supple. negative: Tender, Rigid, Carotid bruit, Stridor, Lymphadenopathy (R), Lymphadenopathy (L), Thyromegaly Respiratory/Chest: positive: Lungs Clear, Normal Breath Sounds. negative: Chest Tender, Respiratory Distress, Accessory Muscle Use, Labored Respiration, RES, Crackles, Rales, Rhonchi, Stridor, Wheezing, Dullness Cardiovascular: positive: Regular Rhythm, Regular Rate, S1, S2. negative: Edema , JVD, Murmur, Bradycardia, Tachycardia Vascular Pulses: Dorsalis-Pedis (R): 2+, Doralis-Pedis (L): 2+ Gastrointestinal/Abdominal: positive: Normal Bowel Sounds, Flat, Soft. negative : Tender, Organomegaly, Pulsatile Mass, Increased Bowel Sounds, Decreased BS, Distended, Guarding, Rebound, Hernia, Hepatomegaly, Spleenomegaly Lymphatic: negative: Adenopathy, Tenderness Musculoskeletal: positive: Normal Inspection. negative: CVA Tenderness, Decreased Range of Motion Extremity: positive: Normal Capillary Refill, Normal Inspection, Normal Range of Motion, Pelvis Stable. negative: Tender, Pedal Edema, Swelling, Erythema Integumentary: positive: Normal Color, Dry, Warm. negative: Cyanotic, Erythema , Jaundice, Rash Neurologic: positive: barrel inspector tight II-XII NML intact, Fully Oriented, Alert, Normal Mood/ Affect, Motor Strength 5/5. negative: EOM Palsy, Facial Droop, Sensory Deficit - Medical Decision Making 03/09/18 19:37 Pt to be admitted for further evaluation and care <Luis Biswas - Last Filed: 03/09/18 19:36> - HPI HPI: 03/09/18 20:41 The patient is an 82 year old male with a significant past medical history of afib on coumadin, recent cardiac valve replacement (1 month ago at [facility]), HTN, HLD, Dialysis (Tu,Thur,Sat), anemia, and diabetes who presents to the emergency department for evaluation of out of range INR during his Coumadin check. The patient reports generalized weakness over the last few days. Pt is currently recovering from right sided facial herpes Zoster. The patient denies recent falls or trauma, chest pain, shortness of breath, headache, and dizziness. Denies fever, chills, nausea, vomiting, and any urinary /bowel symptoms. Allergies: Enoxaparin sodium, heparin, lidocaine Past surgical history: VALVE REPLACEMENT, left arm fistula, right chest shiley Social history: No reported alcohol, cigarette, or drug use. PCP: Dr. Vines <Nba Betancourt - Last Filed: 03/09/18 20:53> Attestations - Attestations Documentation prepared by Nba Betancourt, acting as medical research scientist for Luis Biswas DO. <Nba Betancourt - Last Filed: 03/09/18 20:53>
[2018-03-09] MEDS ORDERED: PHYTONADIONE 5 MG TABLET PO ONE (20:05)
[2018-03-09] MEDS ORDERED: PHYTONADIONE 5 MG TABLET ONE (20:17)
--- NOTE | 2018-03-09 21:28 | HP ---
CHIEF COMPLAINT: elevated INR PCP: Dr. Vines HISTORY OF PRESENT ILLNESS: This is an 82 year old male with a past medical history of afib, AVR 2 months ago who presented to the at the request of his PCP for elevated INR. Pt with report of weakness. No other complaints on exam. Denies any bleeding or dark stools. ER course was notable for: (1) INR 10.77 (2) Hgb 11.6 (baseline 10-12) Recent Travel: [place] PAST MEDICAL HISTORY: Afib, AVR, CAD, aortic stenosis, aortic aneurysm, ESRD Tu,Th,Sa, HLD PAST SURGICAL HISTORY: L arm fistula AVR approx 1-2 mo ago Social History: Smoking: pt denies Alcohol: pt denies Drugs: pt denies Family History: pt unsure Allergies enoxaparin sodium [From Lovenox] Allergy (Verified 03/09/18 17:41) heparin (porcine) [Heparin,Porcine] Allergy (Verified 03/09/18 17:41) heparin induced platelet antibody as per Paul Tee lidocaine Allergy (Verified 03/09/18 17:41) HOME MEDICATIONS: 3 Medication Instructions Recorded Sevelamer Carbonate [Renvela -] 3 tab PO TID 10/07/13 Cinacalcet HCl [Sensipar -] 30 mg PO BID 01/24/18 Clopidogrel Bisulfate [Plavix -] 75 mg PO DAILY tablet 01/27/18 Polyvinyl Alcohol [Artificial 1 drop OD Q3H PRN drops 01/27/18 Tears] Gabapentin 300 mg PO TID 03/09/18 Metoprolol Succinate [Toprol XL -] 25 mg PO HS 03/09/18 Oxycodone HCl/Acetaminophen 1 tab PO Q6H 03/09/18 [Percocet 5-325 mg Tablet] Polyethylene Glycol 3350 [Miralax 17 gm PO Q2D 03/09/18 119 gm Btl -] REVIEW OF SYSTEMS CONSTITUTIONAL: Present: generalized weakness Absent: fever, chills, diaphoresis, malaise, loss of appetite, weight change HEENT: Absent: rhinorrhea, nasal congestion, throat pain, throat swelling, difficulty swallowing, mouth swelling, ear pain, eye pain, visual changes CARDIOVASCULAR: Absent: chest pain, syncope, palpitations, irregular heart rate, lightheadedness , peripheral edema RESPIRATORY: Absent: cough, shortness of breath, dyspnea with exertion, orthopnea, wheezing, stridor, hemoptysis GASTROINTESTINAL: Absent: abdominal pain, abdominal distension, nausea, vomiting, diarrhea, constipation, melena, hematochezia GENITOURINARY: Absent: dysuria, frequency, urgency, hesitancy, hematuria, flank pain, genital pain MUSCULOSKELETAL: Absent: myalgia, arthralgia, joint swelling, back pain, neck pain SKIN: Absent: rash, itching, pallor HEMATOLOGIC/IMMUNOLOGIC: Absent: easy bleeding, easy bruising, lymphadenopathy, frequent infections ENDOCRINE: Absent: unexplained weight gain, unexplained weight loss, heat intolerance, cold intolerance NEUROLOGIC: Absent: headache, focal weakness or paresthesias, dizziness, unsteady gait, seizure, mental status changes, bladder or bowel incontinence PSYCHIATRIC: Absent: anxiety, depression, suicidal or homicidal ideation, hallucinations. PHYSICAL EXAMINATION Vital Signs - 24 hr 3 03/09/18 17:42 Temperature 98.3 F Pulse Rate 83 Respiratory 18 Rate Blood Pressure 108/50 O2 Sat by Pulse 92 L Oximetry (%) GENERAL: Awake, alert, and fully oriented, in no acute distress. HEAD: Normal with no signs of trauma. EYES: Pupils equal, round and reactive to light, extraocular movements intact, sclera anicteric, conjunctiva clear. No lid lag. EARS, NOSE, THROAT: Ears normal, nares patent, oropharynx clear without exudates. Moist mucous membranes. NECK: Normal range of motion, supple without lymphadenopathy, JVD, or masses. LUNGS: Breath sounds equal, clear to auscultation bilaterally. No wheezes, and no crackles. No accessory muscle use. HEART: Regular rate and rhythm, normal S1 and S2 without murmur, rub or gallop. ABDOMEN: Soft, nontender, not distended, normoactive bowel sounds, no guarding, no rebound, no masses. No hepatomegaly or splenomegaly. MUSCULOSKELETAL: Normal range of motion at all joints. No bony deformities or tenderness. No CVA tenderness. UPPER EXTREMITIES: 2+ pulses, warm, well-perfused. No cyanosis. No clubbing. No peripheral edema. LOWER EXTREMITIES: 2+ pulses, warm, well-perfused. No calf tenderness. No peripheral edema. NEUROLOGICAL: Cranial nerves II-XII intact. Normal speech. Normal gait. PSYCHIATRIC: Cooperative. Good eye contact. Appropriate mood and affect. SKIN: Warm, dry, normal turgor, no rashes or lesions noted, normal capillary refill. Laboratory Results - last 24 hr 3 03/09/18 03/09/18 03/09/18 18:00 18:00 18:00 WBC 6.0 RBC 3.48 L Hgb 11.6 L Hct 36.0 MCV 103.6 H MCH 33.5 MCHC 32.3 RDW 20.6 H Plt Count 213 MPV 9.1 Absolute Neuts (auto) 3.8 Neutrophils % 63.2 D Lymphocytes % 17.5 D Monocytes % 14.9 H D Eosinophils % 3.0 D Basophils % 1.4 D Nucleated RBC % 0 PT with INR 121.70 H INR 10.77 H* Sodium 138 Potassium 5.0 Chloride 101 D Carbon Dioxide 25 Anion Gap 12 BUN 44 H Creatinine 6.3 H Creat Clearance w eGFR 8.57 Random Glucose 104 D Calcium 9.0 Total Bilirubin 0.7 AST 22 ALT 18 Alkaline Phosphatase 142 H Creatine Kinase 47 Troponin I 0.07 H Total Protein 7.5 Albumin 3.5 Blood Type B POSITIVE Antibody Screen Negative ECG atrial fibrillation vent rate 70, QRC [address] abnormality No acute NESS/STD Radiology Reports CT head THIS IS A PRELIMINARY REPORT FROM IMAGING LOWERATOR OPERATOR Impression: Negative unenhanced CT of the brain. Individualized dose optimization techniques were used for this CT. THIS DOCUMENT HAS BEEN ELECTRONICALLY SIGNED Von Cartagena MD 03/09/2018 19:14 EST ASSESSMENT/PLAN: 82yM with PMH Afib, AVR, CAD, aortic stenosis, aortic aneurysm, ESRD ,Th,Sa, HLD presented to the ED as per PCP for elevated INR Supratherapeutic INR - vitamin K 5mg po x 1 - will give FFP if any active bleeding - monitor for bleeding - repeat INR, CBC in am Afib - rate controlled - cont home toprol HS - resume warfarin when INR less than 3.5 AVR - resume warfarin when INR less than 3.5 CAD - cont plavix and toprol ESRD - renal consult for dialysis - cont sensipar and sevelamer s/p recent herpes zoster right face - completed valtrex - cont home gabapentin and percocet for pain DVT PPX - supratherapeutic INR FEN - tolerating po - BMP in am - renal diet as tolerated Visit type - Emergency Visit Emergency Visit: Yes ED Registration Date: 03/09/18 Care time: The patient presented to the Emergency Department on the above date and was hospitalized for further evaluation of their emergent condition. - New Patient This patient is new to me today: Yes Date on this admission: 03/09/18 - Critical Care Critical Care patient: No Hospitalist Screening - Colonoscopy Questionnaire Colonoscopy Questionnaire: Colonoscopy Questionnaire - Patient: 50 - 75 years old and never had a screening colonoscopy: No History of colon or rectal polyps, or CA: No History of IBD, Crohn's disease or UC: No History of abdominal radiation therapy as a child: No - Relative: 1 with colon or rectal CA, or polyps at age 60 or younger: No Colon or rectal CA diagnosed at age 45 or younger: No Multiple relatives with colon or rectal CA: No - Outcome: Screening Result: Negative Screen
[2018-03-09] MEDS ORDERED: GABAPENTIN 100 MG CAPSULE (FP) PO ONE (22:04)
[2018-03-09] MEDS ORDERED: GABAPENTIN 300 MG CAPSULE (FP) PO ONE (22:06)
[2018-03-09] MEDS ORDERED: GABAPENTIN 100 MG CAPSULE (FP) ONE (22:08)
[2018-03-09] MEDS ORDERED: ARTIFICIAL TEARS (POLYVINYL ALCOHOL 1.4%) OPTH DROPS OD PRN (22:15)
[2018-03-09] MEDS ORDERED: metoPROLOL SUCCINATE 25 MG TAB.SR.24H (FP) PO ONE (22:18)
[2018-03-09] MEDS ORDERED: ACETAMINOPHEN 325 MG TABLET (FP) PO PRN (23:03)
[2018-03-09] MEDS: CINACALCET HCL 30 MG TAB (FP) PO SCH (23:04)
[2018-03-10] MEDS: GABAPENTIN 300 MG CAPSULE (FP) PO SCH ×3 (05:54→22:43)
[2018-03-10 07:22] LABS: BASO % 1.5 % (0-2.0); EOS % 4.3 % (0-4.5); HEMATOCRIT 35.5 % (35.4-49); HEMOGLOBIN 11.8 GM/dL (11.7-16.9); LYMPH % 17.5 % (8-40); MCH 34.2 pg (25.7-33.7); MCHC 33.3 g/dl (32.0-35.9); MEAN CELL VOLUME 102.8 fl (80-96); MEAN PLT VOLUME 8.9 fl (7.5-11.1); MONO % 16.8 % (3.8-10.2); NEUT % 59.9 % (42.8-82.8); PLATELET COUNT 195 K/MM3 (134-434); RBC 3.46 M/mm3 (4.00-5.60); RDW 20.5 % (11.9-15.9); WHITE BLOOD COUNT 6.2 K/mm3 (4.0-10.0)
[2018-03-10 07:35] LABS: PROTHROMBIN TIME (PATIENT) 72.5 SEC (9.7-13.0)
[2018-03-10 07:57] LABS: INR 6.42 (0.82-1.09)
[2018-03-10 08:00] LABS: ANION GAP 13 (8-16); BLOOD UREA NITROGEN 52 mg/dL (7-18); CALCIUM 9.3 mg/dL (8.5-10.1); CHLORIDE 101 mmol/L (98-107); CO2 25 mmol/L (21-32); CREATININE 6.9 mg/dL (0.7-1.3); GLUCOSE,RANDOM 71 mg/dL (74-106); MAGNESIUM 2.4 mg/dL (1.8-2.4); PHOSPHOROUS 7.1 mg/dL (2.5-4.9); POTASSIUM 4.9 mmol/L (3.5-5.1); SODIUM 139 mmol/L (136-145)
[2018-03-10] MEDS: SEVELAMER CARBONATE 800 MG TAB (FP) PO SCH ×3 (08:29→16:46)
[2018-03-10] MEDS: oxyCODONE HCL 5 MG TABLET PO PRN (08:35)
[2018-03-10] MEDS ORDERED: PT OWN MED DRAWER 7, Y5N ONE (09:48)
[2018-03-10] MEDS: CINACALCET HCL 30 MG TAB (FP) PO SCH ×2 (10:01→22:44)
[2018-03-10] MEDS: CLOPIDOGREL BISULFATE 75 MG TABLET (FP) PO SCH (10:01)
--- NOTE | 2018-03-10 11:09 | CONSULT ---
Consult - text type - Consultation Consultation Note: Renal Consult for ESRD on HD This is a 82 year old gentleman with PMhx of ESRD on HD (TTS), Afib on Coumadin , COPD, CHF who presented with INR > 10. Pt's daughter says there may have been a mix up n his dosages at home and that resulted in the high INR. No bleeding noted by the patient. No abd pain, sob, chest pain, N/V/D. No fever or chills. last dialysis was Wednesday. PMHx: as above Allergies: Lidocaine, Heparin, Lovenox Family Hx: NC Social hx: No T/A/D ROS: as per HPI Home Medications Medication Instructions Recorded Sevelamer Carbonate [Renvela -] 3 tab PO TID 10/07/13 Cinacalcet HCl [Sensipar -] 30 mg PO BID 01/24/18 Clopidogrel Bisulfate [Plavix -] 75 mg PO DAILY tablet 01/27/18 Polyvinyl Alcohol [Artificial 1 drop OD Q3H PRN drops 01/27/18 Tears] Gabapentin 300 mg PO TID 03/09/18 Metoprolol Succinate [Toprol XL -] 25 mg PO HS 03/09/18 Oxycodone HCl/Acetaminophen 1 tab PO Q6H 03/09/18 [Percocet 5-325 mg Tablet] Polyethylene Glycol 3350 [Miralax 17 gm PO Q2D 03/09/18 119 gm Btl -] Warfarin Sodium [Coumadin] 6 mg PO 03/10/18 Vital Signs Temperature 97.7 F 03/10/18 10:00 Pulse Rate 83 03/10/18 10:00 Respiratory Rate 18 03/10/18 10:00 Blood Pressure 109/61 03/10/18 10:00 O2 Sat by Pulse Oximetry (%) 92 L 03/10/18 09:00 Intake & Output 03/07/18 03/08/18 03/09/18 03/10/18 23:59 23:59 23:59 23:59 Intake Total 80 Balance 80 Weight 84.822 kg 79.197 kg NAD awake and alert irregular, no M/R CTA, no rales no LE edema Left arm AVF + thrill CBC, BMP 03/10/18 06:00 03/10/18 06:00 Current Medications Acetaminophen (Tylenol -) 325 mg PO Q6H PRN PRN Reason: PAIN LEVEL 6-10 Last Admin: 03/10/18 08:35 Dose: 325 mg Artificial Tears (Artificial Tears) 1 drop OD Q3H PRN PRN Reason: DRY EYES Cinacalcet (Sensipar -) 30 mg PO BID [facility] Last Admin: 03/10/18 10:01 Dose: 30 mg Clopidogrel Bisulfate (Plavix -) 75 mg PO DAILY [facility] Last Admin: 03/10/18 10:01 Dose: 75 mg Docusate Sodium (Colace -) 100 mg PO TID [facility] Gabapentin (Neurontin -) 300 mg PO TID [facility] Last Admin: 03/10/18 05:54 Dose: 300 mg Metoprolol Succinate (Toprol Xl -) 25 mg PO HS [facility] Oxycodone HCl (Roxicodone -) 5 mg PO Q6H PRN PRN Reason: PAIN LEVEL 6-10 Last Admin: 03/10/18 08:35 Dose: 5 mg Polyethylene Glycol (Miralax (For Daily Use) -) 17 gm PO Q2D [facility] Sevelamer Carbonate (Renvela -) 2,400 mg PO TIDCM [facility] Last Admin: 03/10/18 08:29 Dose: 2,400 mg 82 year old gentleman with PMhx of ESRD on HD (TTS), Afib on Coumadin, COPD, CHF who presented with INR > 10. #Supratheraputic INR #ESRD on HD #Renal Osteodystrophy #Afib on Coumadin #Shingles INR improving, holding Coumadin for now Cardiology consulted no signs of bleeding at this time and thus no need for FFP/Vit K For dialysis today as inpatient with UF as tolerated Continue Renvela and Sensipar Continue Abx eye drops and pain control for shingles Thank you Will follow Juan Christensen DO
--- NOTE | 2018-03-10 11:49 | PN ---
Progress Note, Physician Chief Complaint: Pt sitting in bed. Complaints of severe right eye pain, sharp 10/10. chronic, no relief on current regimen per pt. otherwise, denies any chest pain, sob, n/v/ d - Current Medication List Current Medications: Active Medications Acetaminophen (Tylenol -) 325 mg PO Q6H PRN PRN Reason: PAIN LEVEL 6-10 Last Admin: 03/10/18 08:35 Dose: 325 mg Artificial Tears (Artificial Tears) 1 drop OD Q3H PRN PRN Reason: DRY EYES Cinacalcet (Sensipar -) 30 mg PO BID [facility] Last Admin: 03/10/18 10:01 Dose: 30 mg Ciprofloxacin (Ciloxan 0.3% Eye Drops -) 1 drop OD Q6H [facility] Clopidogrel Bisulfate (Plavix -) 75 mg PO DAILY [facility] Last Admin: 03/10/18 10:01 Dose: 75 mg Docusate Sodium (Colace -) 100 mg PO TID [facility] Gabapentin (Neurontin -) 300 mg PO TID [facility] Last Admin: 03/10/18 05:54 Dose: 300 mg Sodium Chloride (Normal Saline -) 250 mls @ 3,000 mls/hr IV PRN PRN PRN Reason: Hypotension during Dialysis Stop: 03/11/18 11:28 Metoprolol Succinate (Toprol Xl -) 25 mg PO HS [facility] Oxycodone HCl (Roxicodone -) 5 mg PO Q6H PRN PRN Reason: PAIN LEVEL 6-10 Last Admin: 03/10/18 08:35 Dose: 5 mg Polyethylene Glycol (Miralax (For Daily Use) -) 17 gm PO Q2D [facility] Sevelamer Carbonate (Renvela -) 2,400 mg PO TIDCM [facility] Last Admin: 03/10/18 08:29 Dose: 2,400 mg - Objective Vital Signs: Vital Signs Temperature 97.7 F 03/10/18 10:00 Pulse Rate 83 03/10/18 10:00 Respiratory Rate 18 03/10/18 10:00 Blood Pressure 109/61 03/10/18 10:00 O2 Sat by Pulse Oximetry (%) 92 L 03/10/18 09:00 Constitutional: Yes: Well Nourished, No Distress, Calm Eyes: Yes: Tearing (right eye, mild erythema/injected, clear/white drainage) Cardiovascular: Yes: Pulse Irregular, Murmur Respiratory: Yes: WNL, Regular, CTA Bilaterally, Tachypnea. No: Accessory Muscle Use, Rales, SOB, Wheezes Gastrointestinal: Yes: WNL, Normal Bowel Sounds, Soft. No: Distention, Tenderness Edema: No Neurological: Yes: WNL, Alert, Oriented Psychiatric: Yes: WNL, Alert, Oriented Labs: CBC, BMP 03/10/18 06:00 03/10/18 06:00 INR, PTT INR 6.42 (0.82-1.09) H* D 03/10/18 06:00 Problem List - Problems (1) Supratherapeutic INR Assessment/Plan: INR of 10 at PCP's office, received vitamin k in ED pt reports he has been eating less, might've affected INR INR 6.4 today, no signs of bleeding hold coumadin head CT neg PT ordered fall risk precautions case discussed with cardiology monitor for 24 hours, recheck inr tomorrow and assess Code(s): R79.1 - ABNORMAL COAGULATION PROFILE (2) Post herpetic neuralgia Assessment/Plan: pt reports severe 10/10 sharp right eye pain, chronic since Zoster Opthalmicus infection 02/07 seen by ophthalmology outpt, neurology last week- increased gabapentin gabapentin 300mg TID will start TCA 25mg HS considering severe pain unrelieved w/ gabapentin percocet prn neurology consulted Code(s): B02.29 - OTHER POSTHERPETIC NERVOUS SYSTEM INVOLVEMENT (3) History of herpes zoster Assessment/Plan: s/p tx Code(s): Z86.19 - PERSONAL HISTORY OF OTHER INFECTIOUS AND PARASITIC DISEASES (4) Conjunctivitis Assessment/Plan: post herpetic ophthalmicus infection mild redness/injected, clear-white drainage of right eye will start cipro eye drops monitor Code(s): H10.9 - UNSPECIFIED CONJUNCTIVITIS Qualifiers: Conjunctivitis type: acute Acute conjunctivitis type: bacterial Laterality: right Qualified Code(s): H10.31 - Unspecified acute conjunctivitis , right eye (5) Chronic a-fib Assessment/Plan: rate controlled continue toprol xl inr supratherapeutic, no signs of bleeding, hold Coumadin for now cardiology consulted Code(s): I48.2 - CHRONIC ATRIAL FIBRILLATION (6) ESRD (end stage renal disease) on dialysis Assessment/Plan: HD TIW Nephrology following Code(s): N18.6 - END STAGE RENAL DISEASE; Z99.2 - DEPENDENCE ON RENAL DIALYSIS (7) HTN (hypertension) Code(s): I10 - ESSENTIAL (PRIMARY) HYPERTENSION Qualifiers: Hypertension type: essential hypertension Qualified Code(s): I10 - Essential (primary) hypertension (8) CHF (congestive heart failure) Assessment/Plan: chronic, at baseline echo on 02/07 without acute findings,shows normal fxning aortic prosthesis; moderate MR and severe chronic PHTN followed by PHTN specialist and cardiology outpt Code(s): I50.9 - HEART FAILURE, UNSPECIFIED Qualifiers: Heart failure type: diastolic Heart failure chronicity: chronic Qualified Code(s): I50.32 - Chronic diastolic (congestive) heart failure (9) Aortic stenosis Assessment/Plan: s/p TAVR followed by cardiology outpt Code(s): I35.0 - NONRHEUMATIC AORTIC (VALVE) STENOSIS (10) Pulmonary hypertension Assessment/Plan: no changes from baseline followed by at [facility] outpt Code(s): I27.20 - PULMONARY HYPERTENSION, UNSPECIFIED
[2018-03-10] MEDS ORDERED: INSULIN (NOVOLOG) ASPART 100 UNITS/ML 10ML VIAL ONE (11:54)
[2018-03-10] MEDS ORDERED: SODIUM CHLORIDE 250 ML IV PRN (13:15)
--- NOTE | 2018-03-10 14:22 | EKG ---
Test Reason : Blood Pressure : / mmHG Vent. Rate : 070 BPM Atrial Rate : 394 BPM P-R Int : 000 ms QRS Dur : 094 ms QT Int : 402 ms P-R-T Axes : 000 076 -11 degrees QTc Int : 434 ms ATRIAL FIBRILLATION INCOMPLETE RIGHT BUNDLE BRANCH BLOCK NONSPECIFIC ST ABNORMALITY ABNORMAL QRS-T ANGLE, CONSIDER PRIMARY T WAVE ABNORMALITY ABNORMAL ECG WHEN COMPARED WITH ECG OF 23-JAN-2018 04:34, NO SIGNIFICANT CHANGE WAS FOUND Confirmed by EDWIN MCKEON MD ([id number]) on 03/10/2018 2:22:15 PM Referred By: Confirmed By:EDWIN MCKEON MD
[2018-03-10] MEDS ORDERED: ACETAMINOPHEN 325 MG TABLET (FP) PO PRN (14:37)
--- NOTE | 2018-03-10 15:24 | PN ---
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 As per daughter, he has experienced worsening pain over right eye, presumably from post herpetic neuralgia. As been on Gabapentin, but claims he has little or no relief. Reports his eye is more swollen and with worsening pain over the last one week. Denies CP, SOB. Denies palpitations. No edema. No syncope. He is due for HD today. - Current Medication List Current Medications: Active Medications Acetaminophen (Tylenol -) 625 mg PO Q6H PRN PRN Reason: PAIN LEVEL 1-5 Amitriptyline HCl (Elavil -) 25 mg PO HS [facility] Artificial Tears (Artificial Tears) 1 drop OD Q3H PRN PRN Reason: DRY EYES Cinacalcet (Sensipar -) 30 mg PO BID [facility] Last Admin: 03/10/18 10:01 Dose: 30 mg Ciprofloxacin (Ciloxan 0.3% Eye Drops -) 1 drop OD Q6HPO [facility] Clopidogrel Bisulfate (Plavix -) 75 mg PO DAILY [facility] Last Admin: 03/10/18 10:01 Dose: 75 mg Docusate Sodium (Colace -) 100 mg PO TID [facility] Gabapentin (Neurontin -) 300 mg PO TID [facility] Last Admin: 03/10/18 05:54 Dose: 300 mg Sodium Chloride (Normal Saline -) 250 mls @ 3,000 mls/hr IV PRN PRN PRN Reason: Hypotension during Dialysis Stop: 03/11/18 13:14 Metoprolol Succinate (Toprol Xl -) 25 mg PO HS [facility] Oxycodone HCl (Roxicodone -) 5 mg PO Q6H PRN PRN Reason: PAIN LEVEL 6-10 Last Admin: 03/10/18 08:35 Dose: 5 mg Polyethylene Glycol (Miralax (For Daily Use) -) 17 gm PO Q2D [facility] Sevelamer Carbonate (Renvela -) 2,400 mg PO TIDCM [facility] Last Admin: 03/10/18 11:56 Dose: 2,400 mg - Objective Vital Signs: Vital Signs Temperature 98.5 F 03/10/18 13:18 Pulse Rate 52 L 03/10/18 13:18 Respiratory Rate 20 03/10/18 13:18 Blood Pressure 95/52 03/10/18 13:18 O2 Sat by Pulse Oximetry (%) 92 L 03/10/18 09:00 Constitutional: Yes: Calm Eyes: Yes: Other (right eyelid swollen.) Respiratory: Yes: CTA Bilaterally Gastrointestinal: Yes: Soft Edema: No Neurological: Yes: Alert Labs: CBC, BMP 03/10/18 06:00 03/10/18 06:00 INR, PTT INR 6.42 (0.82-1.09) H* D 03/10/18 06:00 Laboratory Tests 01/25/18 01/26/18 01/26/18 05:30 06:00 06:00 WBC 3.6 L D Hgb 10.6 L Plt Count 170 ESR 51 H INR Sodium 136 Potassium 4.9 BUN 45 H D Creatinine 5.2 H D Magnesium 2.3 01/26/18 01/27/18 01/27/18 06:00 05:30 05:30 WBC 7.4 D Hgb 12.0 Plt Count 188 ESR INR 5.27 H* D 9.45 H* D Sodium Potassium BUN Creatinine Magnesium 01/27/18 03/09/18 03/10/18 05:30 18:00 06:00 WBC 6.2 Hgb 11.8 Plt Count 195 ESR INR 10.77 H* Sodium 133 L Potassium 5.2 H BUN 69 H D Creatinine 6.3 H D Magnesium 2.6 H 03/10/18 03/10/18 06:00 06:00 WBC Hgb Plt Count ESR INR 6.42 H* D Sodium 139 Potassium 4.9 BUN Creatinine Magnesium 2.4 - ....Imaging Cat Scan: Image Reviewed (no acute pathology) EKG: Image Reviewed (AF 70bpm. Incomplete RBBB. NSST changes. 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 Rx post herpetic neuralgia as per PMD and neuro. Family interested in ID evaluation. 2. Hold coumadin, repeat in AM. Goal 2-3. 3. For HD. 4. Patient was referred to Dr. Miller at [facility] for further w/u and Rx of PHTN.
[2018-03-10] MEDS: DOCUSATE SODIUM 100 MG CAPSULE (FP) PO SCH ×2 (16:06→22:43)
[2018-03-10] MEDS: CIPROFLOXACIN HCL 0.3% OPHTH 2.5ML BOTTLE OD SCH ×2 (16:07→17:13)
[2018-03-10] MEDS ORDERED: AMITRIPTYLINE HCL 25 MG TABLET (FP) PO SCH (22:00)
[2018-03-10] MEDS ORDERED: metoPROLOL SUCCINATE 25 MG TAB.SR.24H (FP) PO ONE (22:07)
[2018-03-10] MEDS: metoPROLOL SUCCINATE 25 MG TAB.SR.24H (FP) PO SCH (22:43)
[2018-03-11] MEDS: CIPROFLOXACIN HCL 0.3% OPHTH 2.5ML BOTTLE OD SCH ×4 (00:55→18:21)
[2018-03-11] MEDS: GABAPENTIN 300 MG CAPSULE (FP) PO SCH ×2 (05:33→13:42)
[2018-03-11] MEDS: DOCUSATE SODIUM 100 MG CAPSULE (FP) PO SCH ×3 (05:33→21:37)
[2018-03-11 06:52] LABS: BASO % 1.2 % (0-2.0); EOS % 3.2 % (0-4.5); HEMOGLOBIN 11.1 GM/dL (11.7-16.9); LYMPH % 12.8 % (8-40); MCH 34.3 pg (25.7-33.7); MCHC 33.6 g/dl (32.0-35.9); MEAN CELL VOLUME 102.2 fl (80-96); MEAN PLT VOLUME 8.4 fl (7.5-11.1); MONO % 17.9 % (3.8-10.2); NEUT % 64.9 % (42.8-82.8); PLATELET COUNT 179 K/MM3 (134-434); RBC 3.23 M/mm3 (4.00-5.60); RDW 20.2 % (11.9-15.9); WHITE BLOOD COUNT 5.6 K/mm3 (4.0-10.0)
[2018-03-11] MEDS: oxyCODONE HCL 5 MG TABLET PO PRN (07:03)
[2018-03-11 07:16] LABS: INR 1.85 (0.82-1.09); PROTHROMBIN TIME (PATIENT) 20.9 SEC (9.7-13.0)
[2018-03-11 07:27] LABS: ANION GAP 9 (8-16); BLOOD UREA NITROGEN 30 mg/dL (7-18); CALCIUM 8.8 mg/dL (8.5-10.1); CHLORIDE 99 mmol/L (98-107); CO2 31 mmol/L (21-32); CREATININE 4.9 mg/dL (0.7-1.3); GLUCOSE,RANDOM 75 mg/dL (74-106); POTASSIUM 4.2 mmol/L (3.5-5.1); SODIUM 139 mmol/L (136-145)
[2018-03-11] MEDS: SEVELAMER CARBONATE 800 MG TAB (FP) PO SCH ×3 (08:22→18:16)
--- NOTE | 2018-03-11 08:38 | PN ---
Progress Note, Physician Chief Complaint: complains of right eye pain and Dyspnea on exertion (chronic) - Current Medication List Current Medications: Active Medications Acetaminophen (Tylenol -) 625 mg PO Q6H PRN PRN Reason: PAIN LEVEL 1-5 Amitriptyline HCl (Elavil -) 25 mg PO [facility] Last Admin: 03/10/18 22:42 Dose: 25 mg Artificial Tears (Artificial Tears) 1 drop OD Q3H PRN PRN Reason: DRY EYES Cinacalcet (Sensipar -) 30 mg PO BID [facility] Last Admin: 03/10/18 22:44 Dose: 30 mg Ciprofloxacin (Ciloxan 0.3% Eye Drops -) 1 drop OD Q6HPO [facility] Last Admin: 03/11/18 05:33 Dose: 1 drop Clopidogrel Bisulfate (Plavix -) 75 mg PO DAILY [facility] Last Admin: 03/10/18 10:01 Dose: 75 mg Docusate Sodium (Colace -) 100 mg PO TID [facility] Last Admin: 03/11/18 05:33 Dose: 100 mg Gabapentin (Neurontin -) 300 mg PO TID [facility] Last Admin: 03/11/18 05:33 Dose: 300 mg Sodium Chloride (Normal Saline -) 250 mls @ 3,000 mls/hr IV PRN PRN PRN Reason: Hypotension during Dialysis Stop: 03/11/18 13:14 Metoprolol Succinate (Toprol Xl -) 25 mg PO [facility] Last Admin: 03/10/18 22:43 Dose: 25 mg Oxycodone HCl (Roxicodone -) 5 mg PO Q6H PRN PRN Reason: PAIN LEVEL 6-10 Last Admin: 03/11/18 07:03 Dose: 5 mg Polyethylene Glycol (Miralax (For Daily Use) -) 17 gm PO Q2D [facility] Sevelamer Carbonate (Renvela -) 2,400 mg PO TIDCM [facility] Last Admin: 03/11/18 08:22 Dose: 2,400 mg Warfarin Sodium (Coumadin -) 6 mg PO ONCE@1800 ONE Stop: 03/11/18 18:01 - Objective Vital Signs: Vital Signs Temperature 98.3 F 03/11/18 06:00 Pulse Rate 83 03/11/18 06:00 Respiratory Rate 20 03/11/18 06:00 Blood Pressure 123/62 03/11/18 06:00 O2 Sat by Pulse Oximetry (%) 92 L 03/10/18 21:00 Eyes: Yes: Other (right eye swollen) Cardiovascular: Yes: Regular Rate and Rhythm, Pulse Irregular Respiratory: Yes: CTA Bilaterally Gastrointestinal: Yes: Soft Musculoskeletal: Yes: WNL Extremities: Yes: WNL Edema: No Integumentary: Yes: WNL Neurological: Yes: WNL, Alert, Oriented ...Motor Strength: WNL Psychiatric: Yes: WNL Labs: CBC, BMP 03/11/18 06:00 03/11/18 06:00 INR, PTT INR 1.85 (0.82-1.09) H D 03/11/18 06:00 Assessment/Plan IMP: Recent Zoster Opthalmicus, right eye Post-herpetic neuralgia ESRD Permanent AF Supratherapeutic INR, now subtherapeutic 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 Rx post herpetic neuralgia as per PMD, Neuro and Optho. Family interested in ID evaluation. 2. Dose coumadin tonight 3. HD as per renal 4. Patient was referred to Dr. Miller at [facility] for further w/u and Rx of PHTN
--- NOTE | 2018-03-11 08:57 | CONSULT ---
Consult - text type - Consultation Consultation Note: Neurology CHIEF COMPLAINT: elevated INR HISTORY OF PRESENT ILLNESS: This is an 82 year old male with a past medical history of afib, AVR 2 months ago who presented to the at the request of his PCP for elevated INR. Pt seen by me in the office for postherpetic neuralgia this week. I had increased his gabapentin at that time to 300mg three times a day. Still having pain related to Zoster infection. Daughter at bedside and had conversation with her. CT head completed and without acute change. Spoke with primary team yesterday and low dose Amitryptiline added, 25mg to be taken daily. No significant improvement yet but is comfortable appearing and may take a few days up to weeks for theraputic effect. Recent Travel: [place] PAST MEDICAL HISTORY: Afib, AVR, CAD, aortic stenosis, aortic aneurysm, ESRD ,,Sa, HLD PAST SURGICAL HISTORY: L arm fistula AVR approx 1-2 mo ago Social History: Smoking: pt denies Alcohol: pt denies Drugs: pt denies Family History: pt unsure Allergies enoxaparin sodium [From Lovenox] Allergy (Verified 03/09/18 17:41) heparin (porcine) [Heparin,Porcine] Allergy (Verified 03/09/18 17:41) heparin induced platelet antibody as per Paul Tee lidocaine Allergy (Verified 03/09/18 17:41) HOME MEDICATIONS: 3 Medication Instructions Recorded Sevelamer Carbonate [Renvela -] 3 tab PO TID 10/07/13 Cinacalcet HCl [Sensipar -] 30 mg PO BID 01/24/18 Clopidogrel Bisulfate [Plavix -] 75 mg PO DAILY tablet 01/27/18 Polyvinyl Alcohol [Artificial 1 drop OD Q3H PRN drops 01/27/18 Tears] Gabapentin 300 mg PO TID 03/09/18 Metoprolol Succinate [Toprol XL -] 25 mg PO HS 03/09/18 Oxycodone HCl/Acetaminophen 1 tab PO Q6H 03/09/18 [Percocet 5-325 mg Tablet] Polyethylene Glycol 3350 [Miralax 17 gm PO Q2D 03/09/18 119 gm Btl -] REVIEW OF SYSTEMS CONSTITUTIONAL: Present: generalized weakness Absent: fever, chills, diaphoresis, malaise, loss of appetite, weight change HEENT: Absent: rhinorrhea, nasal congestion, throat pain, throat swelling, difficulty swallowing, mouth swelling, ear pain, eye pain, visual changes CARDIOVASCULAR: Absent: chest pain, syncope, palpitations, irregular heart rate, lightheadedness , peripheral edema RESPIRATORY: Absent: cough, shortness of breath, dyspnea with exertion, orthopnea, wheezing, stridor, hemoptysis GASTROINTESTINAL: Absent: abdominal pain, abdominal distension, nausea, vomiting, diarrhea, constipation, melena, hematochezia GENITOURINARY: Absent: dysuria, frequency, urgency, hesitancy, hematuria, flank pain, genital pain MUSCULOSKELETAL: Absent: myalgia, arthralgia, joint swelling, back pain, neck pain SKIN: Absent: rash, itching, pallor HEMATOLOGIC/IMMUNOLOGIC: Absent: easy bleeding, easy bruising, lymphadenopathy, frequent infections ENDOCRINE: Absent: unexplained weight gain, unexplained weight loss, heat intolerance, cold intolerance NEUROLOGIC: Absent: headache, focal weakness or paresthesias, dizziness, unsteady gait, seizure, mental status changes, bladder or bowel incontinence PSYCHIATRIC: Absent: anxiety, depression, suicidal or homicidal ideation, hallucinations. PHYSICAL EXAMINATION Vital Signs Period Temp Pulse Resp BP Sys/Montalvo Pulse Ox Last 24 Hr 97.4 F-99 F 52-110 16-20 95-146/52-88 92-92 GENERAL: Awake, alert, and fully oriented, in no acute distress. HEAD: Normal with no signs of trauma. EYES: Pupils equal, round and reactive to light, extraocular movements intact, sclera anicteric, conjunctiva clear. No lid lag. EARS, NOSE, THROAT: Ears normal, nares patent, oropharynx clear without exudates. Moist mucous membranes. NECK: Normal range of motion, supple without lymphadenopathy, JVD, or masses. LUNGS: Breath sounds equal, clear to auscultation bilaterally. No wheezes, and no crackles. No accessory muscle use. HEART: Regular rate and rhythm, normal S1 and S2 without murmur, rub or gallop. ABDOMEN: Soft, nontender, not distended, normoactive bowel sounds, no guarding, no rebound, no masses. No hepatomegaly or splenomegaly. MUSCULOSKELETAL: Normal range of motion at all joints. No bony deformities or tenderness. No CVA tenderness. UPPER EXTREMITIES: 2+ pulses, warm, well-perfused. No cyanosis. No clubbing. No peripheral edema. LOWER EXTREMITIES: 2+ pulses, warm, well-perfused. No calf tenderness. No peripheral edema. NEUROLOGICAL: R eye eccymosis, CN intact, moves all extremities equally, sensory intact PSYCHIATRIC: Cooperative. Good eye contact. Appropriate mood and affect. SKIN: Warm, dry, normal turgor, no rashes or lesions noted, normal capillary refill. Laboratory Results - last 24 hr 3 03/09/18 03/09/18 03/09/18 18:00 18:00 18:00 WBC 6.0 RBC 3.48 L Hgb 11.6 L Hct 36.0 MCV 103.6 H MCH 33.5 MCHC 32.3 RDW 20.6 H Plt Count 213 MPV 9.1 Absolute Neuts (auto) 3.8 Neutrophils % 63.2 D Lymphocytes % 17.5 D Monocytes % 14.9 H D Eosinophils % 3.0 D Basophils % 1.4 D Nucleated RBC % 0 PT with INR 121.70 H INR 10.77 H* Sodium 138 Potassium 5.0 Chloride 101 D Carbon Dioxide 25 Anion Gap 12 BUN 44 H Creatinine 6.3 H Creat Clearance w eGFR 8.57 Random Glucose 104 D Calcium 9.0 Total Bilirubin 0.7 AST 22 ALT 18 Alkaline Phosphatase 142 H Creatine Kinase 47 Troponin I 0.07 H Total Protein 7.5 Albumin 3.5 Blood Type B POSITIVE Antibody Screen Negative Radiology Reports CT head Impression: Negative unenhanced CT of the brain. ASSESSMENT/PLAN: This is an 82 year old male with a past medical history of afib, AVR 2 months ago who presented to the at the request of his PCP for elevated INR. Pt seen by me in the office for postherpetic neuralgia this week. I had increased his gabapentin at that time to 300mg three times a day. Still having pain related to Zoster infection. Daughter at bedside and had conversation with her. CT head completed and without acute change. Spoke with primary team yesterday and low dose Amitryptiline added, 25mg to be taken daily. No significant improvement yet but is comfortable appearing and may take a few days up to weeks for theraputic effect. Also had been prescribed percocept by me in the office which he has been taking once a day at bedtime (2 week Rx given earlier this week). Valtrex regiment completed. Would not add other medication at this time, ultimately hope to have him off cindy and amitryptiline. If symtoms don't improve in one week, informed daughter to increase to 50mg daily.
[2018-03-11] MEDS ORDERED: PT OWN MED DRAWER 7, Y5N ONE ×3 (10:00→20:54)
[2018-03-11] MEDS: CINACALCET HCL 30 MG TAB (FP) PO SCH ×2 (10:02→21:38)
[2018-03-11] MEDS: CLOPIDOGREL BISULFATE 75 MG TABLET (FP) PO SCH (10:02)
[2018-03-11] MEDS: POLYETHYLENE GLYCOL 3350 119 GM BTL PO SCH (10:02)
[2018-03-11] MEDS ORDERED: WARFARIN NA 3 MG TABLET PO ONE ×3 (11:53→18:00)
--- NOTE | 2018-03-11 12:13 | DS ---
Physical Examination Vital Signs: Vital Signs Temperature 98.8 F 03/11/18 10:00 Pulse Rate 87 03/11/18 10:00 Respiratory Rate 20 03/11/18 10:00 Blood Pressure 110/54 03/11/18 10:00 O2 Sat by Pulse Oximetry (%) 92 L 03/10/18 21:00 Labs: CBC, BMP 03/11/18 06:00 03/11/18 06:00 Discharge Summary Reason For Visit: ELEVATED INTERNATIONAL NORMALIZED RATIO (INR) Current Active Problems CHF (congestive heart failure) (Acute) Conjunctivitis (Acute) Elevated INR (Acute) History of herpes zoster (Acute) Post herpetic neuralgia (Acute) Condition: Fair - Instructions Diet, Activity, Other Instructions: coumadin 6mg daily starting tomorrow f/u as directed eye drop and ointment per direction- assess for improvemt, f/u with outpt ophth as soon as possible for further recommendations. Referrals: Paul Harris MD [Primary Care Provider] - 03/14/18 Disposition: HOME - Home Medications Comprehensive Discharge Medication List: Ambulatory Orders Sevelamer Carbonate [Renvela -] 3 tab PO TID 10/07/13 Cinacalcet HCl [Sensipar -] 30 mg PO BID 01/24/18 Clopidogrel Bisulfate [Plavix -] 75 mg PO DAILY tablet 01/27/18 Polyvinyl Alcohol [Artificial Tears] 1 drop OD Q3H PRN drops 01/27/18 Gabapentin 300 mg PO TID 03/09/18 Metoprolol Succinate [Toprol XL -] 25 mg PO HS 03/09/18 Oxycodone HCl/Acetaminophen [Percocet 5-325 mg Tablet] 1 tab PO Q6H 03/09/18 Polyethylene Glycol 3350 [Miralax 119 gm Btl -] 17 gm PO Q2D 03/09/18 Warfarin Sodium [Coumadin] 6 mg PO 03/10/18 Acetaminophen [Tylenol .Regular Strength -] 325 mg PO Q6H PRN tablet 03/11/18 Amitriptyline HCl [Elavil -] 25 mg PO HS #14 tablet 03/11/18 Cinacalcet HCl [Sensipar -] 30 mg PO BID tab 03/11/18 Ciprofloxacin 0.3% Eye Drops [Ciloxan 0.3% Eye Drops -] 1 drop OD Q6HPO 7 Days # 1 drops 03/11/18 Sulfacetamide/Prednisolone [Blephamide Eye Ointment] 3.5 gm OP TID 7 Days #2 oint...g. 03/11/18 oxyCODONE HCL [Roxicodone -] 5 mg PO Q6H PRN tablet MDD 30 03/11/18
--- NOTE | 2018-03-11 12:35 | PN ---
Progress Note (short form) - Note Progress Note: ID Consult dictated Blepharitis o.d. ? secondary bacterial infection secondary to rubbing eye S/P Herpes ophthalmicus o.d. ESRD Will give vancomycin 1gm x 1 Dose can be repeated at HD if swelling/ redness of eyelid persists Ophtho follow up Discussed with daughter at bedside
[2018-03-11] MEDS ORDERED: VANCOMYCIN 1 GM PREMIX - 1 GM/200 ML BAG IVPB ONE (13:00)
--- NOTE | 2018-03-11 14:31 | CONS ---
DATE OF CONSULTATION: DATE OF DICTATION: 03/11/2018 HISTORY OF PRESENT ILLNESS: The patient is an 82-year-old male with history of end-stage renal disease on hemodialysis, recent herpes ophthalmicus, evaluated for right eye erythema, pain, and swelling. History was obtained from the chart as well as the patients daughter who was present at the time of the examination. Approximately one month ago, he was diagnosed with herpes ophthalmicus involving the right eye. He was treated with a course of Valtrex. He had also received prednisone. The herpes zoster completely resolved. Over the past 1-2 days, he has had worsening erythema, warmth and swelling of the right upper and lower eyelids. He denies any traumatic injury. No reports of purulent ocular drainage. He had been treated with a topical antibiotic eye drop. The patient is now admitted with generalized weakness and coagulopathy. He is on Coumadin and was noted to have a supratherapeutic INR. For the present time, he is awake and alert. He complains of right periorbital pain. He has some diminished visual acuity in his right eye. No purulent drainage. He was seen in consult by Neurology and was prescribed medications for postherpetic neuralgia. PAST MEDICAL HISTORY: Positive for end-stage renal disease on hemodialysis, atrial fibrillation, hypercoagulable state, congestive heart failure. PAST SURGICAL HISTORY: Status post AV fistula, left upper extremity, TAVR approximately 2 months ago, IVC filter. ALLERGIES: To LOVENOX, PORCINE, LIDOCAINE. MEDICATIONS: Include Toprol, Colace, Plavix, prednisone. SOCIAL HISTORY: She resides at home with family members. SYSTEMS REVIEW: Neurologic: No loss of consciousness, seizure activity, or focal weakness. Cardiac: Status post TAVR and history of atrial fibrillation. Respiratory: Negative for cough or sputum production. Gastrointestinal: Negative for vomiting or diarrhea. Genitourinary: End-stage renal disease, on hemodialysis. LABORATORY DATA: White count 5.6, hematocrit 33, platelet count 179. Creatinine 4.9. PHYSICAL EXAMINATION: General: He is awake and alert. He is not acutely toxic-appearing. Vital signs: Temperature 98.8, blood pressure 110/54, pulse 87 and regular, respirations 20 per minute. HEENT: Examination of the left eye, there is swelling and erythema involving the right upper and lower eyelids. There is conjunctival injection. No ocular drainage. Oropharynx negative. Heart: Heart sounds S1, S2. Pansystolic murmur 2/6. Lungs: Clear. Abdomen: Obese, soft, nontender. Extremities: Negative for edema IMPRESSION: 1. Blepharitis, right eye. 2. Status post herpes ophthalmicus. 3. End-stage renal disease on hemodialysis. 4. Status post transcatheter aortic valve replacement. Suspect patient has a blepharitis secondary to rubbing his eye. Will empirically treat for possible bacterial secondary infection in this dialysis patient with vancomycin 1 g stat dose. He may be redosed at next hemodialysis if eyelid remains red and swollen. Outpatient ophthalmology followup. Case discussed with patients daughter present at the time of the examination. Thank you for the kind referral. ROSITA BASS M.D. [id number]
--- NOTE | 2018-03-11 14:55 | PN ---
Progress Note (short form) - Note Progress Note: Renal follow up for ESRD on HD Pt seen and examined at the bedside awake and alert but confused and agitated no sob, chest pain s/p dialysis yesterday Vital Signs Temperature 98.8 F 03/11/18 10:00 Pulse Rate 87 03/11/18 10:00 Respiratory Rate 20 03/11/18 10:00 Blood Pressure 110/54 03/11/18 10:00 O2 Sat by Pulse Oximetry (%) 92 L 03/11/18 09:00 Intake & Output 03/08/18 03/09/18 03/10/18 03/11/18 23:59 23:59 23:59 23:59 Intake Total 580 450 Balance 580 450 Weight 84.822 kg 79.197 kg 77.7 kg NAD confused RRR CTA no LE edema CBC, BMP 03/11/18 06:00 03/11/18 06:00 Current Medications Acetaminophen (Tylenol -) 625 mg PO Q6H PRN PRN Reason: PAIN LEVEL 1-5 Amitriptyline HCl (Elavil -) 25 mg PO [facility] Last Admin: 03/10/18 22:42 Dose: 25 mg Artificial Tears (Artificial Tears) 1 drop OD Q3H PRN PRN Reason: DRY EYES Cinacalcet (Sensipar -) 30 mg PO BID [facility] Last Admin: 03/11/18 10:02 Dose: 30 mg Ciprofloxacin (Ciloxan 0.3% Eye Drops -) 1 drop OD Q6HPO [facility] Last Admin: 03/11/18 12:21 Dose: 1 drop Clopidogrel Bisulfate (Plavix -) 75 mg PO DAILY [facility] Last Admin: 03/11/18 10:02 Dose: 75 mg Docusate Sodium (Colace -) 100 mg PO TID [facility] Last Admin: 03/11/18 13:42 Dose: 100 mg Gabapentin (Neurontin -) 300 mg PO DAILY [facility] Metoprolol Succinate (Toprol Xl -) 25 mg PO HS [facility] Last Admin: 03/10/18 22:43 Dose: 25 mg Oxycodone HCl (Roxicodone -) 5 mg PO Q6H PRN PRN Reason: PAIN LEVEL 6-10 Last Admin: 03/11/18 07:03 Dose: 5 mg Polyethylene Glycol (Miralax (For Daily Use) -) 17 gm PO Q2D [facility] Last Admin: 03/11/18 10:02 Dose: 17 grams Sevelamer Carbonate (Renvela -) 2,400 mg PO TIDCM [facility] Last Admin: 03/11/18 13:46 Dose: Not Given 82 year old gentleman with PMhx of ESRD on HD (TTS), Afib on Coumadin, COPD, CHF who presented with INR > 10. #Supratheraputic INR #ESRD on HD #Renal Osteodystrophy #Afib on Coumadin #Shingles INR now WNL s/p dialysis yesterday no indication for treatment today getting IV Vanco for eye swelling, will continue with dialysis if swelling persists Adjust Gabapentin dose for ESRD Re-evaluate mental status prior to discharge continue luz maria Christensen DO
--- NOTE | 2018-03-11 15:12 | PN ---
Progress Note, Physician Chief Complaint: Assessed pt in the am, pt sitting in bed, feels unchanged, still c/o right eye pain. otherwise, no complaints. 1515 reassessed pt, pt confused, tremors noted. change from baseline, daughter at bedside. will cancel discharge. monitor pt overnight, HD tomorrow and reassess. - Current Medication List Current Medications: Active Medications Acetaminophen (Tylenol -) 625 mg PO Q6H PRN PRN Reason: PAIN LEVEL 1-5 Amitriptyline HCl (Elavil -) 25 mg PO [facility] Last Admin: 03/10/18 22:42 Dose: 25 mg Artificial Tears (Artificial Tears) 1 drop OD Q3H PRN PRN Reason: DRY EYES Cinacalcet (Sensipar -) 30 mg PO BID [facility] Last Admin: 03/11/18 10:02 Dose: 30 mg Ciprofloxacin (Ciloxan 0.3% Eye Drops -) 1 drop OD Q6HPO [facility] Last Admin: 03/11/18 12:21 Dose: 1 drop Clopidogrel Bisulfate (Plavix -) 75 mg PO DAILY [facility] Last Admin: 03/11/18 10:02 Dose: 75 mg Docusate Sodium (Colace -) 100 mg PO TID [facility] Last Admin: 03/11/18 13:42 Dose: 100 mg Gabapentin (Neurontin -) 300 mg PO DAILY [facility] Metoprolol Succinate (Toprol Xl -) 25 mg PO [facility] Last Admin: 03/10/18 22:43 Dose: 25 mg Oxycodone HCl (Roxicodone -) 5 mg PO Q6H PRN PRN Reason: PAIN LEVEL 6-10 Last Admin: 03/11/18 07:03 Dose: 5 mg Polyethylene Glycol (Miralax (For Daily Use) -) 17 gm PO Q2D [facility] Last Admin: 03/11/18 10:02 Dose: 17 grams Sevelamer Carbonate (Renvela -) 2,400 mg PO TIDCM [facility] Last Admin: 03/11/18 13:46 Dose: Not Given Warfarin Sodium (Coumadin -) 6 mg PO DAILY@1800 [facility] - Objective Vital Signs: Vital Signs Temperature 97.9 F 03/11/18 14:54 Pulse Rate 97 H 03/11/18 14:54 Respiratory Rate 20 03/11/18 14:54 Blood Pressure 120/54 03/11/18 14:54 O2 Sat by Pulse Oximetry (%) 92 L 03/11/18 09:00 Constitutional: Yes: Well Nourished, Anxious Eyes: Yes: Tearing (right eye, mild erythema of lid and conjunctiva, partially open) Cardiovascular: Yes: Pulse Irregular. No: Murmur, Rub Respiratory: Yes: WNL, Regular, CTA Bilaterally. No: Accessory Muscle Use, Rales, Rhonchi, SOB, Tachypnea, Wheezes Gastrointestinal: Yes: WNL, Normal Bowel Sounds, Soft. No: Distention, Tenderness Edema: No Neurological: Yes: Alert, Confusion, Lethargy, Tremors Labs: CBC, BMP 03/11/18 06:00 03/11/18 06:00 INR, PTT INR 1.85 (0.82-1.09) H D 03/11/18 06:00 Problem List - Problems (1) Supratherapeutic INR Code(s): R79.1 - ABNORMAL COAGULATION PROFILE (2) Post herpetic neuralgia Code(s): B02.29 - OTHER POSTHERPETIC NERVOUS SYSTEM INVOLVEMENT (3) History of herpes zoster Code(s): Z86.19 - PERSONAL HISTORY OF OTHER INFECTIOUS AND PARASITIC DISEASES (4) Conjunctivitis Code(s): H10.9 - UNSPECIFIED CONJUNCTIVITIS Qualifiers: Conjunctivitis type: acute Acute conjunctivitis type: bacterial Laterality: right Qualified Code(s): H10.31 - Unspecified acute conjunctivitis , right eye (5) Chronic a-fib Code(s): I48.2 - CHRONIC ATRIAL FIBRILLATION (6) ESRD (end stage renal disease) on dialysis Code(s): N18.6 - END STAGE RENAL DISEASE; Z99.2 - DEPENDENCE ON RENAL DIALYSIS (7) HTN (hypertension) Code(s): I10 - ESSENTIAL (PRIMARY) HYPERTENSION Qualifiers: Hypertension type: essential hypertension Qualified Code(s): I10 - Essential (primary) hypertension (8) CHF (congestive heart failure) Code(s): I50.9 - HEART FAILURE, UNSPECIFIED Qualifiers: Heart failure type: diastolic Heart failure chronicity: chronic Qualified Code(s): I50.32 - Chronic diastolic (congestive) heart failure (9) Aortic stenosis Code(s): I35.0 - NONRHEUMATIC AORTIC (VALVE) STENOSIS (10) Pulmonary hypertension Code(s): I27.20 - PULMONARY HYPERTENSION, UNSPECIFIED (11) Acute drug-induced confusion Code(s): F19.988 - OTH PSYCHOACTIVE SUBSTANCE USE, UNSP W OTH DISORDER (12) Blepharitis, right eye Code(s): H01.003 - UNSPECIFIED BLEPHARITIS RIGHT EYE, UNSPECIFIED EYELID Qualifiers: Eyelid: upper Assessment/Plan (1) Supratherapeutic INR Assessment/Plan: resolved, s/p vitamin k INR 1.8 today start coumadin 6mg fall risk precautions cardiology following Code(s): R79.1 - ABNORMAL COAGULATION PROFILE (2) Post herpetic neuralgia Assessment/Plan: unchanged, chronic gabapentin reduced to 300mg/day due to acute confusion/tremors reduce amitryptiline to 12.5mg HS percocet prn only for severe pain, try to minimize neurology following Code(s): B02.29 - OTHER POSTHERPETIC NERVOUS SYSTEM INVOLVEMENT (3) History of herpes zoster Assessment/Plan: s/p Zoster Opthalmicus infection 02/07 Code(s): Z86.19 - PERSONAL HISTORY OF OTHER INFECTIOUS AND PARASITIC DISEASES (4) Conjunctivitis Assessment/Plan: post herpetic ophthalmicus infection pt evaluated by ID- vanco 1g x 1, cipro eye drops monitor Code(s): H10.9 - UNSPECIFIED CONJUNCTIVITIS Qualifiers: Conjunctivitis type: acute Acute conjunctivitis type: bacterial Laterality: right Qualified Code(s): H10.31 - Unspecified acute conjunctivitis , right eye (5) Blepharitis, right eye Assessment/Plan: suspect secondary to recent zoster infection/itching tobradex ointment ordered avoid scratching/constant irritation follow up w/ ophthalmology outpt Code(s): H01.003 - UNSPECIFIED BLEPHARITIS RIGHT EYE, UNSPECIFIED EYELID Qualifiers: Eyelid: upper (6) Acute drug-induced confusion Assessment/Plan: suspect confusion secondary to increased dose of gabapentin gabapentin reduced- renal adjustment reduce amitryptiline to 12.5mg avoid narcotics maintain safety Code(s): F19.988 - OTH PSYCHOACTIVE SUBSTANCE USE, UNSP W OTH DISORDER (7) Chronic a-fib Assessment/Plan: rate controlled continue toprol xl inr subtherapeutic, coumadin restarted cardiology following Code(s): I48.2 - CHRONIC ATRIAL FIBRILLATION (8) ESRD (end stage renal disease) on dialysis Assessment/Plan: HD TIW Nephrology following Code(s): N18.6 - END STAGE RENAL DISEASE; Z99.2 - DEPENDENCE ON RENAL DIALYSIS (9) HTN (hypertension) Assessment/Plan: controlled continue current management Code(s): I10 - ESSENTIAL (PRIMARY) HYPERTENSION Qualifiers: Hypertension type: essential hypertension Qualified Code(s): I10 - Essential (primary) hypertension (10) CHF (congestive heart failure) Assessment/Plan: chronic, at baseline echo on 02/07 without acute findings,shows normal fxning aortic prosthesis; moderate MR and severe chronic PHTN followed by PHTN specialist and cardiology outpt Code(s): I50.9 - HEART FAILURE, UNSPECIFIED Qualifiers: Heart failure type: diastolic Heart failure chronicity: chronic Qualified Code(s): I50.32 - Chronic diastolic (congestive) heart failure (11) Aortic stenosis Assessment/Plan: s/p TAVR followed by cardiology outpt Code(s): I35.0 - NONRHEUMATIC AORTIC (VALVE) STENOSIS (12) Pulmonary hypertension Assessment/Plan: no changes from baseline followed by at [place] outpt Code(s): I27.20 - PULMONARY HYPERTENSION, UNSPECIFIED Dispo: Home, discharge cancelled today due change in pt's mental status. suspect due to medications. reassess tomorrow.
[2018-03-11 15:46] VITALS: BMI 28.9
[2018-03-11] MEDS: TOBRAMYCIN/DEXAMETHASONE OPHTH. OINTMENT 1 TUBE OD SCH ×2 (18:17→21:38)
[2018-03-11] MEDS: prednisoLONE ACETATE 1% OPHTH SUSP 5 ML BOTTLE OD SCH (20:50)
[2018-03-11] MEDS: AMITRIPTYLINE HCL 25 MG TABLET (FP) PO SCH (21:37)
[2018-03-11] MEDS: metoPROLOL SUCCINATE 25 MG TAB.SR.24H (FP) PO SCH (21:37)
[2018-03-12] MEDS: prednisoLONE ACETATE 1% OPHTH SUSP 5 ML BOTTLE OD SCH ×4 (01:04→17:17)
[2018-03-12] MEDS: CIPROFLOXACIN HCL 0.3% OPHTH 2.5ML BOTTLE OD SCH ×4 (01:04→17:17)
[2018-03-12] MEDS: DOCUSATE SODIUM 100 MG CAPSULE (FP) PO SCH ×3 (06:10→21:00)
[2018-03-12] MEDS: TOBRAMYCIN/DEXAMETHASONE OPHTH. OINTMENT 1 TUBE OD SCH ×3 (06:11→21:00)
[2018-03-12] MEDS ORDERED: SODIUM CHLORIDE 250 ML IV PRN (08:07)
[2018-03-12 08:32] LABS: INR 1.54 (0.82-1.09); PROTHROMBIN TIME (PATIENT) 17.4 SEC (9.7-13.0)
[2018-03-12 09:37] LABS: HEMATOCRIT 31.3 % (35.4-49); HEMOGLOBIN 10.5 GM/dL (11.7-16.9); MCH 34.2 pg (25.7-33.7); MCHC 33.4 g/dl (32.0-35.9); MEAN CELL VOLUME 102.6 fl (80-96); MEAN PLT VOLUME 8.7 fl (7.5-11.1); PLATELET COUNT 175 K/MM3 (134-434); RBC 3.05 M/mm3 (4.00-5.60); RDW 19.5 % (11.9-15.9); WHITE BLOOD COUNT 6.2 K/mm3 (4.0-10.0)
[2018-03-12] MEDS: GABAPENTIN 300 MG CAPSULE (FP) PO SCH (09:48)
[2018-03-12] MEDS: CLOPIDOGREL BISULFATE 75 MG TABLET (FP) PO SCH (09:48)
[2018-03-12] MEDS: SEVELAMER CARBONATE 800 MG TAB (FP) PO SCH ×3 (09:48→17:16)
[2018-03-12] MEDS: CINACALCET HCL 30 MG TAB (FP) PO SCH ×2 (09:49→21:00)
[2018-03-12 10:01] LABS: ANION GAP 11 (8-16); BLOOD UREA NITROGEN 47 mg/dL (7-18); CHLORIDE 100 mmol/L (98-107); CO2 28 mmol/L (21-32); CREATININE 6.9 mg/dL (0.7-1.3); GLUCOSE,RANDOM 112 mg/dL (74-106); PHOSPHOROUS 5.6 mg/dL (2.5-4.9); POTASSIUM 4.5 mmol/L (3.5-5.1); SODIUM 139 mmol/L (136-145)
--- NOTE | 2018-03-12 12:45 | PN ---
Progress Note, Physician History of Present Illness: Chronic GRAVES at baseline, right eye pain, seen at HD. - Current Medication List Current Medications: Active Medications Acetaminophen (Tylenol -) 625 mg PO Q6H PRN PRN Reason: PAIN LEVEL 1-5 Amitriptyline HCl (Elavil -) 12.5 mg PO HS [facility] Last Admin: 03/11/18 21:37 Dose: 12.5 mg Artificial Tears (Artificial Tears) 1 drop OD Q3H PRN PRN Reason: DRY EYES Cinacalcet (Sensipar -) 30 mg PO BID [facility] Last Admin: 03/12/18 09:49 Dose: 30 mg Ciprofloxacin (Ciloxan 0.3% Eye Drops -) 1 drop OD Q6HPO [facility] Last Admin: 03/12/18 06:10 Dose: 1 drop Clopidogrel Bisulfate (Plavix -) 75 mg PO DAILY [facility] Last Admin: 03/12/18 09:48 Dose: 75 mg Docusate Sodium (Colace -) 100 mg PO TID [facility] Last Admin: 03/12/18 06:10 Dose: 100 mg Gabapentin (Neurontin -) 300 mg PO DAILY [facility] Last Admin: 03/12/18 09:48 Dose: 300 mg Sodium Chloride (Normal Saline -) 250 mls @ 3,000 mls/hr IV PRN PRN PRN Reason: Hypotension during Dialysis Stop: 03/13/18 08:07 Vancomycin HCl (Vancomycin 1 Gm Premix -) 1 gm in 200 mls @ 133.333 mls/hr IVPB ONCE ONE; Protocol Stop: 03/12/18 14:29 Metoprolol Succinate (Toprol Xl -) [address] [facility] Last Admin: 03/11/18 21:37 Dose: 25 mg Oxycodone HCl (Roxicodone -) 5 mg PO Q6H PRN PRN Reason: PAIN LEVEL 6-10 Last Admin: 03/11/18 07:03 Dose: 5 mg Polyethylene Glycol (Miralax (For Daily Use) -) 17 gm PO Q2D [facility] Last Admin: 03/11/18 10:02 Dose: 17 grams Prednisolone Acetate (Pred Forte 1% -) 1 drop OD Q6HPO [facility] Last Admin: 03/12/18 06:11 Dose: 1 drop Sevelamer Carbonate (Renvela -) 2,400 mg PO TIDCM [facility] Last Admin: 03/12/18 09:48 Dose: 2,400 mg Tobramycin/Dexamethasone (Tobradex Ophthalmic Ointment -) 1 applic OD TID [facility] Last Admin: 03/12/18 06:11 Dose: 1 applic Warfarin Sodium (Coumadin -) 6 mg PO DAILY@1800 [facility] - Objective Vital Signs: Vital Signs Temperature 98.2 F 03/12/18 11:50 Pulse Rate 74 03/12/18 12:25 Respiratory Rate 18 03/12/18 12:25 Blood Pressure 116/93 03/12/18 12:25 O2 Sat by Pulse Oximetry (%) 94 L 03/11/18 21:00 Constitutional: Yes: No Distress, Calm Neck: Yes: Supple Cardiovascular: Yes: Pulse Irregular, Murmur (2/6 SM) Respiratory: Yes: Regular, Diminished Gastrointestinal: Yes: Normal Bowel Sounds, Soft Edema: No Labs: CBC, BMP 03/12/18 09:15 03/12/18 09:15 INR, PTT INR 1.54 (0.82-1.09) H 03/12/18 06:50 Problem List - Problems (1) Subtherapeutic international normalized ratio (INR) Code(s): R79.1 - ABNORMAL COAGULATION PROFILE (2) History of herpes zoster Code(s): Z86.19 - PERSONAL HISTORY OF OTHER INFECTIOUS AND PARASITIC DISEASES (3) Post herpetic neuralgia Code(s): B02.29 - OTHER POSTHERPETIC NERVOUS SYSTEM INVOLVEMENT (4) Aortic stenosis Code(s): I35.0 - NONRHEUMATIC AORTIC (VALVE) STENOSIS (5) Chronic a-fib Code(s): I48.2 - CHRONIC ATRIAL FIBRILLATION (6) ESRD (end stage renal disease) on dialysis Code(s): N18.6 - END STAGE RENAL DISEASE; Z99.2 - DEPENDENCE ON RENAL DIALYSIS (7) HTN (hypertension) Code(s): I10 - ESSENTIAL (PRIMARY) HYPERTENSION Qualifiers: Hypertension type: essential hypertension Qualified Code(s): I10 - Essential (primary) hypertension (8) Pulmonary hypertension Code(s): I27.20 - PULMONARY HYPERTENSION, UNSPECIFIED (9) S/P TAVR (transcatheter aortic valve replacement) Code(s): Z95.2 - PRESENCE OF PROSTHETIC HEART VALVE Assessment/Plan Recent Zoster Opthalmicus, right eye Post-herpetic neuralgia ESRD on HD Permanent AF Supratherapeutic INR, now subtherapeutic 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 Rx post herpetic neuralgia as per PMD, Neuro and Optho. 2. Dose coumadin tonight, remains on Plavix 75 qd, Toprol XL 25 qd 3. HD as per renal 4. Patient was referred to Dr. Miller at [facility] for further w/u and Rx of PHTN 5. IV Vanco by levels per ID
--- NOTE | 2018-03-12 12:59 | PN ---
Progress Note, Physician History of Present Illness: Pt seen on hemodialysis Reports R eye pain No fever/ chills Vanco level 12.6 - Current Medication List Current Medications: Active Medications Acetaminophen (Tylenol -) 625 mg PO Q6H PRN PRN Reason: PAIN LEVEL 1-5 Amitriptyline HCl (Elavil -) 12.5 mg PO [facility] Last Admin: 03/11/18 21:37 Dose: 12.5 mg Artificial Tears (Artificial Tears) 1 drop OD Q3H PRN PRN Reason: DRY EYES Cinacalcet (Sensipar -) 30 mg PO BID [facility] Last Admin: 03/12/18 09:49 Dose: 30 mg Ciprofloxacin (Ciloxan 0.3% Eye Drops -) 1 drop OD Q6HPO [facility] Last Admin: 03/12/18 06:10 Dose: 1 drop Clopidogrel Bisulfate (Plavix -) 75 mg PO DAILY [facility] Last Admin: 03/12/18 09:48 Dose: 75 mg Docusate Sodium (Colace -) 100 mg PO TID [facility] Last Admin: 03/12/18 06:10 Dose: 100 mg Gabapentin (Neurontin -) 300 mg PO DAILY [facility] Last Admin: 03/12/18 09:48 Dose: 300 mg Sodium Chloride (Normal Saline -) 250 mls @ 3,000 mls/hr IV PRN PRN PRN Reason: Hypotension during Dialysis Stop: 03/13/18 08:07 Vancomycin HCl (Vancomycin 1 Gm Premix -) 1 gm in 200 mls @ 133.333 mls/hr IVPB ONCE ONE; Protocol Stop: 03/12/18 14:29 Metoprolol Succinate (Toprol Xl -) 25 mg PO [facility] Last Admin: 03/11/18 21:37 Dose: 25 mg Oxycodone HCl (Roxicodone -) 5 mg PO Q6H PRN PRN Reason: PAIN LEVEL 6-10 Last Admin: 03/11/18 07:03 Dose: 5 mg Polyethylene Glycol (Miralax (For Daily Use) -) 17 gm PO Q2D [facility] Last Admin: 03/11/18 10:02 Dose: 17 grams Prednisolone Acetate (Pred Forte 1% -) 1 drop OD Q6HPO [facility] Last Admin: 03/12/18 06:11 Dose: 1 drop Sevelamer Carbonate (Renvela -) 2,400 mg PO TIDCM [facility] Last Admin: 03/12/18 09:48 Dose: 2,400 mg Tobramycin/Dexamethasone (Tobradex Ophthalmic Ointment -) 1 applic OD TID [facility] Last Admin: 03/12/18 06:11 Dose: 1 applic Warfarin Sodium (Coumadin -) 6 mg PO DAILY@1800 [facility] - Objective Vital Signs: Vital Signs Temperature 98.2 F 03/12/18 11:50 Pulse Rate 62 03/12/18 12:55 Respiratory Rate 18 03/12/18 12:55 Blood Pressure 126/72 03/12/18 12:55 O2 Sat by Pulse Oximetry (%) 94 L 03/11/18 21:00 Constitutional: Yes: No Distress Eyes: Yes: Other (+ R eyelid swelling/ erythema, conjunctival injection No discharge). No: Conjunctiva Clear Cardiovascular: Yes: Regular Rate and Rhythm, S1, S2 Respiratory: Yes: CTA Bilaterally Gastrointestinal: Yes: Normal Bowel Sounds, Soft. No: Tenderness Labs: CBC, BMP 03/12/18 09:15 03/12/18 09:15 INR, PTT INR 1.54 (0.82-1.09) H 03/12/18 06:50 Assessment/Plan Blepharitis o.d. S/P Herpes ophthalmicus ESRD Redose vancomycin 1gm x1 Continue eyedrops
[2018-03-12] MEDS ORDERED: VANCOMYCIN 1 GM PREMIX - 1 GM/200 ML BAG IVPB ONE (13:00)
--- NOTE | 2018-03-12 16:53 | PN ---
Progress Note, Physician Chief Complaint: Remained at base line c/o Rt eye pain History of Present Illness: 82 year old male with a past medical history of afib, AVR 2 months ago admitted with weakness and supratherapeutic INR - Current Medication List Current Medications: Active Medications Acetaminophen (Tylenol -) 625 mg PO Q6H PRN PRN Reason: PAIN LEVEL 1-5 Amitriptyline HCl (Elavil -) 12.5 mg PO [facility] Last Admin: 03/11/18 21:37 Dose: 12.5 mg Artificial Tears (Artificial Tears) 1 drop OD Q3H PRN PRN Reason: DRY EYES Cinacalcet (Sensipar -) 30 mg PO BID [facility] Last Admin: 03/12/18 09:49 Dose: 30 mg Ciprofloxacin (Ciloxan 0.3% Eye Drops -) 1 drop OD Q6HPO [facility] Last Admin: 03/12/18 14:44 Dose: Not Given Clopidogrel Bisulfate (Plavix -) 75 mg PO DAILY [facility] Last Admin: 03/12/18 09:48 Dose: 75 mg Docusate Sodium (Colace -) 100 mg PO TID [facility] Last Admin: 03/12/18 14:44 Dose: Not Given Gabapentin (Neurontin -) 300 mg PO DAILY [facility] Last Admin: 03/12/18 09:48 Dose: 300 mg Sodium Chloride (Normal Saline -) 250 mls @ 3,000 mls/hr IV PRN PRN PRN Reason: Hypotension during Dialysis Stop: 03/13/18 08:07 Metoprolol Succinate (Toprol Xl -) 25 mg PO [facility] Last Admin: 03/11/18 21:37 Dose: 25 mg Oxycodone HCl (Roxicodone -) 5 mg PO Q6H PRN PRN Reason: PAIN LEVEL 6-10 Last Admin: 03/11/18 07:03 Dose: 5 mg Polyethylene Glycol (Miralax (For Daily Use) -) 17 gm PO Q2D [facility] Last Admin: 03/11/18 10:02 Dose: 17 grams Prednisolone Acetate (Pred Forte 1% -) 1 drop OD Q6HPO [facility] Last Admin: 03/12/18 14:44 Dose: Not Given Sevelamer Carbonate (Renvela -) 2,400 mg PO TIDCM [facility] Last Admin: 03/12/18 14:44 Dose: Not Given Tobramycin/Dexamethasone (Tobradex Ophthalmic Ointment -) 1 applic OD TID [facility] Last Admin: 03/12/18 14:44 Dose: Not Given Warfarin Sodium (Coumadin -) 6 mg PO DAILY@1800 [facility] - Objective Vital Signs: Vital Signs Temperature 98.2 F 03/12/18 11:50 Pulse Rate 80 03/12/18 15:30 Respiratory Rate 18 03/12/18 15:30 Blood Pressure 127/71 03/12/18 15:30 O2 Sat by Pulse Oximetry (%) 94 L 03/11/18 21:00 Elderly man confused not in distress HEBT: Rt eye erythema mm moist, no anemia, NECK; No JVd No Brut CHEST: Minimal basal crepts CVS: s1S2 Irr ABD: No distention, non tender Bs + EXT: edema feet ,Pulses + [employer]: alert confused , non focal , tremoes + Labs: CBC, BMP 03/12/18 09:15 03/12/18 09:15 INR, PTT INR 1.54 (0.82-1.09) H 03/12/18 06:50 Problem List - Problems (1) Acute drug-induced confusion Assessment/Plan: Improving still confused will observe Code(s): F19.988 - OTH PSYCHOACTIVE SUBSTANCE USE, UNSP W OTH DISORDER (2) Elevated INR Assessment/Plan: now Sub therapeutic on coumadin F/U INR Code(s): R79.1 - ABNORMAL COAGULATION PROFILE (3) S/P TAVR (transcatheter aortic valve replacement) Assessment/Plan: No acute issue Code(s): Z95.2 - PRESENCE OF PROSTHETIC HEART VALVE (4) Post herpetic neuralgia Assessment/Plan: On Gabapentin Code(s): B02.29 - OTHER POSTHERPETIC NERVOUS SYSTEM INVOLVEMENT (5) ESRD (end stage renal disease) on dialysis Assessment/Plan: on HD Code(s): N18.6 - END STAGE RENAL DISEASE; Z99.2 - DEPENDENCE ON RENAL DIALYSIS (6) Chronic a-fib Assessment/Plan: Rtae controlled on AC Code(s): I48.2 - CHRONIC ATRIAL FIBRILLATION (7) COPD (chronic obstructive pulmonary disease) Assessment/Plan: Stable cont all home meds Code(s): J44.9 - CHRONIC OBSTRUCTIVE PULMONARY DISEASE, UNSPECIFIED
[2018-03-12] MEDS: WARFARIN NA 3 MG TABLET PO SCH (17:16)
[2018-03-12] MEDS ORDERED: PT OWN MED DRAWER 7, Y5N ONE (20:41)
[2018-03-12] MEDS: metoPROLOL SUCCINATE 25 MG TAB.SR.24H (FP) PO SCH (20:59)
[2018-03-12] MEDS: AMITRIPTYLINE HCL 25 MG TABLET (FP) PO SCH (21:00)
[2018-03-13] MEDS: prednisoLONE ACETATE 1% OPHTH SUSP 5 ML BOTTLE OD SCH ×5 (01:00→23:09)
[2018-03-13] MEDS: CIPROFLOXACIN HCL 0.3% OPHTH 2.5ML BOTTLE OD SCH ×5 (01:00→23:09)
[2018-03-13] MEDS: TOBRAMYCIN/DEXAMETHASONE OPHTH. OINTMENT 1 TUBE OD SCH ×3 (05:52→22:26)
[2018-03-13] MEDS: DOCUSATE SODIUM 100 MG CAPSULE (FP) PO SCH ×3 (05:52→22:22)
[2018-03-13 07:41] LABS: BASO % 1.2 % (0-2.0); EOS % 4.9 % (0-4.5); HEMATOCRIT 33.5 % (35.4-49); MCHC 32.9 g/dl (32.0-35.9); MEAN CELL VOLUME 103.4 fl (80-96); MEAN PLT VOLUME 8.7 fl (7.5-11.1); MONO % 15.9 % (3.8-10.2); PLATELET COUNT 177 K/MM3 (134-434); RBC 3.24 M/mm3 (4.00-5.60); RDW 19.9 % (11.9-15.9); WHITE BLOOD COUNT 5.7 K/mm3 (4.0-10.0)
[2018-03-13 07:45] LABS: INR 1.91 (0.82-1.09); PROTHROMBIN TIME (PATIENT) 21.6 SEC (9.7-13.0)
[2018-03-13 08:44] LABS: CHLORIDE 100 mmol/L (98-107); POTASSIUM 3.8 mmol/L (3.5-5.1); SODIUM 141 mmol/L (136-145)
[2018-03-13 08:58] LABS: ANION GAP 10 (8-16); BLOOD UREA NITROGEN 26 mg/dL (7-18); CALCIUM 8.8 mg/dL (8.5-10.1); CO2 31 mmol/L (21-32); CREATININE 4.6 mg/dL (0.7-1.3); GLUCOSE,RANDOM 88 mg/dL (74-106)
[2018-03-13] MEDS ORDERED: PT OWN MED DRAWER 7, Y5N ONE ×3 (09:27→22:24)
[2018-03-13] MEDS: SEVELAMER CARBONATE 800 MG TAB (FP) PO SCH ×3 (09:30→17:25)
[2018-03-13] MEDS: CLOPIDOGREL BISULFATE 75 MG TABLET (FP) PO SCH (09:31)
[2018-03-13] MEDS: CINACALCET HCL 30 MG TAB (FP) PO SCH ×2 (09:31→23:09)
[2018-03-13] MEDS: GABAPENTIN 300 MG CAPSULE (FP) PO SCH (09:31)
[2018-03-13] MEDS: POLYETHYLENE GLYCOL 3350 119 GM BTL PO SCH (09:31)
--- NOTE | 2018-03-13 11:17 | PN ---
Progress Note (short form) - Note Progress Note: Renal follow up for ESRD on HD Pt seen and examined at the bedside awake and alert family at the bedside, reports that he is at his normal mentation s/p dialysis yesterday w/o complication want to go home denies any CP, sob, abd pain, N/V/D, Fever Vital Signs Temperature 98.5 F 03/13/18 06:00 Pulse Rate 92 H 03/13/18 06:00 Respiratory Rate 18 03/13/18 06:00 Blood Pressure 132/72 03/13/18 06:00 O2 Sat by Pulse Oximetry (%) 97 03/12/18 21:00 Intake & Output 03/10/18 03/11/18 03/12/18 03/13/18 23:59 23:59 23:59 23:59 Intake Total 580 1200 220 150 Balance 580 1200 220 150 Weight 79.197 kg 78.925 kg 78.5 kg 77.746 kg NAD confused RRR Dec BS, no rales no LE edema CBC, BMP 03/13/18 06:10 03/13/18 06:10 Current Medications Acetaminophen (Tylenol -) 625 mg PO Q6H PRN PRN Reason: PAIN LEVEL 1-5 Amitriptyline HCl (Elavil -) 12.5 mg PO [facility] Last Admin: 03/12/18 21:00 Dose: 12.5 mg Artificial Tears (Artificial Tears) 1 drop OD Q3H PRN PRN Reason: DRY EYES Cinacalcet (Sensipar -) 30 mg PO BID [facility] Last Admin: 03/13/18 09:31 Dose: 30 mg Ciprofloxacin (Ciloxan 0.3% Eye Drops -) 1 drop OD Q6HPO [facility] Last Admin: 03/13/18 05:52 Dose: 1 drop Clopidogrel Bisulfate (Plavix -) 75 mg PO DAILY [facility] Last Admin: 03/13/18 09:31 Dose: 75 mg Docusate Sodium (Colace -) 100 mg PO TID [facility] Last Admin: 03/13/18 05:52 Dose: 100 mg Gabapentin (Neurontin -) 300 mg PO DAILY [facility] Last Admin: 03/13/18 09:31 Dose: Not Given Metoprolol Succinate (Toprol Xl -) 25 mg PO [facility] Last Admin: 03/12/18 20:59 Dose: Not Given Polyethylene Glycol (Miralax (For Daily Use) -) 17 gm PO Q2D [facility] Last Admin: 03/13/18 09:31 Dose: Not Given Prednisolone Acetate (Pred Forte 1% -) 1 drop OD Q6HPO [facility] Last Admin: 03/13/18 05:52 Dose: 1 drop Sevelamer Carbonate (Renvela -) 2,400 mg PO TIDCM [facility] Last Admin: 03/13/18 09:30 Dose: 2,400 mg Tobramycin/Dexamethasone (Tobradex Ophthalmic Ointment -) 1 applic OD TID [facility] Last Admin: 03/13/18 05:52 Dose: 1 applic Warfarin Sodium (Coumadin -) 6 mg PO DAILY@1800 [facility] Last Admin: 03/12/18 17:16 Dose: 6 mg 82 year old gentleman with PMhx of ESRD on HD (TTS), Afib on Coumadin, COPD, CHF who presented with INR > 10. #Supratheraputic INR #ESRD on HD #Renal Osteodystrophy #Afib on Coumadin #Shingles s/p dialysis yesterday w/o incident Mental status is improved no indication for [employer] Max gabapentin dose is 300mg Daily, family wants to discontinue it Arnoldo Dodson discharge planning as per primary Juan Christensen DO
--- NOTE | 2018-03-13 12:05 | DS ---
Physical Examination Vital Signs: Vital Signs Temperature 98.5 F 03/13/18 06:00 Pulse Rate 92 H 03/13/18 06:00 Respiratory Rate 18 03/13/18 06:00 Blood Pressure 132/72 03/13/18 06:00 O2 Sat by Pulse Oximetry (%) 97 03/12/18 21:00 Elderly man looks alert family is around HEENT: Rt eye erythema mm moist, no anemia, NECK; No JVd No Brut CHEST: Minimal basal crepts CVS: s1S2 Irr ABD: No distention, non tender Bs + EXT: edema feet ,Pulses + ATTRACTION WORKER: alert confused , non focal , tremors + Labs: CBC, BMP 03/13/18 06:10 03/13/18 06:10 Discharge Summary Reason For Visit: ELEVATED INTERNATIONAL NORMALIZED RATIO (INR) Current Active Problems Acute drug-induced confusion (Acute) Blepharitis, right eye (Acute) CHF (congestive heart failure) (Acute) Conjunctivitis (Acute) Elevated INR (Acute) History of herpes zoster (Acute) Post herpetic neuralgia (Acute) S/P TAVR (transcatheter aortic valve replacement) (Acute) Subtherapeutic international normalized ratio (INR) (Acute) Hospital Course: 82 yrs old man known since oprevious hospitalization h/O CKD stage 5 on HD, Chronic Afib on AC, As s/p TAVR, HTN, Tremors, Rt eye Post HZ Neuralgia admitted with AMS in the setting of Gabpentin over dose and supartherapeutic INR, gabapentin dose adjusted and Coumadin was reversed now on Coumadin 6 mg INR reported 1.92, had a detailed discussion with patient daughter and family , says patient is comfortable with 300 mg Gabapentin (that is recpmmpnded max dose for CKD satge 5 patient) as patient is on HD need suplemental dose of Gabapentin 100 mg after HD, if unable to tolerate Gabapentin can be started on Lyrica 25 daily with Supplemental dose of 25 mg post dialysis max dose for, patient has resting O2 sat 86% improves with O2 inhalation, Post and Pre walk O2 saturation was performed patient needs Home O2 Condition: Fair - Instructions Diet, Activity, Other Instructions: coumadin 6mg daily starting tomorrow f/u as directed eye drop and ointment per direction- assess for improvemt, f/u with outpt ophth as soon as possible for further recommendations. Referrals: Brittany Hanna MD [Staff Physician] - 03/12/18 Matt Harris MD [Staff Physician] - 1 Week Paul Harris MD [Primary Care Provider] - 03/14/18 Disposition: HOME - Home Medications Comprehensive Discharge Medication List: Ambulatory Orders Sevelamer Carbonate [Renvela -] 3 tab PO TID 10/07/13 Cinacalcet HCl [Sensipar -] 30 mg PO BID 01/24/18 Clopidogrel Bisulfate [Plavix -] 75 mg PO DAILY tablet 01/27/18 Polyvinyl Alcohol [Artificial Tears] 1 drop OD Q3H PRN drops 01/27/18 Metoprolol Succinate [Toprol XL -] 25 mg PO HS 03/09/18 Oxycodone HCl/Acetaminophen [Percocet 5-325 mg Tablet] 1 tab PO Q6H 03/09/18 Polyethylene Glycol 3350 [Miralax 119 gm Btl -] 17 gm PO Q2D 03/09/18 Warfarin Sodium [Coumadin] 6 mg PO 03/10/18 Acetaminophen [Tylenol .Regular Strength -] 325 mg PO Q6H PRN tablet 03/11/18 Amitriptyline HCl [Elavil -] 25 mg PO HS #14 tablet 03/11/18 Cinacalcet HCl [Sensipar -] 30 mg PO BID tab 03/11/18 Ciprofloxacin 0.3% Eye Drops [Ciloxan 0.3% Eye Drops -] 1 drop OD Q6HPO 7 Days # 1 drops 03/11/18 Gabapentin [Neurontin -] 300 mg PO DAILY capsule 03/11/18 Sulfacetamide/Prednisolone [Blephamide Eye Ointment] 3.5 gm OP TID 7 Days #2 oint...g. 03/11/18 oxyCODONE HCL [Roxicodone -] 5 mg PO Q6H PRN tablet MDD 30 03/11/18
--- NOTE | 2018-03-13 12:09 | PN ---
Progress Note, Physician Chief Complaint: Remained at base line c/o Rt eye pain History of Present Illness: 82 year old male with a past medical history of afib, AVR 2 months ago admitted with weakness and supratherapeutic INR - Current Medication List Current Medications: Active Medications Acetaminophen (Tylenol -) 625 mg PO Q6H PRN PRN Reason: PAIN LEVEL 1-5 Amitriptyline HCl (Elavil -) 12.5 mg PO [facility] Last Admin: 03/12/18 21:00 Dose: 12.5 mg Artificial Tears (Artificial Tears) 1 drop OD Q3H PRN PRN Reason: DRY EYES Cinacalcet (Sensipar -) 30 mg PO BID [facility] Last Admin: 03/13/18 09:31 Dose: 30 mg Ciprofloxacin (Ciloxan 0.3% Eye Drops -) 1 drop OD Q6HPO [facility] Last Admin: 03/13/18 05:52 Dose: 1 drop Clopidogrel Bisulfate (Plavix -) 75 mg PO DAILY [facility] Last Admin: 03/13/18 09:31 Dose: 75 mg Docusate Sodium (Colace -) 100 mg PO TID [facility] Last Admin: 03/13/18 05:52 Dose: 100 mg Gabapentin (Neurontin -) 300 mg PO DAILY [facility] Last Admin: 03/13/18 09:31 Dose: Not Given Metoprolol Succinate (Toprol Xl -) 25 mg PO [facility] Last Admin: 03/12/18 20:59 Dose: Not Given Polyethylene Glycol (Miralax (For Daily Use) -) 17 gm PO Q2D [facility] Last Admin: 03/13/18 09:31 Dose: Not Given Prednisolone Acetate (Pred Forte 1% -) 1 drop OD Q6HPO [facility] Last Admin: 03/13/18 05:52 Dose: 1 drop Sevelamer Carbonate (Renvela -) 2,400 mg PO TIDCM [facility] Last Admin: 03/13/18 09:30 Dose: 2,400 mg Tobramycin/Dexamethasone (Tobradex Ophthalmic Ointment -) 1 applic OD TID [facility] Last Admin: 03/13/18 05:52 Dose: 1 applic Warfarin Sodium (Coumadin -) 6 mg PO DAILY@1800 [facility] Last Admin: 03/12/18 17:16 Dose: 6 mg - Objective Vital Signs: Vital Signs Temperature 98.5 F 03/13/18 06:00 Pulse Rate 92 H 03/13/18 06:00 Respiratory Rate 18 03/13/18 06:00 Blood Pressure 132/72 03/13/18 06:00 O2 Sat by Pulse Oximetry (%) 97 03/12/18 21:00 Elderly man confused not in distress HEBT: Rt eye erythema mm moist, no anemia, NECK; No JVd No Brut CHEST: Minimal basal crepts CVS: s1S2 Irr ABD: No distention, non tender Bs + EXT: edema feet ,Pulses + VERMIN EXTERMINATOR: alert confused , non focal , tremoes + Labs: CBC, BMP 03/13/18 06:10 03/13/18 06:10 INR, PTT INR 1.91 (0.82-1.09) H 03/13/18 06:10 Problem List - Problems (1) Acute drug-induced confusion Assessment/Plan: Improving after reducing dose of gabapentin Code(s): F19.988 - OTH PSYCHOACTIVE SUBSTANCE USE, UNSP W OTH DISORDER (2) Elevated INR Assessment/Plan: INR 1.9 on coumadin 6 mg F/U INR Code(s): R79.1 - ABNORMAL COAGULATION PROFILE (3) S/P TAVR (transcatheter aortic valve replacement) Assessment/Plan: No acute issue Code(s): Z95.2 - PRESENCE OF PROSTHETIC HEART VALVE (4) Post herpetic neuralgia Assessment/Plan: On Gabapentin 300 mg needs suplemental dose of 100 mg after HD or can be sqwitched to Lyrica 25 mg daily suplemental dose of 25 mg on the HD day max dose 75 mg Code(s): B02.29 - OTHER POSTHERPETIC NERVOUS SYSTEM INVOLVEMENT (5) ESRD (end stage renal disease) on dialysis Assessment/Plan: on HD Code(s): N18.6 - END STAGE RENAL DISEASE; Z99.2 - DEPENDENCE ON RENAL DIALYSIS (6) Chronic a-fib Assessment/Plan: Rtae controlled on AC Code(s): I48.2 - CHRONIC ATRIAL FIBRILLATION (7) COPD (chronic obstructive pulmonary disease) Assessment/Plan: H/O COPD and Pulmonary HTN , Desats on room air needs Home O2 ,start on Advair with PRN duoneb, Pulmonary consult Code(s): J44.9 - CHRONIC OBSTRUCTIVE PULMONARY DISEASE, UNSPECIFIED
[2018-03-13] MEDS ORDERED: ALBUTEROL SO4 2.5/IPRATROPIUM 0.5 INH SOL 3 ML VIAL.NEB. NEB PRN (12:11)
--- NOTE | 2018-03-13 12:27 | PN ---
Progress Note, Physician History of Present Illness: Chronic GRAVES at baseline, right eye pain improved. - Current Medication List Current Medications: Active Medications Acetaminophen (Tylenol -) 625 mg PO Q6H PRN PRN Reason: PAIN LEVEL 1-5 Albuterol/Ipratropium (Duoneb -) 1 amp NEB Q6H PRN PRN Reason: SHORTNESS OF BREATH Amitriptyline HCl (Elavil -) 12.5 mg PO [facility] Last Admin: 03/12/18 21:00 Dose: 12.5 mg Artificial Tears (Artificial Tears) 1 drop OD Q3H PRN PRN Reason: DRY EYES Cinacalcet (Sensipar -) 30 mg PO BID [facility] Last Admin: 03/13/18 09:31 Dose: 30 mg Ciprofloxacin (Ciloxan 0.3% Eye Drops -) 1 drop OD Q6HPO [facility] Last Admin: 03/13/18 12:21 Dose: 1 drop Clopidogrel Bisulfate (Plavix -) 75 mg PO DAILY [facility] Last Admin: 03/13/18 09:31 Dose: 75 mg Docusate Sodium (Colace -) 100 mg PO TID [facility] Last Admin: 03/13/18 05:52 Dose: 100 mg Gabapentin (Neurontin -) 300 mg PO DAILY [facility] Last Admin: 03/13/18 09:31 Dose: Not Given Metoprolol Succinate (Toprol Xl -) 25 mg PO [facility] Last Admin: 03/12/18 20:59 Dose: Not Given Polyethylene Glycol (Miralax (For Daily Use) -) 17 gm PO Q2D [facility] Last Admin: 03/13/18 09:31 Dose: Not Given Prednisolone Acetate (Pred Forte 1% -) 1 drop OD Q6HPO [facility] Last Admin: 03/13/18 12:21 Dose: 1 drop Fluticasone/Salmeterol (Advair 100mcg/50mcg -) 1 puff IH BID [facility] Sevelamer Carbonate (Renvela -) 2,400 mg PO TIDCM [facility] Last Admin: 03/13/18 12:19 Dose: 2,400 mg Tobramycin/Dexamethasone (Tobradex Ophthalmic Ointment -) 1 applic OD TID [facility] Last Admin: 03/13/18 05:52 Dose: 1 applic Warfarin Sodium (Coumadin -) 6 mg PO DAILY@1800 [facility] Last Admin: 03/12/18 17:16 Dose: 6 mg - Objective Vital Signs: Vital Signs Temperature 98.5 F 03/13/18 06:00 Pulse Rate 98 H 03/13/18 12:17 Respiratory Rate 18 03/13/18 06:00 Blood Pressure 132/72 03/13/18 06:00 O2 Sat by Pulse Oximetry (%) 83 L 03/13/18 12:17 Constitutional: Yes: No Distress, Calm, Thin Neck: Yes: Supple Cardiovascular: Yes: Pulse Irregular Respiratory: Yes: Regular, Diminished Gastrointestinal: Yes: Normal Bowel Sounds, Soft Edema: No Labs: CBC, BMP 03/13/18 06:10 03/13/18 06:10 INR, PTT INR 1.91 (0.82-1.09) H 03/13/18 06:10 Problem List - Problems (1) Subtherapeutic international normalized ratio (INR) Code(s): R79.1 - ABNORMAL COAGULATION PROFILE (2) History of herpes zoster Code(s): Z86.19 - PERSONAL HISTORY OF OTHER INFECTIOUS AND PARASITIC DISEASES (3) Post herpetic neuralgia Code(s): B02.29 - OTHER POSTHERPETIC NERVOUS SYSTEM INVOLVEMENT (4) Aortic stenosis Code(s): I35.0 - NONRHEUMATIC AORTIC (VALVE) STENOSIS (5) Chronic a-fib Code(s): I48.2 - CHRONIC ATRIAL FIBRILLATION (6) ESRD (end stage renal disease) on dialysis Code(s): N18.6 - END STAGE RENAL DISEASE; Z99.2 - DEPENDENCE ON RENAL DIALYSIS (7) HTN (hypertension) Code(s): I10 - ESSENTIAL (PRIMARY) HYPERTENSION Qualifiers: Hypertension type: essential hypertension Qualified Code(s): I10 - Essential (primary) hypertension (8) Pulmonary hypertension Code(s): I27.20 - PULMONARY HYPERTENSION, UNSPECIFIED (9) S/P TAVR (transcatheter aortic valve replacement) Code(s): Z95.2 - PRESENCE OF PROSTHETIC HEART VALVE Assessment/Plan Recent Zoster Opthalmicus, right eye Post-herpetic neuralgia ESRD on HD Permanent AF Supratherapeutic INR, now subtherapeutic 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 Rx post herpetic neuralgia as per PMD, Neuro and Optho. 2. Dose coumadin per INR 2-3, remains on Plavix 75 qd, Toprol XL 25 qd 3. HD as per renal 4. Patient was referred to Dr. Miller at [facility] for further w/u and Rx of PHTN 5. IV Vanco by levels per ID
[2018-03-13] MEDS ORDERED: TIOTROPIUM BROMIDE 18 MCG CAPSULES IH SCH (13:00)
[2018-03-13] MEDS: FLUTICASONE/SALMETEROL 100 MCG/50 MCG DISKUS IH SCH ×2 (15:28→22:22)
[2018-03-13] MEDS: WARFARIN NA 3 MG TABLET PO SCH (17:25)
[2018-03-13] MEDS: AMITRIPTYLINE HCL 25 MG TABLET (FP) PO SCH (22:22)
[2018-03-13] MEDS: metoPROLOL SUCCINATE 25 MG TAB.SR.24H (FP) PO SCH (22:22)
[2018-03-14] MEDS: DOCUSATE SODIUM 100 MG CAPSULE (FP) PO SCH ×2 (05:52→14:59)
[2018-03-14] MEDS: prednisoLONE ACETATE 1% OPHTH SUSP 5 ML BOTTLE OD SCH ×2 (05:52→12:20)
[2018-03-14] MEDS: TOBRAMYCIN/DEXAMETHASONE OPHTH. OINTMENT 1 TUBE OD SCH ×2 (05:52→15:00)
[2018-03-14] MEDS: CIPROFLOXACIN HCL 0.3% OPHTH 2.5ML BOTTLE OD SCH ×2 (05:53→12:19)
[2018-03-14 07:29] LABS: BASO % 1.5 % (0-2.0); EOS % 5.1 % (0-4.5); HEMATOCRIT 35.9 % (35.4-49); HEMOGLOBIN 11.7 GM/dL (11.7-16.9); LYMPH % 16.7 % (8-40); MCHC 32.6 g/dl (32.0-35.9); MEAN CELL VOLUME 104.4 fl (80-96); MONO % 12.7 % (3.8-10.2); PLATELET COUNT 199 K/MM3 (134-434); RBC 3.44 M/mm3 (4.00-5.60); RDW 20.2 % (11.9-15.9); WHITE BLOOD COUNT 6.2 K/mm3 (4.0-10.0)
[2018-03-14 07:37] LABS: INR 2.56 (0.82-1.09); PROTHROMBIN TIME (PATIENT) 28.9 SEC (9.7-13.0)
[2018-03-14 07:51] LABS: ANION GAP 12 (8-16); BLOOD UREA NITROGEN 39 mg/dL (7-18); CALCIUM 9.1 mg/dL (8.5-10.1); CHLORIDE 101 mmol/L (98-107); CO2 29 mmol/L (21-32); CREATININE 6.3 mg/dL (0.7-1.3); GLUCOSE,RANDOM 85 mg/dL (74-106); POTASSIUM 4.5 mmol/L (3.5-5.1); SODIUM 142 mmol/L (136-145)
[2018-03-14] MEDS: SEVELAMER CARBONATE 800 MG TAB (FP) PO SCH ×2 (08:56→12:16)
--- NOTE | 2018-03-14 09:42 | PN ---
Progress Note (short form) - Note Progress Note: Neurology HISTORY OF PRESENT ILLNESS: This is an 82 year old male with a past medical history of afib, AVR 2 months ago who presented to the at the request of his PCP for elevated INR. Pt seen by me in the office for postherpetic neuralgia this week. I had increased his gabapentin at that time to 300mg three times a day as outpatient. Was still having pain related to Zoster infection. CT head completed and without acute change. Amitryptiline added, 25mg initially but reduced over weekend due to concern for confusion. This Am, doing well, grandson at bedside and pain has much improved. No confusion and mental status appears to be at baseline. Calm, comfortable and cooperative Active Medications Acetaminophen (Tylenol -) 625 mg PO Q6H PRN PRN Reason: PAIN LEVEL 1-5 Albuterol/Ipratropium (Duoneb -) 1 amp NEB Q6H PRN PRN Reason: SHORTNESS OF BREATH Amitriptyline HCl (Elavil -) 12.5 mg PO HS [facility] Last Admin: 03/13/18 22:22 Dose: 12.5 mg Artificial Tears (Artificial Tears) 1 drop OD Q3H PRN PRN Reason: DRY EYES Cinacalcet (Sensipar -) 30 mg PO BID [facility] Last Admin: 03/13/18 23:09 Dose: 30 mg Ciprofloxacin (Ciloxan 0.3% Eye Drops -) 1 drop OD Q6HPO [facility] Last Admin: 03/14/18 05:53 Dose: 1 drop Clopidogrel Bisulfate (Plavix -) 75 mg PO DAILY [facility] Last Admin: 03/13/18 09:31 Dose: 75 mg Docusate Sodium (Colace -) 100 mg PO TID [facility] Last Admin: 03/14/18 05:52 Dose: 100 mg Gabapentin (Neurontin -) 300 mg PO DAILY [facility] Last Admin: 03/13/18 09:31 Dose: Not Given Metoprolol Succinate (Toprol Xl -) 25 mg PO [facility] Last Admin: 03/13/18 22:22 Dose: 25 mg Polyethylene Glycol (Miralax (For Daily Use) -) 17 gm PO Q2D [facility] Last Admin: 03/13/18 09:31 Dose: Not Given Prednisolone Acetate (Pred Forte 1% -) 1 drop OD Q6HPO [facility] Last Admin: 07/23/18 05:52 Dose: 1 drop Fluticasone/Salmeterol (Advair 100mcg/50mcg -) 1 puff IH BID [facility] Last Admin: 03/13/18 22:22 Dose: 1 puff Sevelamer Carbonate (Renvela -) 2,400 mg PO TIDCM [facility] Last Admin: 03/14/18 08:56 Dose: 2,400 mg Tobramycin/Dexamethasone (Tobradex Ophthalmic Ointment -) 1 applic OD TID [facility] Last Admin: 03/14/18 05:52 Dose: 1 applic Warfarin Sodium (Coumadin -) 6 mg PO DAILY@1800 [facility] Last Admin: 03/13/18 17:25 Dose: 6 mg PHYSICAL EXAMINATION Vital Signs Period Temp Pulse Resp BP Sys/Montalvo Pulse Ox Last 24 Hr 97.6 F-98.5 F 75-116 18-18 112-123/55-81 83-94 GENERAL: Awake, alert, and fully oriented, in no acute distress. HEAD: Normal with no signs of trauma. EYES: Pupils equal, round and reactive to light, extraocular movements intact, sclera anicteric, conjunctiva clear. No lid lag. EARS, NOSE, THROAT: Ears normal, nares patent, oropharynx clear without exudates. Moist mucous membranes. NECK: Normal range of motion, supple without lymphadenopathy, JVD, or masses. LUNGS: Breath sounds equal, clear to auscultation bilaterally. No wheezes, and no crackles. No accessory muscle use. HEART: Regular rate and rhythm, normal S1 and S2 without murmur, rub or gallop. ABDOMEN: Soft, nontender, not distended, normoactive bowel sounds, no guarding, no rebound, no masses. No hepatomegaly or splenomegaly. MUSCULOSKELETAL: Normal range of motion at all joints. No bony deformities or tenderness. No CVA tenderness. UPPER EXTREMITIES: 2+ pulses, warm, well-perfused. No cyanosis. No clubbing. No peripheral edema. LOWER EXTREMITIES: 2+ pulses, warm, well-perfused. No calf tenderness. No peripheral edema. NEUROLOGICAL: R eye eccymosis, CN intact, moves all extremities equally, sensory intact PSYCHIATRIC: Cooperative. Good eye contact. Appropriate mood and affect. SKIN: Warm, dry, normal turgor, no rashes or lesions noted, normal capillary refill. CBCD WBC 6.2 K/mm3 (4.0-10.0) 03/14/18 06:00 RBC 3.44 M/mm3 (4.00-5.60) L 03/14/18 06:00 Hgb 11.7 GM/dL (11.7-16.9) 03/14/18 06:00 Hct 35.9 % (35.4-49) 03/14/18 06:00 MCV 104.4 fl (80-96) H 03/14/18 06:00 MCHC 32.6 g/dl (32.0-35.9) 03/14/18 06:00 RDW 20.2 % (11.9-15.9) H 03/14/18 06:00 Plt Count 199 K/MM3 (134-434) 03/14/18 06:00 MPV 9.0 fl (7.5-11.1) 03/14/18 06:00 CMP Sodium 142 mmol/L (136-145) 03/14/18 06:00 Potassium 4.5 mmol/L (3.5-5.1) 03/14/18 06:00 Chloride 101 mmol/L (98-107) 03/14/18 06:00 Carbon Dioxide 29 mmol/L (21-32) 03/14/18 06:00 Anion Gap 12 (8-16) 03/14/18 06:00 BUN 39 mg/dL (7-18) H 03/14/18 06:00 Creatinine 6.3 mg/dL (0.7-1.3) H 03/14/18 06:00 Creat Clearance w eGFR 8.57 (>60) 03/14/18 06:00 Random Glucose 85 mg/dL (74-106) 03/14/18 06:00 Calcium 9.1 mg/dL (8.5-10.1) 03/14/18 06:00 Total Bilirubin 0.7 mg/dL (0.2-1.0) 03/09/18 18:00 AST 22 U/L (15-37) 03/09/18 18:00 ALT 18 U/L (12-78) 03/09/18 18:00 Alkaline Phosphatase 142 U/L (45-117) H 03/09/18 18:00 Total Protein 7.5 g/dl (6.4-8.2) 03/09/18 18:00 Albumin 3.5 g/dl (3.4-5.0) 03/09/18 18:00 CARDIAC ENZYMES Creatine Kinase 47 IU/L (39-308) 03/09/18 18:00 Troponin I 0.07 ng/ml (0.00-0.05) H 03/09/18 18:[address] head Impression: Negative unenhanced CT of the brain. ASSESSMENT/PLAN: 82 year old male with a past medical history of afib, AVR 2 months ago who presented to the at the request of his PCP for elevated INR. Pt seen by me in the office for postherpetic neuralgia this week. I had increased his gabapentin at that time to 300mg three times a day as outpatient. Was still having pain related to Zoster infection. CT head completed and without acute change. Amitryptiline added, 25mg initially but reduced over weekend due to concern for confusion. This Am, doing well, grandson at bedside and pain has much improved. No confusion and mental status appears to be at baseline. Calm, comfortable and cooperative. Valtrex regiment completed. Can go home on current regiment of low dose cindy and amitryptilline. Can eventually be discontinued as outpatient.
[2018-03-14] MEDS: CLOPIDOGREL BISULFATE 75 MG TABLET (FP) PO SCH (10:14)
[2018-03-14] MEDS: GABAPENTIN 300 MG CAPSULE (FP) PO SCH (10:14)
[2018-03-14] MEDS: FLUTICASONE/SALMETEROL 100 MCG/50 MCG DISKUS IH SCH (10:15)
[2018-03-14] MEDS: CINACALCET HCL 30 MG TAB (FP) PO SCH (10:15)
--- NOTE | 2018-03-14 12:48 | PN ---
Progress Note, Physician - Current Medication List Current Medications: Active Medications Acetaminophen (Tylenol -) 625 mg PO Q6H PRN PRN Reason: PAIN LEVEL 1-5 Albuterol/Ipratropium (Duoneb -) 1 amp NEB Q6H PRN PRN Reason: SHORTNESS OF BREATH Amitriptyline HCl (Elavil -) 12.5 mg PO [facility] Last Admin: 03/13/18 22:22 Dose: 12.5 mg Artificial Tears (Artificial Tears) 1 drop OD Q3H PRN PRN Reason: DRY EYES Cinacalcet (Sensipar -) 30 mg PO BID [facility] Last Admin: 03/14/18 10:15 Dose: 30 mg Ciprofloxacin (Ciloxan 0.3% Eye Drops -) 1 drop OD Q6HPO [facility] Last Admin: 03/14/18 12:19 Dose: 1 drop Clopidogrel Bisulfate (Plavix -) 75 mg PO DAILY [facility] Last Admin: 03/14/18 10:14 Dose: 75 mg Docusate Sodium (Colace -) 100 mg PO TID [facility] Last Admin: 03/14/18 05:52 Dose: 100 mg Gabapentin (Neurontin -) 300 mg PO DAILY [facility] Last Admin: 03/14/18 10:14 Dose: 300 mg Metoprolol Succinate (Toprol Xl -) 25 mg PO [facility] Last Admin: 03/13/18 22:22 Dose: 25 mg Polyethylene Glycol (Miralax (For Daily Use) -) 17 gm PO Q2D [facility] Last Admin: 03/13/18 09:31 Dose: Not Given Prednisolone Acetate (Pred Forte 1% -) 1 drop OD Q6HPO [facility] Last Admin: 03/14/18 12:20 Dose: 1 drop Fluticasone/Salmeterol (Advair 100mcg/50mcg -) 1 puff IH BID [facility] Last Admin: 03/14/18 10:15 Dose: 1 puff Sevelamer Carbonate (Renvela -) 2,400 mg PO TIDCM [facility] Last Admin: 03/14/18 12:16 Dose: 2,400 mg Tobramycin/Dexamethasone (Tobradex Ophthalmic Ointment -) 1 applic OD TID [facility] Last Admin: 03/14/18 05:52 Dose: 1 applic Warfarin Sodium (Coumadin -) 6 mg PO DAILY@1800 [facility] Last Admin: 03/13/18 17:25 Dose: 6 mg - Objective Vital Signs: Vital Signs Temperature 98.4 F 03/14/18 06:00 Pulse Rate 90 03/14/18 06:00 Respiratory Rate 18 03/14/18 06:00 Blood Pressure 113/58 03/14/18 06:00 O2 Sat by Pulse Oximetry (%) 94 L 03/13/18 21:00 Labs: CBC, BMP 03/14/18 06:00 03/14/18 06:00 INR, PTT INR 2.56 (0.82-1.09) H D 03/14/18 06:00 Problem List - Problems (1) Supratherapeutic INR Code(s): R79.1 - ABNORMAL COAGULATION PROFILE (2) Post herpetic neuralgia Code(s): B02.29 - OTHER POSTHERPETIC NERVOUS SYSTEM INVOLVEMENT (3) History of herpes zoster Code(s): Z86.19 - PERSONAL HISTORY OF OTHER INFECTIOUS AND PARASITIC DISEASES (4) Conjunctivitis Code(s): H10.9 - UNSPECIFIED CONJUNCTIVITIS Qualifiers: Conjunctivitis type: acute Acute conjunctivitis type: bacterial Laterality: right Qualified Code(s): H10.31 - Unspecified acute conjunctivitis , right eye (5) Chronic a-fib Code(s): I48.2 - CHRONIC ATRIAL FIBRILLATION (6) ESRD (end stage renal disease) on dialysis Code(s): N18.6 - END STAGE RENAL DISEASE; Z99.2 - DEPENDENCE ON RENAL DIALYSIS (7) HTN (hypertension) Code(s): I10 - ESSENTIAL (PRIMARY) HYPERTENSION Qualifiers: Hypertension type: essential hypertension Qualified Code(s): I10 - Essential (primary) hypertension (8) CHF (congestive heart failure) Code(s): I50.9 - HEART FAILURE, UNSPECIFIED Qualifiers: Heart failure type: diastolic Heart failure chronicity: chronic Qualified Code(s): I50.32 - Chronic diastolic (congestive) heart failure (9) Aortic stenosis Code(s): I35.0 - NONRHEUMATIC AORTIC (VALVE) STENOSIS (10) Pulmonary hypertension Code(s): I27.20 - PULMONARY HYPERTENSION, UNSPECIFIED (11) Acute drug-induced confusion Code(s): F19.988 - OTH PSYCHOACTIVE SUBSTANCE USE, UNSP W OTH DISORDER (12) Blepharitis, right eye Code(s): H01.003 - UNSPECIFIED BLEPHARITIS RIGHT EYE, UNSPECIFIED EYELID Qualifiers: Eyelid: upper
[2018-03-14 14:45] VITALS: BP 135/76; PULSE 90; TEMP 98.3
--- NOTE | 2018-03-14 15:07 | PN ---
Progress Note, Physician History of Present Illness: No c/o R eye pain No fever/ chills Reports no worsening of visual acuity - Current Medication List Current Medications: Active Medications Acetaminophen (Tylenol -) 625 mg PO Q6H PRN PRN Reason: PAIN LEVEL 1-5 Albuterol/Ipratropium (Duoneb -) 1 amp NEB Q6H PRN PRN Reason: SHORTNESS OF BREATH Amitriptyline HCl (Elavil -) 12.5 mg PO [facility] Last Admin: 03/13/18 22:22 Dose: 12.5 mg Artificial Tears (Artificial Tears) 1 drop OD Q3H PRN PRN Reason: DRY EYES Cinacalcet (Sensipar -) 30 mg PO BID [facility] Last Admin: 03/14/18 10:15 Dose: 30 mg Ciprofloxacin (Ciloxan 0.3% Eye Drops -) 1 drop OD Q6HPO [facility] Last Admin: 03/14/18 12:19 Dose: 1 drop Clopidogrel Bisulfate (Plavix -) 75 mg PO DAILY [facility] Last Admin: 03/14/18 10:14 Dose: 75 mg Docusate Sodium (Colace -) 100 mg PO TID [facility] Last Admin: 03/14/18 14:59 Dose: 100 mg Gabapentin (Neurontin -) 300 mg PO DAILY [facility] Last Admin: 03/14/18 10:14 Dose: 300 mg Metoprolol Succinate (Toprol Xl -) 25 mg PO [facility] Last Admin: 03/13/18 22:22 Dose: 25 mg Polyethylene Glycol (Miralax (For Daily Use) -) 17 gm PO Q2D [facility] Last Admin: 03/13/18 09:31 Dose: Not Given Prednisolone Acetate (Pred Forte 1% -) 1 drop OD Q6HPO [facility] Last Admin: 03/14/18 12:20 Dose: 1 drop Fluticasone/Salmeterol (Advair 100mcg/50mcg -) 1 puff IH BID [facility] Last Admin: 03/14/18 10:15 Dose: 1 puff Sevelamer Carbonate (Renvela -) 2,400 mg PO TIDCM [facility] Last Admin: 03/14/18 12:16 Dose: 2,400 mg Tobramycin/Dexamethasone (Tobradex Ophthalmic Ointment -) 1 applic OD TID [facility] Last Admin: 03/14/18 15:00 Dose: 1 applic Warfarin Sodium (Coumadin -) 6 mg PO DAILY@1800 [facility] Last Admin: 03/13/18 17:25 Dose: 6 mg - Objective Vital Signs: Vital Signs Temperature 98.3 F 03/14/18 14:37 Pulse Rate 90 03/14/18 14:37 Respiratory Rate 18 03/14/18 14:37 Blood Pressure 135/76 03/14/18 14:37 O2 Sat by Pulse Oximetry (%) 96 03/14/18 09:00 Constitutional: Yes: No Distress Eyes: Yes: Other (R conjunctival injection). No: Conjunctiva Clear Cardiovascular: Yes: Regular Rate and Rhythm, S1, S2 (R eyelid less red and swollen. No ocular discharge noted) Respiratory: Yes: CTA Bilaterally Gastrointestinal: Yes: Normal Bowel Sounds, Soft. No: Tenderness Labs: CBC, BMP 03/14/18 06:00 03/14/18 06:00 INR, PTT INR 2.56 (0.82-1.09) H D 03/14/18 06:00 Assessment/Plan Blepharitis o.d. improved S/P Herpes ophthalmicus ESRD Continue eyedrops For outpatient follow up with ophtho
[2018-03-15 06:08] LABS: HBSAG SCREEN Negative (Negative); HEP A AB, IGM Negative (Negative); HEP B CORE AB, TOT Positive (Negative)
== END 2018-03-14 16:25 | disposition home or self-care (01) | DRG 813 ==
LOC: JER 17:40 → JERBED 20:09 → J7W 03-10 00:24
PROVIDERS: ADMIT Internal Medicine; ATTEND Internal Medicine
PROC: 5A1D70Z Performance of Urinary Filtration, Intermittent, Less than 6 Hours Per Day (ICD-10-PCS; principal; 2018-03-10)
PROC: 5A1D70Z Performance of Urinary Filtration, Intermittent, Less than 6 Hours Per Day (ICD-10-PCS; 2018-03-12)
DX: D68.8 Other specified coagulation defects (principal); N18.6 End stage renal disease; G92 Toxic encephalopathy; B02.29 Other postherpetic nervous system involvement; I13.2 Hypertensive heart and chronic kidney disease with heart failure and with stage 5 chronic kidney disease, or end stage renal disease; I50.32 Chronic diastolic (congestive) heart failure; I25.10 Atherosclerotic heart disease of native coronary artery without angina pectoris; I71.9 Aortic aneurysm of unspecified site, without rupture; N25.0 Renal osteodystrophy; I48.2 Chronic atrial fibrillation; I27.20 Pulmonary hypertension, unspecified; I07.1 Rheumatic tricuspid insufficiency; H10.31 Unspecified acute conjunctivitis, right eye; H01.003 Unspecified blepharitis right eye, unspecified eyelid; T42.6X5A Adverse effect of other antiepileptic and sedative-hypnotic drugs, initial encounter; F19.988 Other psychoactive substance use, unspecified with other psychoactive substance-induced disorder; Z99.2 Dependence on renal dialysis; Z79.01 Long term (current) use of anticoagulants; Z86.19 Personal history of other infectious and parasitic diseases
CPT/HCPCS: 36415; 70450-TC; 80048; 80053; 82550; 83735; 84100; 84484; 85025; 85027; 85610; 86704; 86706; 86708; 86803; 86850; 86900; 86901; 87340; 93005; 93010; 94761; 97116-GP; 97162-GP; 99282-25; G0480

== ENCOUNTER 2018-06-13 13:27 | Inpatient (IN) | payer OTHER ==
--- NOTE | 2018-06-13 13:55 | PDOC ---
History of Present Illness - General Chief Complaint: Shortness of Breath Stated Complaint: SHORTNESS OF BREATH Time Seen by Provider: 06/13/18 13:55 - History of Present Illness Initial Comments: 06/13/18 13:56 Mr. Dahl is an 82 yo male w/ pmh of afib on coumadin, ESRD (T/R/S), htn, afib, and cardiac valve replacement who presents for evaluation of multiple complaints of AMS, difficulty breathing while on 2L NC at home with additional yellow skin color. Per daughter who is with him patient was recently discharged Wednesday from [facility] where patient was being evaluated for shingles exacerbation. 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 Per daughter patient was able to walk to dialysis session wednesday without difficulty however is now altered from baseline with different skin coloring. Past History - Past Medical History Allergies/Adverse Reactions: Allergies Allergy/AdvReac Type Severity Reaction Status Date / Time enoxaparin sodium Allergy Verified 06/13/18 14:02 [From Lovenox] heparin (porcine) Allergy heparin Verified 06/13/18 14:02 [Heparin,Porcine] induced platelet antibody lidocaine Allergy Verified 06/13/18 14:02 Home Medications: Ambulatory Orders Cinacalcet HCl [Sensipar] 30 mg PO DAILY 06/13/18 Clopidogrel Bisulfate [Plavix] 75 mg PO DAILY 06/13/18 Hydralazine HCl 50 mg PO TID 06/13/18 Isosorbide Mononitrate [Isosorbide Mononitrate ER] 30 mg PO DAILY 06/13/18 Metoprolol Succinate [Toprol Xl] 25 mg PO BID 06/13/18 Nortriptyline HCl [Pamelor -] 35 mg PO DAILY 06/13/18 Pregabalin [Lyrica -] 50 mg PO BID 06/13/18 Sevelamer Carbonate [Renvela] 800 mg PO TID 06/13/18 Warfarin Sodium [Coumadin] 5 mg PO HS 06/13/18 Anemia: Yes Asthma: No Cancer: No Cardiac Disorders: Yes (atrial fibrillation,CAD, aortic stenosis, aortic aneurysm) CVA: No COPD: No CHF: No DVT: No Dementia: No Diabetes: Yes Dialysis: Yes (//WED) GI Disorders: No Disorders: No HTN: Yes Hypercholesterolemia: Yes Kidney Stones: (renal failure shiley to right chest, av fistula to left arm) Liver Disease: No Seizures: No Thyroid Disease: No - Surgical History Abdominal Surgery: No Appendectomy: No Cardiac Surgery: No Cholecystectomy: No Lung Surgery: (left arm fistula, right chest shiley) Neurologic Surgery: No Orthopedic Surgery: No - Suicide/Smoking/Psychosocial Hx Smoking Status: No Smoking History: Never smoked Have you smoked in the past 12 months: No Number of Cigarettes Smoked Daily: 0 If you are a former smoker, when did you quit?: 42 years ago Hx Alcohol Use: No Drug/Substance Use Hx: No Substance Use Type: None Hx Substance Use Treatment: No Review of Systems - Review of Systems Comments:: 06/13/18 14:52 GENERAL/CONSTITUTIONAL: +Weakness w/ tremor. Depression from baseline of mental status. No fever or chills. HEAD, EYES, EARS, NOSE AND THROAT: No change in vision. No ear pain or discharge. No sore throat. CARDIOVASCULAR: No chest pain or shortness of breath RESPIRATORY: No cough, wheezing, or hemoptysis. GASTROINTESTINAL: No nausea, vomiting, diarrhea or constipation. GENITOURINARY: No dysuria, frequency, or change in urination. MUSCULOSKELETAL: No joint or muscle swelling or pain. No neck or back pain. SKIN: +Yellow appearance for 1 day NEUROLOGIC: No headache, vertigo, loss of consciousness, or change in strength/ sensation. ENDOCRINE: No increased thirst. No abnormal weight change HEMATOLOGIC/LYMPHATIC: No anemia, easy bleeding, or history of blood clots. ALLERGIC/IMMUNOLOGIC: No hives or skin allergy. : Lesion on penis *Physical Exam - Physical Exam Comments: 06/13/18 14:53 GENERAL: Awake, alert, and oriented x3 however depressed affect; in no acute distress HEAD: No signs of trauma, normocephalic, atraumatic EYES: PERRLA, EOMI, sclera anicteric, conjunctiva clear ENT: Auricles normal inspection, hearing grossly normal, nares patent, oropharynx clear without exudates. Moist mucosa NECK: Normal ROM, supple, no lymphadenopathy, JVD, or masses LUNGS: No distress, speaks full sentences, clear to auscultation bilaterally HEART: Regular rate and rhythm, normal S1 and S2, no murmurs, rubs or gallops, peripheral pulses normal and equal bilaterally. ABDOMEN: Soft, nontender, normoactive bowel sounds. No guarding, no rebound. No masses EXTREMITIES: +Asterixsys noted. Normal inspection, Normal range of motion, no edema. No clubbing or cyanosis. NEUROLOGICAL: Cranial nerves II through XII grossly intact. Normal speech, normal gait, no focal sensorimotor deficits SKIN: +Yellow appearance of skin w/ leftover lesions c/w VZV noted to R face. Warm, Dry, normal turgor, no lesions noted. ED Treatment Course - LABORATORY CBC & Chemistry Diagram: 06/13/18 15:35 06/13/18 15:35 Medical Decision Making - Medical Decision Making 06/13/18 15:42 Mr. Dahl is an 82 yo male w/ pmh as described who presents for evaluation of symptoms concerning for acyclovir toxicity. Coinciding workup started w/ labs as below, CXR, EKG. Discussed patient w/ nephrology (Juan Christensen) who will put on list for dialysis today. Patient currently pending further labs. EKG significant for known afib w/ incomplete RBBB and prolonged QT. No ST elevations or depression. 06/13/18 17:50 CXR concerning for possible fluid overload. Admitting patient for needed dialysis for AMS. Laboratory Results - last 24 hr 06/13/18 06/13/18 06/13/18 15:25 15:25 15:35 WBC 10.2 H RBC 3.47 L Hgb 10.5 L Hct 33.4 L MCV 96.3 H MCH 30.2 D MCHC 31.4 L RDW 19.4 H Plt Count 308 D MPV 8.3 Absolute Neuts (auto) 7.9 Neutrophils % 77.3 D Lymphocytes % 12.2 D Monocytes % 8.6 Eosinophils % 0.8 D Basophils % 1.1 Nucleated RBC % 0 PT with INR 23.50 H INR 1.98 H PTT (Actin FS) 22.7 L Sodium Potassium Chloride Carbon Dioxide Anion Gap BUN Creatinine Creat Clearance w eGFR Random Glucose Calcium Total Bilirubin AST ALT Alkaline Phosphatase Ammonia 52.23 H Creatine Kinase Troponin I Total Protein Albumin Lipase TSH Salicylates Acetaminophen 06/13/18 06/13/18 06/13/18 15:35 15:35 15:35 WBC RBC Hgb Hct MCV MCH MCHC RDW Plt Count MPV Absolute Neuts (auto) Neutrophils % Lymphocytes % Monocytes % Eosinophils % Basophils % Nucleated RBC % PT with INR INR PTT (Actin FS) Sodium 140 Potassium 5.6 H Chloride 102 Carbon Dioxide 24 Anion Gap 14 BUN 44 H Creatinine 6.0 H Creat Clearance w eGFR 9.07 Random Glucose 76 Calcium 9.1 Total Bilirubin 1.2 H AST 143 H ALT 60 Alkaline Phosphatase 100 Ammonia Creatine Kinase 289 Troponin I 0.29 H Total Protein 7.6 Albumin 2.8 L Lipase 90 TSH 0.72 Salicylates < 1.7 L Acetaminophen < 10 L 06/13/18 17:52 Discussed w/ inpatient team who will admit. *DC/Admit/Observation/Transfer Diagnosis at time of Disposition: Altered mental status Qualifiers: Altered mental status type: unspecified Qualified Code(s): R41.82 - Altered mental status, unspecified - Discharge Dispostion Decision to Admit order: Yes - Referrals Referrals: Paul Harris MD [Primary Care Provider] - - Patient Instructions - Post Discharge Activity
[2018-06-13] MEDS ORDERED: morphine CARPU-JECT 2 MG/1 ML DISP.SYRIN IVPUSH ONE (14:54)
--- NOTE | 2018-06-13 15:09 | PDOC ---
Attending Attestation - HPI HPI: This patient is an 82 year old male, with PMHx of HTN, Afib (on Coumadin), ESRD (T, Th, Wed), and cardiac valve replacement (01/2018 at [facility]) who presents with AMS, difficulty breathing while on 2L NC at home with additional jaundiced skin and penile lesion. As per patients daughter, he was d/c on Wednesday from [place] where he was diagnosed with shingles. Patients daughter notes that he seemed normal on Wednesday when he was last dialyzed but today he seemed to have yellowed skin, altered from baseline, weak and shaky. 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 Allergies:please see nursing notes PCP: Paul Harris (admits to [place] [id number], afterwards sent to Hospitalist) Tea Bag Machine Tender: Yassine Department Editor: Dr. Brittany Barcenas - Physicial Exam PE: GENERAL: Disoriented, confused. HEAD: No signs of trauma EYES: PERRLA, EOMI, sclera anicteric, conjunctiva clear NECK: Normal ROM, supple, JVD, or masses LUNGS: Breath sounds equal, clear to auscultation bilaterally. No wheezes, and no crackles HEART: Irregularly irregular, no murmurs, rubs or gallops. ABDOMEN: Soft, nontender, No guarding, no rebound. No masses EXTREMITIES: Left arm fistula. Asterixis + and myoclonus in upper extremities. No edema. No clubbing or cyanosis. No cords, erythema, or tenderness NEUROLOGICAL: Cranial nerves II through XII grossly intact. SKIN: Jaundiced. Warm, Dry, normal turgor, no rashes or lesions noted. exam: Uncircumsized , open vesicular lesion on distal end of penis. <Gail East - Last Filed: 06/13/18 17:00> - Resident Resident Name: Shahzad Bran - ED Attending Attestation I have performed the following: I have examined & evaluated the patient, The case was reviewed & discussed with the resident, I agree w/resident's findings & plan, Exceptions are as noted - Medical Decision Making 06/13/18 15:09 A portion of this note was documented by scribe services under my direction. I have reviewed the details of the note, within reason, and agree with the documentation with the following case summary and management plan written by me. Patient treated in the ED. Nursing notes are reviewed and incorporated into the medical decision-making. Vital signs reviewed. Peripheral IV access obtained by the nurse, laboratory studies are drawn and sent, reviewed and interpreted by myself. 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 The patient was recently discharged approximately 3 days ago from [facility] for biopsy of a penile lesion. At that time, the patient was diagnosed with VZV and initiated on acyclovir. The patient has been compliant in taking the medications. Last had dialysis 2 days ago. However, since dialysis, the patient has become increasingly more confused and altered and jaundice. Also noted with myoclonus and asterixis. No fevers or chills. Patient denies any pain. I'm concerned that the patient may potentially be having acyclovir toxicity given the myoclonus, altered mental status and history of underlying renal failure. However, we must investigate other etiology such as infectious etiology , metabolic disarray such as hypo-natremia or hypoglycemia. We'll need to investigate neurologically given patient is on Coumadin and at risk for potential spontaneous bleed. We'll obtain labs, CAT scan the head, toxologic screen. Obtain liver function tests for jaundice. We had contacted nephrology, Dr. Martinez will dialyze the patient today. Ultimately, the patient should be admitted to the hospital for admission. 06/13/18 17:53 CBC, BMP 06/13/18 15:35 06/13/18 15:35 CMP Sodium 140 mmol/L (136-145) 06/13/18 15:35 Potassium 5.6 mmol/L (3.5-5.1) H 06/13/18 15:35 Chloride 102 mmol/L (98-107) 06/13/18 15:35 Carbon Dioxide 24 mmol/L (21-32) 06/13/18 15:35 Anion Gap 14 MMOL/L (8-16) 06/13/18 15:35 BUN 44 mg/dL (7-18) H 06/13/18 15:35 Creatinine 6.0 mg/dL (0.55-1.3) H 06/13/18 15:35 Creat Clearance w eGFR 9.07 (>60) 06/13/18 15:35 Random Glucose 76 mg/dL (74-106) 06/13/18 15:35 Calcium 9.1 mg/dL (8.5-10.1) 06/13/18 15:35 Total Bilirubin 1.2 mg/dL (0.2-1) H 06/13/18 15:35 AST 143 U/L (15-37) H 06/13/18 15:35 ALT 60 U/L (13-61) 06/13/18 15:35 Alkaline Phosphatase 100 U/L (45-117) 06/13/18 15:35 Ammonia 52.23 umol/L (11-32) H 06/13/18 15:25 Creatine Kinase 289 IU/L (26-308) 06/13/18 15:35 Troponin I 0.29 ng/ml (0.00-0.05) H 06/13/18 15:35 Total Protein 7.6 g/dl (6.4-8.2) 06/13/18 15:35 Albumin 2.8 g/dl (3.4-5.0) L 06/13/18 15:35 Lipase 90 U/L (73-393) 06/13/18 15:35 TSH 0.72 uIU/ml (0.358-3.74) 06/13/18 15:35 06/13/18 18:06 CT head with no acute findings. <Antoine Tineo - Last Filed: 06/13/18 18:07> Heart Score/ECG Review #1 ECG reviewed & interpreted by me at: 13:50 06/13/18 17:53 atrial fibrillation 94, incomplete RBBB, RVH, nonspecific T wave abnormality, no std/leonela, QTC 470 msec <Antoine Tineo - Last Filed: 06/13/18 18:07>
[2018-06-13 15:48] LABS: INR 1.98 (0.83-1.09); PROTHROMBIN TIME (PATIENT) 23.5 SEC (9.7-13.0)
[2018-06-13 15:50] LABS: ACTIVATED PTT 22.7 SECONDS (25.2-36.5)
[2018-06-13 16:01] LABS: BASO % 1.1 % (0-2.0); EOS % 0.8 % (0-4.5); HEMATOCRIT 33.4 % (35.4-49); HEMOGLOBIN 10.5 GM/dL (11.7-16.9); LYMPH % 12.2 % (8-40); MCH 30.2 pg (25.7-33.7); MCHC 31.4 g/dl (32.0-35.9); MEAN CELL VOLUME 96.3 fl (80-96); MEAN PLT VOLUME 8.3 fl (7.5-11.1); MONO % 8.6 % (3.8-10.2); NEUT % 77.3 % (42.8-82.8); PLATELET COUNT 308 K/MM3 (134-434); RBC 3.47 M/mm3 (4.00-5.60); RDW 19.4 % (11.9-15.9); WHITE BLOOD COUNT 10.2 K/mm3 (4.0-10.0)
[2018-06-13 17:07] LABS: ALBUMIN 2.8 g/dl (3.4-5.0); ALK PHOS 100 U/L (45-117); ANION GAP 14 MMOL/L (8-16); BILIRUBIN,TOTAL 1.2 mg/dL (0.2-1); BLOOD UREA NITROGEN 44 mg/dL (7-18); CALCIUM 9.1 mg/dL (8.5-10.1); CHLORIDE 102 mmol/L (98-107); CO2 24 mmol/L (21-32); GLUCOSE,RANDOM 76 mg/dL (74-106); POTASSIUM 5.6 mmol/L (3.5-5.1); SGOT/AST 143 U/L (15-37); SGPT/ALT 60 U/L (13-61); SODIUM 140 mmol/L (136-145); TOT PROT 7.6 g/dl (6.4-8.2)
--- NOTE | 2018-06-13 18:50 | CONSULT ---
Consult - text type - Consultation Consultation Note: Renal follow for Consult for ESRD on HD This is a 82 year old gentleman with hx of ESRD on HD, Hypertension, Afib on coumadin presents with AMS. Pt s/p recent penile biopsy which showed possible zoster and was treated with acyclovir since last . Pt is very confused, not oriented at all. Daughter at the bedside. Last dialysis was Wednesday. PMhx: as above Allergies: NKDA Family Hx: NC Social hx: No T/A/D ROS: unable to obtain to because of clinical status Home Medications Medication Instructions Recorded Cinacalcet HCl [Sensipar] 30 mg PO DAILY 06/13/18 Clopidogrel Bisulfate [Plavix] 75 mg PO DAILY 06/13/18 Hydralazine HCl 50 mg PO TID 06/13/18 Isosorbide Mononitrate [Isosorbide 30 mg PO DAILY 06/13/18 Mononitrate ER] Metoprolol Succinate [Toprol Xl] 25 mg PO BID 06/13/18 Nortriptyline HCl [Pamelor -] 35 mg PO DAILY 06/13/18 Pregabalin [Lyrica -] 50 mg PO BID 06/13/18 Sevelamer Carbonate [Renvela] 800 mg PO TID 06/13/18 Warfarin Sodium [Coumadin] 5 mg PO HS 06/13/18 Vital Signs Temperature 98.0 F 06/13/18 13:31 Pulse Rate 94 H 06/13/18 17:22 Respiratory Rate 16 06/13/18 17:22 Blood Pressure 107/87 06/13/18 17:22 O2 Sat by Pulse Oximetry (%) 100 06/13/18 17:22 Intake & Output 06/10/18 06/11/18 06/12/18 06/13/18 23:59 23:59 23:59 23:59 Weight 69.4 kg NAD confused RRR, No M/R CTA, no rales or wheeze soft NT/ND no LE edema, clubbing or cyanosis left arm AVF CBC, BMP 06/13/18 15:35 06/13/18 15:35 Current Medications Sodium Chloride (Normal Saline -) 250 mls @ 3,000 mls/hr IV PRN PRN PRN Reason: Hypotension during Dialysis Stop: 06/14/18 15:01 Piperacillin Sod/Tazobactam (Sod 3.375 gm/ Dextrose) 50 mls @ 100 mls/hr IVPB ONCE ONE; Protocol Stop: 06/13/18 19:19 82 year old gentleman with hx of ESRD on HD, Hypertension, Afib on coumadin presents with AMS. #AMS from medication toxicity vs. sepsis #ESRD on HD #Hyperkalemia #Anemia (chronic) #Zoster infection Will plan urgent HD today to attempt to dialyze acyclovir out of system additional HD planned for tomorrow Check cultures and start emetic abx keep MAP > 65 Renal diet when able to tolerate oral diet Consider ID consult Thank you Will follow Juan Christensen DO
--- NOTE | 2018-06-13 18:51 | HP ---
CHIEF COMPLAINT: altered mental status PCPs: Dr. Sethi, PMD Dr. Metzger, cardiology Dr. Brittany Reina, nephrology HISTORY OF PRESENT ILLNESS: Patient is an 82 year old male with a significant past medical history of atrial fibrillation (on Coumadin), ESRD (,,wed) schedule, hypertension and cardiac valve replacement (02/07 at [facility]). He presents to the ED today for altered mental status, tremors at rest and yellowing of skin. His daughter provided most of the history as patient's mentation was altered. Patient was recently at [facility] and while there was treated with Acyclovir 500mg since last . He had a recent penile biopsy secondary to a "growth " on the top of his penis. He was discharged from [facility] and was sent home. He was in his usual state of health and had full dialysis on Wednesday. However, daughter reports that today, patient appeared yellow, he was confused, weak, very shaky and had difficulty breathing on 2 liters nasal cannula at home. He was brought into the ED for further evaluation. Patient being admitted for acute metabolic encephalopathy of unknown etiology. On exam, he was noted to have brown odorous pus draining from his penis. He also had a small white pin sized lesion just underneath his penis. A wound culture was sent of the penile discharge and blood cultures were ordered. He will be receiving emergent dialysis today for possible acyclovair toxicity. Will start him on empiric antibiotics for possible sepsis and consult ID. Of note, on previous admission, patient had same presentation which was though to be secondary to gabapentin. please obtain records from [facility] ER course was notable for: (1) possible sepsis, meets sepsis criteria: AMS, tachycardia, pus from penis, tachypnea, mild elevation of WBC (2) head ct negative (3) zosyn, blood cultures, lactic acid ordered. (4) inr 1.98 - INR goal 2.5-3.0 (5) potassium 5.6, creat 6.0 Recent Travel: PAST MEDICAL HISTORY: PAST SURGICAL HISTORY: recent penile biopsy Social History: Smoking: Alcohol: Drugs: Family History: Allergies enoxaparin sodium [From Lovenox] Allergy (Verified 06/13/18 14:02) heparin (porcine) [Heparin,Porcine] Allergy (Verified 06/13/18 14:02) heparin induced platelet antibody as per Paul Tee lidocaine Allergy (Verified 06/13/18 14:02) HOME MEDICATIONS: Home Medications Medication Instructions Recorded Cinacalcet HCl [Sensipar] 30 mg PO DAILY 06/13/18 Clopidogrel Bisulfate [Plavix] 75 mg PO DAILY 06/13/18 Hydralazine HCl 50 mg PO TID 06/13/18 Isosorbide Mononitrate [Isosorbide 30 mg PO DAILY 06/13/18 Mononitrate ER] Metoprolol Succinate [Toprol Xl] 25 mg PO BID 06/13/18 Nortriptyline HCl [Pamelor -] 35 mg PO DAILY 06/13/18 Pregabalin [Lyrica -] 50 mg PO BID 06/13/18 Sevelamer Carbonate [Renvela] 800 mg PO TID 06/13/18 Warfarin Sodium [Coumadin] 5 mg PO HS 06/13/18 PHYSICAL EXAMINATION Vital Signs - 24 hr 06/13/18 06/13/18 06/13/18 13:31 14:23 17:22 Temperature 98.0 F Pulse Rate 84 94 H Pulse Rate [ 94 H Apical] Respiratory 16 16 Rate Blood Pressure 114/75 Blood Pressure 107/87 [Left Arm] O2 Sat by Pulse 96 100 100 Oximetry (%) GENERAL: confused, altered mentation, awake but unable to make needs known, tremors HEAD: Normal with no signs of trauma. EYES: Pupils not equal, right eye pupil less reactive to light, left eye with brisk pupil sclera anicteric, conjunctiva clear. No lid lag. EARS, NOSE, THROAT: Ears normal, nares patent, oropharynx clear without exudates. Moist mucous membranes. NECK: Normal range of motion, supple without lymphadenopathy, JVD, or masses. LUNGS: Breath sounds equal, diminished to auscultation bilaterally HEART: irregular ABDOMEN: Soft, nontender, not distended, normoactive bowel sounds, no guarding, no rebound, no masses. No hepatomegaly or splenomegaly. MUSCULOSKELETAL: Normal range of motion at all joints. No bony deformities or tenderness. No CVA tenderness. UPPER EXTREMITIES: Left upper arm AV fistula LOWER EXTREMITIES:No peripheral edema. NEUROLOGICAL: non verbal on exam, confused, tremors at rest PSYCHIATRIC: tried to communicate but could not secondary to his acute presentation SKIN: waller, thick odorous penile discharge Laboratory Results - last 24 hr 06/13/18 06/13/18 06/13/18 15:25 15:25 15:35 WBC 10.2 H RBC 3.47 L Hgb 10.5 L Hct 33.4 L MCV 96.3 H MCH 30.2 D MCHC 31.4 L RDW 19.4 H Plt Count 308 D MPV 8.3 Absolute Neuts (auto) 7.9 Neutrophils % 77.3 D Lymphocytes % 12.2 D Monocytes % 8.6 Eosinophils % 0.8 D Basophils % 1.1 Nucleated RBC % 0 PT with INR 23.50 H INR 1.98 H PTT (Actin FS) 22.7 L Sodium Potassium Chloride Carbon Dioxide Anion Gap BUN Creatinine Creat Clearance w eGFR Random Glucose Calcium Total Bilirubin AST ALT Alkaline Phosphatase Ammonia 52.23 H Creatine Kinase Creatine Kinase Index CK-MB (CK-2) Troponin I Total Protein Albumin Lipase TSH Salicylates Acetaminophen 06/13/18 06/13/18 06/13/18 15:35 15:35 15:35 WBC RBC Hgb Hct MCV MCH MCHC RDW Plt Count MPV Absolute Neuts (auto) Neutrophils % Lymphocytes % Monocytes % Eosinophils % Basophils % Nucleated RBC % PT with INR INR PTT (Actin FS) Sodium 140 Potassium 5.6 H Chloride 102 Carbon Dioxide 24 Anion Gap 14 BUN 44 H Creatinine 6.0 H Creat Clearance w eGFR 9.07 Random Glucose 76 Calcium 9.1 Total Bilirubin 1.2 H AST 143 H ALT 60 Alkaline Phosphatase 100 Ammonia Creatine Kinase 289 Creatine Kinase Index 1.4 CK-MB (CK-2) 4.2 H Troponin I 0.29 H Total Protein 7.6 Albumin 2.8 L Lipase 90 TSH 0.72 Salicylates < 1.7 L Acetaminophen < 10 L ASSESSMENT/PLAN: Patient is an 82 year old male with a significant past medical history of atrial fibrillation (on Coumadin), ESRD (tues,th,sat) schedule, hypertension and cardiac valve replacement (02/07 at [facility]). He presents to the ED today for altered mental status, tremors at rest and yellowing of skin. Patient being admitted for acute metabolic encephalopathy of unknown etiology. On exam, he was noted to have brown odorous pus draining from his penis. He also had a small white pin sized lesion just underneath his penis. A wound culture was sent of the penile discharge and blood cultures were ordered. He will be receiving emergent dialysis today for possible acyclovair toxicity. Will start him on empiric antibiotics for possible sepsis and consult ID. Of note, on previous admission, patient had same presentation which was though to be secondary to gabapentin. Neuro/ID: acute toxic metabolic encephalopathy: acyclovair toxicity vs. sepsis vs. other source. Pancultured as he meets sepsis criteria: AMS, tachycardia, pus from draining from penis, tachypnea, mild elevation of WBC. Blood cultures obtained prior to administration of antibiotics. Penile pus discharge sent for culture. Will order: Zosyn x 1 dose, Vancomycin x 1 dose and consult ID (seen by Dr. Starks in recent past) Monitor mentation Consider neuro consult if mentation does not improve, as may need further imaging. Renal ESRD, for emergent dialysis today for possbile acyclovair toxcitity. Dialysis via left AV fistula. Cardiology Atrial fibrillation Cardiac valve replacement Hypertension continue Coumadin 6mg and monitor INR, currently 1.98. Goal inr between 2.5- 3.5. Continue home cardiac medications. Elevated tropnins, elevated compared to previous troponins. will trend. Consider cardiology consult. EKG afib and incomplete RBBB, prolonged QT fen may need swallow evaluation, for now dysphagia diet ordered and nectar thickened fluids, aspiration precautions. No ivf, renal patient monitor electrolytes renal diet/dysphagia prophy On coumadin, allergy to heparin (heparin causes swollen mouth and tongue) full code Visit type - Emergency Visit Emergency Visit: Yes ED Registration Date: 06/13/18 Care time: The patient presented to the Emergency Department on the above date and was hospitalized for further evaluation of their emergent condition. - New Patient This patient is new to me today: Yes Date on this admission: 06/13/18 - Critical Care Critical Care patient: No
[2018-06-13] MEDS ORDERED: SODIUM CHLORIDE 250 ML IV PRN (18:55)
[2018-06-13] MEDS ORDERED: PIPERACILLIN/TAZOB 3.375 GM 3.375 GM in DEXTROSE 5%-WATER - 50 ML IVPB ONE (19:30)
[2018-06-13] MEDS ORDERED: VANCOMYCIN 1 GRAM (PRE-DOCKED) 1,000 MG/250 ML BAG IVPB ONE (19:45)
[2018-06-13] MEDS ORDERED: WARFARIN NA 5 MG TABLET (UD) PO SCH (22:00)
[2018-06-14] MEDS: hydrALAZINE HCL 50 MG TABLET (FP) PO SCH ×3 (01:07→14:24)
[2018-06-14] MEDS: metoPROLOL SUCCINATE 25 MG TAB.SR.24H (FP) PO SCH ×3 (01:08→21:42)
[2018-06-14] MEDS: WARFARIN NA 3 MG TABLET PO SCH ×2 (01:08→18:03)
[2018-06-14] MEDS ORDERED: WARFARIN NA 1 MG TABLET (FP) ONE (01:09)
[2018-06-14] MEDS ORDERED: WARFARIN NA 5 MG TABLET (UD) ONE (01:09)
[2018-06-14 06:47] LABS: BASO % 0.5 % (0-2.0); EOS % 0.6 % (0-4.5); HEMATOCRIT 32.6 % (35.4-49); HEMOGLOBIN 10.1 GM/dL (11.7-16.9); LYMPH % 7.9 % (8-40); MCH 30.1 pg (25.7-33.7); MCHC 30.9 g/dl (32.0-35.9); MEAN CELL VOLUME 97.3 fl (80-96); MEAN PLT VOLUME 8.5 fl (7.5-11.1); MONO % 8.6 % (3.8-10.2); NEUT % 82.4 % (42.8-82.8); PLATELET COUNT 252 K/MM3 (134-434); RBC 3.35 M/mm3 (4.00-5.60); RDW 19.7 % (11.9-15.9)
[2018-06-14 07:33] LABS: ALBUMIN 2.6 g/dl (3.4-5.0); ALK PHOS 87 U/L (45-117); ANION GAP 10 MMOL/L (8-16); BILIRUBIN,TOTAL 1.2 mg/dL (0.2-1); BLOOD UREA NITROGEN 17 mg/dL (7-18); CALCIUM 8.4 mg/dL (8.5-10.1); CHLORIDE 105 mmol/L (98-107); CHOLESTEROL 115 mg/dL (50-200); CO2 30 mmol/L (21-32); GLUCOSE,RANDOM 66 mg/dL (74-106); HDL CHOLESTEROL 37 mg/dL (40-60); MAGNESIUM 2.1 mg/dL (1.8-2.4); PHOSPHOROUS 3.3 mg/dL (2.5-4.9); POTASSIUM 4.1 mmol/L (3.5-5.1); SGOT/AST 104 U/L (15-37); SGPT/ALT 55 U/L (13-61); SODIUM 146 mmol/L (136-145); TRIGLYCERIDES 98 mg/dL (0-150)
[2018-06-14] MEDS ORDERED: FLU VACCINE QUAD 60 MCG/0.5 ML (MDV 18-19) IM ONE (08:00)
[2018-06-14] MEDS: SEVELAMER CARBONATE 800 MG TAB (FP) PO SCH ×3 (08:58→18:04)
[2018-06-14 09:23] LABS: INR 2.78 (0.83-1.09)
[2018-06-14 09:28] LABS: PROTHROMBIN TIME (PATIENT) 33.1 SEC (9.7-13.0)
--- NOTE | 2018-06-14 09:34 | PN ---
Progress Note, Physician Chief Complaint: Well known to me, complicated PMH includes: 1. Severe s/p TAVR 2. 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 ESRD 4. AF on coumadin 5. Hx DVT, HIT, IVC filter 6. 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 Recently diagnosed penile carcinoma, scheduled for outpatient resection Now presents to ER with altered mental status, fatigue, tremors. Admitted for sepsis work up, urgent HD and evaluation of possible toxix- metabolic encephalopathy He is currently receiving HD. Denies CP, SOB, palpitations. Asked to evaluate for Borderline elevation of TnI History of Present Illness: ER records reviewed: " 82 year old male with a significant past medical history of atrial fibrillation (on Coumadin), ESRD (,,wed) schedule, hypertension and cardiac valve replacement (02/07 at [facility]). He presents to the ED today for altered mental status, tremors at rest and yellowing of skin. His daughter provided most of the history as patient's mentation was altered. Patient was recently at [facility] and while there was treated with Acyclovir 500mg since last . He had a recent penile biopsy secondary to a "growth " on the top of his penis. He was discharged from [place] and was sent home. He was in his usual state of health and had full dialysis on Wednesday. However, daughter reports that today, patient appeared yellow, he was confused, weak, very shaky and had difficulty breathing on 2 liters nasal cannula at home. He was brought into the ED for further evaluation. Patient being admitted for acute metabolic encephalopathy of unknown etiology. On exam, he was noted to have brown odorous pus draining from his penis. He also had a small white pin sized lesion just underneath his penis. A wound culture was sent of the penile discharge and blood cultures were ordered. He will be receiving emergent dialysis today for possible acyclovair toxicity. Will start him on empiric antibiotics for possible sepsis and consult ID. Of note, on previous admission, patient had same presentation which was though to be secondary to gabapentin. ER course was notable for: (1) possible sepsis, meets sepsis criteria: AMS, tachycardia, pus from penis, tachypnea, mild elevation of WBC (2) head ct negative (3) zosyn, blood cultures, lactic acid ordered. (4) inr 1.98 - INR goal 2.5-3.0 (5) potassium 5.6, creat 6.0" - Current Medication List Current Medications: Active Medications Clopidogrel Bisulfate (Plavix -) 75 mg PO DAILY [facility] Hydralazine HCl (Apresoline -) 50 mg PO TID [facility] Last Admin: 06/14/18 06:04 Dose: 50 mg Sodium Chloride (Normal Saline -) 250 mls @ 3,000 mls/hr IV PRN PRN PRN Reason: Hypotension during Dialysis Stop: 06/14/18 15:01 Sodium Chloride (Normal Saline -) 250 mls @ 3,000 mls/hr IV PRN PRN PRN Reason: Hypotension during Dialysis Stop: 06/14/18 18:55 Isosorbide Mononitrate (Imdur -) 30 mg PO DAILY [facility] Metoprolol Succinate (Toprol Xl -) 25 mg PO BID [facility] Last Admin: 06/14/18 01:08 Dose: Not Given Sevelamer Carbonate (Renvela -) 800 mg PO TIDCM [facility] Last Admin: 06/14/18 08:58 Dose: 800 mg Warfarin Sodium (Coumadin -) 6 mg PO DAILY@1800 [facility] Last Admin: 06/14/18 01:08 Dose: 6 mg - Objective Vital Signs: Vital Signs Temperature 98.1 F 06/14/18 08:42 Pulse Rate 95 H 06/14/18 08:55 Respiratory Rate 18 06/14/18 08:55 Blood Pressure 122/73 06/14/18 08:55 O2 Sat by Pulse Oximetry (%) 97 06/14/18 08:42 Constitutional: Yes: No Distress Eyes: Yes: Sclera Icterus (Mild) Neck: Yes: Supple Cardiovascular: Yes: Pulse Irregular, JVD Respiratory: Yes: Other (decreased breath sounds at bases.) Gastrointestinal: Yes: Soft (Non-tender, no rebound or guarding.) Edema: No Peripheral Pulses WNL: Yes Neurological: Yes: Alert, Asterixis ...Motor Strength: WNL (moving all four extremities) Labs: CBC, BMP 06/14/18 05:30 06/14/18 05:30 INR, PTT INR 2.78 (0.83-1.09) H 06/14/18 05:30 Microbiology Laboratory Tests 07/19/18 07/20/18 07/20/18 06:00 06:00 06:00 WBC 5.6 Hgb 11.1 L Plt Count 179 INR 6.42 H* D 1.85 H D Sodium Potassium Chloride BUN Creatinine Calcium Phosphorus Magnesium Total Bilirubin AST ALT Alkaline Phosphatase Creatine Kinase Troponin I Total Protein Albumin Triglycerides Lipase TSH Random Vancomycin Salicylates Acetaminophen 03/11/18 06/13/18 06/13/18 06:00 15:35 15:35 WBC Hgb Plt Count INR Sodium 139 Potassium 4.2 Chloride BUN Creatinine 4.9 H Calcium 8.8 Phosphorus Magnesium Total Bilirubin AST ALT Alkaline Phosphatase Creatine Kinase 289 Troponin I 0.29 H Total Protein 7.6 Albumin 2.8 L Triglycerides Lipase 90 TSH 0.72 Random Vancomycin Salicylates Acetaminophen 06/13/18 06/14/18 06/14/18 15:35 05:30 05:30 WBC 10.0 Hgb 10.1 L Plt Count 252 INR Sodium Potassium Chloride BUN Creatinine Calcium Phosphorus Magnesium Total Bilirubin AST ALT Alkaline Phosphatase Creatine Kinase Troponin I Total Protein Albumin Triglycerides Lipase TSH Random Vancomycin 9.7 L Salicylates < 1.7 L Acetaminophen < 10 L 06/14/18 06/14/18 05:30 05:30 WBC Hgb Plt Count INR 2.78 H Sodium 146 H Potassium 4.1 Chloride 105 BUN 17 Creatinine 3.0 H Calcium 8.4 L Phosphorus 3.3 Magnesium 2.1 Total Bilirubin 1.2 H AST 104 H ALT 55 Alkaline Phosphatase 87 Creatine Kinase Troponin I Total Protein 7.0 Albumin Triglycerides 98 Lipase TSH Random Vancomycin Salicylates Acetaminophen - ....Imaging Chest X-ray: Image Reviewed MRI: Image Reviewed (Atrial fibrillation 94bpm, incomplete RBBB, nonspecific ST changes.) Problem List - Problems (1) Altered mental status Code(s): R41.82 - ALTERED MENTAL STATUS, UNSPECIFIED Qualifiers: Altered mental status type: unspecified Qualified Code(s): R41.82 - Altered mental status, unspecified (2) Acute drug-induced confusion Code(s): F19.988 - OTH PSYCHOACTIVE SUBSTANCE USE, UNSP W OTH DISORDER (3) CHF (congestive heart failure) Code(s): I50.9 - HEART FAILURE, UNSPECIFIED Qualifiers: Heart failure type: systolic Heart failure chronicity: chronic Qualified Code(s): I50.22 - Chronic systolic (congestive) heart failure (4) Chronic a-fib Code(s): I48.2 - CHRONIC ATRIAL FIBRILLATION (5) ESRD (end stage renal disease) on dialysis Code(s): N18.6 - END STAGE RENAL DISEASE; Z99.2 - DEPENDENCE ON RENAL DIALYSIS (6) Post herpetic neuralgia Code(s): B02.29 - OTHER POSTHERPETIC NERVOUS SYSTEM INVOLVEMENT (7) Pulmonary hypertension Code(s): I27.20 - PULMONARY HYPERTENSION, UNSPECIFIED (8) Toxic encephalopathy Code(s): G92 - TOXIC ENCEPHALOPATHY Assessment/Plan IMP: Multiple advanced comorbidities includin. Severe s/p TAVR 2. 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 ESRD on HD 4. AF on coumadin 5. Hx DVT, HIT, IVC filter 6. 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 Recently diagnosed penile carcinoma, scheduled for outpatient resection Now presents to ER with altered mental status, fatigue, tremors: r/o occult infection vs toxic metabolic encephalopathy vs drug effect Borderline elevation in TnI in setting of chronic renal failure, long standing valvular heart disease, and possible sepsis. Do not suspect ACS. REC: 1. For HD 2. F/u culture results, ID consult. 3. Consider Neuro evaluation. 4. Cycle cardiac enzymes. Will follow. Thank you.
[2018-06-14] MEDS ORDERED: NORTRIPTYLINE HCL 25 MG CAPSULE PO SCH (10:00)
[2018-06-14] MEDS ORDERED: NORTRIPTYLINE PO SCH (10:00)
[2018-06-14] MEDS: CLOPIDOGREL BISULFATE 75 MG TABLET (FP) PO SCH (11:12)
[2018-06-14] MEDS: ISOSORBIDE MONONITRATE 30 MG TAB.SR.24H (FP) PO SCH (11:12)
--- NOTE | 2018-06-14 11:25 | PN ---
Progress Note, Physician Chief Complaint: Pt lying in bed. Reporting severe 06/01 sharp/shooting penile pain. Denies any sob, chest pain, n/v/d Daughter at bedside. Reports dad was recently [place] [facility] biopsy of penile lesion ruled out malignancy and was found to be herpes, pt was started on acyclovir and discharged home on last . Since being at home, he's been having altered mental status and generalized weakness. She notes penile foul smelling drainage. - Current Medication List Current Medications: Active Medications Clopidogrel Bisulfate (Plavix -) 75 mg PO DAILY [facility] Last Admin: 06/14/18 11:12 Dose: 75 mg Hydralazine HCl (Apresoline -) 50 mg PO TID [facility] Last Admin: 06/14/18 06:04 Dose: 50 mg Sodium Chloride (Normal Saline -) 250 mls @ 3,000 mls/hr IV PRN PRN PRN Reason: Hypotension during Dialysis Stop: 06/14/18 15:01 Sodium Chloride (Normal Saline -) 250 mls @ 3,000 mls/hr IV PRN PRN PRN Reason: Hypotension during Dialysis Stop: 06/14/18 18:55 Isosorbide Mononitrate (Imdur -) 30 mg PO DAILY [facility] Last Admin: 06/14/18 11:12 Dose: 30 mg Metoprolol Succinate (Toprol Xl -) 25 mg PO BID [facility] Last Admin: 06/14/18 11:12 Dose: 25 mg Sevelamer Carbonate (Renvela -) 800 mg PO TIDCM [facility] Last Admin: 06/14/18 08:58 Dose: 800 mg Warfarin Sodium (Coumadin -) 6 mg PO DAILY@1800 [facility] Last Admin: 06/14/18 01:08 Dose: 6 mg - Objective Vital Signs: Vital Signs Temperature 98.1 F 06/14/18 08:42 Pulse Rate 69 06/14/18 11:21 Respiratory Rate 18 06/14/18 11:21 Blood Pressure 117/63 06/14/18 11:21 O2 Sat by Pulse Oximetry (%) 97 06/14/18 08:42 Constitutional: Yes: Well Nourished, No Distress, Calm Cardiovascular: Yes: WNL, Regular Rate and Rhythm Respiratory: Yes: Regular, CTA Bilaterally, Diminished, On Nasal O2. No: Accessory Muscle Use, SOB, Tachypnea, Wheezes Gastrointestinal: Yes: WNL, Normal Bowel Sounds, Soft. No: Distention, Tenderness Genitourinary: Yes: Anuria, Other (biopsy lesion open on penis, unable to see active eruptions, foul smelling yellow drainage noted) Edema: No Neurological: Yes: WNL, Alert, Oriented Psychiatric: Yes: WNL, Alert, Oriented Labs: CBC, BMP 06/14/18 05:30 06/14/18 05:30 INR, PTT INR 2.78 (0.83-1.09) H 06/14/18 05:30 Assessment/Plan (1) Acute metabolic encephalopathy Assessment/Plan: mental status improved today s/p HD head CT neg suspect drug induced, hepatic encephalopathy/hepatitis 2/2 acyclovir has had similar episode in the past with gabapentin ammonia level improved, trend lactulose ordered r/o infectious etiology monitor Code(s): G93.41 - METABOLIC ENCEPHALOPATHY (2) Hepatic encephalopathy Assessment/Plan: ast/tbilli, ammonia level elevation noted as above Code(s): K72.90 - HEPATIC FAILURE, UNSPECIFIED WITHOUT COMA (3) Hyperbilirubinemia Assessment/Plan: as above Code(s): E80.6 - OTHER DISORDERS OF BILIRUBIN METABOLISM (4) Elevated troponin Assessment/Plan: mild elevations noted, trend ekg without acute changes cardiology following Code(s): R74.8 - ABNORMAL LEVELS OF OTHER SERUM ENZYMES (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 Assessment/Plan: s/p biopsy penile lesion, confirmed diagnosis of herpes at [facility] [place] discharged on acyclovir however stopped here due to altered mental status presents with purulent penile drainage w/ increased pain possible superimposed bacterial infection s/p biopsy wound culture/blood cultures pending hold acyclovir due to adverse effect Zosyn/vanco day 1 continue lyrica for neuralgia urology consulted ID following Code(s): A60.02 - HERPESVIRAL INFECTION OF OTHER MALE GENITAL ORGANS (6) History of herpes zoster Assessment/Plan: s/p Zoster Opthalmicus infection 02/07 c/b post herpetic neuralgia Code(s): Z86.19 - PERSONAL HISTORY OF OTHER INFECTIOUS AND PARASITIC DISEASES (7) Chronic a-fib Assessment/Plan: rate controlled inr therapeutic continue metoprolol, coumadin Code(s): I48.2 - CHRONIC ATRIAL FIBRILLATION (8) ESRD (end stage renal disease) on dialysis Assessment/Plan: HD TIW Nephrology following Code(s): N18.6 - END STAGE RENAL DISEASE; Z99.2 - DEPENDENCE ON RENAL DIALYSIS (9) HTN (hypertension) Assessment/Plan: controlled continue current management Code(s): I10 - ESSENTIAL (PRIMARY) HYPERTENSION Qualifiers: Hypertension type: essential hypertension Qualified Code(s): I10 - Essential (primary) hypertension (10) CHF (congestive heart failure) Assessment/Plan: chronic chest xray- increased congestion echo on 02/07 without acute findings,shows normal fxning aortic prosthesis; moderate MR and severe chronic PHTN followed by PHTN specialist and cardiology outpt Code(s): I50.9 - HEART FAILURE, UNSPECIFIED Qualifiers: Heart failure type: diastolic Heart failure chronicity: chronic Qualified Code(s): I50.32 - Chronic diastolic (congestive) heart failure (11) Aortic stenosis Assessment/Plan: s/p TAVR followed by cardiology outpt Code(s): I35.0 - NONRHEUMATIC AORTIC (VALVE) STENOSIS (12) Pulmonary hypertension Assessment/Plan: followed by at [place] outpt Code(s): I27.20 - PULMONARY HYPERTENSION, UNSPECIFIED
[2018-06-14] MEDS ORDERED: HYDROmorphone HCl 2 MG/ML VIAL IVPUSH ONE (12:17)
[2018-06-14] MEDS ORDERED: VANCOMYCIN 1 GRAM (PRE-DOCKED) 1,000 MG/250 ML BAG IVPB ONE (12:31)
--- NOTE | 2018-06-14 12:31 | PN ---
Progress Note (short form) - Note Progress Note: ID consult dictated Altered mental status- ACV neurological side effect v. sepsis ? skin bx source Await c/s Vancomycin/ zosyn, adjusted for ESRD
--- NOTE | 2018-06-14 12:56 | EKG ---
Test Reason : Blood Pressure : / mmHG Vent. Rate : 094 BPM Atrial Rate : 035 BPM P-R Int : 000 ms QRS Dur : 110 ms QT Int : 376 ms P-R-T Axes : 000 104 -07 degrees QTc Int : 470 ms BASELINE ARTIFACT ATRIAL FIBRILLATION INCOMPLETE RIGHT BUNDLE BRANCH BLOCK POSSIBLE RIGHT VENTRICULAR HYPERTROPHY NONSPECIFIC T WAVE ABNORMALITY PROLONGED QT ABNORMAL ECG Confirmed by MD MACK, YASH ([id number]) on 06/14/2018 12:56:13 PM Referred By: Confirmed By:YASH GIRON MD
--- NOTE | 2018-06-14 13:34 | CONS ---
DATE OF CONSULTATION: DATE OF DICTATION: 06/14/2018 The patient is an 82-year-old male with a history of end stage renal disease on hemodialysis evaluated for possible sepsis. The patient was recently hospitalized at [facility]. He had developed a lesion on his penile shaft for which he required a biopsy to rule out malignancy. According to the family members the biopsy was negative for tumor. It was, however, positive for herpes zoster and he was treated with acyclovir. He now presents with worsening mental status. The patients family reports that he had been discharged from [facility] several days ago. He has had worsening confusion as well as some dyspnea. The patient apparently was in his normal state of health and mental status on Wednesday, June 11, 2018, after being discharged from [place] the previous day. He became weak, confused, and tremulous. He was brought to the emergency room where he was noted to be confused and disoriented. A CAT scan of the head was performed and was negative for any acute changes. He was noted in the emergency room to also have myoclonus and asterixis. There was concern expressed over possible acyclovir toxicity given the myoclonus, altered mental status, and history of his underlying renal insufficiency. At the present time he is awake and alert. The family reports that his mental status is much improved. His only focal complaint is pain in the penile area where the biopsy was performed. He denies any fever or chills. He states he is anuric, he does not make urine. PAST MEDICAL HISTORY: Positive for end stage renal disease on hemodialysis, atrial fibrillation, and hypertension. PAST SURGICAL HISTORY: Status post left upper extremity AV fistula, recent TAVR in January [address] [facility], IVC filter, and history of recent herpes ophthalmicus. ALLERGIES: HEPARIN, LOVENOX, and LIDOCAINE. MEDICATIONS: At the present time include lactulose, Coumadin, Lyrica, Toprol, hydralazine, Imdur, Dilaudid, and Plavix. SOCIAL HISTORY: He lives at home with family members. REVIEW OF SYSTEMS: Neurologic: As per HPI. Cardiovascular: Status post TAVR. Respiratory: Positive for short of breath. No cough or sputum production. Gastrointestinal: Negative vomiting. No diarrhea. Genitourinary: End stage renal disease on hemodialysis. LABORATORY DATA: White count 10.0, hematocrit 32.6, platelet count 252, and creatinine 3.0. Cultures are pending. PHYSICAL EXAMINATION: General: He is now awake and alert. He is oriented. He is coherent. Vital Signs: Temperature 98.0, blood pressure 117/63, pulse 68 and regular, and respirations 18 per minute. HEENT: Sclerae anicteric. Heart: Sounds S1, S2 irregular with a 2/6 pansystolic murmur. Lungs: Clear. Abdomen: Soft and nontender. Extremities: Negative for edema. Genitalia: On examination of the penis there is an approximately a 0.5-cm ulceration on the foreskin which does on appear to be secondarily infected. There is no surrounding swelling or erythema, and no vesicular lesions. I was unable to fully retract the foreskin to examine the glans penis. It does not appear to be grossly infected. IMPRESSION: 1. Altered mental status likely neurological adverse reaction from acyclovir. Rule out sepsis secondary to skin biopsy source. 2. End stage renal disease on hemodialysis. 3. History of transcatheter aortic valve replacement (TAVR). 4. History of herpes ophthalmicus. We will await cultures and empirically treat for a possible skin source of infection pending sepsis workup with vancomycin and Zosyn adjusted for renal insufficiency. He does not require treatment for herpes zoster at this time and would consider Urology evaluation. The case was discussed with family members present at the time of the examination. Thank you for the kind referral. ROSITA BASS M.D. [id number]
[2018-06-14] MEDS ORDERED: DEXTROSE 5%-WATER - 50 ML IVPB ONE ×2 (14:12→17:29)
[2018-06-14] MEDS ORDERED: PIPERACILLIN/TAZOBACTAM 2.25 GM VIAL IVPB ONE ×2 (14:12→17:29)
[2018-06-14] MEDS: PIPERACILLIN/TAZOB 2.25 GM 2.25 GM in DEXTROSE 5%-WATER - 50 ML IVPB SCH ×2 (14:18→18:03)
[2018-06-14] MEDS: LACTULOSE 20 GM/30 ML UDC (FOR ORAL USE ONLY) PO SCH ×2 (14:24→21:41)
--- NOTE | 2018-06-14 17:11 | PN ---
Progress Note (short form) - Note Progress Note: Renal follow up for ESRD on HD Pt seen and examined at the bedside s/p HD earlier today and yesterday as well tolerated 2.5L UF today pt received IV diluaid and is currently sleeping Vital Signs Temperature 98.2 F 06/14/18 14:10 Pulse Rate 72 06/14/18 14:10 Respiratory Rate 18 06/14/18 14:10 Blood Pressure 99/60 06/14/18 14:10 O2 Sat by Pulse Oximetry (%) 97 06/14/18 08:42 Intake & Output 06/11/18 06/12/18 06/13/18 06/14/18 23:59 23:59 23:59 23:59 Intake Total 410 Balance 410 Weight 69.4 kg 69.4 kg NAD lethargic RRR, No M/R CTA, no rales or wheeze soft NT/ND no LE edema, clubbing or cyanosis left arm AVF CBC, BMP 06/14/18 05:30 06/14/18 05:30 Current Medications Clopidogrel Bisulfate (Plavix -) 75 mg PO DAILY [facility] Last Admin: 06/14/18 11:12 Dose: 75 mg Hydralazine HCl (Apresoline -) 50 mg PO TID [facility] Last Admin: 06/14/18 14:24 Dose: 50 mg Hydromorphone HCl (Dilaudid -) 2 mg PO Q6H PRN PRN Reason: PAIN LEVEL 7 - 10 Sodium Chloride (Normal Saline -) 250 mls @ 3,000 mls/hr IV PRN PRN PRN Reason: Hypotension during Dialysis Stop: 06/14/18 15:01 Sodium Chloride (Normal Saline -) 250 mls @ 3,000 mls/hr IV PRN PRN PRN Reason: Hypotension during Dialysis Stop: 06/14/18 18:55 Piperacillin Sod/Tazobactam (Sod 2.25 gm/ Dextrose) 50 mls @ 100 mls/hr IVPB Q8H-IV [facility]; Protocol Last Admin: 06/14/18 14:18 Dose: 100 mls/hr Isosorbide Mononitrate (Imdur -) 30 mg PO DAILY [facility] Last Admin: 06/14/18 11:12 Dose: 30 mg Lactulose (Cephulac (Oral Use)) 20 gm PO TID [facility] Last Admin: 06/14/18 14:24 Dose: 20 gm Metoprolol Succinate (Toprol Xl -) 25 mg PO BID [facility] Last Admin: 06/14/18 11:12 Dose: 25 mg Pregabalin (Lyrica -) 50 mg PO BID [facility] Sevelamer Carbonate (Renvela -) 800 mg PO TIDCM [facility] Last Admin: 06/14/18 12:22 Dose: 800 mg Tramadol HCl (Ultram -) 50 mg PO Q6H PRN PRN Reason: PAIN LEVEL 4 - 6 Warfarin Sodium (Coumadin -) 6 mg PO DAILY@1800 [facility] Last Admin: 06/14/18 01:08 Dose: 6 mg 82 year old gentleman with hx of ESRD on HD, Hypertension, Afib on coumadin presents with AMS. #AMS from medication toxicity vs. sepsis #ESRD on HD #Hyperkalemia #Anemia (chronic) #Zoster infection s/p 2 sessions of dialysis with clinical improvement in mental status will reaccess in AM regarding need for further dialysis continue Abx as per ID BP is low, hold hydralzine for now may need PRN bolus ID follow up Juan Christensen DO
[2018-06-14] MEDS: PREGABALIN 50 MG CAPSULE PO SCH (21:41)
[2018-06-15] MEDS ORDERED: DEXTROSE 5%-WATER - 50 ML IVPB ONE ×3 (01:03→17:21)
[2018-06-15] MEDS ORDERED: PIPERACILLIN/TAZOBACTAM 2.25 GM VIAL IVPB ONE ×3 (01:03→17:21)
[2018-06-15] MEDS: PIPERACILLIN/TAZOB 2.25 GM 2.25 GM in DEXTROSE 5%-WATER - 50 ML IVPB SCH ×3 (01:12→17:30)
[2018-06-15 06:21] LABS: BASO % 0.3 % (0-2.0); EOS % 0.4 % (0-4.5); MCH 29.6 pg (25.7-33.7); MCHC 30.4 g/dl (32.0-35.9); MEAN CELL VOLUME 97.3 fl (80-96); MEAN PLT VOLUME 8.7 fl (7.5-11.1); MONO % 8.7 % (3.8-10.2); NEUT % 82.6 % (42.8-82.8); PLATELET COUNT 255 K/MM3 (134-434); RBC 3.39 M/mm3 (4.00-5.60); RDW 19.4 % (11.9-15.9); WHITE BLOOD COUNT 12.4 K/mm3 (4.0-10.0)
[2018-06-15 06:29] LABS: INR 2.67 (0.83-1.09); PROTHROMBIN TIME (PATIENT) 31.8 SEC (9.7-13.0)
[2018-06-15] MEDS: LACTULOSE 20 GM/30 ML UDC (FOR ORAL USE ONLY) PO SCH ×3 (06:30→22:10)
[2018-06-15 07:17] LABS: ANION GAP 10 MMOL/L (8-16); BLOOD UREA NITROGEN 15 mg/dL (7-18); CHLORIDE 104 mmol/L (98-107); CO2 30 mmol/L (21-32); CREATININE 2.8 mg/dL (0.55-1.3); GLUCOSE,RANDOM 92 mg/dL (74-106); MAGNESIUM 1.9 mg/dL (1.8-2.4); POTASSIUM 3.7 mmol/L (3.5-5.1); SODIUM 144 mmol/L (136-145)
[2018-06-15] MEDS: traMADol HCL 50 MG TABLET PO PRN ×2 (08:12→18:49)
--- NOTE | 2018-06-15 09:36 | PN ---
Progress Note, Physician Chief Complaint: more alert Mental status seems to be at baseline Cultures negative. History of Present Illness: No CP or SOB - Current Medication List Current Medications: Active Medications Clopidogrel Bisulfate (Plavix -) 75 mg PO DAILY [facility] Last Admin: 06/14/18 11:12 Dose: 75 mg Hydralazine HCl (Apresoline -) 50 mg PO TID [facility] Last Admin: 06/14/18 14:24 Dose: 50 mg Hydromorphone HCl (Dilaudid -) 2 mg PO Q6H PRN PRN Reason: PAIN LEVEL 7 - 10 Sodium Chloride (Normal Saline -) 250 mls @ 3,000 mls/hr IV PRN PRN PRN Reason: Hypotension during Dialysis Stop: 06/14/18 15:01 Piperacillin Sod/Tazobactam (Sod 2.25 gm/ Dextrose) 50 mls @ 100 mls/hr IVPB Q8H-IV [facility]; Protocol Last Admin: 06/15/18 01:12 Dose: 100 mls/hr Isosorbide Mononitrate (Imdur -) 30 mg PO DAILY [facility] Last Admin: 06/14/18 11:12 Dose: 30 mg Lactulose (Cephulac (Oral Use)) 20 gm PO TID [facility] Last Admin: 06/15/18 06:30 Dose: Not Given Metoprolol Succinate (Toprol Xl -) 25 mg PO BID [facility] Last Admin: 06/14/18 21:42 Dose: 25 mg Pregabalin (Lyrica -) 50 mg PO BID [facility] Last Admin: 06/14/18 21:41 Dose: 50 mg Sevelamer Carbonate (Renvela -) 800 mg PO TIDCM [facility] Last Admin: 06/14/18 18:04 Dose: 800 mg Tramadol HCl (Ultram -) 50 mg PO Q6H PRN PRN Reason: PAIN LEVEL 4 - 6 Last Admin: 06/15/18 08:12 Dose: 50 mg Warfarin Sodium (Coumadin -) 6 mg PO DAILY@1800 [facility] Last Admin: 06/14/18 18:03 Dose: 6 mg - Objective Vital Signs: Vital Signs Temperature 98.0 F 06/15/18 07:57 Pulse Rate 98 H 06/15/18 07:57 Respiratory Rate 19 06/15/18 07:57 Blood Pressure 103/62 06/15/18 07:57 O2 Sat by Pulse Oximetry (%) 97 06/15/18 07:57 Constitutional: Yes: No Distress, Calm Neck: Yes: Trachea Midline Cardiovascular: Yes: Regular Rate and Rhythm Respiratory: Yes: CTA Bilaterally Gastrointestinal: Yes: Soft Edema: No Neurological: Yes: Alert, Oriented Labs: CBC, BMP 06/15/18 05:30 06/15/18 05:30 INR, PTT INR 2.67 (0.83-1.09) H 06/15/18 05:30 Problem List - Problems (1) Altered mental status Code(s): R41.82 - ALTERED MENTAL STATUS, UNSPECIFIED Qualifiers: Altered mental status type: unspecified Qualified Code(s): R41.82 - Altered mental status, unspecified (2) Acute drug-induced confusion Code(s): F19.988 - OTH PSYCHOACTIVE SUBSTANCE USE, UNSP W OTH DISORDER (3) CHF (congestive heart failure) Code(s): I50.9 - HEART FAILURE, UNSPECIFIED Qualifiers: Heart failure type: systolic Heart failure chronicity: chronic Qualified Code(s): I50.22 - Chronic systolic (congestive) heart failure (4) Chronic a-fib Code(s): I48.2 - CHRONIC ATRIAL FIBRILLATION (5) ESRD (end stage renal disease) on dialysis Code(s): N18.6 - END STAGE RENAL DISEASE; Z99.2 - DEPENDENCE ON RENAL DIALYSIS (6) Post herpetic neuralgia Code(s): B02.29 - OTHER POSTHERPETIC NERVOUS SYSTEM INVOLVEMENT (7) Pulmonary hypertension Code(s): I27.20 - PULMONARY HYPERTENSION, UNSPECIFIED (8) Toxic encephalopathy Code(s): G92 - TOXIC ENCEPHALOPATHY Assessment/Plan IMP: Multiple advanced comorbidities includin. Severe s/p TAVR 2. 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 ESRD on HD 4. AF on coumadin 5. Hx DVT, HIT, IVC filter 6. 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 Do not suspect ACS. REC: 1. For HD TIW 2. F/u culture results Clinically improved today
[2018-06-15] MEDS: CLOPIDOGREL BISULFATE 75 MG TABLET (FP) PO SCH (09:49)
[2018-06-15] MEDS: metoPROLOL SUCCINATE 25 MG TAB.SR.24H (FP) PO SCH ×2 (09:49→22:14)
[2018-06-15] MEDS: PREGABALIN 50 MG CAPSULE PO SCH ×2 (09:50→22:11)
[2018-06-15] MEDS: SEVELAMER CARBONATE 800 MG TAB (FP) PO SCH ×3 (09:50→17:30)
[2018-06-15] MEDS: ISOSORBIDE MONONITRATE 30 MG TAB.SR.24H (FP) PO SCH (09:50)
[2018-06-15] MEDS ORDERED: POTASSIUM CHLORIDE TABS 20 MEQ TABLET.ER (FP) PO ONE (10:28)
[2018-06-15] MEDS: HYDROmorphone HCL 2 MG TABLET PO PRN (11:10)
[2018-06-15 11:48] LABS: ALBUMIN 2.5 g/dl (3.4-5.0); BILIRUBIN,DIRECT 0.6 mg/dL (0.0-0.2); BILIRUBIN,TOTAL 1.4 mg/dL (0.2-1); SGOT/AST 87 U/L (15-37)
[2018-06-15 11:49] LABS: ALK PHOS 86 U/L (45-117); SGPT/ALT 54 U/L (13-61)
--- NOTE | 2018-06-15 12:23 | PN ---
Progress Note, Physician History of Present Illness: C/O penile pain No fever/ chills Afebrile BC (-) Wound c/s Enterococcus - Current Medication List Current Medications: Active Medications Clopidogrel Bisulfate (Plavix -) 75 mg PO DAILY [facility] Last Admin: 06/15/18 09:49 Dose: 75 mg Hydralazine HCl (Apresoline -) 50 mg PO TID [facility] Last Admin: 06/14/18 14:24 Dose: 50 mg Hydromorphone HCl (Dilaudid -) 2 mg PO Q6H PRN PRN Reason: PAIN LEVEL 7 - 10 Last Admin: 06/15/18 11:10 Dose: 2 mg Sodium Chloride (Normal Saline -) 250 mls @ 3,000 mls/hr IV PRN PRN PRN Reason: Hypotension during Dialysis Stop: 06/14/18 15:01 Piperacillin Sod/Tazobactam (Sod 2.25 gm/ Dextrose) 50 mls @ 100 mls/hr IVPB Q8H-IV [facility]; Protocol Last Admin: 06/15/18 09:50 Dose: 100 mls/hr Isosorbide Mononitrate (Imdur -) 30 mg PO DAILY [facility] Last Admin: 06/15/18 09:50 Dose: 30 mg Lactulose (Cephulac (Oral Use)) 20 gm PO TID [facility] Last Admin: 06/15/18 06:30 Dose: Not Given Lidocaine HCl (Xylocaine 5% Top. Ointment) 1 applic TP BID [facility] Metoprolol Succinate (Toprol Xl -) 25 mg PO BID [facility] Last Admin: 06/15/18 09:49 Dose: 25 mg Nortriptyline HCl 10 mg/ (Nortriptyline HCl 25 mg) 35 mg PO [facility] Pregabalin (Lyrica -) 50 mg PO BID [facility] Last Admin: 06/15/18 09:50 Dose: 50 mg Sevelamer Carbonate (Renvela -) 800 mg PO TIDCM [facility] Last Admin: 06/15/18 09:50 Dose: 800 mg Tramadol HCl (Ultram -) 50 mg PO Q6H PRN PRN Reason: PAIN LEVEL 4 - 6 Last Admin: 06/15/18 08:12 Dose: 50 mg Warfarin Sodium (Coumadin -) 6 mg PO DAILY@1800 [facility] Last Admin: 06/14/18 18:03 Dose: 6 mg - Objective Vital Signs: Vital Signs Temperature 98.0 F 06/15/18 07:57 Pulse Rate 98 H 06/15/18 07:57 Respiratory Rate 19 06/15/18 07:57 Blood Pressure 103/62 06/15/18 07:57 O2 Sat by Pulse Oximetry (%) 97 06/15/18 07:57 Constitutional: Yes: No Distress Cardiovascular: Yes: Regular Rate and Rhythm, S1, S2 Respiratory: Yes: CTA Bilaterally Gastrointestinal: Yes: Normal Bowel Sounds, Soft. No: Tenderness Genitourinary: Yes: Other (penile wound clear + discharge from around glans penis. Unable to retract foreskin) Labs: CBC, BMP 06/15/18 05:30 06/15/18 05:30 INR, PTT INR 2.67 (0.83-1.09) H 06/15/18 05:30 Assessment/Plan R/O sepsis secondary to skin source ESRD Hx H. zoster Await c/s Continue zosyn Redose vancomycin
[2018-06-15] MEDS: LIDOCAINE HCL 5% TOP OINTMENT 50 GM TUBE TP SCH ×2 (12:32→22:14)
--- NOTE | 2018-06-15 13:12 | PN ---
Progress Note, Physician Chief Complaint: Pt lying in bed in no acute distress. c/o severe penile pain. Denies any sob, chest pain, n/v/d Daughter at bedside - Current Medication List Current Medications: Active Medications Clopidogrel Bisulfate (Plavix -) 75 mg PO DAILY [facility] Last Admin: 06/15/18 09:49 Dose: 75 mg Hydralazine HCl (Apresoline -) 50 mg PO TID [facility] Last Admin: 06/14/18 14:24 Dose: 50 mg Hydromorphone HCl (Dilaudid -) 2 mg PO Q6H PRN PRN Reason: PAIN LEVEL 7 - 10 Last Admin: 06/15/18 11:10 Dose: 2 mg Sodium Chloride (Normal Saline -) 250 mls @ 3,000 mls/hr IV PRN PRN PRN Reason: Hypotension during Dialysis Stop: 06/14/18 15:01 Piperacillin Sod/Tazobactam (Sod 2.25 gm/ Dextrose) 50 mls @ 100 mls/hr IVPB Q8H-IV [facility]; Protocol Last Admin: 06/15/18 09:50 Dose: 100 mls/hr Vancomycin HCl 1,000 mg/ (Dextrose) 250 mls @ 166.667 mls/hr IVPB ONCE ONE; Protocol Stop: 06/15/18 13:54 Isosorbide Mononitrate (Imdur -) 30 mg PO DAILY [facility] Last Admin: 06/15/18 09:50 Dose: 30 mg Lactulose (Cephulac (Oral Use)) 20 gm PO TID [facility] Last Admin: 06/15/18 06:30 Dose: Not Given Lidocaine HCl (Xylocaine 5% Top. Ointment) 1 applic TP BID [facility] Last Admin: 06/15/18 12:32 Dose: 1 applic Metoprolol Succinate (Toprol Xl -) 25 mg PO BID [facility] Last Admin: 06/15/18 09:49 Dose: 25 mg Nortriptyline HCl 10 mg/ (Nortriptyline HCl 25 mg) 35 mg PO HS [facility] Pregabalin (Lyrica -) 50 mg PO BID [facility] Last Admin: 06/15/18 09:50 Dose: 50 mg Sevelamer Carbonate (Renvela -) 800 mg PO TIDCM [facility] Last Admin: 06/15/18 12:33 Dose: 800 mg Tramadol HCl (Ultram -) 50 mg PO Q6H PRN PRN Reason: PAIN LEVEL 4 - 6 Last Admin: 06/15/18 08:12 Dose: 50 mg Warfarin Sodium (Coumadin -) 6 mg PO DAILY@1800 [facility] Last Admin: 06/14/18 18:03 Dose: 6 mg - Objective Vital Signs: Vital Signs Temperature 98.0 F 06/15/18 07:57 Pulse Rate 98 H 06/15/18 07:57 Respiratory Rate 19 06/15/18 07:57 Blood Pressure 103/62 06/15/18 07:57 O2 Sat by Pulse Oximetry (%) 97 06/15/18 07:57 Constitutional: Yes: Well Nourished, No Distress, Calm Cardiovascular: Yes: Pulse Irregular, Murmur Respiratory: Yes: WNL, Regular, Diminished, On Nasal O2. No: Accessory Muscle Use, SOB, Tachypnea, Wheezes Gastrointestinal: Yes: WNL, Normal Bowel Sounds, Soft. No: Distention, Tenderness Genitourinary: Yes: Anuria Edema: No Integumentary: Yes: Incision (penile biopsy site) Wound/Incision: Yes: Draining Neurological: Yes: WNL, Alert, Oriented Psychiatric: Yes: WNL, Alert, Oriented Labs: CBC, BMP 06/15/18 05:30 06/15/18 05:30 INR, PTT INR 2.67 (0.83-1.09) H 06/15/18 05:30 Assessment/Plan (1) Acute metabolic encephalopathy Assessment/Plan: mental status at baseline head CT neg suspect drug induced, hepatic encephalopathy/hepatitis 2/2 acyclovir has had similar episode in the past with gabapentin ammonia level mild increase, trend continue lactulose r/o infectious etiology monitor Code(s): G93.41 - METABOLIC ENCEPHALOPATHY (2) Hepatic encephalopathy Assessment/Plan: ast/tbilli, ammonia level elevation noted abd US without acute findings as above Code(s): K72.90 - HEPATIC FAILURE, UNSPECIFIED WITHOUT COMA (3) Hyperbilirubinemia Assessment/Plan: as above Code(s): E80.6 - OTHER DISORDERS OF BILIRUBIN METABOLISM (4) Elevated troponin Assessment/Plan: stable ekg without acute changes cardiology following Code(s): R74.8 - ABNORMAL LEVELS OF OTHER SERUM ENZYMES (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 Assessment/Plan: s/p biopsy penile lesion, confirmed diagnosis of herpes at [facility] [place] was discharged on acyclovir however stopped here due to altered mental status presents with purulent penile drainage w/ increased pain possible superimposed bacterial infection s/p biopsy wound culture/blood cultures pending hold acyclovir due to adverse effect Zosyn/vanco day 2 continue lyrica for neuralgia urology consulted ID following Code(s): A60.02 - HERPESVIRAL INFECTION OF OTHER MALE GENITAL ORGANS (6) Post herpetic neuralgia Assessment/Plan: severe sharp/shooting pain in penile affected area similar to prev herpes continue lyrica nortriptyline restarted lidocaine ointment monitor Code(s): B02.29 - OTHER POSTHERPETIC NERVOUS SYSTEM INVOLVEMENT (7) History of herpes zoster Assessment/Plan: s/p Zoster Opthalmicus infection 02/07, 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 c/b post herpetic neuralgia Code(s): Z86.19 - PERSONAL HISTORY OF OTHER INFECTIOUS AND PARASITIC DISEASES (8) Chronic a-fib Assessment/Plan: rate controlled inr therapeutic continue metoprolol, coumadin Code(s): I48.2 - CHRONIC ATRIAL FIBRILLATION (9) ESRD (end stage renal disease) on dialysis Assessment/Plan: HD TIW Nephrology following Code(s): N18.6 - END STAGE RENAL DISEASE; Z99.2 - DEPENDENCE ON RENAL DIALYSIS (10) HTN (hypertension) Assessment/Plan: controlled continue current management Code(s): I10 - ESSENTIAL (PRIMARY) HYPERTENSION Qualifiers: Hypertension type: essential hypertension Qualified Code(s): I10 - Essential (primary) hypertension (11) CHF (congestive heart failure) Assessment/Plan: chronic repeat chest xray echo on 02/07 without acute findings,shows normal fxning aortic prosthesis; moderate MR and severe chronic PHTN followed by PHTN specialist and cardiology outpt Code(s): I50.9 - HEART FAILURE, UNSPECIFIED Qualifiers: Heart failure type: diastolic Heart failure chronicity: chronic Qualified Code(s): I50.32 - Chronic diastolic (congestive) heart failure (12) Aortic stenosis Assessment/Plan: s/p TAVR followed by cardiology outpt Code(s): I35.0 - NONRHEUMATIC AORTIC (VALVE) STENOSIS (13) Pulmonary hypertension Assessment/Plan: followed by at [place] outpt Code(s): I27.20 - PULMONARY HYPERTENSION, UNSPECIFIED
[2018-06-15] MEDS ORDERED: VANCOMYCIN 1 GRAM (PRE-DOCKED) 1,000 MG/250 ML BAG IVPB ONE (13:45)
[2018-06-15 15:02] VITALS: BMI 24.1
--- NOTE | 2018-06-15 15:45 | PN ---
Progress Note (short form) - Note Progress Note: Renal follow up for ESRD on HD Pt seen and examined at the bedside awake and alert complains of pain in the penis no fever or chills s/p HD yesterday Vital Signs Temperature 98.2 F 06/15/18 14:54 Pulse Rate 91 H 06/15/18 14:54 Respiratory Rate 18 06/15/18 14:54 Blood Pressure 114/67 06/15/18 14:54 O2 Sat by Pulse Oximetry (%) 97 06/15/18 07:57 Vital Signs Temperature 98.2 F 06/15/18 14:54 Pulse Rate 91 H 06/15/18 14:54 Respiratory Rate 18 06/15/18 14:54 Blood Pressure 114/67 06/15/18 14:54 O2 Sat by Pulse Oximetry (%) 97 06/15/18 07:57 NAD RRR, No M/R CTA, no rales or wheeze soft NT/ND no LE edema, clubbing or cyanosis left arm AVF CBC, BMP 06/15/18 05:30 06/15/18 05:30 Current Medications Clopidogrel Bisulfate (Plavix -) 75 mg PO DAILY [facility] Last Admin: 06/15/18 09:49 Dose: 75 mg Hydralazine HCl (Apresoline -) 50 mg PO TID [facility] Last Admin: 06/14/18 14:24 Dose: 50 mg Hydromorphone HCl (Dilaudid -) 2 mg PO Q6H PRN PRN Reason: PAIN LEVEL 7 - 10 Last Admin: 06/15/18 11:10 Dose: 2 mg Sodium Chloride (Normal Saline -) 250 mls @ 3,000 mls/hr IV PRN PRN PRN Reason: Hypotension during Dialysis Stop: 06/14/18 15:01 Piperacillin Sod/Tazobactam (Sod 2.25 gm/ Dextrose) 50 mls @ 100 mls/hr IVPB Q8H-IV [facility]; Protocol Last Admin: 06/15/18 09:50 Dose: 100 mls/hr Isosorbide Mononitrate (Imdur -) 30 mg PO DAILY [facility] Last Admin: 06/15/18 09:50 Dose: 30 mg Lactulose (Cephulac (Oral Use)) 20 gm PO TID [facility] Last Admin: 06/15/18 14:44 Dose: 20 gm Lidocaine HCl (Xylocaine 5% Top. Ointment) 1 applic TP BID [facility] Last Admin: 06/15/18 12:32 Dose: 1 applic Metoprolol Succinate (Toprol Xl -) 25 mg PO BID [facility] Last Admin: 06/15/18 09:49 Dose: 25 mg Nortriptyline HCl 10 mg/ (Nortriptyline HCl 25 mg) 35 mg PO HS [facility] Pregabalin (Lyrica -) 50 mg PO BID [facility] Last Admin: 06/15/18 09:50 Dose: 50 mg Sevelamer Carbonate (Renvela -) 800 mg PO TIDCM [facility] Last Admin: 06/15/18 12:33 Dose: 800 mg Tramadol HCl (Ultram -) 50 mg PO Q6H PRN PRN Reason: PAIN LEVEL 4 - 6 Last Admin: 06/15/18 08:12 Dose: 50 mg Warfarin Sodium (Coumadin -) 6 mg PO DAILY@1800 [facility] Last Admin: 06/14/18 18:03 Dose: 6 mg 82 year old gentleman with hx of ESRD on HD, Hypertension, Afib on coumadin presents with AMS. #AMS from medication toxicity vs. sepsis #ESRD on HD #Hyperkalemia #Anemia (chronic) #Zoster infection Mental status is now improved no acute need for [employer] today next HD in AM will attempt aggressive UF renal diet abx as per primary Juan Christensen DO
[2018-06-15] MEDS: WARFARIN NA 3 MG TABLET PO SCH (17:30)
[2018-06-15] MEDS ORDERED: NORTRIPTYLINE PO SCH (22:00)
[2018-06-15] MEDS ORDERED: NORTRIPTYLINE HCL 50 MG CAPSULE PO SCH (22:00)
[2018-06-16] MEDS ORDERED: PIPERACILLIN/TAZOBACTAM 2.25 GM VIAL IVPB ONE ×3 (02:02→20:40)
[2018-06-16] MEDS ORDERED: DEXTROSE 5%-WATER - 50 ML IVPB ONE ×3 (02:02→20:40)
[2018-06-16] MEDS: PIPERACILLIN/TAZOB 2.25 GM 2.25 GM in DEXTROSE 5%-WATER - 50 ML IVPB SCH ×3 (02:19→22:26)
[2018-06-16] MEDS: LACTULOSE 20 GM/30 ML UDC (FOR ORAL USE ONLY) PO SCH (05:50)
[2018-06-16 06:24] LABS: INR 3.52 (0.83-1.09); PROTHROMBIN TIME (PATIENT) 42.1 SEC (9.7-13.0)
[2018-06-16 06:33] LABS: BASO % 0.2 % (0-2.0); EOS % 0.4 % (0-4.5); HEMATOCRIT 32.5 % (35.4-49); HEMOGLOBIN 9.9 GM/dL (11.7-16.9); LYMPH % 7.2 % (8-40); MCH 29.7 pg (25.7-33.7); MCHC 30.5 g/dl (32.0-35.9); MEAN CELL VOLUME 97.3 fl (80-96); MEAN PLT VOLUME 8.8 fl (7.5-11.1); MONO % 8.7 % (3.8-10.2); NEUT % 83.5 % (42.8-82.8); PLATELET COUNT 229 K/MM3 (134-434); RBC 3.34 M/mm3 (4.00-5.60); RDW 19.6 % (11.9-15.9); WHITE BLOOD COUNT 14.6 K/mm3 (4.0-10.0)
[2018-06-16 07:10] LABS: ALBUMIN 2.4 g/dl (3.4-5.0); ALK PHOS 75 U/L (45-117); ANION GAP 9 MMOL/L (8-16); BLOOD UREA NITROGEN 26 mg/dL (7-18); CALCIUM 9.3 mg/dL (8.5-10.1); CHLORIDE 100 mmol/L (98-107); CO2 32 mmol/L (21-32); CREATININE 4.2 mg/dL (0.55-1.3); GLUCOSE,RANDOM 89 mg/dL (74-106); MAGNESIUM 2.1 mg/dL (1.8-2.4); POTASSIUM 4.9 mmol/L (3.5-5.1); SGOT/AST 58 U/L (15-37); SGPT/ALT 44 U/L (13-61); SODIUM 141 mmol/L (136-145)
[2018-06-16] MEDS: SEVELAMER CARBONATE 800 MG TAB (FP) PO SCH ×3 (08:00→18:45)
--- NOTE | 2018-06-16 09:02 | PN ---
Progress Note, Physician Chief Complaint: more confused today Denies CP or SOB History of Present Illness: TELE: Atrial fibrillation with average heart rate < 100bpm - Current Medication List Current Medications: Active Medications Clopidogrel Bisulfate (Plavix -) 75 mg PO DAILY [facility] Last Admin: 06/15/18 09:49 Dose: 75 mg Hydralazine HCl (Apresoline -) 50 mg PO TID [facility] Last Admin: 06/14/18 14:24 Dose: 50 mg Hydromorphone HCl (Dilaudid -) 2 mg PO Q6H PRN PRN Reason: PAIN LEVEL 7 - 10 Last Admin: 06/15/18 11:10 Dose: 2 mg Sodium Chloride (Normal Saline -) 250 mls @ 3,000 mls/hr IV PRN PRN PRN Reason: Hypotension during Dialysis Stop: 06/14/18 15:01 Piperacillin Sod/Tazobactam (Sod 2.25 gm/ Dextrose) 50 mls @ 100 mls/hr IVPB Q8H-IV [facility]; Protocol Last Admin: 06/16/18 02:19 Dose: 100 mls/hr Isosorbide Mononitrate (Imdur -) 30 mg PO DAILY [facility] Last Admin: 06/15/18 09:50 Dose: 30 mg Lactulose (Cephulac (Oral Use)) 20 gm PO TID [facility] Last Admin: 06/16/18 05:50 Dose: Not Given Lidocaine HCl (Xylocaine 5% Top. Ointment) 1 applic TP BID [facility] Last Admin: 06/15/18 22:14 Dose: 1 applic Metoprolol Succinate (Toprol Xl -) 25 mg PO BID [facility] Last Admin: 06/15/18 22:14 Dose: 25 mg Nortriptyline HCl 10 mg/ (Nortriptyline HCl 25 mg) 35 mg PO HS [facility] Last Admin: 06/15/18 22:11 Dose: 35 mg Pregabalin (Lyrica -) 50 mg PO BID [facility] Last Admin: 06/15/18 22:11 Dose: 50 mg Sevelamer Carbonate (Renvela -) 800 mg PO TIDCM [facility] Last Admin: 06/15/18 17:30 Dose: 800 mg Tramadol HCl (Ultram -) 50 mg PO Q6H PRN PRN Reason: PAIN LEVEL 4 - 6 Last Admin: 06/15/18 18:49 Dose: 50 mg Warfarin Sodium (Coumadin -) 6 mg PO DAILY@1800 [facility] Last Admin: 06/15/18 17:30 Dose: 6 mg - Objective Vital Signs: Vital Signs Temperature 98.6 F 06/16/18 08:25 Pulse Rate 80 06/16/18 08:25 Respiratory Rate 20 06/16/18 08:26 Blood Pressure 101/46 L 06/16/18 08:25 O2 Sat by Pulse Oximetry (%) 93 L 06/16/18 08:26 Constitutional: Yes: Calm Cardiovascular: Yes: Pulse Irregular Respiratory: Yes: CTA Bilaterally Gastrointestinal: Yes: Soft Edema: No Neurological: Yes: Confusion Labs: CBC, BMP 06/16/18 05:30 06/16/18 05:30 INR, PTT INR 3.52 (0.83-1.09) H 06/16/18 05:30 Microbiology 06/13/18 19:00 Blood - Peripheral Venous Blood Culture - Preliminary NO GROWTH OBTAINED AFTER 48 HOURS, INCUBATION TO CONTINUE FOR 3 DAYS. 06/13/18 19:00 Blood - Peripheral Venous Blood Culture - Preliminary NO GROWTH OBTAINED AFTER 48 HOURS, INCUBATION TO CONTINUE FOR 3 DAYS. Laboratory Tests 06/15/18 06/16/18 06/16/18 05:30 05:30 05:30 WBC 14.6 H Hgb 9.9 L Hct 32.5 L Plt Count 229 INR 3.52 H Potassium Creatinine Ammonia 40.44 H 06/16/18 06/16/18 05:30 07:00 WBC Hgb Hct Plt Count INR Potassium 4.9 Creatinine 4.2 H Ammonia 17.29 - ....Imaging EKG: Image Reviewed Problem List - Problems (1) Altered mental status Code(s): R41.82 - ALTERED MENTAL STATUS, UNSPECIFIED Qualifiers: Altered mental status type: unspecified Qualified Code(s): R41.82 - Altered mental status, unspecified (2) Acute drug-induced confusion Code(s): F19.988 - OTH PSYCHOACTIVE SUBSTANCE USE, UNSP W OTH DISORDER (3) CHF (congestive heart failure) Code(s): I50.9 - HEART FAILURE, UNSPECIFIED Qualifiers: Heart failure type: systolic Heart failure chronicity: chronic Qualified Code(s): I50.22 - Chronic systolic (congestive) heart failure (4) Chronic a-fib Code(s): I48.2 - CHRONIC ATRIAL FIBRILLATION (5) ESRD (end stage renal disease) on dialysis Code(s): N18.6 - END STAGE RENAL DISEASE; Z99.2 - DEPENDENCE ON RENAL DIALYSIS (6) Post herpetic neuralgia Code(s): B02.29 - OTHER POSTHERPETIC NERVOUS SYSTEM INVOLVEMENT (7) Pulmonary hypertension Code(s): I27.20 - PULMONARY HYPERTENSION, UNSPECIFIED (8) Toxic encephalopathy Code(s): G92 - TOXIC ENCEPHALOPATHY Assessment/Plan IMP: Multiple advanced comorbidities includin. Severe s/p TAVR 2. 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 ESRD on HD 4. AF on coumadin with supratherapeutic INR Today 5. Hx DVT, HIT, IVC filter 6. 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 Do not suspect ACS. REC: 1. For HD TIW 2. F/u culture results 3. Hold Warfarin 4. Mental status waxes and wanes, likely metabolic.
--- NOTE | 2018-06-16 09:50 | PN ---
Progress Note, Physician Chief Complaint: Pt lying in bed in no acute distress. sleeping but arousable. oriented x 3. reports pain is better. Denies any sob, chest pain, n/v/d - Current Medication List Current Medications: Active Medications Clopidogrel Bisulfate (Plavix -) 75 mg PO DAILY [facility] Last Admin: 06/15/18 09:49 Dose: 75 mg Hydralazine HCl (Apresoline -) 50 mg PO TID [facility] Last Admin: 06/14/18 14:24 Dose: 50 mg Hydromorphone HCl (Dilaudid -) 2 mg PO Q6H PRN PRN Reason: PAIN LEVEL 7 - 10 Last Admin: 06/15/18 11:10 Dose: 2 mg Sodium Chloride (Normal Saline -) 250 mls @ 3,000 mls/hr IV PRN PRN PRN Reason: Hypotension during Dialysis Stop: 06/14/18 15:01 Piperacillin Sod/Tazobactam (Sod 2.25 gm/ Dextrose) 50 mls @ 100 mls/hr IVPB Q8H-IV [facility]; Protocol Last Admin: 06/16/18 02:19 Dose: 100 mls/hr Isosorbide Mononitrate (Imdur -) 30 mg PO DAILY [facility] Last Admin: 06/15/18 09:50 Dose: 30 mg Lactulose (Cephulac (Oral Use)) 20 gm PO TID [facility] Last Admin: 06/16/18 05:50 Dose: Not Given Lidocaine HCl (Xylocaine 5% Top. Ointment) 1 applic TP BID [facility] Last Admin: 06/15/18 22:14 Dose: 1 applic Metoprolol Succinate (Toprol Xl -) 25 mg PO BID [facility] Last Admin: 06/15/18 22:14 Dose: 25 mg Pregabalin (Lyrica -) 50 mg PO BID [facility] Last Admin: 06/15/18 22:11 Dose: 50 mg Sevelamer Carbonate (Renvela -) 800 mg PO TIDCM [facility] Last Admin: 06/15/18 17:30 Dose: 800 mg - Objective Vital Signs: Vital Signs Temperature 98.6 F 06/16/18 08:25 Pulse Rate 80 06/16/18 08:25 Respiratory Rate 20 06/16/18 08:26 Blood Pressure 101/46 L 06/16/18 08:25 O2 Sat by Pulse Oximetry (%) 93 L 06/16/18 08:26 Constitutional: Yes: Well Nourished, No Distress, Calm Respiratory: Yes: WNL, Regular, CTA Bilaterally, Diminished. No: Accessory Muscle Use, Tachypnea, Wheezes Gastrointestinal: Yes: WNL, Normal Bowel Sounds, Soft. No: Distention, Tenderness Genitourinary: Yes: Anuria Edema: No Integumentary: Yes: Incision (penile lesion biopsy) Wound/Incision: Yes: Open to air, Draining Neurological: Yes: Alert, Oriented Psychiatric: Yes: Alert Labs: CBC, BMP 06/16/18 05:30 06/16/18 05:30 INR, PTT INR 3.52 (0.83-1.09) H 06/16/18 05:30 Assessment/Plan (1) Acute metabolic encephalopathy Assessment/Plan: mental status varies, slightly lethargic today head CT neg suspect drug induced, hepatic encephalopathy/hepatitis 2/2 acyclovir will stop nortriptyline has had similar episode in the past with gabapentin r/o infectious etiology monitor Code(s): G93.41 - METABOLIC ENCEPHALOPATHY (2) Hepatic encephalopathy Assessment/Plan: ast/tbilli, ammonia level improved lactulose stopped abd US without acute findings as above Code(s): K72.90 - HEPATIC FAILURE, UNSPECIFIED WITHOUT COMA (3) Hyperbilirubinemia Assessment/Plan: as above Code(s): E80.6 - OTHER DISORDERS OF BILIRUBIN METABOLISM (4) Elevated troponin Assessment/Plan: stable ekg without acute changes cardiology following Code(s): R74.8 - ABNORMAL LEVELS OF OTHER SERUM ENZYMES (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 Assessment/Plan: s/p biopsy penile lesion, confirmed diagnosis of [place] [facility] [place] not tolerate acyclovir presents with purulent penile drainage w/ increased pain possible superimposed bacterial infection s/p biopsy wound culture pending/blood cultures neg Zosyn/vanco day 3 continue lyrica for neuralgia urology consult pending ID following Code(s): A60.02 - HERPESVIRAL INFECTION OF OTHER MALE GENITAL ORGANS (6) Post herpetic neuralgia Assessment/Plan: severe sharp/shooting pain in penile affected area similar to prev herpes continue lyrica lidocaine ointment dilaudid prn monitor Code(s): B02.29 - OTHER POSTHERPETIC NERVOUS SYSTEM INVOLVEMENT (7) History of herpes zoster Assessment/Plan: s/p Zoster Opthalmicus infection 02/07, 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 c/b post herpetic neuralgia Code(s): Z86.19 - PERSONAL HISTORY OF OTHER INFECTIOUS AND PARASITIC DISEASES (8) Chronic a-fib Assessment/Plan: rate controlled inr goal 2.5-3 inr supra therapeutic- hold coumadin continue metoprolol Code(s): I48.2 - CHRONIC ATRIAL FIBRILLATION (9) ESRD (end stage renal disease) on dialysis Assessment/Plan: HD TIW Nephrology following Code(s): N18.6 - END STAGE RENAL DISEASE; Z99.2 - DEPENDENCE ON RENAL DIALYSIS (10) HTN (hypertension) Assessment/Plan: controlled continue current management Code(s): I10 - ESSENTIAL (PRIMARY) HYPERTENSION Qualifiers: Hypertension type: essential hypertension Qualified Code(s): I10 - Essential (primary) hypertension (11) CHF (congestive heart failure) Assessment/Plan: chronic echo on 02/07 without acute findings,shows normal fxning aortic prosthesis; moderate MR and severe chronic PHTN followed by PHTN specialist and cardiology outpt Code(s): I50.9 - HEART FAILURE, UNSPECIFIED Qualifiers: Heart failure type: diastolic Heart failure chronicity: chronic Qualified Code(s): I50.32 - Chronic diastolic (congestive) heart failure (12) Aortic stenosis Assessment/Plan: s/p TAVR followed by cardiology outpt Code(s): I35.0 - NONRHEUMATIC AORTIC (VALVE) STENOSIS (13) Pulmonary hypertension Assessment/Plan: followed [place] [facility] [place] Code(s): I27.20 - PULMONARY HYPERTENSION, UNSPECIFIED Dispo: SNF when cleared by ID
[2018-06-16] MEDS: PREGABALIN 50 MG CAPSULE PO SCH ×2 (10:35→22:27)
[2018-06-16] MEDS: CLOPIDOGREL BISULFATE 75 MG TABLET (FP) PO SCH (10:35)
[2018-06-16] MEDS: metoPROLOL SUCCINATE 25 MG TAB.SR.24H (FP) PO SCH ×2 (10:35→22:27)
[2018-06-16] MEDS: ISOSORBIDE MONONITRATE 30 MG TAB.SR.24H (FP) PO SCH (10:35)
[2018-06-16] MEDS: LIDOCAINE HCL 5% TOP OINTMENT 50 GM TUBE TP SCH ×2 (10:35→22:27)
--- NOTE | 2018-06-16 14:27 | PN ---
Progress Note, Physician Chief Complaint: The patient seen in his room. Sleepy, but arousable. No chest pain. No specific complaints. - Current Medication List Current Medications: Active Medications Clopidogrel Bisulfate (Plavix -) 75 mg PO DAILY [facility] Last Admin: 06/16/18 10:35 Dose: Not Given Epoetin Randy (Procrit -) 10,000 unit IVPUSH ONCE ONE Stop: 06/16/18 13:33 Hydralazine HCl (Apresoline -) 50 mg PO TID [facility] Last Admin: 06/14/18 14:24 Dose: 50 mg Hydromorphone HCl (Dilaudid -) 2 mg PO Q6H PRN PRN Reason: PAIN LEVEL 7 - 10 Last Admin: 06/15/18 11:10 Dose: 2 mg Sodium Chloride (Normal Saline -) 250 mls @ 3,000 mls/hr IV PRN PRN PRN Reason: Hypotension during Dialysis Stop: 06/14/18 15:01 Piperacillin Sod/Tazobactam (Sod 2.25 gm/ Dextrose) 50 mls @ 100 mls/hr IVPB Q8H-IV [facility]; Protocol Last Admin: 06/16/18 10:36 Dose: 100 mls/hr Isosorbide Mononitrate (Imdur -) 30 mg PO DAILY [facility] Last Admin: 06/16/18 10:35 Dose: Not Given Lidocaine HCl (Xylocaine 5% Top. Ointment) 1 applic TP BID [facility] Last Admin: 06/16/18 10:35 Dose: 1 applic Metoprolol Succinate (Toprol Xl -) 25 mg PO BID [facility] Last Admin: 06/16/18 10:35 Dose: Not Given Pregabalin (Lyrica -) 50 mg PO BID [facility] Last Admin: 06/16/18 10:35 Dose: Not Given Sevelamer Carbonate (Renvela -) 800 mg PO TIDCM [facility] Last Admin: 06/16/18 11:22 Dose: Not Given - Objective Vital Signs: Vital Signs Temperature 98.6 F 06/16/18 08:25 Pulse Rate 80 06/16/18 08:25 Respiratory Rate 20 06/16/18 08:26 Blood Pressure 101/46 L 06/16/18 08:25 O2 Sat by Pulse Oximetry (%) 93 L 06/16/18 08:26 Constitutional: Yes: No Distress, Anxious HENT: Yes: Atraumatic Neck: Yes: Trachea Midline Cardiovascular: Yes: Pulse Irregular, S1, S2 Respiratory: Yes: CTA Bilaterally Gastrointestinal: Yes: Normal Bowel Sounds, Soft Genitourinary: No: CVA Tenderness - Left, CVA Tenderness - Right Edema: No Neurological: Yes: Alert, Oriented, Confusion Labs: CBC, BMP 06/16/18 05:30 06/16/18 05:30 INR, PTT INR 3.52 (0.83-1.09) H 06/16/18 05:30 Assessment/Plan 82 year old gentleman with hx of ESRD on HD, Hypertension, Afib on coumadin presents with AMS. The patient's mental status improving. For HD today. Orders written, and reviewed with the RN. Will follow with you. Thank you. Brittany Hanna MD
--- NOTE | 2018-06-16 16:40 | PN ---
Progress Note, Physician History of Present Illness: Feeling better Less penile pain No fever/ chills Afebrile BC (-) Wound c/s mixed - Current Medication List Current Medications: Active Medications Clopidogrel Bisulfate (Plavix -) 75 mg PO DAILY [facility] Last Admin: 06/16/18 10:35 Dose: Not Given Epoetin Randy (Procrit -) 10,000 unit IVPUSH ONCE ONE Stop: 06/16/18 13:33 Hydralazine HCl (Apresoline -) 50 mg PO TID [facility] Last Admin: 06/14/18 14:24 Dose: 50 mg Hydromorphone HCl (Dilaudid -) 2 mg PO Q6H PRN PRN Reason: PAIN LEVEL 7 - 10 Last Admin: 06/15/18 11:10 Dose: 2 mg Sodium Chloride (Normal Saline -) 250 mls @ 3,000 mls/hr IV PRN PRN PRN Reason: Hypotension during Dialysis Stop: 06/14/18 15:01 Piperacillin Sod/Tazobactam (Sod 2.25 gm/ Dextrose) 50 mls @ 100 mls/hr IVPB Q8H-IV [facility]; Protocol Last Admin: 06/16/18 10:36 Dose: 100 mls/hr Isosorbide Mononitrate (Imdur -) 30 mg PO DAILY [facility] Last Admin: 06/16/18 10:35 Dose: Not Given Lidocaine HCl (Xylocaine 5% Top. Ointment) 1 applic TP BID [facility] Last Admin: 06/16/18 10:35 Dose: 1 applic Metoprolol Succinate (Toprol Xl -) 25 mg PO BID [facility] Last Admin: 06/16/18 10:35 Dose: Not Given Pregabalin (Lyrica -) 50 mg PO BID [facility] Last Admin: 06/16/18 10:35 Dose: Not Given Sevelamer Carbonate (Renvela -) 800 mg PO TIDCM [facility] Last Admin: 06/16/18 11:22 Dose: Not Given - Objective Vital Signs: Vital Signs Temperature 98.6 F 06/16/18 08:25 Pulse Rate 80 06/16/18 08:25 Respiratory Rate 20 06/16/18 08:26 Blood Pressure 101/46 L 06/16/18 08:25 O2 Sat by Pulse Oximetry (%) 93 L 06/16/18 08:26 Constitutional: Yes: No Distress Cardiovascular: Yes: Regular Rate and Rhythm, S1, S2 Respiratory: Yes: CTA Bilaterally Gastrointestinal: Yes: Normal Bowel Sounds, Soft. No: Tenderness Genitourinary: Yes: Other (penile lesion resolved No drainage noted) Labs: CBC, BMP 06/16/18 05:30 06/16/18 05:30 INR, PTT INR 3.52 (0.83-1.09) H 06/16/18 05:30 Assessment/Plan R/O sepsis secondary to skin source ESRD Hx H. zoster Await final c/s Continue zosyn x 24h
[2018-06-16 17:36] LABS: HBSAG SCREEN Negative (Negative); HEP A AB, IGM Negative (Negative); HEP B CORE AB, TOT Positive (Negative)
[2018-06-16] MEDS ORDERED: SODIUM CHLORIDE 250 ML IV PRN (18:34)
[2018-06-16] MEDS ORDERED: EPOETIN ALFA 10,000 UNIT/1 ML VIAL IVPUSH ONE (19:00)
[2018-06-17] MEDS ORDERED: DEXTROSE 5%-WATER - 50 ML IVPB ONE ×2 (03:03→08:59)
[2018-06-17] MEDS ORDERED: PIPERACILLIN/TAZOBACTAM 2.25 GM VIAL IVPB ONE ×2 (03:03→08:58)
[2018-06-17] MEDS: HYDROmorphone HCL 2 MG TABLET PO PRN ×3 (03:15→17:30)
[2018-06-17] MEDS: PIPERACILLIN/TAZOB 2.25 GM 2.25 GM in DEXTROSE 5%-WATER - 50 ML IVPB SCH ×2 (03:30→09:37)
[2018-06-17 07:14] LABS: BASO % 0.5 % (0-2.0); EOS % 1.9 % (0-4.5); HEMATOCRIT 33.8 % (35.4-49); HEMOGLOBIN 10.6 GM/dL (11.7-16.9); LYMPH % 12.4 % (8-40); MCH 30.3 pg (25.7-33.7); MCHC 31.3 g/dl (32.0-35.9); MEAN PLT VOLUME 8.9 fl (7.5-11.1); NEUT % 75.2 % (42.8-82.8); PLATELET COUNT 214 K/MM3 (134-434); RBC 3.48 M/mm3 (4.00-5.60); RDW 20.2 % (11.9-15.9); WHITE BLOOD COUNT 10.7 K/mm3 (4.0-10.0)
[2018-06-17 07:32] LABS: INR 3.33 (0.83-1.09); PROTHROMBIN TIME (PATIENT) 39.8 SEC (9.7-13.0)
[2018-06-17 07:59] LABS: ALBUMIN 2.3 g/dl (3.4-5.0); ALK PHOS 76 U/L (45-117); ANION GAP 12 MMOL/L (8-16); BILIRUBIN,TOTAL 1.1 mg/dL (0.2-1); BLOOD UREA NITROGEN 14 mg/dL (7-18); CALCIUM 8.8 mg/dL (8.5-10.1); CHLORIDE 99 mmol/L (98-107); CO2 32 mmol/L (21-32); CREATININE 2.7 mg/dL (0.55-1.3); GLUCOSE,RANDOM 83 mg/dL (74-106); PHOSPHOROUS 3.1 mg/dL (2.5-4.9); POTASSIUM 4.2 mmol/L (3.5-5.1); SGOT/AST 40 U/L (15-37); SGPT/ALT 36 U/L (13-61); SODIUM 142 mmol/L (136-145); TOT PROT 7.1 g/dl (6.4-8.2)
--- NOTE | 2018-06-17 09:02 | PN ---
Progress Note, Physician Chief Complaint: more alert today No complaints TELE: AF, controlled. History of Present Illness: Twitching resolved. Alert and oriented x 3 - Current Medication List Current Medications: Active Medications Clopidogrel Bisulfate (Plavix -) 75 mg PO DAILY [facility] Last Admin: 06/16/18 10:35 Dose: Not Given Hydralazine HCl (Apresoline -) 50 mg PO TID [facility] Last Admin: 06/14/18 14:24 Dose: 50 mg Hydromorphone HCl (Dilaudid -) 2 mg PO Q6H PRN PRN Reason: PAIN LEVEL 7 - 10 Last Admin: 06/17/18 03:15 Dose: 2 mg Piperacillin Sod/Tazobactam (Sod 2.25 gm/ Dextrose) 50 mls @ 100 mls/hr IVPB Q8H-IV [facility]; Protocol Last Admin: 06/17/18 03:30 Dose: 100 mls/hr Isosorbide Mononitrate (Imdur -) 30 mg PO DAILY [facility] Last Admin: 06/16/18 10:35 Dose: Not Given Lidocaine HCl (Xylocaine 5% Top. Ointment) 1 applic TP BID [facility] Last Admin: 06/16/18 22:27 Dose: 1 applic Metoprolol Succinate (Toprol Xl -) 25 mg PO BID [facility] Last Admin: 06/16/18 22:27 Dose: 25 mg Pregabalin (Lyrica -) 50 mg PO BID [facility] Last Admin: 06/16/18 22:27 Dose: 50 mg Sevelamer Carbonate (Renvela -) 800 mg PO TIDCM [facility] Last Admin: 06/16/18 18:45 Dose: Not Given - Objective Vital Signs: Vital Signs Temperature 97.7 F 06/17/18 05:00 Pulse Rate 89 06/17/18 05:00 Respiratory Rate 20 06/17/18 05:00 Blood Pressure 98/56 L 06/17/18 05:00 O2 Sat by Pulse Oximetry (%) 96 06/16/18 21:00 Constitutional: Yes: Well Nourished, No Distress, Calm Cardiovascular: Yes: Regular Rate and Rhythm Respiratory: Yes: CTA Bilaterally Gastrointestinal: Yes: Soft Edema: No Neurological: Yes: Alert, Oriented ...Motor Strength: WNL Labs: CBC, BMP 06/17/18 05:30 06/17/18 05:30 INR, PTT INR 3.33 (0.83-1.09) H 06/17/18 05:30 - ....Imaging EKG: Image Reviewed (Rate controlled AF) Problem List - Problems (1) Altered mental status Code(s): R41.82 - ALTERED MENTAL STATUS, UNSPECIFIED Qualifiers: Altered mental status type: unspecified Qualified Code(s): R41.82 - Altered mental status, unspecified (2) Acute drug-induced confusion Code(s): F19.988 - OTH PSYCHOACTIVE SUBSTANCE USE, UNSP W OTH DISORDER (3) CHF (congestive heart failure) Code(s): I50.9 - HEART FAILURE, UNSPECIFIED Qualifiers: Heart failure type: systolic Heart failure chronicity: chronic Qualified Code(s): I50.22 - Chronic systolic (congestive) heart failure (4) Chronic a-fib Code(s): I48.2 - CHRONIC ATRIAL FIBRILLATION (5) ESRD (end stage renal disease) on dialysis Code(s): N18.6 - END STAGE RENAL DISEASE; Z99.2 - DEPENDENCE ON RENAL DIALYSIS (6) Post herpetic neuralgia Code(s): B02.29 - OTHER POSTHERPETIC NERVOUS SYSTEM INVOLVEMENT (7) Pulmonary hypertension Code(s): I27.20 - PULMONARY HYPERTENSION, UNSPECIFIED (8) Toxic encephalopathy Code(s): G92 - TOXIC ENCEPHALOPATHY Assessment/Plan IMP: Multiple advanced comorbidities includin. Severe s/p TAVR 2. 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 ESRD on HD 4. AF on coumadin with supratherapeutic INR Today 5. Hx DVT, HIT, IVC filter 6. 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 Now presents to ER with altered mental status, fatigue, tremors: r/o occult infection vs toxic metabolic encephalopathy vs drug effect Borderline elevation in TnI in setting of chronic renal failure, long standing valvular heart disease, and possible sepsis. Do not suspect ACS. REC: 1. For HD TIW 2. F/u culture results 3. Hold Warfarin, resume for goal INR 2-3 4. Mental status waxes and wanes, likely metabolic and or medication related. Can d/c telemetry
[2018-06-17] MEDS: ISOSORBIDE MONONITRATE 30 MG TAB.SR.24H (FP) PO SCH (09:38)
[2018-06-17] MEDS: CLOPIDOGREL BISULFATE 75 MG TABLET (FP) PO SCH (09:38)
[2018-06-17] MEDS: PREGABALIN 50 MG CAPSULE PO SCH ×2 (09:38→21:34)
[2018-06-17] MEDS: metoPROLOL SUCCINATE 25 MG TAB.SR.24H (FP) PO SCH ×2 (09:38→21:25)
[2018-06-17] MEDS: SEVELAMER CARBONATE 800 MG TAB (FP) PO SCH ×3 (09:38→17:30)
[2018-06-17] MEDS: LIDOCAINE HCL 5% TOP OINTMENT 50 GM TUBE TP SCH ×2 (09:38→21:35)
--- NOTE | 2018-06-17 09:54 | PN ---
Progress Note, Physician Chief Complaint: Pt lying in bed in no acute distress. alert and oriented. Denies any sob, chest pain, n/v/d - Current Medication List Current Medications: Active Medications Clopidogrel Bisulfate (Plavix -) 75 mg PO DAILY [facility] Last Admin: 06/17/18 09:38 Dose: 75 mg Hydralazine HCl (Apresoline -) 50 mg PO TID [facility] Last Admin: 06/14/18 14:24 Dose: 50 mg Hydromorphone HCl (Dilaudid -) 2 mg PO Q6H PRN PRN Reason: PAIN LEVEL 7 - 10 Last Admin: 06/17/18 09:38 Dose: 2 mg Piperacillin Sod/Tazobactam (Sod 2.25 gm/ Dextrose) 50 mls @ 100 mls/hr IVPB Q8H-IV [facility]; Protocol Last Admin: 06/17/18 09:37 Dose: 100 mls/hr Isosorbide Mononitrate (Imdur -) 30 mg PO DAILY [facility] Last Admin: 06/17/18 09:38 Dose: 30 mg Lidocaine HCl (Xylocaine 5% Top. Ointment) 1 applic TP BID [facility] Last Admin: 06/17/18 09:38 Dose: 1 applic Metoprolol Succinate (Toprol Xl -) 25 mg PO BID [facility] Last Admin: 06/17/18 09:38 Dose: 25 mg Pregabalin (Lyrica -) 50 mg PO BID [facility] Last Admin: 06/17/18 09:38 Dose: 50 mg Sevelamer Carbonate (Renvela -) 800 mg PO TIDCM [facility] Last Admin: 06/17/18 09:38 Dose: 800 mg - Objective Vital Signs: Vital Signs Temperature 97.7 F 06/17/18 05:00 Pulse Rate 89 06/17/18 05:00 Respiratory Rate 20 06/17/18 05:00 Blood Pressure 98/56 L 06/17/18 05:00 O2 Sat by Pulse Oximetry (%) 96 06/16/18 21:00 Constitutional: Yes: Well Nourished, No Distress, Calm Cardiovascular: Yes: Pulse Irregular Respiratory: Yes: WNL, Regular, CTA Bilaterally, On Nasal O2. No: Accessory Muscle Use, SOB, Tachypnea, Wheezes Gastrointestinal: Yes: WNL, Normal Bowel Sounds, Soft. No: Distention, Tenderness Genitourinary: Yes: Anuria Musculoskeletal: Yes: WNL Extremities: Yes: WNL Edema: No Neurological: Yes: WNL, Alert, Oriented Psychiatric: Yes: WNL, Alert, Oriented Labs: CBC, BMP 06/17/18 05:30 06/17/18 05:30 INR, PTT INR 3.33 (0.83-1.09) H 06/17/18 05:30 Assessment/Plan (1) Acute metabolic encephalopathy Assessment/Plan: at baseline head CT neg suspect drug induced, hepatic encephalopathy/hepatitis 2/2 acyclovir has had similar episode in the past with gabapentin Code(s): G93.41 - METABOLIC ENCEPHALOPATHY (2) Hepatic encephalopathy Assessment/Plan: improved abd US without acute findings Code(s): K72.90 - HEPATIC FAILURE, UNSPECIFIED WITHOUT COMA (3) Hyperbilirubinemia Assessment/Plan: as above Code(s): E80.6 - OTHER DISORDERS OF BILIRUBIN METABOLISM (4) Elevated troponin Assessment/Plan: stable ekg without acute changes cardiology following Code(s): R74.8 - ABNORMAL LEVELS OF OTHER SERUM ENZYMES (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 Assessment/Plan: s/p biopsy penile lesion, confirmed diagnosis of herpes at [facility] could not tolerate acyclovir presents with purulent penile drainage w/ increased pain- improved wound culture pending/blood cultures neg received 4 days of Zosyn/vanco monitor off antibx per ID continue lyrica for neuralgia ID following Code(s): A60.02 - HERPESVIRAL INFECTION OF OTHER MALE GENITAL ORGANS (6) Post herpetic neuralgia Assessment/Plan: improving, severe sharp/shooting pain in penile affected area similar to prev herpes continue lyrica lidocaine ointment dilaudid prn monitor Code(s): B02.29 - OTHER POSTHERPETIC NERVOUS SYSTEM INVOLVEMENT (7) History of herpes zoster Assessment/Plan: s/p Zoster Opthalmicus infection 02/07, 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 c/b post herpetic neuralgia Code(s): Z86.19 - PERSONAL HISTORY OF OTHER INFECTIOUS AND PARASITIC DISEASES (8) Chronic a-fib Assessment/Plan: rate controlled inr goal 2.5-3 continue metoprolol Code(s): I48.2 - CHRONIC ATRIAL FIBRILLATION (9) Supratherapeutic INR Assessment/Plan: hold coumadin monitor INR Code(s): R79.1 - ABNORMAL COAGULATION PROFILE (10) ESRD (end stage renal disease) on dialysis Assessment/Plan: HD TIW Nephrology following Code(s): N18.6 - END STAGE RENAL DISEASE; Z99.2 - DEPENDENCE ON RENAL DIALYSIS (11) HTN (hypertension) Assessment/Plan: hypotensive hold hydralazine Code(s): I10 - ESSENTIAL (PRIMARY) HYPERTENSION Qualifiers: Hypertension type: essential hypertension Qualified Code(s): I10 - Essential (primary) hypertension (12) CHF (congestive heart failure) Assessment/Plan: chronic echo on 02/07 without acute findings,shows normal fxning aortic prosthesis; moderate MR and severe chronic PHTN followed by PHTN specialist and cardiology outpt Code(s): I50.9 - HEART FAILURE, UNSPECIFIED Qualifiers: Heart failure type: diastolic Heart failure chronicity: chronic Qualified Code(s): I50.32 - Chronic diastolic (congestive) heart failure (13) Aortic stenosis Assessment/Plan: s/p TAVR followed by cardiology outpt Code(s): I35.0 - NONRHEUMATIC AORTIC (VALVE) STENOSIS (14) Pulmonary hypertension Assessment/Plan: followed by [facility] outpt Code(s): I27.20 - PULMONARY HYPERTENSION, UNSPECIFIED Dispo: SNF. Monitor off antibx for 24 hours. If INR stable, and no further acute changes, pt can be discharged to SNF.
--- NOTE | 2018-06-17 13:02 | PN ---
Progress Note, Physician Chief Complaint: The patient seen in his room. Sitting on his bedside chair. Much more alert. No pains. No chest pain. No specific complaints. - Current Medication List Current Medications: Active Medications Clopidogrel Bisulfate (Plavix -) 75 mg PO DAILY [facility] Last Admin: 06/17/18 09:38 Dose: 75 mg Hydralazine HCl (Apresoline -) 50 mg PO TID [facility] Last Admin: 06/14/18 14:24 Dose: 50 mg Hydromorphone HCl (Dilaudid -) 2 mg PO Q6H PRN PRN Reason: PAIN LEVEL 7 - 10 Last Admin: 06/17/18 09:38 Dose: 2 mg Piperacillin Sod/Tazobactam (Sod 2.25 gm/ Dextrose) 50 mls @ 100 mls/hr IVPB Q8H-IV [facility]; Protocol Last Admin: 06/17/18 09:37 Dose: 100 mls/hr Isosorbide Mononitrate (Imdur -) 30 mg PO DAILY [facility] Last Admin: 06/17/18 09:38 Dose: 30 mg Lidocaine HCl (Xylocaine 5% Top. Ointment) 1 applic TP BID [facility] Last Admin: 06/17/18 09:38 Dose: 1 applic Metoprolol Succinate (Toprol Xl -) 25 mg PO BID [facility] Last Admin: 06/17/18 09:38 Dose: 25 mg Polyethylene Glycol (Miralax (For Daily Use) -) 17 gm PO DAILY [facility] Pregabalin (Lyrica -) 50 mg PO BID [facility] Last Admin: 06/17/18 09:38 Dose: 50 mg Sevelamer Carbonate (Renvela -) 800 mg PO TIDCM [facility] Last Admin: 06/17/18 09:38 Dose: 800 mg - Objective Vital Signs: Vital Signs Temperature 98.2 F 06/17/18 10:00 Pulse Rate 86 06/17/18 10:00 Respiratory Rate 20 06/17/18 10:00 Blood Pressure 100/55 L 06/17/18 10:00 O2 Sat by Pulse Oximetry (%) 96 06/17/18 10:00 Constitutional: Yes: No Distress, Calm Eyes: Yes: Conjunctiva Clear HENT: Yes: Normocephalic Neck: Yes: Supple Cardiovascular: Yes: Tachycardia, S1, S2 Respiratory: Yes: CTA Bilaterally, Diminished, Poor Air Entry Gastrointestinal: Yes: Normal Bowel Sounds, Soft Genitourinary: No: CVA Tenderness - Left, CVA Tenderness - Right Musculoskeletal: No: Joint Swelling Edema: Yes Neurological: Yes: Alert, Oriented Labs: CBC, BMP 06/17/18 05:30 06/17/18 05:30 INR, PTT INR 3.33 (0.83-1.09) H 06/17/18 05:30 Assessment/Plan 82 year old gentleman with hx of ESRD on HD, Hypertension, Afib on coumadin presents with AMS. The mental status ia at his baseline. Ambulatory status also improved. Next HD in AM. Will arrange for next HD in AM. Will follow with you. Thank you. Brittany Hanna MD
--- NOTE | 2018-06-17 13:08 | PN ---
Progress Note, Physician History of Present Illness: Feeling better C/O penile pain relieved with analgesics No fever/ chills Afebrile BC (-) Wound c/s mixed - Current Medication List Current Medications: Active Medications Clopidogrel Bisulfate (Plavix -) 75 mg PO DAILY [facility] Last Admin: 06/17/18 09:38 Dose: 75 mg Hydralazine HCl (Apresoline -) 50 mg PO TID [facility] Last Admin: 06/14/18 14:24 Dose: 50 mg Hydromorphone HCl (Dilaudid -) 2 mg PO Q6H PRN PRN Reason: PAIN LEVEL 7 - 10 Last Admin: 06/17/18 09:38 Dose: 2 mg Piperacillin Sod/Tazobactam (Sod 2.25 gm/ Dextrose) 50 mls @ 100 mls/hr IVPB Q8H-IV [facility]; Protocol Last Admin: 06/17/18 09:37 Dose: 100 mls/hr Isosorbide Mononitrate (Imdur -) 30 mg PO DAILY [facility] Last Admin: 06/17/18 09:38 Dose: 30 mg Lidocaine HCl (Xylocaine 5% Top. Ointment) 1 applic TP BID [facility] Last Admin: 06/17/18 09:38 Dose: 1 applic Metoprolol Succinate (Toprol Xl -) 25 mg PO BID [facility] Last Admin: 06/17/18 09:38 Dose: 25 mg Polyethylene Glycol (Miralax (For Daily Use) -) 17 gm PO DAILY [facility] Pregabalin (Lyrica -) 50 mg PO BID [facility] Last Admin: 06/17/18 09:38 Dose: 50 mg Sevelamer Carbonate (Renvela -) 800 mg PO TIDCM [facility] Last Admin: 06/17/18 09:38 Dose: 800 mg - Objective Vital Signs: Vital Signs Temperature 98.2 F 06/17/18 10:00 Pulse Rate 86 06/17/18 10:00 Respiratory Rate 20 06/17/18 10:00 Blood Pressure 100/55 L 06/17/18 10:00 O2 Sat by Pulse Oximetry (%) 96 06/17/18 10:00 Constitutional: Yes: No Distress Cardiovascular: Yes: Regular Rate and Rhythm, S1, S2 Respiratory: Yes: CTA Bilaterally Gastrointestinal: Yes: Normal Bowel Sounds, Soft. No: Tenderness Genitourinary: Yes: Other (Penile wound healed No drainage or foul odor noted) Labs: CBC, BMP 06/17/18 05:30 06/17/18 05:30 INR, PTT INR 3.33 (0.83-1.09) H 06/17/18 05:30 Assessment/Plan R/O sepsis secondary to skin source clinically improved ESRD Hx H. zoster D/C antibiotics, observe off
[2018-06-17] MEDS: POLYETHYLENE GLYCOL 3350 119 GM BTL PO SCH (13:11)
[2018-06-17] MEDS: hydrALAZINE HCL 50 MG TABLET (FP) PO SCH (21:34)
[2018-06-18] MEDS: HYDROmorphone HCL 2 MG TABLET PO PRN ×2 (02:05→09:30)
[2018-06-18 07:42] LABS: BASO % 0.7 % (0-2.0); EOS % 2.3 % (0-4.5); HEMATOCRIT 35.4 % (35.4-49); HEMOGLOBIN 11.4 GM/dL (11.7-16.9); LYMPH % 14.9 % (8-40); MCHC 32.2 g/dl (32.0-35.9); MEAN CELL VOLUME 96.5 fl (80-96); MEAN PLT VOLUME 9.2 fl (7.5-11.1); MONO % 9.9 % (3.8-10.2); NEUT % 72.2 % (42.8-82.8); PLATELET COUNT 228 K/MM3 (134-434); RBC 3.67 M/mm3 (4.00-5.60); RDW 20.4 % (11.9-15.9); WHITE BLOOD COUNT 9.2 K/mm3 (4.0-10.0)
[2018-06-18] MEDS: EPOETIN ALFA 10,000 UNIT/1 ML VIAL IVPUSH ONE ×2 (08:26→11:52)
[2018-06-18 08:29] LABS: INR 2.48 (0.83-1.09); PROTHROMBIN TIME (PATIENT) 29.5 SEC (9.7-13.0)
--- NOTE | 2018-06-18 08:51 | PN ---
Progress Note, Physician Chief Complaint: Pt alert; no chest pain or dyspnea; undergoing HD. c/o residual facial pain ( post shingles). History of Present Illness: Mr. Dahl is an 82 yo male w/ pmh of afib on coumadin, ESRD (T/R/S), htn, afib, and cardiac valve replacement who presents for evaluation of multiple complaints of AMS, difficulty breathing while on 2L NC at home with additional yellow skin color. Per daughter who is with him patient was recently discharged Wednesday from [facility] where patient was being evaluated for shingles exacerbation. 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 Per daughter patient was able to walk to dialysis session wednesday without difficulty however is now altered from baseline with different skin coloring. - Current Medication List Current Medications: Active Medications Clopidogrel Bisulfate (Plavix -) 75 mg PO DAILY [facility] Last Admin: 06/17/18 09:38 Dose: 75 mg Epoetin Randy (Procrit -) 10,000 unit IVPUSH ONCE ONE Stop: 06/18/18 11:01 Last Admin: 06/18/18 08:26 Dose: 10,000 unit Hydromorphone HCl (Dilaudid -) 2 mg PO Q6H PRN PRN Reason: PAIN LEVEL 7 - 10 Last Admin: 06/18/18 02:05 Dose: 2 mg Isosorbide Mononitrate (Imdur -) 30 mg PO DAILY [facility] Last Admin: 06/17/18 09:38 Dose: 30 mg Lidocaine HCl (Xylocaine 5% Top. Ointment) 1 applic TP BID [facility] Last Admin: 06/17/18 21:35 Dose: 1 applic Metoprolol Succinate (Toprol Xl -) 25 mg PO BID [facility] Last Admin: 06/17/18 21:25 Dose: Not Given Polyethylene Glycol (Miralax (For Daily Use) -) 17 gm PO DAILY [facility] Last Admin: 06/17/18 13:11 Dose: 17 gm Pregabalin (Lyrica -) 50 mg PO BID [facility] Last Admin: 06/17/18 21:34 Dose: 50 mg Sevelamer Carbonate (Renvela -) 800 mg PO TIDCM [facility] Last Admin: 06/17/18 17:30 Dose: 800 mg - Objective Vital Signs: Vital Signs Temperature 97.6 F 06/18/18 05:00 Pulse Rate 80 06/18/18 08:00 Respiratory Rate 18 06/18/18 08:00 Blood Pressure 99/48 L 06/18/18 08:00 O2 Sat by Pulse Oximetry (%) 93 L 06/17/18 20:37 Constitutional: Yes: Calm Eyes: Yes: WNL HENT: Yes: WNL, Other (no rash or swelling of face or scalp) Neck: Yes: WNL Cardiovascular: Yes: Pulse Irregular, S1 (varies in intensity) Respiratory: Yes: WNL Gastrointestinal: Yes: Soft ...Rectal Exam: Yes: Deferred Genitourinary: No: Anuria Breast(s): Yes: WNL Musculoskeletal: Yes: Muscle Weakness Extremities: Yes: WNL Edema: No Peripheral Pulses WNL: Yes Integumentary: Yes: WNL Neurological: Yes: Alert, Oriented, Weakness Labs: CBC, BMP 06/18/18 05:30 INR, PTT INR 3.33 (0.83-1.09) H 06/17/18 05:30 Abnormal Lab Results 06/18/18 06/18/18 06/18/18 05:30 05:30 05:30 RBC 3.67 L Hgb 11.4 L MCV 96.5 H RDW 20.4 H PT with INR 29.50 H INR 2.48 H Sodium 135 L Chloride 95 L BUN 27 H Creatinine 4.1 H Random Glucose 63 L Albumin 2.2 L Problem List - Problems (1) Altered mental status Code(s): R41.82 - ALTERED MENTAL STATUS, UNSPECIFIED Qualifiers: Altered mental status type: unspecified Qualified Code(s): R41.82 - Altered mental status, unspecified (2) Herpes genitalis in men Code(s): A60.02 - HERPESVIRAL INFECTION OF OTHER MALE GENITAL ORGANS (3) ESRD (end stage renal disease) on dialysis Code(s): N18.6 - END STAGE RENAL DISEASE; Z99.2 - DEPENDENCE ON RENAL DIALYSIS (4) Elevated INR Code(s): R79.1 - ABNORMAL COAGULATION PROFILE (5) HTN (hypertension) Code(s): I10 - ESSENTIAL (PRIMARY) HYPERTENSION Qualifiers: Hypertension type: essential hypertension Qualified Code(s): I10 - Essential (primary) hypertension (6) Atrial fibrillation Assessment/Plan: Restart warfarin (INR 2.48 today). On metoprolol ER for HR control. Code(s): I48.91 - UNSPECIFIED ATRIAL FIBRILLATION (7) Severe pulmonary arterial systolic hypertension Code(s): I27.21 - SECONDARY PULMONARY ARTERIAL HYPERTENSION (8) Aortic valve prosthesis present Assessment/Plan: TAVR; moderate AR; normal LVEF; severe LAE; severe pulm HTN Code(s): Z95.2 - PRESENCE OF PROSTHETIC HEART VALVE
[2018-06-18 08:55] LABS: ALBUMIN 2.2 g/dl (3.4-5.0); ALK PHOS 74 U/L (45-117); ANION GAP 9 MMOL/L (8-16); BLOOD UREA NITROGEN 27 mg/dL (7-18); CALCIUM 9.2 mg/dL (8.5-10.1); CHLORIDE 95 mmol/L (98-107); CO2 31 mmol/L (21-32); CREATININE 4.1 mg/dL (0.55-1.3); GLUCOSE,RANDOM 63 mg/dL (74-106); POTASSIUM 4.6 mmol/L (3.5-5.1); SGOT/AST 33 U/L (15-37); SGPT/ALT 29 U/L (13-61); SODIUM 135 mmol/L (136-145); TOT PROT 6.8 g/dl (6.4-8.2)
--- NOTE | 2018-06-18 09:13 | PN ---
Progress Note, Physician Chief Complaint: comfortable not in distress History of Present Illness: 82 yo male w/ pmh of afib on coumadin, ESRD (T/R/S), htn, afib, and cardiac valve replacement who presents for evaluation of multiple complaints of AMS, difficulty breathing while on 2L NC at home with additional yellow skin color. Per daughter who is with him patient was recently discharged from [facility] where patient was being evaluated for shingles exacerbation - Current Medication List Current Medications: Active Medications Clopidogrel Bisulfate (Plavix -) 75 mg PO DAILY [facility] Last Admin: 06/17/18 09:38 Dose: 75 mg Epoetin Randy (Procrit -) 10,000 unit IVPUSH ONCE ONE Stop: 06/18/18 11:01 Last Admin: 06/18/18 08:26 Dose: 10,000 unit Hydromorphone HCl (Dilaudid -) 2 mg PO Q6H PRN PRN Reason: PAIN LEVEL 7 - 10 Last Admin: 06/18/18 02:05 Dose: 2 mg Isosorbide Mononitrate (Imdur -) 30 mg PO DAILY [facility] Last Admin: 06/17/18 09:38 Dose: 30 mg Lidocaine HCl (Xylocaine 5% Top. Ointment) 1 applic TP BID [facility] Last Admin: 06/17/18 21:35 Dose: 1 applic Metoprolol Succinate (Toprol Xl -) 25 mg PO BID [facility] Last Admin: 06/17/18 21:25 Dose: Not Given Polyethylene Glycol (Miralax (For Daily Use) -) 17 gm PO DAILY [facility] Last Admin: 06/17/18 13:11 Dose: 17 gm Pregabalin (Lyrica -) 50 mg PO BID [facility] Last Admin: 06/17/18 21:34 Dose: 50 mg Sevelamer Carbonate (Renvela -) 800 mg PO TIDCM [facility] Last Admin: 06/17/18 17:30 Dose: 800 mg - Objective Vital Signs: Vital Signs Temperature 97.6 F 06/18/18 05:00 Pulse Rate 80 06/18/18 08:00 Respiratory Rate 18 06/18/18 08:00 Blood Pressure 99/48 L 06/18/18 08:00 O2 Sat by Pulse Oximetry (%) 93 L 06/17/18 20:37 Constitutional: Yes: Well Nourished, No Distress, Calm Cardiovascular: Yes: Pulse Irregular Respiratory: Yes: WNL, Regular, CTA Bilaterally, On Nasal O2. No: Accessory Muscle Use, SOB, Tachypnea, Wheezes Gastrointestinal: Yes: WNL, Normal Bowel Sounds, Soft. No: Distention, Tenderness Genitourinary: Yes: Anuria Musculoskeletal: Yes: WNL Extremities: Yes: WNL Edema: No Neurological: Yes: WNL, Alert, Oriented Psychiatric: Yes: WNL, Alert, Oriented Labs: Labs: CBC, BMP 06/18/18 05:30 06/18/18 05:30 INR, PTT INR 2.48 (0.83-1.09) H 06/18/18 05:30 Problem List - Problems (1) Acute metabolic encephalopathy Assessment/Plan: Due to Pain meds and uremia improved on HD and adjusting pain meds Code(s): G93.41 - METABOLIC ENCEPHALOPATHY (2) Atrial fibrillation Assessment/Plan: Chronic rate controlled on AC INR therapeutiic Code(s): I48.91 - UNSPECIFIED ATRIAL FIBRILLATION (3) Elevated troponin Assessment/Plan: Demand ischemia no acute changes in EKG asymptomatic Code(s): R74.8 - ABNORMAL LEVELS OF OTHER SERUM ENZYMES (4) Herpes genitalis in men Assessment/Plan: Not on any medication as cant tolerate Zovirax Code(s): A60.02 - HERPESVIRAL INFECTION OF OTHER MALE GENITAL ORGANS (5) COPD (chronic obstructive pulmonary disease) Assessment/Plan: Compensated cont current nebs Code(s): J44.9 - CHRONIC OBSTRUCTIVE PULMONARY DISEASE, UNSPECIFIED (6) Aortic stenosis Assessment/Plan: S/P TAVR Code(s): I35.0 - NONRHEUMATIC AORTIC (VALVE) STENOSIS (7) ESRD (end stage renal disease) on dialysis Assessment/Plan: On HD Code(s): N18.6 - END STAGE RENAL DISEASE; Z99.2 - DEPENDENCE ON RENAL DIALYSIS
[2018-06-18] MEDS: SEVELAMER CARBONATE 800 MG TAB (FP) PO SCH ×3 (09:16→17:01)
[2018-06-18] MEDS: CLOPIDOGREL BISULFATE 75 MG TABLET (FP) PO SCH ×2 (09:16→11:53)
[2018-06-18] MEDS: PREGABALIN 50 MG CAPSULE PO SCH ×3 (09:16→21:41)
[2018-06-18] MEDS: POLYETHYLENE GLYCOL 3350 119 GM BTL PO SCH ×2 (09:16→11:53)
[2018-06-18] MEDS: ISOSORBIDE MONONITRATE 30 MG TAB.SR.24H (FP) PO SCH ×2 (09:16→11:53)
[2018-06-18] MEDS: metoPROLOL SUCCINATE 25 MG TAB.SR.24H (FP) PO SCH ×3 (09:17→21:41)
[2018-06-18] MEDS: LIDOCAINE HCL 5% TOP OINTMENT 50 GM TUBE TP SCH ×2 (09:17→21:42)
--- NOTE | 2018-06-18 12:49 | PN ---
Progress Note (short form) - Note Progress Note: 82 year M admitted with AMS ESRD on HD, Hypertension, Afib on coumadin presents with AMS. Current Medications Clopidogrel Bisulfate (Plavix -) 75 mg PO DAILY [facility] Last Admin: 06/18/18 11:53 Dose: 75 mg Hydromorphone HCl (Dilaudid -) 2 mg PO Q6H PRN PRN Reason: PAIN LEVEL 7 - 10 Last Admin: 06/18/18 09:30 Dose: 2 mg Isosorbide Mononitrate (Imdur -) 30 mg PO DAILY [facility] Last Admin: 06/18/18 11:53 Dose: 30 mg Lidocaine HCl (Xylocaine 5% Top. Ointment) 1 applic TP BID [facility] Last Admin: 06/18/18 09:17 Dose: 1 applic Metoprolol Succinate (Toprol Xl -) 25 mg PO BID [facility] Last Admin: 06/18/18 11:53 Dose: 25 mg Polyethylene Glycol (Miralax (For Daily Use) -) 17 gm PO DAILY [facility] Last Admin: 06/18/18 11:53 Dose: 17 gm Pregabalin (Lyrica -) 50 mg PO BID [facility] Last Admin: 06/18/18 11:53 Dose: 50 mg Sevelamer Carbonate (Renvela -) 800 mg PO TIDCM [facility] Last Admin: 06/18/18 11:53 Dose: 800 mg Warfarin Sodium (Coumadin -) 3 mg PO DAILY@1800 [facility] Last Vital Signs Temp Pulse Resp BP Pulse Ox 97.6 F 88 18 119/55 L 93 L 06/18/18 05:00 06/18/18 11:05 06/18/18 11:05 06/18/18 11:05 06/17/18 20:37 Lungs clear Heart reg Abd soft nontender ext no edema IMP ESRD uneventful HD Plan- next HD on wednesday
[2018-06-18] MEDS: WARFARIN NA 3 MG TABLET PO SCH (17:01)
[2018-06-19 07:38] LABS: HEMOGLOBIN 11.2 GM/dL (11.7-16.9); LYMPH % 15.1 % (8-40); MCH 30.2 pg (25.7-33.7); MEAN CELL VOLUME 97.2 fl (80-96); MEAN PLT VOLUME 9.1 fl (7.5-11.1); MONO % 10.2 % (3.8-10.2); NEUT % 71.7 % (42.8-82.8); PLATELET COUNT 246 K/MM3 (134-434); RDW 20.4 % (11.9-15.9); WHITE BLOOD COUNT 9.7 K/mm3 (4.0-10.0)
[2018-06-19 08:19] LABS: INR 1.87 (0.83-1.09); PROTHROMBIN TIME (PATIENT) 22.2 SEC (9.7-13.0)
[2018-06-19 08:56] LABS: ANION GAP 10 MMOL/L (8-16); BLOOD UREA NITROGEN 18 mg/dL (7-18); CALCIUM 9.5 mg/dL (8.5-10.1); CHLORIDE 98 mmol/L (98-107); CO2 32 mmol/L (21-32); CREATININE 3.1 mg/dL (0.55-1.3); GLUCOSE,RANDOM 67 mg/dL (74-106); POTASSIUM 4.5 mmol/L (3.5-5.1); SODIUM 139 mmol/L (136-145)
[2018-06-19] MEDS: CLOPIDOGREL BISULFATE 75 MG TABLET (FP) PO SCH (10:10)
[2018-06-19] MEDS: LIDOCAINE HCL 5% TOP OINTMENT 50 GM TUBE TP SCH ×2 (10:10→22:30)
[2018-06-19] MEDS: PREGABALIN 50 MG CAPSULE PO SCH ×2 (10:10→22:29)
[2018-06-19] MEDS: SEVELAMER CARBONATE 800 MG TAB (FP) PO SCH ×3 (10:10→17:53)
[2018-06-19] MEDS: metoPROLOL SUCCINATE 25 MG TAB.SR.24H (FP) PO SCH ×2 (10:10→22:29)
[2018-06-19] MEDS: POLYETHYLENE GLYCOL 3350 119 GM BTL PO SCH (10:12)
[2018-06-19] MEDS: ISOSORBIDE MONONITRATE 30 MG TAB.SR.24H (FP) PO SCH (10:12)
--- NOTE | 2018-06-19 10:42 | PN ---
Progress Note, Physician Chief Complaint: comfortable not in distress History of Present Illness: 82 yo male w/ pmh of afib on coumadin, ESRD (T/R/S), htn, afib, and cardiac valve replacement who presents for evaluation of multiple complaints of AMS, difficulty breathing while on 2L NC at home with additional yellow skin color. Per daughter who is with him patient was recently discharged from [facility] where patient was being evaluated for shingles exacerbation - Current Medication List Current Medications: Active Medications Clopidogrel Bisulfate (Plavix -) 75 mg PO DAILY [facility] Last Admin: 06/19/18 10:10 Dose: 75 mg Isosorbide Mononitrate (Imdur -) 30 mg PO DAILY [facility] Last Admin: 06/19/18 10:12 Dose: 30 mg Lidocaine HCl (Xylocaine 5% Top. Ointment) 1 applic TP BID [facility] Last Admin: 06/19/18 10:10 Dose: 1 applic Metoprolol Succinate (Toprol Xl -) 25 mg PO BID [facility] Last Admin: 06/19/18 10:10 Dose: 25 mg Polyethylene Glycol (Miralax (For Daily Use) -) 17 gm PO DAILY [facility] Last Admin: 06/19/18 10:12 Dose: Not Given Pregabalin (Lyrica -) 50 mg PO BID [facility] Last Admin: 06/19/18 10:10 Dose: 50 mg Sevelamer Carbonate (Renvela -) 800 mg PO TIDCM [facility] Last Admin: 06/19/18 10:10 Dose: 800 mg Warfarin Sodium (Coumadin -) 3 mg PO DAILY@1800 [facility] Last Admin: 06/18/18 17:01 Dose: 3 mg - Objective Vital Signs: Vital Signs Temperature 97.9 F 06/19/18 05:00 Pulse Rate 90 06/19/18 05:00 Respiratory Rate 18 06/19/18 05:00 Blood Pressure 105/71 06/19/18 05:00 O2 Sat by Pulse Oximetry (%) 95 06/18/18 21:00 Constitutional: Yes: Well Nourished, No Distress, Calm Cardiovascular: Yes: Pulse Irregular Respiratory: Yes: WNL, Regular, CTA Bilaterally, On Nasal O2. No: Accessory Muscle Use, SOB, Tachypnea, Wheezes Gastrointestinal: Yes: WNL, Normal Bowel Sounds, Soft. No: Distention, Tenderness Genitourinary: Yes: Anuria Musculoskeletal: Yes: WNL Extremities: Yes: WNL Edema: No Neurological: Yes: WNL, Alert, Oriented Psychiatric: Yes: WNL, Alert, Oriented Labs: Labs: CBC, BMP 06/19/18 05:45 06/19/18 05:45 INR, PTT INR 1.87 (0.83-1.09) H 06/19/18 05:45 Problem List - Problems (1) Acute metabolic encephalopathy Assessment/Plan: Due to Pain meds and uremia improved on HD and adjusting pain meds Code(s): G93.41 - METABOLIC ENCEPHALOPATHY (2) Atrial fibrillation Assessment/Plan: Chronic rate controlled on AC INR therapeutiic Code(s): I48.91 - UNSPECIFIED ATRIAL FIBRILLATION (3) Elevated troponin Assessment/Plan: Demand ischemia no acute changes in EKG asymptomatic Code(s): R74.8 - ABNORMAL LEVELS OF OTHER SERUM ENZYMES (4) Herpes genitalis in men Assessment/Plan: Not on any medication as cant tolerate Zovirax Code(s): A60.02 - HERPESVIRAL INFECTION OF OTHER MALE GENITAL ORGANS (5) COPD (chronic obstructive pulmonary disease) Assessment/Plan: Compensated cont current nebs Code(s): J44.9 - CHRONIC OBSTRUCTIVE PULMONARY DISEASE, UNSPECIFIED (6) Aortic stenosis Assessment/Plan: S/P TAVR Code(s): I35.0 - NONRHEUMATIC AORTIC (VALVE) STENOSIS (7) ESRD (end stage renal disease) on dialysis Assessment/Plan: On HD Code(s): N18.6 - END STAGE RENAL DISEASE; Z99.2 - DEPENDENCE ON RENAL DIALYSIS
[2018-06-19] MEDS ORDERED: ACETAMINOPHEN 325 MG TABLET (FP) PO PRN (17:03)
[2018-06-19] MEDS: WARFARIN NA 3 MG TABLET PO SCH (17:53)
--- NOTE | 2018-06-19 20:12 | PN ---
Progress Note (short form) - Note Progress Note: 82 year M admitted with AMS ESRD on HD, Hypertension, Afib on coumadin presents with AMS. Current Medications Acetaminophen (Tylenol -) 650 mg PO Q4H PRN PRN Reason: PAIN LEVEL 1-5 Clopidogrel Bisulfate (Plavix -) 75 mg PO DAILY [facility] Last Admin: 06/19/18 10:10 Dose: 75 mg Isosorbide Mononitrate (Imdur -) 30 mg PO DAILY [facility] Last Admin: 06/19/18 10:12 Dose: 30 mg Lidocaine HCl (Xylocaine 5% Top. Ointment) 1 applic TP BID [facility] Last Admin: 06/19/18 10:10 Dose: 1 applic Metoprolol Succinate (Toprol Xl -) 25 mg PO BID [facility] Last Admin: 06/19/18 10:10 Dose: 25 mg Polyethylene Glycol (Miralax (For Daily Use) -) 17 gm PO DAILY [facility] Last Admin: 06/19/18 10:12 Dose: Not Given Pregabalin (Lyrica -) 50 mg PO BID [facility] Last Admin: 06/19/18 10:10 Dose: 50 mg Sevelamer Carbonate (Renvela -) 800 mg PO TIDCM [facility] Last Admin: 06/19/18 17:53 Dose: 800 mg Warfarin Sodium (Coumadin -) 3 mg PO DAILY@1800 [facility] Last Admin: 06/19/18 17:53 Dose: 3 mg Last Vital Signs Temp Pulse Resp BP Pulse Ox 98.0 F 85 18 101/49 L 95 06/19/18 17:30 06/19/18 17:30 06/19/18 17:30 06/19/18 17:30 06/19/18 09:00 Lungs clear Heart reg Abd soft nontender ext no edema CBC, BMP 06/19/18 05:45 06/19/18 05:45 IMP ESRD uneventful HD Plan- next HD on wednesday
[2018-06-20 02:32] VITALS: TEMP 97.4
[2018-06-20 06:14] LABS: BASO % 1.2 % (0-2.0); EOS % 2.9 % (0-4.5); HEMATOCRIT 34.7 % (35.4-49); LYMPH % 19.5 % (8-40); MCH 30.5 pg (25.7-33.7); MCHC 31.6 g/dl (32.0-35.9); MEAN CELL VOLUME 96.5 fl (80-96); MEAN PLT VOLUME 8.8 fl (7.5-11.1); MONO % 9.3 % (3.8-10.2); NEUT % 67.1 % (42.8-82.8); PLATELET COUNT 248 K/MM3 (134-434); RDW 20.4 % (11.9-15.9); WHITE BLOOD COUNT 8.9 K/mm3 (4.0-10.0)
[2018-06-20 06:38] LABS: ANION GAP 7 MMOL/L (8-16); BLOOD UREA NITROGEN 31 mg/dL (7-18); CALCIUM 9.3 mg/dL (8.5-10.1); CHLORIDE 96 mmol/L (98-107); CO2 32 mmol/L (21-32); CREATININE 4.4 mg/dL (0.55-1.3); GLUCOSE,RANDOM 66 mg/dL (74-106); POTASSIUM 4.9 mmol/L (3.5-5.1); SODIUM 135 mmol/L (136-145)
--- NOTE | 2018-06-20 09:05 | PN ---
Progress Note, Physician Chief Complaint: denies chest pain, SOB More alert Less confused Diffuse twitching resolved. - Current Medication List Current Medications: Active Medications Acetaminophen (Tylenol -) 650 mg PO Q4H PRN PRN Reason: PAIN LEVEL 1-5 Clopidogrel Bisulfate (Plavix -) 75 mg PO DAILY [facility] Last Admin: 06/19/18 10:10 Dose: 75 mg Isosorbide Mononitrate (Imdur -) 30 mg PO DAILY [facility] Last Admin: 06/19/18 10:12 Dose: 30 mg Lidocaine HCl (Xylocaine 5% Top. Ointment) 1 applic TP BID [facility] Last Admin: 06/19/18 22:30 Dose: 1 applic Metoprolol Succinate (Toprol Xl -) 25 mg PO BID [facility] Last Admin: 06/19/18 22:29 Dose: 25 mg Polyethylene Glycol (Miralax (For Daily Use) -) 17 gm PO DAILY [facility] Last Admin: 06/19/18 10:12 Dose: Not Given Pregabalin (Lyrica -) 50 mg PO BID [facility] Last Admin: 06/19/18 22:29 Dose: 50 mg Sevelamer Carbonate (Renvela -) 800 mg PO TIDCM [facility] Last Admin: 06/19/18 17:53 Dose: 800 mg Warfarin Sodium (Coumadin -) 3 mg PO DAILY@1800 [facility] Last Admin: 06/19/18 17:53 Dose: 3 mg - Objective Vital Signs: Vital Signs Temperature 97.4 F L 06/20/18 02:00 Pulse Rate 81 06/20/18 06:00 Respiratory Rate 20 06/20/18 08:23 Blood Pressure 102/58 L 06/20/18 06:00 O2 Sat by Pulse Oximetry (%) 98 06/20/18 08:23 Constitutional: Yes: No Distress, Calm Eyes: Yes: Conjunctiva Clear Cardiovascular: Yes: Regular Rate and Rhythm Respiratory: Yes: CTA Bilaterally Gastrointestinal: Yes: Soft Edema: No Neurological: Yes: Alert, Oriented Labs: CBC, BMP 06/20/18 05:30 06/20/18 05:30 INR, PTT INR 1.87 (0.83-1.09) H 06/19/18 05:45 Laboratory Tests 06/16/18 06/17/18 06/17/18 05:30 05:30 05:30 WBC 10.7 H Hgb 10.6 L Hct Plt Count 214 INR 3.33 H Sodium Potassium BUN Creatinine AST Random Vancomycin 30.1 H* 06/17/18 06/19/18 06/20/18 05:30 05:45 05:30 WBC Hgb Hct Plt Count INR 1.87 H Pending Sodium 142 Potassium 4.2 BUN Creatinine 2.7 H AST 40 H Random Vancomycin 06/20/18 06/20/18 05:30 05:30 WBC 8.9 Hgb 11.0 L Hct 34.7 L Plt Count 248 INR Sodium 135 L Potassium 4.9 BUN 31 H Creatinine 4.4 H AST Random Vancomycin - ....Imaging EKG: Image Reviewed Problem List - Problems (1) Altered mental status Code(s): R41.82 - ALTERED MENTAL STATUS, UNSPECIFIED Qualifiers: Altered mental status type: unspecified Qualified Code(s): R41.82 - Altered mental status, unspecified (2) Acute drug-induced confusion Code(s): F19.988 - OTH PSYCHOACTIVE SUBSTANCE USE, UNSP W OTH DISORDER (3) CHF (congestive heart failure) Code(s): I50.9 - HEART FAILURE, UNSPECIFIED Qualifiers: Heart failure type: systolic Heart failure chronicity: chronic Qualified Code(s): I50.22 - Chronic systolic (congestive) heart failure (4) Chronic a-fib Code(s): I48.2 - CHRONIC ATRIAL FIBRILLATION (5) ESRD (end stage renal disease) on dialysis Code(s): N18.6 - END STAGE RENAL DISEASE; Z99.2 - DEPENDENCE ON RENAL DIALYSIS (6) Post herpetic neuralgia Code(s): B02.29 - OTHER POSTHERPETIC NERVOUS SYSTEM INVOLVEMENT (7) Pulmonary hypertension Code(s): I27.20 - PULMONARY HYPERTENSION, UNSPECIFIED (8) Toxic encephalopathy Code(s): G92 - TOXIC ENCEPHALOPATHY Assessment/Plan IMP: Multiple advanced comorbidities includin. Severe s/p TAVR 2. 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 ESRD on HD 4. AF on coumadin with supratherapeutic INR Today 5. Hx DVT, HIT, IVC filter 6. 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 Now presents to ER with altered mental status, fatigue, tremors: r/o occult infection vs toxic metabolic encephalopathy vs drug effect Borderline elevation in TnI in setting of chronic renal failure, long standing valvular heart disease, and possible sepsis. Do not suspect ACS. Now clinically improved. REC: 1. For HD TIW 2. F/u culture results 3. INR goal 2-3. No cardiology objection to discharge.
[2018-06-20 09:23] LABS: INR 1.49 (0.83-1.09); PROTHROMBIN TIME (PATIENT) 17.6 SEC (9.7-13.0)
[2018-06-20] MEDS: CLOPIDOGREL BISULFATE 75 MG TABLET (FP) PO SCH (09:40)
[2018-06-20] MEDS: PREGABALIN 50 MG CAPSULE PO SCH (09:40)
[2018-06-20] MEDS: LIDOCAINE HCL 5% TOP OINTMENT 50 GM TUBE TP SCH (09:41)
[2018-06-20] MEDS: SEVELAMER CARBONATE 800 MG TAB (FP) PO SCH (09:41)
[2018-06-20] MEDS: ISOSORBIDE MONONITRATE 30 MG TAB.SR.24H (FP) PO SCH (09:41)
[2018-06-20] MEDS: metoPROLOL SUCCINATE 25 MG TAB.SR.24H (FP) PO SCH (09:41)
[2018-06-20] MEDS: POLYETHYLENE GLYCOL 3350 119 GM BTL PO SCH (09:41)
--- NOTE | 2018-06-20 09:44 | DS ---
Physical Examination Vital Signs: Vital Signs Temperature 97.4 F L 06/20/18 02:00 Pulse Rate 81 06/20/18 06:00 Respiratory Rate 20 06/20/18 08:23 Blood Pressure 102/58 L 06/20/18 06:00 O2 Sat by Pulse Oximetry (%) 98 06/20/18 08:23 Constitutional: Yes: Well Nourished, No Distress, Calm Cardiovascular: Yes: Pulse Irregular Respiratory: Yes: Regular, CTA Bilaterally, Rales (bibasilar). No: Accessory Muscle Use, Tachypnea, Wheezes Gastrointestinal: Yes: WNL, Normal Bowel Sounds, Soft. No: Distention, Tenderness Renal/: Yes: Anuria Edema: No Neurological: Yes: WNL, Alert, Oriented Psychiatric: Yes: WNL, Alert, Oriented Labs: CBC, BMP 06/20/18 05:30 06/20/18 05:30 Discharge Summary Reason For Visit: ALTERED MENTAL STATUS Current Active Problems Acute metabolic encephalopathy (Acute) Altered mental status (Acute) Aortic valve prosthesis present (Acute) Atrial fibrillation (Acute) Elevated troponin (Acute) Hepatic encephalopathy (Acute) Herpes genitalis in men (Acute) Hyperbilirubinemia (Acute) Severe pulmonary arterial systolic hypertension (Acute) Hospital Course: 82 year old male pmh of ESRD, herpes zoster admitted for evaluation of altered mental status. Pt was recently discharged from [facility] on Acyclovir after diagnosis of herpes genitalia. Family noticed tremors, disorientation since being started on acyclovir. Pt has had similar episode with gabapentin in the past. Pt found to have elevated lfts, tbili, and ammonia level. Mental status improved with HD. Liver enzymes trended down, ammonia wnl s/p lactulose. Abd US without acute findings. BP has been trending low in hospital, hydralazine stopped. On admission, pt also found to have foul smelling drainage and increased pain from penile lesion biopsy site. Mild leukocytosis. Wound culture grew enterococcus/staph. Pt received 4 days of Zosyn/vanco. Topical lidocaine started. blood cultures neg. Pt evaluated by ID, monitored off antibx. Pt has been afebrile, labs unremarkable, biopsy site healed, drainage/pain improved. Otherwise, pt is stable for discharge. f/u as directed. 32 minutes spent in discharge planning Condition: Fair - Instructions Diet, Activity, Other Instructions: hydralazine stopped due to low bp continue coumadin home dose, check INR in 3 days follow up as directed Referrals: Jalen Metzger MD [Staff Physician] - 2 Weeks Paul Harris MD [Primary Care Provider] - 1 Week Disposition: VNS/HOME HEALTH CARE - Home Medications Comprehensive Discharge Medication List: Ambulatory Orders Cinacalcet HCl [Sensipar] 30 mg PO DAILY 06/13/18 Clopidogrel Bisulfate [Plavix] 75 mg PO DAILY 06/13/18 Isosorbide Mononitrate [Isosorbide Mononitrate ER] 30 mg PO DAILY 06/13/18 Metoprolol Succinate [Toprol Xl] 25 mg PO BID 06/13/18 Pregabalin [Lyrica -] 50 mg PO BID 06/13/18 Sevelamer Carbonate [Renvela -] 800 mg PO TID 06/13/18 Warfarin Sodium [Coumadin] 5 mg PO HS 06/13/18 Lidocaine 5% Top. Ointment [Xylocaine 5% Top. Ointment -] 1 applic TP BID tube 06/20/18
--- NOTE | 2018-06-20 10:17 | PN ---
Progress Note, Physician Chief Complaint: Pt alert & oriented. Sitting in chair after breakfast. c/o penile pain (shingles ). His daughter is present., and thinkd the lesion is a recurrence of shingles, but pt has hx HZV. History of Present Illness: Mr. Dahl is an 82 yo male w/ pmh of afib on coumadin, ESRD (T/R/S), htn, afib, and cardiac valve replacement who presents for evaluation of multiple complaints of AMS, difficulty breathing while on 2L NC at home with additional yellow skin color. Per daughter who is with him patient was recently discharged Wednesday from [facility] where patient was being evaluated for shingles exacerbation. 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 Per daughter patient was able to walk to dialysis session wednesday without difficulty however is now altered from baseline with different skin coloring. - Current Medication List Current Medications: Active Medications Acetaminophen (Tylenol -) 650 mg PO Q4H PRN PRN Reason: PAIN LEVEL 1-5 Clopidogrel Bisulfate (Plavix -) 75 mg PO DAILY [facility] Last Admin: 06/20/18 09:40 Dose: 75 mg Isosorbide Mononitrate (Imdur -) 30 mg PO DAILY [facility] Last Admin: 06/20/18 09:41 Dose: 30 mg Lidocaine HCl (Xylocaine 5% Top. Ointment) 1 applic TP BID [facility] Last Admin: 06/20/18 09:41 Dose: 1 applic Metoprolol Succinate (Toprol Xl -) 25 mg PO BID [facility] Last Admin: 06/20/18 09:41 Dose: 25 mg Polyethylene Glycol (Miralax (For Daily Use) -) 17 gm PO DAILY [facility] Last Admin: 06/20/18 09:41 Dose: Not Given Pregabalin (Lyrica -) 50 mg PO BID [facility] Last Admin: 06/20/18 09:40 Dose: 50 mg Sevelamer Carbonate (Renvela -) 800 mg PO TIDCM [facility] Last Admin: 06/20/18 09:41 Dose: 800 mg Warfarin Sodium (Coumadin -) 5 mg PO DAILY@1800 [facility] - Objective Vital Signs: Vital Signs Temperature 97.4 F L 06/20/18 02:00 Pulse Rate 81 06/20/18 06:00 Respiratory Rate 20 06/20/18 08:23 Blood Pressure 102/58 L 06/20/18 06:00 O2 Sat by Pulse Oximetry (%) 98 06/20/18 08:23 Constitutional: Yes: Calm Eyes: Yes: WNL HENT: Yes: WNL Neck: Yes: WNL Cardiovascular: Yes: Pulse Irregular Respiratory: Yes: Regular Gastrointestinal: Yes: Soft ...Rectal Exam: Yes: Deferred Genitourinary: Yes: Other (penile lesion). No: Anuria Breast(s): Yes: WNL Musculoskeletal: Yes: WNL Extremities: Yes: WNL Edema: No Peripheral Pulses WNL: Yes Integumentary: Yes: Other (shingles) Neurological: Yes: WNL Psychiatric: Yes: WNL Labs: CBC, BMP 06/20/18 05:30 06/20/18 05:30 INR, PTT INR 1.49 (0.83-1.09) H 06/20/18 05:30 Abnormal Lab Results 06/20/18 06/20/18 06/20/18 05:30 05:30 05:30 RBC 3.60 L Hgb 11.0 L Hct 34.7 L MCV 96.5 H MCHC 31.6 L RDW 20.4 H PT with INR 17.60 H INR 1.49 H Sodium 135 L Chloride 96 L Anion Gap 7 L BUN 31 H Creatinine 4.4 H Random Glucose 66 L Problem List - Problems (1) Altered mental status Code(s): R41.82 - ALTERED MENTAL STATUS, UNSPECIFIED Qualifiers: Altered mental status type: unspecified Qualified Code(s): R41.82 - Altered mental status, unspecified (2) Herpes genitalis in men Code(s): A60.02 - HERPESVIRAL INFECTION OF OTHER MALE GENITAL ORGANS (3) ESRD (end stage renal disease) on dialysis Assessment/Plan: 3x/week. Code(s): N18.6 - END STAGE RENAL DISEASE; Z99.2 - DEPENDENCE ON RENAL DIALYSIS (4) Elevated INR Code(s): R79.1 - ABNORMAL COAGULATION PROFILE (5) HTN (hypertension) Code(s): I10 - ESSENTIAL (PRIMARY) HYPERTENSION Qualifiers: Hypertension type: essential hypertension Qualified Code(s): I10 - Essential (primary) hypertension (6) Atrial fibrillation Assessment/Plan: Restart warfarin (INR therapeutic) On metoprolol ER for HR control. Code(s): I48.91 - UNSPECIFIED ATRIAL FIBRILLATION (7) Severe pulmonary arterial systolic hypertension Code(s): I27.21 - SECONDARY PULMONARY ARTERIAL HYPERTENSION (8) Aortic valve prosthesis present Assessment/Plan: TAVR; moderate AR; normal LVEF; severe LAE; severe pulm HTN Code(s): Z95.2 - PRESENCE OF PROSTHETIC HEART VALVE (9) Shingles Assessment/Plan: affecdted right side of face, with mild residual pain. Now with penile lesion Code(s): B02.9 - ZOSTER WITHOUT COMPLICATIONS
[2018-06-20 10:42] VITALS: BP 129/57; PULSE 91
[2018-06-20] MEDS ORDERED: WARFARIN NA 5 MG TABLET (UD) PO SCH (18:00)
== END 2018-06-20 11:41 | disposition home health service (06) | DRG 862 ==
LOC: JER 13:27 → JERBED 17:54 → J4W 06-14 03:47
PROVIDERS: ADMIT Internal Medicine; ATTEND Internal Medicine
PROC: 5A1D70Z Performance of Urinary Filtration, Intermittent, Less than 6 Hours Per Day (ICD-10-PCS; principal; 2018-06-13)
PROC: 5A1D70Z Performance of Urinary Filtration, Intermittent, Less than 6 Hours Per Day (ICD-10-PCS; 2018-06-14)
PROC: 5A1D70Z Performance of Urinary Filtration, Intermittent, Less than 6 Hours Per Day (ICD-10-PCS; 2018-06-16)
PROC: 5A1D70Z Performance of Urinary Filtration, Intermittent, Less than 6 Hours Per Day (ICD-10-PCS; 2018-06-18)
DX: T81.40XA Infection following a procedure, unspecified, initial encounter (principal); G93.41 Metabolic encephalopathy; N18.6 End stage renal disease; B02.29 Other postherpetic nervous system involvement; I13.2 Hypertensive heart and chronic kidney disease with heart failure and with stage 5 chronic kidney disease, or end stage renal disease; I50.22 Chronic systolic (congestive) heart failure; T37.5X5A Adverse effect of antiviral drugs, initial encounter; A60.01 Herpesviral infection of penis; I48.91 Unspecified atrial fibrillation; E87.5 Hyperkalemia; D63.1 Anemia in chronic kidney disease; R00.0 Tachycardia, unspecified; E80.6 Other disorders of bilirubin metabolism; D72.829 Elevated white blood cell count, unspecified; I45.10 Unspecified right bundle-branch block; F19.988 Other psychoactive substance use, unspecified with other psychoactive substance-induced disorder; I48.2 Chronic atrial fibrillation; I27.20 Pulmonary hypertension, unspecified; R74.8 Abnormal levels of other serum enzymes; I08.3 Combined rheumatic disorders of mitral, aortic and tricuspid valves; Z95.2 Presence of prosthetic heart valve; Z99.2 Dependence on renal dialysis; Z79.01 Long term (current) use of anticoagulants
CPT/HCPCS: 36415; 70450-TC; 71045-TC-FY; 76700-TC; 80048; 80053; 80061; 80076; 80307; 82140; 82550; 82553; 83690; 83721; 83735; 84100; 84443; 84484; 85025; 85610; 85730; 86704; 86706; 86708; 86803; 87040; 87070; 87102; 87186; 87205; 87210; 87340; 90688; 93005; 93010; 97116-GP; 97161-GP; 99284-25; G0008; G0480; J0885

== ENCOUNTER 2018-08-29 11:04 | Emergency (ER) | payer OTHER ==
[2018-08-29 11:10] VITALS: TEMP 97.6; BMI 26.3
--- NOTE | 2018-08-29 12:01 | PDOC ---
History of Present Illness - General History Source: Patient Exam Limitations: No Limitations - History of Present Illness Initial Comments: 08/29/18 12:32 The patient is an 82 year old male with a CHDF, COPD, afib on coumadin, and ESRD on dialysis presenting with a nonproductive cough for the past week. Patient has noticed the coughing has been worsening over the last few days prompting them to call the PCP, who told him to come to the ER. Patient was concerned as he had fluid in the lungs in the past. Last bowel movement was this morning. The patient denies chest pain, shortness of breath, headache and dizziness. Denies fever, chills, nausea, vomit, diarrhea and constipation. Denies dysuria, frequency, urgency and hematuria. Allergies: NKA Past surgical history: AVR, left arm fistula, right chest shiley Social history: No reported alcohol, drug or cigarette use. PCP: Dr. Harris <Marce Jenkins - Last Filed: 08/29/18 12:32> <Cristal Mart - Last Filed: 08/29/18 14:29> - General Chief Complaint: Respiratory Stated Complaint: COUGH Time Seen by Provider: 08/29/18 11:47 Past History <Marce Jenkins - Last Filed: 08/29/18 12:32> - Past Medical History Anemia: Yes Asthma: No Cancer: No Cardiac Disorders: Yes (atrial fibrillation,CAD, aortic stenosis, aortic aneurysm) CVA: No COPD: No CHF: No DVT: No Dementia: No Diabetes: Yes Dialysis: Yes (//WED) GI Disorders: No Disorders: No HTN: Yes Hypercholesterolemia: Yes Kidney Stones: (renal failure shiley to right chest, av fistula to left arm) Liver Disease: No Seizures: No Thyroid Disease: No - Surgical History Abdominal Surgery: No Appendectomy: No Cardiac Surgery: Yes (AVR) Cholecystectomy: No Lung Surgery: (left arm fistula, right chest shiley) Neurologic Surgery: No Orthopedic Surgery: No - Immunization History Immunization Up to Date: No - Suicide/Smoking/Psychosocial Hx Smoking Status: No Smoking History: Never smoked Have you smoked in the past 12 months: No Number of Cigarettes Smoked Daily: 0 If you are a former smoker, when did you quit?: 42 years ago Information on smoking cessation initiated: No Hx Alcohol Use: No Drug/Substance Use Hx: No Substance Use Type: None Hx Substance Use Treatment: No <Soraida Martzabeth - Last Filed: 08/29/18 14:29> - Past Medical History Allergies/Adverse Reactions: Allergies Allergy/AdvReac Type Severity Reaction Status Date / Time enoxaparin sodium Allergy Verified 08/29/18 11:51 [From Lovenox] heparin (porcine) Allergy heparin Verified 08/29/18 11:51 [Heparin,Porcine] induced platelet antibody Home Medications: Ambulatory Orders Cinacalcet HCl [Sensipar] 30 mg PO DAILY 06/13/18 Clopidogrel Bisulfate [Plavix] 75 mg PO DAILY 06/13/18 Isosorbide Mononitrate [Isosorbide Mononitrate ER] 30 mg PO DAILY 06/13/18 Metoprolol Succinate [Toprol Xl] 12.5 mg PO BID 06/13/18 Sevelamer Carbonate [Renvela -] 800 mg PO TID 06/13/18 Warfarin Sodium [Coumadin] 5 mg PO HS 06/13/18 Folic Acid/Vit B Complex and C [Dialyvite 800 Tablet] 0.8 mg PO DAILY 08/29/18 Review of Systems - Review of Systems Able to Perform ROS?: Yes Comments:: 08/29/18 12:33 ADULT ROS GENERAL/CONSTITUTIONAL: No fever or chills. No weakness. HEAD, EYES, EARS, NOSE AND THROAT: No change in vision. No ear pain or discharge. No sore throat. CARDIOVASCULAR: No chest pain or shortness of breath. RESPIRATORY: No wheezing, or hemoptysis. (+) cough. GASTROINTESTINAL: No nausea, vomiting, diarrhea or constipation. GENITOURINARY: No dysuria, frequency, or change in urination. MUSCULOSKELETAL: No joint or muscle swelling or pain. No neck or back pain. SKIN: No rash NEUROLOGIC: No headache, vertigo, loss of consciousness, or change in strength/ sensation. ENDOCRINE: No increased thirst. No abnormal weight change. HEMATOLOGIC/LYMPHATIC: No anemia, easy bleeding, or history of blood clots. ALLERGIC/IMMUNOLOGIC: No hives or skin allergy. <Marce Jenkins - Last Filed: 08/29/18 12:32> *Physical Exam - Vital Signs Last Vital Signs Temp Pulse Resp BP Pulse Ox 97.6 F 82 16 126/56 L 98 08/29/18 11:07 08/29/18 11:07 08/29/18 11:07 08/29/18 11:07 08/29/18 11:07 <Marce Jenkins - Last Filed: 08/29/18 12:32> - Vital Signs Last Vital Signs Temp Pulse Resp BP Pulse Ox 97.6 F 82 16 126/56 L 98 08/29/18 11:07 08/29/18 11:07 08/29/18 11:07 08/29/18 11:07 08/29/18 11:07 - Physical Exam Comments: GENERAL: Awake, alert, and fully oriented, in no acute distress HEAD: No signs of trauma EYES: PERRLA, EOMI, sclera anicteric, conjunctiva clear ENT: Auricles normal inspection, hearing grossly normal, nares patent, oropharynx clear without exudates. Moist mucosa NECK: Normal ROM, supple, no lymphadenopathy, JVD, or masses LUNGS: Good air entry B/L, +fine crackles at R base. HEART: Regular rate and rhythm, normal S1 and S2, no murmurs, rubs or gallops ABDOMEN: Soft, nontender, normoactive bowel sounds. No guarding, no rebound. No masses EXTREMITIES: Normal range of motion, no edema. No clubbing or cyanosis. No cords, erythema, or tenderness NEUROLOGICAL: Cranial nerves II through XII grossly intact. Normal speech. Motor and sensation intact SKIN: Warm, Dry, normal turgor, no rashes or lesions noted. <Cristal Mart - Last Filed: 08/29/18 14:29> Moderate Sedation - Procedure Monitoring Vital Signs: Procedure Monitoring Vital Signs Temperature 97.6 F 08/29/18 11:07 Pulse Rate 82 08/29/18 11:07 Respiratory Rate 16 08/29/18 11:07 Blood Pressure 126/56 L 08/29/18 11:07 O2 Sat by Pulse Oximetry (%) 98 08/29/18 11:07 <Marce Jenkins - Last Filed: 08/29/18 12:32> - Procedure Monitoring Vital Signs: Procedure Monitoring Vital Signs Temperature 97.6 F 08/29/18 11:07 Pulse Rate 82 08/29/18 11:07 Respiratory Rate 16 08/29/18 11:07 Blood Pressure 126/56 L 08/29/18 11:07 O2 Sat by Pulse Oximetry (%) 98 08/29/18 11:07 <Cristal Mart - Last Filed: 08/29/18 14:29> ED Treatment Course - LABORATORY CBC & Chemistry Diagram: 08/29/18 12:21 08/29/18 12:21 <Marce Jenkins - Last Filed: 08/29/18 12:32> - LABORATORY CBC & Chemistry Diagram: 08/29/18 12:21 08/29/18 12:21 <Cristal Mart - Last Filed: 08/29/18 14:29> Medical Decision Making - Medical Decision Making 08/29/18 14:[address] Harris. Patient's baseline BNP is ~[id number], no significant change today. Stable for DC home. <Cristal Mart - Last Filed: 08/29/18 14:29> *DC/Admit/Observation/Transfer - Attestations Scribe Attestion: 08/29/18 12:34 Documentation prepared by Marce Jenkins, acting as medical economics consultant for Cristal Mart MD. <Marce Jenkins - Last Filed: 08/29/18 12:32> - Discharge Dispostion Decision to Admit order: No <Cristal Mart - Last Filed: 08/29/18 14:29> Diagnosis at time of Disposition: Shortness of breath - Discharge Dispostion Disposition: HOME Condition at time of disposition: Stable - Referrals Referrals: Paul Harris MD [Primary Care Provider] - - Patient Instructions Printed Discharge Instructions: DI for Shortness of Breath - Post Discharge Activity
[2018-08-29 12:36] LABS: MCHC 33.4 g/dl (32.0-35.9); WHITE BLOOD COUNT 6.5 K/mm3 (4.0-10.0)
[2018-08-29 12:50] LABS: BASO % 1.3 % (0-2.0); EOS % 4.3 % (0-4.5); HEMATOCRIT 35.9 % (35.4-49); LYMPH % 25.6 % (8-40); MCH 32.3 pg (25.7-33.7); MEAN CELL VOLUME 96.9 fl (80-96); MONO % 12.4 % (3.8-10.2); NEUT % 56.4 % (42.8-82.8); PLATELET COUNT 194 K/MM3 (134-434); RBC 3.71 M/mm3 (4.00-5.60); RDW 19.6 % (11.9-15.9)
[2018-08-29 13:18] LABS: ALBUMIN 2.8 g/dl (3.4-5.0); ALK PHOS 104 U/L (45-117); ANION GAP 8 MMOL/L (8-16); BILIRUBIN,TOTAL 0.5 mg/dL (0.2-1); BLOOD UREA NITROGEN 33 mg/dL (7-18); CALCIUM 8.7 mg/dL (8.5-10.1); CHLORIDE 103 mmol/L (98-107); CO2 27 mmol/L (21-32); CREATININE 5.5 mg/dL (0.55-1.3); GLUCOSE,RANDOM 77 mg/dL (74-106); N-TERMINAL BNP 133972.2 pg/ml (5-450); POTASSIUM 4.9 mmol/L (3.5-5.1); SGOT/AST 17 U/L (15-37); SGPT/ALT 13 U/L (13-61); SODIUM 138 mmol/L (136-145); TOT PROT 6.6 g/dl (6.4-8.2)
[2018-08-29 13:33] LABS: INR 2.6 (0.83-1.09)
[2018-08-29 13:36] LABS: ACTIVATED PTT 36.4 SECONDS (25.2-36.5)
[2018-08-29] MEDS ORDERED: FUROSEMIDE 40 MG/4 ML INJECTABLE VIAL IVPUSH ONE (14:16)
[2018-08-29 14:35] VITALS: BP 123/70; PULSE 76
--- NOTE | 2018-08-29 14:43 | EKG ---
Test Reason : Blood Pressure : / mmHG Vent. Rate : 059 BPM Atrial Rate : 288 BPM P-R Int : 000 ms QRS Dur : 096 ms QT Int : 414 ms P-R-T Axes : 000 090 -09 degrees QTc Int : 409 ms ATRIAL FIBRILLATION WITH SLOW VENTRICULAR RESPONSE RIGHTWARD AXIS INCOMPLETE RIGHT BUNDLE BRANCH BLOCK ABNORMAL ECG WHEN COMPARED WITH ECG OF 13-JUN-2018 13:49, VENT. RATE HAS DECREASED BY 35 BPM T WAVE VARIATION Confirmed by PORSHA VALDERRAMA, BERT ([id number]) on 08/29/2018 2:42:57 PM Referred By: Confirmed By:BERT STORY MD
== END 2018-08-29 14:38 | disposition home or self-care (01) ==
LOC: JER 11:04
DX: R06.02 Shortness of breath (principal); Z87.891 Personal history of nicotine dependence; E78.00 Pure hypercholesterolemia, unspecified; I10 Essential (primary) hypertension
CPT/HCPCS: 36415; 71045-TC-FY; 80053; 82550; 83880; 84484; 85025; 85610; 85730; 93005; 93010; 99282-25

== ENCOUNTER 2018-08-31 14:57 | Inpatient (IN) | payer OTHER ==
--- NOTE | 2018-08-31 15:05 | PDOC ---
Rapid Medical Evaluation Time Seen by Provider: 08/31/18 15:00 Medical Evaluation: Allergies Allergy/AdvReac Type Severity Reaction Status Date / Time enoxaparin sodium Allergy Verified 08/29/18 11:51 [From Lovenox] heparin (porcine) Allergy heparin Verified 08/29/18 11:51 [Heparin,Porcine] induced platelet antibody 08/31/18 15:00 I have performed a brief in-person evaluation of this patient. The patient presents with a chief complaint of: AMS- change in personality Pertinent physical exam findings: Lungs CTAB. Abdomen SNTND. A&Ox2 (Person, Place, 07/2018) I have ordered the following: labs, ekg, CTH The patient will proceed to the ED for further evaluation. Discharge Disposition - Diagnosis Altered mental status - Referrals - Patient Instructions - Post Discharge Activity
[2018-08-31 15:29] LABS: BASO % 1.5 % (0-2.0); WHITE BLOOD COUNT 6.2 K/mm3 (4.0-10.0)
[2018-08-31 15:44] LABS: EOS % 2.8 % (0-4.5); HEMATOCRIT 37.4 % (35.4-49); HEMOGLOBIN 11.7 GM/dL (11.7-16.9); LYMPH % 25.8 % (8-40); MCH 30.5 pg (25.7-33.7); MCHC 31.3 g/dl (32.0-35.9); MEAN CELL VOLUME 97.5 fl (80-96); MEAN PLT VOLUME 8.9 fl (7.5-11.1); MONO % 11.9 % (3.8-10.2); PLATELET COUNT 186 K/MM3 (134-434); RBC 3.83 M/mm3 (4.00-5.60); RDW 20.1 % (11.9-15.9)
[2018-08-31 15:45] LABS: INR 3.04 (0.83-1.09); PROTHROMBIN TIME (PATIENT) 36.3 SEC (9.7-13.0)
[2018-08-31 16:05] LABS: ALK PHOS 88 U/L (45-117); ANION GAP 10 MMOL/L (8-16); BLOOD UREA NITROGEN 27 mg/dL (7-18); CALCIUM 8.9 mg/dL (8.5-10.1); CHLORIDE 104 mmol/L (98-107); CO2 27 mmol/L (21-32); CREATININE 4.8 mg/dL (0.55-1.3); GLUCOSE,RANDOM 100 mg/dL (74-106); POTASSIUM 4.7 mmol/L (3.5-5.1); SGOT/AST 15 U/L (15-37); SGPT/ALT 12 U/L (13-61); SODIUM 141 mmol/L (136-145); TOT PROT 6.8 g/dl (6.4-8.2)
--- NOTE | 2018-08-31 17:15 | PDOC ---
History of Present Illness - History of Present Illness Initial Comments: 08/31/18 18:32 The patient is an 82 year old male with a history of HTN, HLD, DM, Afib, ESRD on dialysis (, , Wed), Anemia who presents for evaluation of altered mental status. The patient's family is present with the patient who assist in providing the history. They note that the patient has been getting increasingly altered over the past few days. They note that the patient had presented 2 days ago for cough and shortness of breath and discharged after being medically cleared. They note the patient has continued to be short of breath at home as well in addition to his increasingly altered behavior. They state that the patient was recently started on xanax and lexipro by his primary care provider 1 day ago without improvement in his symptoms. The patient otherwise denies fevers, chills, chest pain, nausea, vomiting, abdominal pain, or changes with urination or bowel movements. <Will Hilliard - Last Filed: 09/01/18 13:19> <Yamile Lund - Last Filed: 09/04/18 07:49> - General Chief Complaint: Altered Mental Status Stated Complaint: ALTERED MENTAL STATUS Time Seen by Provider: 08/31/18 15:00 Past History - Past Medical History Anemia: Yes Asthma: No Cancer: No Cardiac Disorders: Yes (atrial fibrillation,CAD, aortic stenosis, aortic aneurysm) CVA: No COPD: No CHF: No DVT: No Dementia: No Diabetes: Yes Dialysis: Yes (//WED) GI Disorders: No Disorders: No HTN: Yes Hypercholesterolemia: Yes Kidney Stones: (renal failure shiley to right chest, av fistula to left arm) Liver Disease: No Seizures: No Thyroid Disease: No - Surgical History Abdominal Surgery: No Appendectomy: No Cardiac Surgery: Yes (AVR) Cholecystectomy: No Lung Surgery: (left arm fistula, right chest shiley) Neurologic Surgery: No Orthopedic Surgery: No - Immunization History Immunization Up to Date: No - Suicide/Smoking/Psychosocial Hx Smoking Status: No Smoking History: Never smoked Have you smoked in the past 12 months: No Number of Cigarettes Smoked Daily: 0 If you are a former smoker, when did you quit?: 42 years ago Information on smoking cessation initiated: No Hx Alcohol Use: No Drug/Substance Use Hx: No Substance Use Type: None Hx Substance Use Treatment: No <Will Hilliard - Last Filed: 09/01/18 13:19> <Yamile Lund Tijulio cesar - Last Filed: 09/04/18 07:49> - Past Medical History Allergies/Adverse Reactions: Allergies Allergy/AdvReac Type Severity Reaction Status Date / Time enoxaparin sodium Allergy Verified 08/29/18 11:51 [From Lovenox] heparin (porcine) Allergy heparin Verified 08/29/18 11:51 [Heparin,Porcine] induced platelet antibody Home Medications: Ambulatory Orders Cinacalcet HCl [Sensipar] 30 mg PO DAILY 06/13/18 Clopidogrel Bisulfate [Plavix] 75 mg PO DAILY 06/13/18 Isosorbide Mononitrate [Isosorbide Mononitrate ER] 30 mg PO DAILY 06/13/18 Metoprolol Succinate [Toprol Xl] 12.5 mg PO BID 06/13/18 Sevelamer Carbonate [Renvela -] 800 mg PO TID 06/13/18 Warfarin Sodium [Coumadin] 5 mg PO HS 06/13/18 Folic Acid/Vit B Complex and C [Dialyvite 800 Tablet] 0.8 mg PO DAILY 08/29/18 Cinacalcet HCl [Sensipar -] 1 tab PO HS 08/31/18 Review of Systems - Review of Systems Comments:: 08/31/18 18:40 Constitutional: No fevers, chills, fatigue, malaise HEENT: No Rhinorrhea, nasal congestion, visual changes Cardiovascular: No chest pain, syncope, palpitations, lightheadedness Respiratory: SOB. No Cough, Hemoptysis, Gastrointestinal: No Abdominal pain, Nausea, Vomiting, Constipation, Diarrhea, Melena Genitourinary: No Dysuria, Frequency, Urgency, Hesitancy, Hematuria, Flank pain Musculoskeletal: No Myalgia, arthralgia Skin: No rashes, itching, bruising, pallor Neurologic: No Headache, Dizziness, Numbness, Weakness, or Tingling Psychiatric: No Hallucinations. No SI or HI <Will Hilliard - Last Filed: 09/01/18 13:19> *Physical Exam - Vital Signs Last Vital Signs Temp Pulse Resp BP Pulse Ox 97.5 F L 77 14 110/60 100 08/31/18 14:57 08/31/18 14:57 08/31/18 14:57 08/31/18 14:57 08/31/18 14:57 - Physical Exam Comments: 08/31/18 18:40 General Appearance: Nourished. No Apparent Distress HEENT: EOMI, RL. No Pharyngeal Erythema, Tonsillar Exudate, Tonsillar Erythema Neck: No Cervical Lymphadenopathy Respiratory/Chest: Lungs Clear, Normal Breath Sounds. No Crackles, Rales, Rhonchi, Wheezing Cardiovascular: Regular Rhythm, Regular Rate. No Murmur, Gallops, Rubs Gastrointestinal/Abdominal: Normal Bowel Sounds, Soft. No Guarding, Rebound, Tenderness Musculoskeletal: No CVA Tenderness Extremity: Normal Capillary Refill Integumentary: Normal Color, Dry, Warm Neurologic: learning engineer II-XII NML intact, Fully Oriented, Alert, Normal Mood/Affect, Normal Response, <Will Hilliard - Last Filed: 09/01/18 13:19> - Vital Signs Last Vital Signs Temp Pulse Resp BP Pulse Ox 98.1 F 77 18 106/51 L 96 09/02/18 16:20 09/02/18 19:40 09/02/18 19:40 09/02/18 19:40 09/02/18 09:00 <Yamile Lund - Last Filed: 09/04/18 07:49> Moderate Sedation - Procedure Monitoring Vital Signs: Procedure Monitoring Vital Signs Temperature 97.5 F L 08/31/18 14:57 Pulse Rate 77 08/31/18 14:57 Respiratory Rate 14 08/31/18 14:57 Blood Pressure 110/60 08/31/18 14:57 O2 Sat by Pulse Oximetry (%) 100 08/31/18 14:57 <Will Hilliard - Last Filed: 09/01/18 13:19> - Procedure Monitoring Vital Signs: Procedure Monitoring Vital Signs Temperature 98.1 F 09/02/18 16:20 Pulse Rate 77 09/02/18 19:40 Respiratory Rate 18 09/02/18 19:40 Blood Pressure 106/51 L 09/02/18 19:40 O2 Sat by Pulse Oximetry (%) 96 09/02/18 09:00 <Yamile Lund - Last Filed: 09/04/18 07:49> ED Treatment Course - LABORATORY CBC & Chemistry Diagram: 09/01/18 05:30 09/01/18 05:30 - ADDITIONAL ORDERS Additional order review: Laboratory Results 08/31/18 08/31/18 15:17 15:17 PT with INR 36.30 H INR 3.04 H Sodium 141 Potassium 4.7 Chloride 104 Carbon Dioxide 27 Anion Gap 10 BUN 27 H Creatinine 4.8 H Creat Clearance w eGFR 11.73 Random Glucose 100 Calcium 8.9 Total Bilirubin 1.0 AST 15 ALT 12 L Alkaline Phosphatase 88 Creatine Kinase 39 Troponin I 0.07 H Total Protein 6.8 Albumin 3.0 L 08/31/18 15:17 RBC 3.83 L MCV 97.5 H MCHC 31.3 L RDW 20.1 H MPV 8.9 Neutrophils % 58.0 Lymphocytes % 25.8 Monocytes % 11.9 H Eosinophils % 2.8 Basophils % 1.5 <Will Hilliard - Last Filed: 09/01/18 13:19> - LABORATORY CBC & Chemistry Diagram: 09/02/18 05:30 09/02/18 05:30 - ADDITIONAL ORDERS Additional order review: 09/01/18 11:30 Blood Culture - Preliminary Blood - Peripheral Venous NO GROWTH OBTAINED AFTER 48 HOURS, INCUBATION TO CONTINUE FOR 3 DAYS. 09/01/18 11:40 Blood Culture - Preliminary Blood - Peripheral Venous NO GROWTH OBTAINED AFTER 48 HOURS, INCUBATION TO CONTINUE FOR 3 DAYS. 09/01/18 08/31/18 05:30 15:17 RBC 3.66 L 3.83 L MCV 97.8 H 97.5 H MCHC 31.6 L 31.3 L RDW 19.7 H 20.1 H MPV 8.5 8.9 Neutrophils % 57.1 58.0 Lymphocytes % 24.2 25.8 Monocytes % 12.7 H 11.9 H Eosinophils % 4.4 2.8 Basophils % 1.6 1.5 - Medications Given in the ED: ED Medications Discontinued Medications Generic Name Dose Route Start Last Admin Trade Name Freq PRN Reason Stop Dose Admin Cinacalcet 30 mg 09/01/18 10:00 09/02/18 11:52 Sensipar - PO 30 mg DAILY MATEUS Administration Clopidogrel Bisulfate 75 mg 09/01/18 10:00 09/02/18 11:51 Plavix - PO 75 mg DAILY MATEUS Administration Isosorbide Mononitrate 30 mg 09/01/18 10:00 09/02/18 11:51 Imdur - PO 30 mg DAILY MATEUS Administration Ketorolac Tromethamine 30 mg 08/31/18 18:57 08/31/18 19:02 Toradol Injection - IVPUSH 08/31/18 18:58 Not Given ONCE ONE Metoprolol Succinate 12.5 mg 08/31/18 22:00 09/02/18 21:14 Toprol Xl - PO 12.5 mg BID MATEUS Administration Multivit/Ca Carb/B Cmplx/FA/Prenat 1 tablet 09/01/18 10:00 09/02/18 11:51 Nephro-Azalea - PO 1 tablet DAILY MATEUS Administration Pantoprazole Sodium 40 mg 09/01/18 10:00 09/02/18 11:51 Protonix - PO 40 mg DAILY MATEUS Administration Quetiapine Fumarate 100 mg 08/31/18 18:54 08/31/18 19:01 Seroquel - PO 08/31/18 18:55 100 mg ONCE ONE Administration Sevelamer Carbonate 800 mg 09/01/18 08:00 09/02/18 16:51 Renvela - PO Not Given TIDCM MATEUS Trazodone HCl 50 mg 08/31/18 21:13 08/31/18 22:58 Desyrel - PO 50 mg HS PRN Administration INSOMNIA Warfarin Sodium 5 mg 09/02/18 18:00 09/02/18 21:14 Coumadin - PO 5 mg DAILY@1800 MATEUS Administration <Yamile Lund - Last Filed: 09/04/18 07:49> Medical Decision Making - Medical Decision Making 08/31/18 18:41 The patient is an 82 year old male with a history of HTN, HLD, DM, Afib, ESRD on dialysis (Tues, Thurs, Sat), Anemia who presents for evaluation of altered mental status. Differential includes but is not limited to: Intracranial process, ACS, Infectious, Metabolic Derangement. Given the patient's history and physical exam, we obtained a cbc, cmp, troponin, ekg, chest plain film, head ct to evaluate further. CBC, cmp was unchanged. Troponin was 0.07 more elevated than 0.05 two days ago. Chest plain film is unchanged. Head ct is unremarkable as read by our radiologist. Given the patient's elevated troponin and altered behavior, we believe he requires observation admission for further monitoring. We will continue to monitor and reassess while here in the ED. 08/31/18 19:19 We discussed the case with the admitting team who accepted the patient for observation admission. <Will Hilliard - Last Filed: 09/01/18 13:19> *DC/Admit/Observation/Transfer <Will Hilliard - Last Filed: 09/01/18 13:19> - Discharge Dispostion Decision to Admit order: Yes <Yamile Lund - Last Filed: 09/04/18 07:49> Diagnosis at time of Disposition: Shortness of breath, Elevated troponin Altered mental status Qualifiers: Altered mental status type: unspecified Qualified Code(s): R41.82 - Altered mental status, unspecified - Discharge Dispostion Condition at time of disposition: Guarded
[2018-08-31] MEDS ORDERED: QUEtiapine FUMARATE 100 MG TABLET (FP) PO ONE (18:54)
--- NOTE | 2018-08-31 18:56 | PDOC ---
Attending Attestation - Resident Resident Name: Will Hilliard - ED Attending Attestation I have performed the following: I have examined & evaluated the patient, The case was reviewed & discussed with the resident, I agree w/resident's findings & plan - HPI HPI: 08/31/18 18:51 82 year old male with a history of HTN, HLD, DM, Afib, ESRD on dialysis (Tues, Thurs, Sat), Anemia who presents for evaluation of altered mental status. increased sundowning, agitation at nighttime particularly; family having difficulty managing saw PMD Dr Gonzales yesterday, rx'd xanax and lexapro. now with increased and worsening agitation. - Physicial Exam PE: 08/31/18 18:52 NAD, well appearing, pleasantly demented. eating sandwich and comfortable. PERRL , EOMI, MMM, nl conjunctiva, anicteric; neck supple. lungs clear, RRR, abdomen soft nontender. CLINE x4, no focal neuro deficits. No peripheral edema. normal color for ethnicity, WWP. no calf tenderness. - Medical Decision Making 08/31/18 18:53 See HPI for details Vital signs reviewed, wnl. Prior notes reviewed, including admissions, discharges and consultations. laboratory results and imaging reviewed, basic labs and lytes wnl, notable for_ . coags mildly elevated, no bleeding. on AC, so trend CXR_cardiomegaly, no acute pathology Cardiac panel_positive trop, so serial trends. EKG normal sinus rhythm, no interval abnormalities, narrow QRS, ST and T wave segments and morphology normal. Nonspecific T wave abnormalities in III, AVF and V2 ED course: seroquel for control of agitation tonight, PRN haldol for nighttime agitation. will admit for monitoring, med control, trend trops. tele monitor Admit for AMS/agitation 2/2 dementia. Discussed results and management plan with pt and family member at bedside, agree with impression and plan 08/31/18 19:52 Heart Score/ECG Review - ECG Impressions Normal ECG: No Comment:: 08/31/18 18:57 EKG normal sinus rhythm, no interval abnormalities, narrow QRS, ST and T wave segments and morphology normal. Nonspecific T wave abnormalities in III, AVF and V2
[2018-08-31] MEDS ORDERED: KETOROLAC TROMETHAMINE 30 MG/1 ML VIAL IVPUSH ONE (18:57)
[2018-08-31] MEDS ORDERED: QUEtiapine FUMARATE 100 MG TABLET (FP) ONE (19:00)
--- NOTE | 2018-08-31 20:27 | PN ---
Teaching Attending Note Name of Resident: Song Harris ATTENDING PHYSICIAN STATEMENT I saw and evaluated the patient. I reviewed the resident's note and discussed the case with the resident. I agree with the resident's findings and plan as documented. SUBJECTIVE: Seen and examined; please refer to resident note for further historical information. Briefly, this is a 82 y/o male presenting with per the ER CC of from home (but per the patient and son SOB/dizziness when he moves around or lays down). He has a complex PMH as discussed below Per the ER, he was seen by his PCP yesterday for increasing confusion at home and started on lexapro and xanax with no improvement so was brought to the ER for further treatment and monitoring. He does not have any focal neurological sx. He is a poor historian but is able to answer all questions appropriately without any issues. There is also a component of history involving SOB/dizziness as mentioned; this is the primary concern of the son. He was seen here 2 days ago for SOB and he was discharged home. He has been having increased GRAVES for months. He continues with these sx and they are accompanied by dizziness that is pronounced when he lays down and somewhat when he moves around; they're consistent with tachypnea, no rotational movement described. No constitutional sx. Did get HD yesterday. Patient himself doesn't complain of SOB; no dyspnea , no tachypnea. Per the son he gets tachypnic spells with activity. 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 Family is involved in his care. Medication list reviewed; pending reconciliation OBJECTIVE: VS, labs, imaging reviewed NAD, AAO, Resting in bed and at baseline per son CN2-12 wnl, no fnd HR normal, IV/ murmur systolic Lungs mostly clear w/ sym exp NT ND +BS Very mild JVD with no LE edema Normal mood, appropriate affect. Not agitated. CBC unremarkable aside from MCV of 97, BUN/Cr 27/4.8, Troponin 0.07. CXR without any interval change since prior study, cardiomegaly noted CT head without acute findings; moderate atrophy Prior echo 01/2018 reviewed; normal LVEF, severe pulmonary HTN, PASP 91 EKG reviewed ASSESSMENT AND PLAN: Patient presents for multiple reasons; dizziness and SOB with laying/activity as well as some concern for sundowning/agitation 1) Sundowning/Intermittent agitation -Not james concern of the patient or family who were present -Hold off on recently started xanax/lexapro; neuro checks, monitor on floor -Check B12, thiamine, RPR -Nonpharmacologic measures as first line if he becomes agitated 2) Intermittent dizziness with SOB -Negative CXR; BNP pending; trop 0.07 with no classic sx of ACS in a patient with ESRD, not requiring O2. -Followup remaining workup; could be related to orthopnea from his underlying heart dz/pulmonary HTN; fluid removal per HD -Reviewed 2018 echocardiogram; checking orthostatic VS. -Checking carotid doppler -If negative workup with persistent symptoms can consider discussing medication adjustments with CV, etc. Monitor on tele in case any arrhythmias -Consider SAYDA marques, etc. 3) Atrial Fibrillation on warfarin -Pharmacy to dose warfarin; slightly ST INR -Continue other home meds 4) Elevated Troponin -Only 0.7; has been elevated in past. Unreliable in the setting of ESRD. -Monitor on tele, trend down. No sx ACS 5) ESRD on HD -Consult his fuel cell technician for HD -Monitor BMP, Mg, Phos 6) Elevated MCV -Check B12, folate. Does not currently abuse EtOH 7) Hx Anemia -Monitor CBC 8) Hx HTN -Continue home meds 9) History of s/p TAVR -Continue home meds; echo reviewed 10) Severe Pulmonary HTN; mod to severe MR/TR -PASP from January echo reviewed 11) Hx DVT -IVC filter, warfarin 12) Hx HIT -Avoid heparin-containing products 13) Hx Post Herpetic Neuralgia, etc. -No current issues FENA -PO fluids -PRN replace; monitor Mg/Phos -Renal diet -As tolerated. Consulting PT. Full Code
--- NOTE | 2018-08-31 20:54 | HP ---
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 The Son is present with the patient who assist in providing the history. Pt noted to have had increased GRAVES for the past 8mo. Used to be able to walk flight of stairs but now gets SOB after a few steps. Pt uses 1-2 pillows at home. Lives at home w/ son, ambulates w/ cane/walker sometimes. In the past week however, pt noted to be sob more often and even occurring at rest/lying down. In addition , feels lightheaded and weak. Lightheadedness is worse when lying down. Pt is often worse after HD sessions. Pt also noted to be more anxious at night and trouble falling asleep. Of note presented 2 days ago to our ED for similar sxs and was discharged after being medically cleared. Since then family notes that patient has continued to be short of breath at home as well w/ increasing sundowning at night. They state that the patient was recently started on xanax and lexipro by his primary care provider 1 day ago without improvement in his symptoms. patient otherwise denies fevers, chills, LI, chest pain, n/v/d, abdominal pain, or changes with urination or bowel movements, abnormal skin lesions/ulcers, penile discharge, sick contacts, changes in diet. 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, Valvular Afib on Coumadin, Hx DVT w/ IVC filter, hx HIT, Post Herpetic Neuralgia, viral erruption of the penis) HD at [facility], sessions are 3-4 hours Patient's baseline BNP is ~719712 PAST SURGICAL HISTORY: Social History: Smoking: quit 42 yr ago Alcohol: used to be heavy drinker, stopped 15-20yr again Drugs: medical marijuana Family History: Allergies enoxaparin sodium [From Lovenox] Allergy (Verified 08/29/18 11:51) heparin (porcine) [Heparin,Porcine] Allergy (Verified 08/29/18 11:51) heparin induced platelet antibody as per Paul Tee HOME MEDICATIONS: Home Medications Medication Instructions Recorded Cinacalcet HCl [Sensipar] 30 mg PO DAILY 06/13/18 Clopidogrel Bisulfate [Plavix] 75 mg PO DAILY 06/13/18 Isosorbide Mononitrate [Isosorbide 30 mg PO DAILY 06/13/18 Mononitrate ER] Metoprolol Succinate [Toprol Xl] 12.5 mg PO BID 06/13/18 Sevelamer Carbonate [Renvela -] 800 mg PO TID 06/13/18 Warfarin Sodium [Coumadin] 5 mg PO HS 06/13/18 Folic Acid/Vit B Complex and C 0.8 mg PO DAILY 08/29/18 [Dialyvite 800 Tablet] REVIEW OF SYSTEMS as per HPI PHYSICAL EXAMINATION Vital Signs - 24 hr 08/31/18 14:57 Temperature 97.5 F L Pulse Rate 77 Respiratory 14 Rate Blood Pressure 110/60 O2 Sat by Pulse 100 Oximetry (%) GENERAL: AOX2-3, NAD HEAD: NCAT EYES: PERRLA L>R +R eye cataract, extraocular movements intact, sclera anicteric, conjunctiva clear. No lid lag. EARS, NOSE, THROAT: nares patent, oropharynx clear without exudates. Moist mucous membranes. NECK: Normal range of motion, supple without lymphadenopathy, JVD, or masses. LUNGS: crackles at bases R>L HEART: Irregularly irregular, normal S1 and S2 without murmur, rub or gallop. ABDOMEN: Soft, NTND, normoactive bowel sounds, no guarding, no rebound, no masses. MUSCULOSKELETAL: Normal range of motion at all joints. No bony deformities or tenderness. UPPER EXTREMITIES: 2+ pulses, warm, well-perfused. No cyanosis. No clubbing. No peripheral edema. +LUE AV fistula LOWER EXTREMITIES: 2+ pulses, warm, well-perfused. No calf tenderness. No peripheral edema. NEUROLOGICAL: Cranial nerves II-XII intact. Normal speech. FNT intact. sensation strength grossly nl b/l PSYCHIATRIC: Cooperative. Good eye contact. Appropriate mood and affect. SKIN: Warm, dry, normal turgor, no rashes or lesions noted, normal capillary refill. Laboratory Results - last 24 hr 08/31/18 08/31/18 08/31/18 15:17 15:17 15:17 WBC 6.2 RBC 3.83 L Hgb 11.7 Hct 37.4 MCV 97.5 H MCH 30.5 MCHC 31.3 L RDW 20.1 H Plt Count 186 MPV 8.9 Absolute Neuts (auto) 3.6 Neutrophils % 58.0 Lymphocytes % 25.8 Monocytes % 11.9 H Eosinophils % 2.8 Basophils % 1.5 Nucleated RBC % 0 PT with INR 36.30 H INR 3.04 H Sodium 141 Potassium 4.7 Chloride 104 Carbon Dioxide 27 Anion Gap 10 BUN 27 H Creatinine 4.8 H Creat Clearance w eGFR 11.73 Random Glucose 100 Calcium 8.9 Total Bilirubin 1.0 AST 15 ALT 12 L Alkaline Phosphatase 88 Creatine Kinase 39 Troponin I 0.07 H Total Protein 6.8 Albumin 3.0 L Blood Type Antibody Screen 08/31/18 15:17 WBC RBC Hgb Hct MCV MCH MCHC RDW Plt Count MPV Absolute Neuts (auto) Neutrophils % Lymphocytes % Monocytes % Eosinophils % Basophils % Nucleated RBC % PT with INR INR Sodium Potassium Chloride Carbon Dioxide Anion Gap BUN Creatinine Creat Clearance w eGFR Random Glucose Calcium Total Bilirubin AST ALT Alkaline Phosphatase Creatine Kinase Troponin I Total Protein Albumin Blood Type B POSITIVE Antibody Screen Negative ASSESSMENT/PLAN: 82 yo M w/ PMH diastolic CHF, HTN, HLD, DM?, Afib on coumadin, Severe s/p TAVR @ [facility] (2018), 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 Sundowning - unclear etiology, although likely a worsening of some underlining dementia.. pt is not septic and has no focal neuro deficits. CT head neg for acute pathology -s/p seroquel in ED -will check RPR, Vit B12, thiamine -will hold off on xanax/lexapro -neuro checks -fall precautions lightheadedness, generalized weakness/fatigue and worsening SOB- nl CXR, trop is midly elevated .07 but no complaints of CP and EKG A fib w/o obvious ischemic changes. also may be elevated in setting of ESRD. satting high 90s on RA. Orthostatics are neg. could be an exacrbation of CHF although less likely as pt appears euvolemc w/ only mild crackles and w/o edema. Could be related to HD sessions too much vs too little fluid removal check BNP (baseline BNP is ~[id number]) recent echo 2017 w/ severe pulm HTN, mod mitral regurg Checking carotid doppler Monitor on tele for any arrhythmias trend troponin Atrial Fibrillation on warfarin - ctl. INR 3 -Pharmacy to dose warfarin; -c/w home dose metoprolol ESRD on HD T, , ; LUE AV fistula - last HD yesterday renal consult c/w home sevalemr and cinacalcet HTN -Continue home metoprolol and isosorbide M Hx DVT, Hx HIT IVC filter on warfarin Avoid heparin DM?- per family no DM check A1C Hx Post Herpetic Neuralgia, viral erruption of the penis s/p Acylovir -No current issues -no lesions noted FEN -PO fluids -replete prn -Renal diet Full Code Dispo tele obs PT eval Visit type - Emergency Visit Emergency Visit: Yes ED Registration Date: 08/31/18 Care time: The patient presented to the Emergency Department on the above date and was hospitalized for further evaluation of their emergent condition. - New Patient This patient is new to me today: Yes Date on this admission: 09/01/18 - Critical Care Critical Care patient: No
[2018-08-31] MEDS ORDERED: traZODone HCL 50 MG TABLET (FP) PO PRN (21:13)
[2018-08-31] MEDS: metoPROLOL SUCCINATE 25 MG TAB.SR.24H (FP) PO SCH (22:01)
[2018-09-01 06:19] LABS: BASO % 1.6 % (0-2.0); EOS % 4.4 % (0-4.5); HEMATOCRIT 35.8 % (35.4-49); HEMOGLOBIN 11.3 GM/dL (11.7-16.9); LYMPH % 24.2 % (8-40); MCH 30.9 pg (25.7-33.7); MCHC 31.6 g/dl (32.0-35.9); MEAN CELL VOLUME 97.8 fl (80-96); MEAN PLT VOLUME 8.5 fl (7.5-11.1); MONO % 12.7 % (3.8-10.2); NEUT % 57.1 % (42.8-82.8); PLATELET COUNT 149 K/MM3 (134-434); RBC 3.66 M/mm3 (4.00-5.60); RDW 19.7 % (11.9-15.9); WHITE BLOOD COUNT 5.6 K/mm3 (4.0-10.0)
[2018-09-01 06:33] LABS: INR 3.56 (0.83-1.09); PROTHROMBIN TIME (PATIENT) 42.5 SEC (9.7-13.0)
[2018-09-01 07:18] LABS: ALBUMIN 2.6 g/dl (3.4-5.0); ALK PHOS 84 U/L (45-117); ANION GAP 8 MMOL/L (8-16); BILIRUBIN,TOTAL 0.8 mg/dL (0.2-1); BLOOD UREA NITROGEN 32 mg/dL (7-18); CHLORIDE 104 mmol/L (98-107); CO2 26 mmol/L (21-32); CREATININE 5.6 mg/dL (0.55-1.3); GLUCOSE,RANDOM 65 mg/dL (74-106); MAGNESIUM 2.2 mg/dL (1.8-2.4); PHOSPHOROUS 3.9 mg/dL (2.5-4.9); POTASSIUM 4.5 mmol/L (3.5-5.1); SGOT/AST 13 U/L (15-37); SGPT/ALT 14 U/L (13-61); SODIUM 138 mmol/L (136-145); TOT PROT 6.2 g/dl (6.4-8.2)
--- NOTE | 2018-09-01 09:17 | PN ---
Progress Note, Physician Chief Complaint: Well known to me from office and previous hospitalizations Multiple advanced comorbidities includin. Severe s/p TAVR 2. 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 ESRD on HD 4. AF on coumadin with supratherapeutic INR Today 5. Hx DVT, HIT, IVC filter 6. 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 The patient's family is present with the patient who assist in providing the history. They note that the patient has been getting increasingly altered over the past few days. They note that the patient had presented 2 days ago for cough and shortness of breath and discharged after being medically cleared. They note the patient has continued to be short of breath at home as well in addition to his increasingly altered behavior. They state that the patient was recently started on xanax and lexipro by his primary care provider 1 day ago without improvement in his symptoms. The patient otherwise denies fevers, chills , chest pain, nausea, vomiting, abdominal pain, or changes with urination or bowel movements. - Current Medication List Current Medications: Active Medications Cinacalcet (Sensipar -) 30 mg PO DAILY [facility] Clopidogrel Bisulfate (Plavix -) 75 mg PO DAILY [facility] Isosorbide Mononitrate (Imdur -) 30 mg PO DAILY [facility] Metoprolol Succinate (Toprol Xl -) 12.5 mg PO BID [facility] Last Admin: 08/31/18 22:01 Dose: Not Given Multivit/Ca Carb/B Cmplx/FA/Prenat (Nephro-Azalea -) 1 tablet PO DAILY [facility] Pantoprazole Sodium (Protonix -) 40 mg PO DAILY [facility] Sevelamer Carbonate (Renvela -) 800 mg PO TIDCM [facility] Trazodone HCl (Desyrel -) 50 mg PO HS PRN PRN Reason: INSOMNIA Last Admin: 08/31/18 22:58 Dose: 50 mg - Objective Vital Signs: Vital Signs Temperature 97.8 F 09/01/18 06:28 Pulse Rate 73 09/01/18 06:28 Respiratory Rate 20 09/01/18 06:28 Blood Pressure 126/63 09/01/18 06:28 O2 Sat by Pulse Oximetry (%) 94 L 09/01/18 06:33 Constitutional: Yes: No Distress Eyes: Yes: Conjunctiva Clear Cardiovascular: Yes: Pulse Irregular Respiratory: Yes: CTA Bilaterally (no rales or wheezing.) Gastrointestinal: Yes: Soft (NT) Edema: No Neurological: Yes: Confusion Labs: CBC, BMP 09/01/18 05:30 09/01/18 05:30 INR, PTT INR 3.56 (0.83-1.09) H 09/01/18 05:30 Laboratory Tests 08/31/18 08/31/18 09/01/18 15:17 23:50 03:10 WBC Hgb Plt Count INR Sodium Potassium BUN Creatinine Creat Clearance w eGFR Random Glucose Calcium Phosphorus Magnesium Total Bilirubin AST ALT Alkaline Phosphatase Troponin I 0.07 H 0.07 H 0.07 H Total Protein Albumin Vitamin B12 Serum Folate RPR Titer 09/01/18 09/01/18 09/01/18 05:30 05:30 05:30 WBC 5.6 Hgb 11.3 L Plt Count 149 INR 3.56 H Sodium 138 Potassium 4.5 BUN 32 H Creatinine 5.6 H Creat Clearance w eGFR 9.82 Random Glucose 65 L Calcium 9.0 Phosphorus 3.9 Magnesium 2.2 Total Bilirubin 0.8 AST 13 L ALT 14 Alkaline Phosphatase 84 Troponin I Total Protein 6.2 L Albumin 2.6 L Vitamin B12 877 Serum Folate 55 H RPR Titer 09/01/18 05:30 WBC Hgb Plt Count INR Sodium Potassium BUN Creatinine Creat Clearance w eGFR Random Glucose Calcium Phosphorus Magnesium Total Bilirubin AST ALT Alkaline Phosphatase Troponin I Total Protein Albumin Vitamin B12 Serum Folate RPR Titer Nonreactive - ....Imaging Chest X-ray: Image Reviewed (no infiltrate or effusion) Cat Scan: Report Reviewed (no acute intracranial pathology) EKG: Image Reviewed (AF 65bpm, Nonspecific T wave changes III, avF; incomplete RBBB) Problem List - Problems (1) Altered mental status Code(s): R41.82 - ALTERED MENTAL STATUS, UNSPECIFIED Qualifiers: Altered mental status type: unspecified Qualified Code(s): R41.82 - Altered mental status, unspecified (2) ESRD (end stage renal disease) Code(s): N18.6 - END STAGE RENAL DISEASE (3) Atrial fibrillation Code(s): I48.91 - UNSPECIFIED ATRIAL FIBRILLATION Qualifiers: Atrial fibrillation type: permanent Qualified Code(s): I48.2 - Chronic atrial fibrillation (4) PHT (pulmonary hypertension) Code(s): I27.20 - PULMONARY HYPERTENSION, UNSPECIFIED (5) Mitral regurgitation Code(s): I34.0 - NONRHEUMATIC MITRAL (VALVE) INSUFFICIENCY Qualifiers: Cardiac valve disease etiology: nonrheumatic Qualified Code(s): I34.0 - Nonrheumatic mitral (valve) insufficiency (6) S/P TAVR (transcatheter aortic valve replacement) Code(s): Z95.2 - PRESENCE OF PROSTHETIC HEART VALVE Assessment/Plan Multiple advanced comorbidities includin. Severe s/p TAVR 2. 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 ESRD on HD 4. AF on coumadin 5. Hx DVT, HIT, IVC filter 6. 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 TnI is chronically elevated due to CHF, MR, PHTN and ESRD. REC: 1. Continue Plavix (s/p TAVR) 2. INR 2-3 (AF) 3. Regular HD 4. Has been referred to [facility] for his chronic severe PHTN, seeing Dr. Miller 5. Further w/u altered mental status as per PMD Will follow.
--- NOTE | 2018-09-01 09:56 | PN ---
Progress Note, Physician Chief Complaint: Pt lying in bed in no acute distress. denies any chest pain, sob, n/v/d - Current Medication List Current Medications: Active Medications Cinacalcet (Sensipar -) 30 mg PO DAILY [facility] Clopidogrel Bisulfate (Plavix -) 75 mg PO DAILY [facility] Isosorbide Mononitrate (Imdur -) 30 mg PO DAILY [facility] Metoprolol Succinate (Toprol Xl -) 12.5 mg PO BID [facility] Last Admin: 08/31/18 22:01 Dose: Not Given Multivit/Ca Carb/B Cmplx/FA/Prenat (Nephro-Azalea -) 1 tablet PO DAILY [facility] Pantoprazole Sodium (Protonix -) 40 mg PO DAILY [facility] Sevelamer Carbonate (Renvela -) 800 mg PO TIDCM [facility] Trazodone HCl (Desyrel -) 50 mg PO HS PRN PRN Reason: INSOMNIA Last Admin: 08/31/18 22:58 Dose: 50 mg - Objective Vital Signs: Vital Signs Temperature 97.8 F 09/01/18 06:28 Pulse Rate 73 09/01/18 06:28 Respiratory Rate 20 09/01/18 06:28 Blood Pressure 126/63 09/01/18 06:28 O2 Sat by Pulse Oximetry (%) 94 L 09/01/18 06:33 Constitutional: Yes: No Distress, Calm Cardiovascular: Yes: Pulse Irregular, Murmur Respiratory: Yes: WNL, Regular, CTA Bilaterally. No: Accessory Muscle Use, Rales, Rhonchi, SOB, Tachypnea, Wheezes Gastrointestinal: Yes: WNL, Normal Bowel Sounds, Soft. No: Distention, Tenderness Genitourinary: Yes: Anuria Extremities: Yes: WNL Edema: No Neurological: Yes: WNL, Alert, Oriented Psychiatric: Yes: WNL, Alert, Oriented Labs: CBC, BMP 09/01/18 05:30 09/01/18 05:30 INR, PTT INR 3.56 (0.83-1.09) H 09/01/18 05:30 Assessment/Plan (1) Altered mental status Assessment/Plan: presents w/ progressive fatigue/lightheadedness/sob/ams mental status appears at baseline during my interaction head ct neg infectious etiology unlikely blood cultures pending chest xray neg suspect symptoms related to progression of underlying chronic conditions, will need to discuss with family regarding their knowledge of pt's prognosis suspect symptoms from worsening pHTN pulm/neurology consulted Code(s): R41.82 - ALTERED MENTAL STATUS, UNSPECIFIED Qualifiers: Altered mental status type: unspecified Qualified Code(s): R41.82 - Altered mental status, unspecified (2) SOB (shortness of breath) Assessment/Plan: denies sob when asked this am satting mid 90s on RA uses O2 at home for sleep Code(s): R06.02 - SHORTNESS OF BREATH (3) History of herpes zoster Assessment/Plan: s/p Zoster Opthalmicus infection 02/07, 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 c/b post herpetic neuralgia Code(s): Z86.19 - PERSONAL HISTORY OF OTHER INFECTIOUS AND PARASITIC DISEASES (4) Chronic a-fib Assessment/Plan: rate controlled continue metoprolol Code(s): I48.2 - CHRONIC ATRIAL FIBRILLATION (9) Supratherapeutic INR Assessment/Plan: hold coumadin monitor INR Code(s): R79.1 - ABNORMAL COAGULATION PROFILE (5) ESRD (end stage renal disease) on dialysis Assessment/Plan: HD TIW Nephrology following Code(s): N18.6 - END STAGE RENAL DISEASE; Z99.2 - DEPENDENCE ON RENAL DIALYSIS (6) HTN (hypertension) Assessment/Plan: controlled continue home meds Code(s): I10 - ESSENTIAL (PRIMARY) HYPERTENSION Qualifiers: Hypertension type: essential hypertension Qualified Code(s): I10 - Essential (primary) hypertension (7) CHF (congestive heart failure) Assessment/Plan: chronic echo on 02/07 without acute findings,shows normal fxning aortic prosthesis; moderate MR and severe chronic PHTN followed by PHTN specialist and cardiology outpt Code(s): I50.9 - HEART FAILURE, UNSPECIFIED Qualifiers: Heart failure type: diastolic Heart failure chronicity: chronic Qualified Code(s): I50.32 - Chronic diastolic (congestive) heart failure (8) Aortic stenosis Assessment/Plan: s/p TAVR Code(s): I35.0 - NONRHEUMATIC AORTIC (VALVE) STENOSIS (9) Pulmonary hypertension Assessment/Plan: severe followed by [facility] outpt- last seen in 07/10 pulm consulted Code(s): I27.20 - PULMONARY HYPERTENSION, UNSPECIFIED
[2018-09-01 10:16] LABS: N-TERMINAL BNP > 175000.0 pg/ml (5-450)
[2018-09-01] MEDS ORDERED: PT OWN MED DRAWER 7, Y5N ONE (10:48)
[2018-09-01] MEDS: metoPROLOL SUCCINATE 25 MG TAB.SR.24H (FP) PO SCH ×2 (11:44→21:13)
[2018-09-01] MEDS: PANTOPRAZOLE 40 MG TABLET (FP) PO SCH (11:44)
[2018-09-01] MEDS: SEVELAMER CARBONATE 800 MG TAB (FP) PO SCH ×3 (11:44→19:07)
[2018-09-01] MEDS: CLOPIDOGREL BISULFATE 75 MG TABLET (FP) PO SCH (11:44)
[2018-09-01] MEDS: ISOSORBIDE MONONITRATE 30 MG TAB.SR.24H (FP) PO SCH (11:44)
[2018-09-01] MEDS: VITAMIN B COMP W-C 1 EA TABLET PO SCH (11:45)
[2018-09-01] MEDS ORDERED: SODIUM CHLORIDE 250 ML IV PRN (12:08)
[2018-09-01] MEDS ORDERED: ALBUMIN HUMAN 25% 12.5 GM/50 ML VIAL IVPB SCH (12:15)
--- NOTE | 2018-09-01 12:17 | CONSULT ---
Consult - text type - Consultation Consultation Note: Renal Consult for ESRD on HD This is a 82 year old gentleman with hx of ESRD on HD (TTS), Anemia, Severe s /p TAVR, Severe pulmonary hypertension, Afib on coumadin, DVT who presents from home with increasing confusion, anxiety at night as well as sob. Pt is awake and alert at the bedside. Family at the bedside as well. Rt reports feeling ok right now. No CP, SOB, Abd pain, N/V/D. Family reports that he is unable to sleep at night and is confused and anxious. Last dialysis was Wednesday w/o complication. Family reports that BP has been running low at dialysis over the last several weeks. His oral intake has been poor as well. PMHx: as above Allergies: NKDA Family Hx: NC Social Hx: No T/A/D ROS: as per HPI, all other pertinent ros negative Home Medications Medication Instructions Recorded Cinacalcet HCl [Sensipar] 30 mg PO DAILY 06/13/18 Clopidogrel Bisulfate [Plavix] 75 mg PO DAILY 06/13/18 Isosorbide Mononitrate [Isosorbide 30 mg PO DAILY 06/13/18 Mononitrate ER] Metoprolol Succinate [Toprol Xl] 12.5 mg PO BID 06/13/18 Sevelamer Carbonate [Renvela -] 800 mg PO TID 06/13/18 Warfarin Sodium [Coumadin] 5 mg PO HS 06/13/18 Folic Acid/Vit B Complex and C 0.8 mg PO DAILY 08/29/18 [Dialyvite 800 Tablet] Cinacalcet HCl [Sensipar -] 1 tab PO HS 08/31/18 Vital Signs Temperature 97.8 F 09/01/18 06:28 Pulse Rate 73 09/01/18 06:28 Respiratory Rate 20 09/01/18 06:28 Blood Pressure 126/63 09/01/18 06:28 O2 Sat by Pulse Oximetry (%) 94 L 09/01/18 06:33 Intake & Output 08/29/18 08/30/18 08/31/18 09/01/18 23:59 23:59 23:59 23:59 Weight 57 kg 57 kg NAD awake and alert neck supple, no JVD RRR CTA soft NT/ND no LE edema left arm AVF + thrill and bruit CBC, BMP 09/01/18 05:30 09/01/18 05:30 Laboratory Tests 09/01/18 05:30 Calcium 9.0 Phosphorus 3.9 Magnesium 2.2 Current Medications Albumin Human (Albumin Human 25%) 12.5 gm IVPB Q30M [facility] Cinacalcet (Sensipar -) 30 mg PO DAILY [facility] Clopidogrel Bisulfate (Plavix -) 75 mg PO DAILY [facility] Last Admin: 09/01/18 11:44 Dose: 75 mg Sodium Chloride (Normal Saline -) 250 mls @ 3,000 mls/hr IV PRN PRN PRN Reason: Hypotension during Dialysis Stop: 09/02/18 12:08 Isosorbide Mononitrate (Imdur -) 30 mg PO DAILY [facility] Last Admin: 09/01/18 11:44 Dose: 30 mg Metoprolol Succinate (Toprol Xl -) 12.5 mg PO BID [facility] Last Admin: 09/01/18 11:44 Dose: 12.5 mg Multivit/Ca Carb/B Cmplx/FA/Prenat (Nephro-Azalea -) 1 tablet PO DAILY [facility] Last Admin: 09/01/18 11:45 Dose: 1 tablet Pantoprazole Sodium (Protonix -) 40 mg PO DAILY [facility] Last Admin: 09/01/18 11:44 Dose: 40 mg Sevelamer Carbonate (Renvela -) 800 mg PO TIDCM [facility] Last Admin: 09/01/18 11:44 Dose: 800 mg Trazodone HCl (Desyrel -) 50 mg PO HS PRN PRN Reason: INSOMNIA Last Admin: 08/31/18 22:58 Dose: 50 mg 82 year old gentleman with hx of ESRD on HD (TTS), Anemia, Severe s/p TAVR, Severe pulmonary hypertension, Afib on coumadin, DVT who presents from home with increasing confusion, anxiety at night as well as sob. #ESRD on HD #Confusion/anxiety at night #SOB with severe pulmonary hypertension #Chronic Anemia #Renal Osteodystrophy NO overt fluid overload, acidosis or hyperkalemia. Will plan for HD today as an inpatient. Continue work up as per primary f/u cultures to r/o any occult infection Cardiology follow up No YESSICA needed at this time Continue Sensipar, trend Ca/Phos levels Dose all meds for intermittent HD Renal diet with 1.2L fluid restriction Thank you Juan Christensen DO
--- NOTE | 2018-09-01 12:46 | EKG ---
Test Reason : Blood Pressure : / mmHG Vent. Rate : 080 BPM Atrial Rate : 090 BPM P-R Int : 000 ms QRS Dur : 096 ms QT Int : 392 ms P-R-T Axes : 000 091 -17 degrees QTc Int : 452 ms ATRIAL FIBRILLATION RIGHTWARD AXIS INCOMPLETE RIGHT BUNDLE BRANCH BLOCK ABNORMAL QRS-T ANGLE, CONSIDER PRIMARY T WAVE ABNORMALITY ABNORMAL ECG WHEN COMPARED WITH ECG OF 29-AUG-2018 12:54, NO SIGNIFICANT CHANGE WAS FOUND Confirmed by EDWIN MCKEON MD ([id number]) on 09/01/2018 12:46:47 PM Referred By: Confirmed By:EDWIN MCKEON MD
--- NOTE | 2018-09-01 13:01 | CON.PULM ---
Consult Consult Specialty:: PULM/CCM Referred by:: XAVIER Reason for Consultation:: SOB - History of Present Illness Chief Complaint: SOB History of Present Illness: 82 M, ESRD on HD (TTS), Anemia, Severe s/p TAVR, Severe pulmonary hypertension (PASP 91mmHg in January 2018), Afib on coumadin, and DVT. Being treated for his PH at [facility]. His last visit was in June. Admitted via the ER due to increasing confusion, anxiety, and SOB more specifically at night. Apparently given Xanax which made the situation worse. No fever or chills. No hemoptysis. He does snore and have Excessive Daytime Sleepiness (EDS). There are episodes of witnessed apneas. - History Source History Provided By: Patient, Significant Other Limitations to Obtaining History: Poor Historian - Past Medical History Cardio/Vascular: Yes: AFIB, Aneurysm, CAD, CHF, HTN, Hyperlipdemia Pulmonary: Yes: Bronchitis, COPD Renal/: Yes: Renal Failure, Hemodialysis - Past Surgical History Past Surgical History: Yes: AV Fistula/Graft - Alcohol/Substance Use Hx Alcohol Use: No - Smoking History Smoking history: Former smoker Have you smoked in the past 12 months: No Aproximately how many cigarettes per day: 0 If you are a former smoker, when did you quit?: 42 years ago Home Medications - Allergies Allergies/Adverse Reactions: Allergies Allergy/AdvReac Type Severity Reaction Status Date / Time enoxaparin sodium Allergy Verified 08/29/18 11:51 [From Lovenox] heparin (porcine) Allergy heparin Verified 08/29/18 11:51 [Heparin,Porcine] induced platelet antibody - Home Medications Home Medications: Ambulatory Orders Cinacalcet HCl [Sensipar] 30 mg PO DAILY 06/13/18 Clopidogrel Bisulfate [Plavix] 75 mg PO DAILY 06/13/18 Isosorbide Mononitrate [Isosorbide Mononitrate ER] 30 mg PO DAILY 06/13/18 Metoprolol Succinate [Toprol Xl] 12.5 mg PO BID 06/13/18 Sevelamer Carbonate [Renvela -] 800 mg PO TID 06/13/18 Warfarin Sodium [Coumadin] 5 mg PO HS 06/13/18 Folic Acid/Vit B Complex and C [Dialyvite 800 Tablet] 0.8 mg PO DAILY 08/29/18 Cinacalcet HCl [Sensipar -] 1 tab PO HS 08/31/18 Review of Systems - Review of Systems Constitutional: reports: Malaise. denies: Chills, Fever, Night Sweats Eyes: reports: No Symptoms HENT: reports: No Symptoms Neck: reports: No Symptoms Cardiovascular: reports: Shortness of Breath. denies: Chest Pain, Edema, Palpitations Respiratory: reports: Cough, Orthopnea, Snoring, SOB, SOB on Exertion. denies: Hemoptysis, Wheezing Gastrointestinal: reports: No Symptoms Genitourinary: reports: No Symptoms Breasts: reports: No Symptoms Reported Musculoskeletal: reports: No Symptoms Integumentary: reports: No Symptoms Neurological: reports: No Symptoms Endocrine: reports: No Symptoms Hematology/Lymphatic: reports: No Symptoms Psychiatric: reports: No Symptoms Physical Exam Vital Sings: Vital Signs Temperature 97.8 F 09/01/18 06:28 Pulse Rate 73 09/01/18 06:28 Respiratory Rate 20 09/01/18 06:28 Blood Pressure 126/63 09/01/18 06:28 O2 Sat by Pulse Oximetry (%) 94 L 09/01/18 06:33 Constitutional: Yes: No Distress, Calm Eyes: Yes: Conjunctiva Clear, EOM Intact HENT: Yes: Atraumatic, Normocephalic Neck: Yes: Supple, Trachea Midline Cardiovascular: Yes: Pulse Irregular Respiratory: Yes: Cough, Diminished, Rales, Rhonchi, SOB, SOB on Exertion. No: Accessory Muscle Use, Stridor, Tachypnea, Wheezes ...Inspection: Yes: WNL ...Clubbing: No Gastrointestinal: Yes: Normal Bowel Sounds, Soft Renal/: Yes: WNL Musculoskeletal: Yes: WNL Extremities: Yes: WNL Edema: No Peripheral Pulses WNL: Yes Integumentary: Yes: WNL Neurological: Yes: WNL, Alert, Oriented ...Motor Strength: WNL Psychiatric: Yes: WNL, Alert, Oriented Labs: CBC, BMP 09/01/18 05:30 09/01/18 05:30 Imaging - Results Chest X-ray: Report Reviewed, Image Reviewed Problem List - Problems (1) Altered mental status Code(s): R41.82 - ALTERED MENTAL STATUS, UNSPECIFIED Qualifiers: Altered mental status type: unspecified Qualified Code(s): R41.82 - Altered mental status, unspecified (2) Atrial fibrillation Code(s): I48.91 - UNSPECIFIED ATRIAL FIBRILLATION Qualifiers: Atrial fibrillation type: permanent Qualified Code(s): I48.2 - Chronic atrial fibrillation (3) ESRD (end stage renal disease) Code(s): N18.6 - END STAGE RENAL DISEASE (4) Elevated troponin Code(s): R74.8 - ABNORMAL LEVELS OF OTHER SERUM ENZYMES (5) Mitral regurgitation Code(s): I34.0 - NONRHEUMATIC MITRAL (VALVE) INSUFFICIENCY Qualifiers: Cardiac valve disease etiology: nonrheumatic Qualified Code(s): I34.0 - Nonrheumatic mitral (valve) insufficiency (6) PHT (pulmonary hypertension) Code(s): I27.20 - PULMONARY HYPERTENSION, UNSPECIFIED (7) S/P TAVR (transcatheter aortic valve replacement) Code(s): Z95.2 - PRESENCE OF PROSTHETIC HEART VALVE (8) SOB (shortness of breath) Code(s): R06.02 - SHORTNESS OF BREATH (9) Acute drug-induced confusion Code(s): F19.988 - OTH PSYCHOACTIVE SUBSTANCE USE, UNSP W OTH DISORDER (10) Aortic stenosis Code(s): I35.0 - NONRHEUMATIC AORTIC (VALVE) STENOSIS (11) Aortic valve prosthesis present Code(s): Z95.2 - PRESENCE OF PROSTHETIC HEART VALVE (12) Atrial fibrillation Code(s): I48.91 - UNSPECIFIED ATRIAL FIBRILLATION (13) CHF (congestive heart failure) Code(s): I50.9 - HEART FAILURE, UNSPECIFIED Qualifiers: Heart failure type: systolic Heart failure chronicity: chronic Qualified Code(s): I50.22 - Chronic systolic (congestive) heart failure (14) CHF exacerbation Code(s): I50.9 - HEART FAILURE, UNSPECIFIED Qualifiers: Heart failure type: diastolic Qualified Code(s): I50.33 - Acute on chronic diastolic (congestive) heart failure (15) COPD (chronic obstructive pulmonary disease) Code(s): J44.9 - CHRONIC OBSTRUCTIVE PULMONARY DISEASE, UNSPECIFIED (16) Chronic a-fib Code(s): I48.2 - CHRONIC ATRIAL FIBRILLATION (17) HTN (hypertension) Code(s): I10 - ESSENTIAL (PRIMARY) HYPERTENSION Qualifiers: Hypertension type: essential hypertension Qualified Code(s): I10 - Essential (primary) hypertension (18) History of herpes zoster Code(s): Z86.19 - PERSONAL HISTORY OF OTHER INFECTIOUS AND PARASITIC DISEASES (19) Orthopnea Code(s): R06.01 - ORTHOPNEA (20) Pulmonary hypertension Code(s): I27.20 - PULMONARY HYPERTENSION, UNSPECIFIED (21) S/P TAVR (transcatheter aortic valve replacement) Code(s): Z95.2 - PRESENCE OF PROSTHETIC HEART VALVE Assessment/Plan Symptoms are due to probable progression of PH. Would recommend follow up at [facility] for further input. Saturation is 95% on RA Sleep screen tonight if available Current cardiac meds as ordered HD per Renal BD TX PRN No indication for systemic steroids Will follow Dr Brandt
[2018-09-01] MEDS: CINACALCET HCL 30 MG TAB (FP) PO SCH (19:06)
[2018-09-02 06:51] LABS: BASO % 1.5 % (0-2.0); EOS % 2.8 % (0-4.5); HEMATOCRIT 38.6 % (35.4-49); HEMOGLOBIN 12.2 GM/dL (11.7-16.9); LYMPH % 25.5 % (8-40); MCH 30.7 pg (25.7-33.7); MCHC 31.6 g/dl (32.0-35.9); MEAN CELL VOLUME 97.1 fl (80-96); MEAN PLT VOLUME 8.8 fl (7.5-11.1); MONO % 9.9 % (3.8-10.2); NEUT % 60.3 % (42.8-82.8); PLATELET COUNT 169 K/MM3 (134-434); RBC 3.98 M/mm3 (4.00-5.60); RDW 20.5 % (11.9-15.9); WHITE BLOOD COUNT 6.3 K/mm3 (4.0-10.0)
[2018-09-02 07:02] LABS: INR 2.44 (0.83-1.09); PROTHROMBIN TIME (PATIENT) 29.1 SEC (9.7-13.0)
[2018-09-02 07:18] LABS: ANION GAP 9 MMOL/L (8-16); BLOOD UREA NITROGEN 38 mg/dL (7-18); CALCIUM 9.5 mg/dL (8.5-10.1); CHLORIDE 103 mmol/L (98-107); CO2 26 mmol/L (21-32); CREATININE 6.7 mg/dL (0.55-1.3); GLUCOSE,RANDOM 72 mg/dL (74-106); POTASSIUM 5.2 mmol/L (3.5-5.1); SODIUM 137 mmol/L (136-145)
--- NOTE | 2018-09-02 09:13 | PN ---
Progress Note, Physician Chief Complaint: Seen and examined Case d/w PMD, pulmonary and family Seems to be progressive, end stage PHTN History of Present Illness: TELE: reviewed - Current Medication List Current Medications: Active Medications Albumin Human (Albumin Human 25%) 12.5 gm IVPB Q30M [facility] Cinacalcet (Sensipar -) 30 mg PO DAILY [facility] Last Admin: 09/01/18 19:06 Dose: Not Given Clopidogrel Bisulfate (Plavix -) 75 mg PO DAILY [facility] Last Admin: 09/01/18 11:44 Dose: 75 mg Sodium Chloride (Normal Saline -) 250 mls @ 3,000 mls/hr IV PRN PRN PRN Reason: Hypotension during Dialysis Stop: 09/02/18 12:08 Isosorbide Mononitrate (Imdur -) 30 mg PO DAILY [facility] Last Admin: 09/01/18 11:44 Dose: 30 mg Metoprolol Succinate (Toprol Xl -) 12.5 mg PO BID [facility] Last Admin: 09/01/18 21:13 Dose: 12.5 mg Multivit/Ca Carb/B Cmplx/FA/Prenat (Nephro-Azalea -) 1 tablet PO DAILY [facility] Last Admin: 09/01/18 11:45 Dose: 1 tablet Pantoprazole Sodium (Protonix -) 40 mg PO DAILY [facility] Last Admin: 09/01/18 11:44 Dose: 40 mg Sevelamer Carbonate (Renvela -) 800 mg PO TIDCM [facility] Last Admin: 09/01/18 19:07 Dose: 800 mg Trazodone HCl (Desyrel -) 50 mg PO HS PRN PRN Reason: INSOMNIA Last Admin: 08/31/18 22:58 Dose: 50 mg - Objective Vital Signs: Vital Signs Temperature 97.2 F L 09/02/18 06:00 Pulse Rate 76 09/02/18 06:00 Respiratory Rate 20 09/02/18 06:00 Blood Pressure 114/51 L 09/02/18 06:00 O2 Sat by Pulse Oximetry (%) 97 09/01/18 19:00 Constitutional: Yes: No Distress Cardiovascular: Yes: Regular Rate and Rhythm Respiratory: Yes: CTA Bilaterally (no rales or wheezing) Gastrointestinal: Yes: Soft Edema: No Neurological: Yes: Alert, Oriented Labs: CBC, BMP 09/02/18 05:30 09/02/18 05:30 INR, PTT INR 2.44 (0.83-1.09) H 09/02/18 05:30 - ....Imaging EKG: Image Reviewed Problem List - Problems (1) Altered mental status Code(s): R41.82 - ALTERED MENTAL STATUS, UNSPECIFIED Qualifiers: Altered mental status type: unspecified Qualified Code(s): R41.82 - Altered mental status, unspecified (2) ESRD (end stage renal disease) Code(s): N18.6 - END STAGE RENAL DISEASE (3) Atrial fibrillation Code(s): I48.91 - UNSPECIFIED ATRIAL FIBRILLATION Qualifiers: Atrial fibrillation type: permanent Qualified Code(s): I48.2 - Chronic atrial fibrillation (4) PHT (pulmonary hypertension) Code(s): I27.20 - PULMONARY HYPERTENSION, UNSPECIFIED (5) Mitral regurgitation Code(s): I34.0 - NONRHEUMATIC MITRAL (VALVE) INSUFFICIENCY Qualifiers: Cardiac valve disease etiology: nonrheumatic Qualified Code(s): I34.0 - Nonrheumatic mitral (valve) insufficiency (6) S/P TAVR (transcatheter aortic valve replacement) Code(s): Z95.2 - PRESENCE OF PROSTHETIC HEART VALVE Assessment/Plan Multiple advanced comorbidities includin. Severe s/p TAVR 2. 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 ESRD on HD 4. AF on coumadin 5. Hx DVT, HIT, IVC filter 6. 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 TnI is chronically elevated due to CHF, MR, PHTN and ESRD. REC: 1. Continue Plavix (s/p TAVR) 2. INR 2-3 (AF) 3. Regular HD 4. Has been referred to [facility] for his chronic severe PHTN, seeing Dr. Miller; will arrange transfer for further evaluation and possible treatments of PHTN. 5. Further w/u altered mental status as per PMD
--- NOTE | 2018-09-02 09:36 | CONSULT ---
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 Reportedly , patient with increased GRAVES for the past 8mo. Used to be able to walk flight of stairs but now gets SOB after a few steps. Pt uses 1-2 pillows at home. Lives at home w/ son, ambulates w/ cane/walker sometimes. In the past week however, pt noted to be sob more often and even occurring at rest/lying down. In addition, feels lightheaded and weak. Lightheadedness is worse when lying down. Pt is often worse after HD sessions. Pt also noted to be more anxious at night and trouble falling asleep. Of note presented 2 days ago to our ED for similar sxs and was discharged after being medically cleared. Since then family notes that patient has continued to be short of breath at home as well w / increasing sundowning at night. They state that the patient was recently started on xanax and lexipro by his primary care provider who I had spoke to day of admission. He was scheduled to see me in the office that day. Admitted for medical mgmt, CT head without acute changes. Respiratory status being managed patient appears to be near baseline mental status this AM. Likely had mental status decline from underlying pulmonary process which is improving. 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, Valvular Afib on Coumadin, Hx DVT w/ IVC filter, hx HIT, Post Herpetic Neuralgia, viral erruption of the penis) HD at [facility], sessions are 3-4 hours Patient's baseline BNP is ~[id number] PAST SURGICAL HISTORY: Social History: Smoking: quit 42 yr ago Alcohol: used to be heavy drinker, stopped 15-20yr again Drugs: medical marijuana Family History: Allergies enoxaparin sodium [From Lovenox] Allergy (Verified 08/29/18 11:51) heparin (porcine) [Heparin,Porcine] Allergy (Verified 08/29/18 11:51) heparin induced platelet antibody as per Paul Tee HOME MEDICATIONS: Home Medications Medication Instructions Recorded Cinacalcet HCl [Sensipar] 30 mg PO DAILY 06/13/18 Clopidogrel Bisulfate [Plavix] 75 mg PO DAILY 06/13/18 Isosorbide Mononitrate [Isosorbide 30 mg PO DAILY 06/13/18 Mononitrate ER] Metoprolol Succinate [Toprol Xl] 12.5 mg PO BID 06/13/18 Sevelamer Carbonate [Renvela -] 800 mg PO TID 06/13/18 Warfarin Sodium [Coumadin] 5 mg PO HS 06/13/18 Folic Acid/Vit B Complex and C 0.8 mg PO DAILY 08/29/18 [Dialyvite 800 Tablet] REVIEW OF SYSTEMS as per HPI PHYSICAL EXAMINATION Vital Signs Period Temp Pulse Resp BP Sys/Montalvo Pulse Ox Last 24 Hr 97.2 F-98.5 F 73-81 18-20 95-121/51-69 94-97 GENERAL: AOX2-3, NAD HEAD: NCAT EYES: PERRLA L>R +R eye cataract, extraocular movements intact, sclera anicteric, conjunctiva clear. No lid lag. EARS, NOSE, THROAT: nares patent, oropharynx clear without exudates. Moist mucous membranes. NECK: Normal range of motion, supple without lymphadenopathy, JVD, or masses. LUNGS: crackles at bases R>L HEART: Irregularly irregular, normal S1 and S2 without murmur, rub or gallop. ABDOMEN: Soft, NTND, normoactive bowel sounds, no guarding, no rebound, no masses. MUSCULOSKELETAL: Normal range of motion at all joints. No bony deformities or tenderness. UPPER EXTREMITIES: 2+ pulses, warm, well-perfused. No cyanosis. No clubbing. No peripheral edema. +LUE AV fistula LOWER EXTREMITIES: 2+ pulses, warm, well-perfused. No calf tenderness. No peripheral edema. NEUROLOGICAL: Cranial nerves II-XII intact. Normal speech. FNT intact. sensation and strength grossly nl b/l, gait deferred PSYCHIATRIC: Cooperative. Good eye contact. Appropriate mood and affect. SKIN: Warm, dry, normal turgor, no rashes or lesions noted, normal capillary refill. Laboratory Results - last 24 hr 08/31/18 08/31/18 08/31/18 15:17 15:17 15:17 WBC 6.2 RBC 3.83 L Hgb 11.7 Hct 37.4 MCV 97.5 H MCH 30.5 MCHC 31.3 L RDW 20.1 H Plt Count 186 MPV 8.9 Absolute Neuts (auto) 3.6 Neutrophils % 58.0 Lymphocytes % 25.8 Monocytes % 11.9 H Eosinophils % 2.8 Basophils % 1.5 Nucleated RBC % 0 PT with INR 36.30 H INR 3.04 H Sodium 141 Potassium 4.7 Chloride 104 Carbon Dioxide 27 Anion Gap 10 BUN 27 H Creatinine 4.8 H Creat Clearance w eGFR 11.73 Random Glucose 100 Calcium 8.9 Total Bilirubin 1.0 AST 15 ALT 12 L Alkaline Phosphatase 88 Creatine Kinase 39 Troponin I 0.07 H Total Protein 6.8 Albumin 3.0 L Blood Type Antibody Screen 08/31/18 15:17 WBC RBC Hgb Hct MCV MCH MCHC RDW Plt Count MPV Absolute Neuts (auto) Neutrophils % Lymphocytes % Monocytes % Eosinophils % Basophils % Nucleated RBC % PT with INR INR Sodium Potassium Chloride Carbon Dioxide Anion Gap BUN Creatinine Creat Clearance w eGFR Random Glucose Calcium Total Bilirubin AST ALT Alkaline Phosphatase Creatine Kinase Troponin I Total Protein Albumin Blood Type B POSITIVE Antibody Screen Negative ASSESSMENT/PLAN: 82 yo M w/ PMH diastolic CHF, HTN, HLD, DM?, Afib on coumadin, Severe s/p TAVR @ [place] (2018), 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 Reportedly , patient with increased GRAVES for the past 8mo. Used to be able to walk flight of stairs but now gets SOB after a few steps. Pt uses 1-2 pillows at home. Lives at home w/ son, ambulates w/ cane/walker sometimes. In the past week however, pt noted to be sob more often and even occurring at rest/lying down. In addition, feels lightheaded and weak. Lightheadedness is worse when lying down. Pt is often worse after HD sessions. Pt also noted to be more anxious at night and trouble falling asleep. Of note presented 2 days ago to our ED for similar sxs and was discharged after being medically cleared. Since then family notes that patient has continued to be short of breath at home as well w / increasing sundowning at night. They state that the patient was recently started on xanax and lexipro by his primary care provider who I had spoke to day of admission. He was scheduled to see me in the office that day. Admitted for medical mgmt, CT head without acute changes. Respiratory status being managed patient appears to be near baseline mental status this AM. Likely had mental status decline from underlying pulmonary process which is improving. If mental status changes at night and further sundowning can consider seroquel 25mg , though pysch consult may be of benefit. B12, Folate normal. Continue pulmonary optimization and medical mgmt.
[2018-09-02] MEDS: SEVELAMER CARBONATE 800 MG TAB (FP) PO SCH ×3 (10:00→16:51)
--- NOTE | 2018-09-02 10:00 | DS ---
Physical Examination Vital Signs: Vital Signs Temperature 97.2 F L 09/02/18 06:00 Pulse Rate 80 09/02/18 09:36 Respiratory Rate 18 09/02/18 09:36 Blood Pressure 132/78 09/02/18 09:36 O2 Sat by Pulse Oximetry (%) 96 09/02/18 09:00 Constitutional: Yes: No Distress, Calm Cardiovascular: Yes: Pulse Irregular, Murmur Respiratory: Yes: Regular, CTA Bilaterally, Rales (bibasilar), SOB on Exertion. No: Accessory Muscle Use, SOB, Tachypnea, Wheezes Gastrointestinal: Yes: WNL, Normal Bowel Sounds, Soft. No: Distention, Tenderness Renal/: Yes: Anuria Extremities: Yes: WNL Edema: No Neurological: Yes: WNL, Alert, Oriented Psychiatric: Yes: WNL, Alert, Oriented Labs: CBC, BMP 09/02/18 05:30 09/02/18 05:30 Discharge Summary Reason For Visit: SOB/ELEVATED TROPONIN LEVEL/ALTERED MENTAL STATUS Current Active Problems Altered mental status (Acute) Atrial fibrillation (Acute) ESRD (end stage renal disease) (Acute) Elevated troponin (Acute) Mitral regurgitation (Acute) PHT (pulmonary hypertension) (Acute) S/P TAVR (transcatheter aortic valve replacement) (Acute) SOB (shortness of breath) (Acute) Shortness of breath (Acute) Hospital Course: 82 year old male admitted for evaluation of ams, lightheadedness, generalized weakness/fatigue and worsening SOB. All infectious work up negative. Head CT heg. Mental status appears at baseline during my interaction. Suspect symptoms as progression of his pHTN, pulm consulted, recommended transfer to [facility] [place]. Pt evaluated by cardiology, neurology, nephrology. Pt is medically stable for transfer to [facility]. Condition: Guarded - Instructions Diet, Activity, Other Instructions: Renal diet with 1.2L fluid restriction HD TIW Referrals: Jalen Metzger MD [Staff Physician] - Paul Harris MD [Primary Care Provider] - Disposition: TRANSFER ACUTE CARE/OTHER HOSP - Home Medications Comprehensive Discharge Medication List: Ambulatory Orders Cinacalcet HCl [Sensipar] 30 mg PO DAILY 06/13/18 Clopidogrel Bisulfate [Plavix] 75 mg PO DAILY 06/13/18 Isosorbide Mononitrate [Isosorbide Mononitrate ER] 30 mg PO DAILY 06/13/18 Metoprolol Succinate [Toprol Xl] 12.5 mg PO BID 06/13/18 Sevelamer Carbonate [Renvela -] 800 mg PO TID 06/13/18 Warfarin Sodium [Coumadin] 5 mg PO HS 06/13/18 Folic Acid/Vit B Complex and C [Dialyvite 800 Tablet] 0.8 mg PO DAILY 08/29/18 Cinacalcet HCl [Sensipar -] 1 tab PO HS 08/31/18
--- NOTE | 2018-09-02 11:09 | PN ---
Progress Note, Physician History of Present Illness: pulmonary alert,comfortable at rest ,-chest pain. sleep screen AHI 58.4 c/w severe brendan - Current Medication List Current Medications: Active Medications Albumin Human (Albumin Human 25%) 12.5 gm IVPB Q30M [facility] Cinacalcet (Sensipar -) 30 mg PO DAILY [facility] Last Admin: 09/01/18 19:06 Dose: Not Given Clopidogrel Bisulfate (Plavix -) 75 mg PO DAILY [facility] Last Admin: 09/01/18 11:44 Dose: 75 mg Sodium Chloride (Normal Saline -) 250 mls @ 3,000 mls/hr IV PRN PRN PRN Reason: Hypotension during Dialysis Stop: 09/02/18 12:08 Isosorbide Mononitrate (Imdur -) 30 mg PO DAILY [facility] Last Admin: 09/01/18 11:44 Dose: 30 mg Metoprolol Succinate (Toprol Xl -) 12.5 mg PO BID [facility] Last Admin: 09/01/18 21:13 Dose: 12.5 mg Multivit/Ca Carb/B Cmplx/FA/Prenat (Nephro-Azalea -) 1 tablet PO DAILY [facility] Last Admin: 09/01/18 11:45 Dose: 1 tablet Pantoprazole Sodium (Protonix -) 40 mg PO DAILY [facility] Last Admin: 09/01/18 11:44 Dose: 40 mg Sevelamer Carbonate (Renvela -) 800 mg PO TIDCM [facility] Last Admin: 09/01/18 19:07 Dose: 800 mg Trazodone HCl (Desyrel -) 50 mg PO HS PRN PRN Reason: INSOMNIA Last Admin: 08/31/18 22:58 Dose: 50 mg Warfarin Sodium (Coumadin -) 5 mg PO DAILY@1800 [facility] - Objective Vital Signs: Vital Signs Temperature 97.2 F L 09/02/18 06:00 Pulse Rate 80 09/02/18 09:36 Respiratory Rate 18 09/02/18 09:36 Blood Pressure 132/78 09/02/18 09:36 O2 Sat by Pulse Oximetry (%) 96 09/02/18 09:00 Constitutional: Yes: Calm, Thin Eyes: Yes: WNL HENT: Yes: WNL Neck: Yes: WNL Cardiovascular: Yes: Pulse Irregular, S1, S2 Respiratory: Yes: Diminished Gastrointestinal: Yes: Normal Bowel Sounds, Soft Extremities: Yes: WNL Edema: No Labs: CBC, BMP 09/02/18 05:30 09/02/18 05:30 INR, PTT INR 2.44 (0.83-1.09) H 09/02/18 05:30 Assessment/Plan Problem List - Problems (1) Altered mental status Code(s): R41.82 - ALTERED MENTAL STATUS, UNSPECIFIED Qualifiers: Altered mental status type: unspecified Qualified Code(s): R41.82 - Altered mental status, unspecified (2) Atrial fibrillation Code(s): I48.91 - UNSPECIFIED ATRIAL FIBRILLATION Qualifiers: Atrial fibrillation type: permanent Qualified Code(s): I48.2 - Chronic atrial fibrillation (3) ESRD (end stage renal disease) Code(s): N18.6 - END STAGE RENAL DISEASE (4) Elevated troponin Code(s): R74.8 - ABNORMAL LEVELS OF OTHER SERUM ENZYMES (5) Mitral regurgitation Code(s): I34.0 - NONRHEUMATIC MITRAL (VALVE) INSUFFICIENCY Qualifiers: Cardiac valve disease etiology: nonrheumatic Qualified Code(s): I34.0 - Nonrheumatic mitral (valve) insufficiency (6) PHT (pulmonary hypertension) Code(s): I27.20 - PULMONARY HYPERTENSION, UNSPECIFIED (7) S/P TAVR (transcatheter aortic valve replacement) Code(s): Z95.2 - PRESENCE OF PROSTHETIC HEART VALVE (8) SOB (shortness of breath) Code(s): R06.02 - SHORTNESS OF BREATH (9) Acute drug-induced confusion Code(s): F19.988 - OTH PSYCHOACTIVE SUBSTANCE USE, UNSP W OTH DISORDER (10) Aortic stenosis Code(s): I35.0 - NONRHEUMATIC AORTIC (VALVE) STENOSIS (11) Aortic valve prosthesis present Code(s): Z95.2 - PRESENCE OF PROSTHETIC HEART VALVE (12) Atrial fibrillation Code(s): I48.91 - UNSPECIFIED ATRIAL FIBRILLATION (13) CHF (congestive heart failure) Code(s): I50.9 - HEART FAILURE, UNSPECIFIED Qualifiers: Heart failure type: systolic Heart failure chronicity: chronic Qualified Code(s): I50.22 - Chronic systolic (congestive) heart failure (14) CHF exacerbation Code(s): I50.9 - HEART FAILURE, UNSPECIFIED Qualifiers: Heart failure type: diastolic Qualified Code(s): I50.33 - Acute on chronic diastolic (congestive) heart failure (15) COPD (chronic obstructive pulmonary disease) Code(s): J44.9 - CHRONIC OBSTRUCTIVE PULMONARY DISEASE, UNSPECIFIED (16) Chronic a-fib Code(s): I48.2 - CHRONIC ATRIAL FIBRILLATION (17) HTN (hypertension) Code(s): I10 - ESSENTIAL (PRIMARY) HYPERTENSION Qualifiers: Hypertension type: essential hypertension Qualified Code(s): I10 - Essential (primary) hypertension (18) History of herpes zoster Code(s): Z86.19 - PERSONAL HISTORY OF OTHER INFECTIOUS AND PARASITIC DISEASES (19) Orthopnea Code(s): R06.01 - ORTHOPNEA (20) Pulmonary hypertension Code(s): I27.20 - PULMONARY HYPERTENSION, UNSPECIFIED (21) S/P TAVR (transcatheter aortic valve replacement) Code(s): Z95.2 - PRESENCE OF PROSTHETIC HEART VALVE 13 OSAS Assessment/Plan Symptoms are due to probable progression of PH. Saturation is 95% on RA PSG outpatient HD per Renal BD TX PRN Transfer to [facility] DR SHARPE
[2018-09-02] MEDS: VITAMIN B COMP W-C 1 EA TABLET PO SCH (11:51)
[2018-09-02] MEDS: CLOPIDOGREL BISULFATE 75 MG TABLET (FP) PO SCH (11:51)
[2018-09-02] MEDS: PANTOPRAZOLE 40 MG TABLET (FP) PO SCH (11:51)
[2018-09-02] MEDS: ISOSORBIDE MONONITRATE 30 MG TAB.SR.24H (FP) PO SCH (11:51)
[2018-09-02] MEDS: CINACALCET HCL 30 MG TAB (FP) PO SCH (11:52)
[2018-09-02] MEDS: metoPROLOL SUCCINATE 25 MG TAB.SR.24H (FP) PO SCH ×2 (11:52→21:14)
[2018-09-02 12:19] VITALS: BMI 19.4
--- NOTE | 2018-09-02 13:28 | ECHO ---
Name: NELLIE BARRERA Exam:Adult Echocardiogram Study Date: 09/02/2018 12:09 PM Age: 82 yrs Reason For Study: phtn Height: 68 in Weight: 128 lb BSA: 1.7 m2 MMode/2D Measurements & Calculations IVSd: 0.91 cm EDV(Teich): 87.6 ml LVIDd: 4.4 cm ESV(Teich): 33.6 ml LVIDs: 2.9 cm LVPWd: 0.95 cm LVOT diam: 2.0 cm TAPSE: 1.1 cm RV S Donovan: 10.7 cm/sec Doppler Measurements & Calculations MV E max donovan: 217.0 cm/sec MVA(VTI): 1.3 cm2 MV V2 max: 230.2 cm/sec MV max P.2 mmHg MV V2 mean: 120.0 cm/sec MV mean P.8 mmHg MV V2 VTI: 48.1 cm Ao V2 max: 107.7 cm/sec AI max donovan: 434.4 cm/sec Ao max P.6 mmHg AI max P.5 mmHg AI P1/2t: 486.2 msec AI dec slope: 261.7 cm/sec2 CODY(V,D): 2.9 cm2 LV V1 max P.8 mmHg MR max donovan: 472.0 cm/sec LV V1 mean P.4 mmHg MR max P.1 mmHg LV V1 max: 97.5 cm/sec LV V1 mean: 53.8 cm/sec LV V1 VTI: 18.8 cm SV(LVOT): 60.5 ml TR max donovan: 453.9 cm/sec TR max P.4 mmHg PI end-d donovan: 191.1 cm/sec Med Peak E' Donovan: 4.1 cm/sec Med E/e': 52.5 Lat Peak E' Donovan: 4.4 cm/sec Lat E/e': 49.9 Left Ventricle There is mild concentric left ventricular hypertrophy. Ejection Fraction = 55-60%. The transmitral sp ectral Doppler flow pattern is suggestive of restrictive physiology. Right Ventricle The right ventricle is moderately dilated. The right ventricular systolic function is moderate to sev erely reduced. Atria The left atrium is moderately dilated. The right atrium is moderately dilated. Mitral Valve Calcified mitral apparatus. There is moderate to severe mitral stenosis. There is moderate mitral regurgitation. Tricuspid Valve The tricuspid valve is not well visualized, but is grossly normal. There is moderate to severe tricus pid regurgitation. Right ventricular systolic pressure is elevated at >60mmHg. There is severe pulmonary hypertension. Aortic Valve The prosthetic aortic valve is well-seated. No hemodynamically significant valvular aortic stenosis. Mild to moderate aortic regurgitation. Pulmonic Valve The pulmonic valve is not well seen, but is grossly normal. There is no pulmonic valvular stenosis. M ild to moderate pulmonic valvular regurgitation. Great Vessels Borderline aortic root dilatation. Pericardium/Pleura There is no pericardial effusion. Interpretation Summary There is mild concentric left ventricular hypertrophy. Ejection Fraction = 55-60%. The transmitral spectral Doppler flow pattern is suggestive of restrictive physiology. The right ventricle is moderately dilated. The right ventricular systolic function is moderate to severely reduced. The left atrium is moderately dilated. The right atrium is moderately dilated. Calcified mitral apparatus. There is moderate to severe mitral stenosis. There is moderate mitral regurgitation. There is moderate to severe tricuspid regurgitation. Right ventricular systolic pressure is elevated at >60mmHg. There is severe pulmonary hypertension. The prosthetic aortic valve is well-seated. Mild to moderate aortic regurgitation. Mild to moderate pulmonic valvular regurgitation. There is no pericardial effusion. MD Rao *Yassine 09/02/2018 01:28 PM
[2018-09-02 16:50] VITALS: TEMP 98.1
[2018-09-02] MEDS ORDERED: WARFARIN NA 5 MG TABLET (UD) PO SCH (18:00)
--- NOTE | 2018-09-02 18:11 | PN ---
Progress Note (short form) - Note Progress Note: Renal follow up for ESRD on HD Pt seen and examined at the bedside awake and alert had some N w/o emesis and dizziness EKG checked at bedside denies any cp or sob Vital Signs Temperature 98.1 F 09/02/18 16:20 Pulse Rate 81 09/02/18 16:25 Respiratory Rate 18 09/02/18 16:25 Blood Pressure 119/66 09/02/18 16:25 O2 Sat by Pulse Oximetry (%) 96 09/02/18 09:00 Intake & Output 08/30/18 08/31/18 09/01/18 09/02/18 23:59 23:59 23:59 23:59 Intake Total 550 400 Balance 550 400 Weight 57 kg 57 kg 58.06 kg NAD awake and alert neck supple, no JVD irregular CTA soft NT/ND no LE edema left arm AVF + thrill and bruit CBC, BMP 09/02/18 05:30 09/02/18 05:30 Current Medications Albumin Human (Albumin Human 25%) 12.5 gm IVPB Q30M [facility] Cinacalcet (Sensipar -) 30 mg PO DAILY [facility] Last Admin: 09/02/18 11:52 Dose: 30 mg Clopidogrel Bisulfate (Plavix -) 75 mg PO DAILY [facility] Last Admin: 09/02/18 11:51 Dose: 75 mg Sodium Chloride (Normal Saline -) 250 mls @ 3,000 mls/hr IV PRN PRN PRN Reason: Hypotension during Dialysis Stop: 09/02/18 12:08 Isosorbide Mononitrate (Imdur -) 30 mg PO DAILY [facility] Last Admin: 09/02/18 11:51 Dose: 30 mg Metoprolol Succinate (Toprol Xl -) 12.5 mg PO BID [facility] Last Admin: 09/02/18 11:52 Dose: 12.5 mg Multivit/Ca Carb/B Cmplx/FA/Prenat (Nephro-Azalea -) 1 tablet PO DAILY [facility] Last Admin: 09/02/18 11:51 Dose: 1 tablet Pantoprazole Sodium (Protonix -) 40 mg PO DAILY [facility] Last Admin: 09/02/18 11:51 Dose: 40 mg Sevelamer Carbonate (Renvela -) 800 mg PO TIDCM [facility] Last Admin: 09/02/18 16:51 Dose: Not Given Trazodone HCl (Desyrel -) 50 mg PO HS PRN PRN Reason: INSOMNIA Last Admin: 08/31/18 22:58 Dose: 50 mg Warfarin Sodium (Coumadin -) 5 mg PO DAILY@1800 [facility] 82 year old gentleman with hx of ESRD on HD (TTS), Anemia, Severe s/p TAVR, Severe pulmonary hypertension, Afib on coumadin, DVT who presents from home with increasing confusion, anxiety at night as well as sob. #ESRD on HD #Confusion/anxiety at night #SOB with severe pulmonary hypertension #Chronic Anemia #Renal Osteodystrophy EKG reviewed at the bedside, Afib w/o any acute ischemic changes to have dialysis this evening with UF as tolerated for transfer to [facility] for evalulation for pulmonary hypertension today Continue Sensipar, trend Ca/Phos levels Dose all meds for intermittent HD Renal diet with 1.2L fluid restriction Thank you Juan Christensen DO
[2018-09-02 20:00] VITALS: BP 106/51; PULSE 77
--- NOTE | 2018-09-04 08:43 | EKG ---
Test Reason : Blood Pressure : / mmHG Vent. Rate : 076 BPM Atrial Rate : 073 BPM P-R Int : 000 ms QRS Dur : 096 ms QT Int : 400 ms P-R-T Axes : 000 096 002 degrees QTc Int : 450 ms ATRIAL FIBRILLATION RIGHTWARD AXIS INCOMPLETE RIGHT BUNDLE BRANCH BLOCK ABNORMAL ECG WHEN COMPARED WITH ECG OF 31-AUG-2018 15:24, NO SIGNIFICANT CHANGE WAS FOUND Confirmed by DIAMOND VALDERRAMA, CHERYL ([id number]) on 09/04/2018 8:42:57 AM Referred By: Confirmed By:CHERYL FIELDS MD
== END 2018-09-02 21:30 | disposition short-term general hospital (02) | DRG 207 ==
LOC: JER 14:57 → INTOOBSV 18:47 → JERBED 18:47 → J4W 09-01 06:26 → OBSVTOIN 09-01 12:39
PROVIDERS: ADMIT Internal Medicine; ATTEND Nurse Practitioner Family
PROC: 5A1D70Z Performance of Urinary Filtration, Intermittent, Less than 6 Hours Per Day (ICD-10-PCS; principal; 2018-09-02)
DX: I27.22 Pulmonary hypertension due to left heart disease (principal); E78.5 Hyperlipidemia, unspecified; E11.22 Type 2 diabetes mellitus with diabetic chronic kidney disease; I50.32 Chronic diastolic (congestive) heart failure; I13.2 Hypertensive heart and chronic kidney disease with heart failure and with stage 5 chronic kidney disease, or end stage renal disease; N18.6 End stage renal disease; D64.9 Anemia, unspecified; I25.10 Atherosclerotic heart disease of native coronary artery without angina pectoris; I71.9 Aortic aneurysm of unspecified site, without rupture; I48.2 Chronic atrial fibrillation; I08.3 Combined rheumatic disorders of mitral, aortic and tricuspid valves; R41.82 Altered mental status, unspecified; B02.29 Other postherpetic nervous system involvement; R53.1 Weakness; R74.8 Abnormal levels of other serum enzymes; R06.01 Orthopnea; F03.90 Unspecified dementia, unspecified severity, without behavioral disturbance, psychotic disturbance, mood disturbance, and anxiety; N25.0 Renal osteodystrophy; J44.9 Chronic obstructive pulmonary disease, unspecified; G47.33 Obstructive sleep apnea (adult) (pediatric); F05 Delirium due to known physiological condition; R42 Dizziness and giddiness; I27.20 Pulmonary hypertension, unspecified; Z79.01 Long term (current) use of anticoagulants; Z86.718 Personal history of other venous thrombosis and embolism; Z99.2 Dependence on renal dialysis; Z86.19 Personal history of other infectious and parasitic diseases; Z95.2 Presence of prosthetic heart valve
CPT/HCPCS: 36415; 70450-TC; 71046-TC-FY; 80048; 80053; 82550; 82607; 82746; 83036; 83735; 83880; 84100; 84484; 85025; 85610; 86593; 86850; 86900; 86901; 87040; 93005; 93010; 93306-TC; 99285-25; G0378

== ENCOUNTER 2018-11-10 23:55 | Inpatient (IN) | payer OTHER ==
[2018-11-11 00:05] VITALS: BMI 25.9
--- NOTE | 2018-11-11 00:17 | PDOC ---
History of Present Illness - General Chief Complaint: Pain Stated Complaint: abdominal pain Time Seen by Provider: 11/11/18 00:03 History Source: Patient - History of Present Illness Initial Comments: 11/11/18 00:35 The patient is an 82 year old male with a PMH Diastolic CHF, HTN, HLD, Atrial Fibrillation (on Warfarin), Aortic stenosis s/p TAVR, Pulmonary HTN, ESRD (on HD T,Th,Sat), DVT (s/p IVC filter) was BIBEMS c/o acute onset of abdominal pain. Pain started approximately two hours prior to presentation and is sharp, 10/10 localized to his upper abdomen. Denies nausea/vomiting as well as fevers/ chills. Last PO intake was a slice of pizza a few hours prior to presentation and last BM was normal. The patient denies chest pain, shortness of breath, dysuria/hematuria, numbness/ tingling. Allergy: Heparin Surgical: TAVR PMD: Dr. Harris 11/11/18 00:37 As per EMR, patient last evaluated in our ED in 08/[address] and AMS labs and patient's symptoms were attributed to his hypoxia 2/2 to pulmonary HTN. Patient transferred to [facility] for further evaluation of his pulmonary HTN. Past History - Past Medical History Allergies/Adverse Reactions: Allergies Allergy/AdvReac Type Severity Reaction Status Date / Time enoxaparin sodium Allergy Verified 11/11/18 00:05 [From Lovenox] heparin (porcine) Allergy heparin Verified 11/11/18 00:05 [Heparin,Porcine] induced platelet antibody Home Medications: Ambulatory Orders Cinacalcet HCl [Sensipar] 30 mg PO DAILY 06/13/18 Sevelamer Carbonate [Renvela -] 800 mg PO TID 06/13/18 Warfarin Sodium [Coumadin] 2.5 mg PO HS 06/13/18 Folic Acid/Vit B Complex and C [Dialyvite 800 Tablet] 0.8 mg PO DAILY 08/29/18 Midodrine HCl 15 mg PO DAILY 11/11/18 Pregabalin [Lyrica -] 50 mg PO BID 11/11/18 Sevelamer Carbonate [Renvela] 800 mg NR TID 11/11/18 Anemia: Yes Asthma: No Cancer: No Cardiac Disorders: Yes (atrial fibrillation,CAD, aortic stenosis, aortic aneurysm) CVA: No COPD: No CHF: No DVT: No Dementia: No Diabetes: Yes Dialysis: Yes (//WED) GI Disorders: No Disorders: No HTN: Yes Hypercholesterolemia: Yes Kidney Stones: (renal failure shiley to right chest, av fistula to left arm) Liver Disease: No Seizures: No Thyroid Disease: No - Surgical History Abdominal Surgery: No Appendectomy: No Cardiac Surgery: Yes (AVR) Cholecystectomy: No Lung Surgery: (left arm fistula, right chest shiley) Neurologic Surgery: No Orthopedic Surgery: No - Immunization History Immunization Up to Date: No - Suicide/Smoking/Psychosocial Hx Smoking Status: No Smoking History: Never smoked Have you smoked in the past 12 months: No Number of Cigarettes Smoked Daily: 0 If you are a former smoker, when did you quit?: 42 years ago Information on smoking cessation initiated: No Hx Alcohol Use: No Drug/Substance Use Hx: No Substance Use Type: None Hx Substance Use Treatment: No Review of Systems - Review of Systems Constitutional: No: Chills, Fever HEENTM: No: Recent change in vision Respiratory: No: Cough, Shortness of Breath Cardiac (ROS): No: Chest Pain, Edema, Lightheadedness, Palpitations, Syncope ABD/GI: Yes: Abdominal cramping. No: Constipated, Diarrhea, Nausea, Vomiting : No: Burning, Dysuria *Physical Exam - Vital Signs Last Vital Signs Temp Pulse Resp BP Pulse Ox 98.0 F 69 21 H 111/54 L 96 11/11/18 00:02 11/11/18 00:02 11/11/18 00:02 11/11/18 00:02 11/11/18 00:02 - Physical Exam General Appearance: Yes: Nourished, Appropriately Dressed HEENT: positive: Normal Voice, Hearing Grossly Normal Neck: positive: Trachea midline, Supple Respiratory/Chest: positive: Lungs Clear, Normal Breath Sounds Cardiovascular: positive: S1, S2. negative: Edema, Murmur Gastrointestinal/Abdominal: positive: Normal Bowel Sounds, Soft, Other (mild epigastric abdominal TTP w/o peritoneal signs) Musculoskeletal: positive: Normal Inspection. negative: CVA Tenderness (R), CVA Tenderness (L) Extremity: positive: Normal Capillary Refill, Normal Inspection Integumentary: positive: Normal Color, Dry, Warm Neurologic: positive: Fully Oriented, Alert Moderate Sedation - Procedure Monitoring Vital Signs: Procedure Monitoring Vital Signs Temperature 98.0 F 11/11/18 00:02 Pulse Rate 69 11/11/18 00:02 Respiratory Rate 21 H 11/11/18 00:02 Blood Pressure 111/54 L 11/11/18 00:02 O2 Sat by Pulse Oximetry (%) 96 11/11/18 00:02 Heart Score/ECG Review - ECG Impressions Comment:: 11/11/18 02:43 AFib HR 77, no NESS/STD/TWI ED Treatment Course - LABORATORY CBC & Chemistry Diagram: 11/11/18 00:50 11/11/18 00:50 Medical Decision Making - Medical Decision Making 11/11/18 00:39 82 year old male with acute onset of abdominal pain. VS unremarkable. PE shows mild epigastric TTP. Frontal diagnosis: acute abdomen including cholecystitis, appendicitis, mesenteric ischemia, SBO (though less like) as well as bilary colic, pancreatitis, gastritis, r/o ACS. Will obtain belly labs , Troponin x1, EKG, CXR and CT abdomen. Gentle hydration (ESRD) and Morphine for pain control. Reassess. 11/11/18 01:21 Reassessed @ bedside Continues to c/o pain Epigastric TTP CT scan read, labs pending GI cocktail + additional Morphine 11/11/18 01:44 [facility] in [facility]; will call back with report 11/11/18 01:46 No leukocytosis CMP, Troponin pending 11/11/18 01:50 Call received from [facility] - suspicious ischemic colitis 11/11/18 02:02 Hospitalist team in the ED - accepts for admission Requests ICU consult Official CT read for ischemic colitis, pneumatosis intestinalis 11/11/18 02:05 Patient started on Vanc/Zosyn/Flagyl 11/11/18 02:10 K+ repleted Troponin 0.10 however patient ESRD, previous Troponin 0.07 in 08/2018 INR supratherapeutic @ 1.64 Additional IV hydration Attending discuss case with patient's family, will speak on phone to daughter who is HCP and discuss with patient 11/11/18 02:30 Case d/w Dr. Mott (General Surgery) - will evaluate patient @ bedside 11/11/18 02:37 Attending discussed case w/HCP and patient 11/11/18 02:39 Case d/w ICU (Dr. Roque) will evaluate patient @ bedside 11/11/18 02:56 ICU @ bedside 11/11/18 03:36 Lab called with critical value Lactic Acid 2.2 - IV fluids hanging 11/11/18 05:54 Dr. Mott evaluated patient @ bedside; patient in OR *DC/Admit/Observation/Transfer Diagnosis at time of Disposition: Mesenteric ischemia - Discharge Dispostion Condition at time of disposition: Fair Decision to Admit order: Yes - Referrals - Patient Instructions - Post Discharge Activity
--- NOTE | 2018-11-11 00:17 | PDOC ---
Attending Attestation - Resident Resident Name: Grabiel Singletonica - ED Attending Attestation I have performed the following: I have examined & evaluated the patient, The case was reviewed & discussed with the resident, I agree w/resident's findings & plan, Exceptions are as noted - HPI HPI: 11/11/18 02:24 82M PMH DM, HTN, HLD, Afib on coumadin, pulm htn 2/2 severe s/p TAVR 2018, ESRD HD tts, dvt s/p IVC filter here with sudden onset of epigastric abdominal pain several hours prior to presentation. Pt localized px to upper abdomen, epigastric and LUQ. Px is sharp, 10/10, non-radiating, no aggravating, alleviating factors. No associate symptoms. Denies, n/v, d/c, f/c, sob, sick contacts, recent travel. - Physicial Exam PE: 11/11/18 02:26 VS noted in EMR, visibly uncomfortable LCTAB Abd soft, mildly tender over epigastric region, no guarding, no rebound - Medical Decision Making 11/11/18 02:39 Sudden onset of intense abdominal px with equivocal abdominal exam CT concerning for ischemic bowel, +pneumobilia and pneumatosis intestinalis f/u labs gentle ivf hydration analgesia broad spec abx gen surg eval admit
[2018-11-11] MEDS ORDERED: morphine CARPU-JECT 4 MG/1 ML DISP.SYRIN IVPUSH ONE ×2 (00:18→01:26)
[2018-11-11] MEDS ORDERED: SODIUM CHLORIDE 0.9% 500 ML INFUS.BAG IV ONE ×2 (00:21→11:41)
[2018-11-11] MEDS ORDERED: morphine SULFATE 4 MG/ML VIAL ONE ×2 (00:41→02:10)
[2018-11-11] MEDS ORDERED: FAMOTIDINE 20 MG/50 ML IVPB 20 MG/50 ML MG IVPB ONE ×2 (01:27→02:11)
[2018-11-11 01:29] LABS: BASO % 0.7 % (0-2.0); EOS % 1.2 % (0-4.5); HEMATOCRIT 35.5 % (35.4-49); LYMPH % 11.2 % (8-40); MCH 34.6 pg (25.7-33.7); MCHC 33.8 g/dl (32.0-35.9); MEAN CELL VOLUME 102.4 fl (80-96); MEAN PLT VOLUME 9.6 fl (7.5-11.1); MONO % 9.6 % (3.8-10.2); NEUT % 77.3 % (42.8-82.8); PLATELET COUNT 212 K/MM3 (134-434); RBC 3.47 M/mm3 (4.00-5.60); RDW 17.2 % (11.9-15.9); WHITE BLOOD COUNT 8.2 K/mm3 (4.0-10.0)
[2018-11-11 02:01] LABS: ALBUMIN 2.9 g/dl (3.4-5.0); ALK PHOS 111 U/L (45-117); ANION GAP 14 MMOL/L (8-16); BILIRUBIN,TOTAL 0.7 mg/dL (0.2-1); BLOOD UREA NITROGEN 31 mg/dL (7-18); CALCIUM 9.1 mg/dL (8.5-10.1); CHLORIDE 101 mmol/L (98-107); CO2 21 mmol/L (21-32); CREATININE 3.9 mg/dL (0.55-1.3); GLUCOSE,RANDOM 169 mg/dL (74-106); LIPASE 171 U/L (73-393); MAGNESIUM 2.1 mg/dL (1.8-2.4); POTASSIUM 3.2 mmol/L (3.5-5.1); SGOT/AST 17 U/L (15-37); SGPT/ALT 14 U/L (13-61); SODIUM 135 mmol/L (136-145)
[2018-11-11] MEDS ORDERED: VANCOMYCIN 1,000 MG in DEXTROSE 5%-WATER - 250 ML IVPB ONE (02:04)
[2018-11-11] MEDS ORDERED: PIPERACILLIN/TAZOB 4.5 GM 4.5 GM in DEXTROSE 5%-WATER 100 ML IVPB ONE (02:04)
[2018-11-11] MEDS ORDERED: POTASSIUM CHLORIDE ORAL LIQUID 20 MEQ/15 ML PO ONE (02:07)
[2018-11-11] MEDS ORDERED: POTASSIUM CHLORIDE TABS 20 MEQ TABLET.ER (FP) PO ONE ×2 (02:10)
[2018-11-11] MEDS ORDERED: PIPERACILLIN/TAZOB 4.5 GM 4.5 GM/100 ML BAG IVPB ONE (02:10)
[2018-11-11] MEDS ORDERED: VANCOMYCIN 1 GRAM (PRE-DOCKED) 1,000 MG/250 ML BAG IVPB ONE (02:11)
[2018-11-11] MEDS ORDERED: LACTATED RINGERS SOLUTION 1,000 ML/1,000 ML INFUS.BAG IV SCH (02:30)
[2018-11-11] MEDS ORDERED: HYDROmorphone HCL CARPU-JECT 2 MG/1 ML DISP.SYRIN IVPUSH ONE (02:38)
[2018-11-11] MEDS ORDERED: HYDROmorphone HCl 2 MG/ML VIAL ONE ×3 (02:39→09:00)
[2018-11-11 02:43] LABS: INR 1.64 (0.83-1.09); PROTHROMBIN TIME (PATIENT) 19.4 SEC (9.7-13.0)
[2018-11-11 02:46] LABS: ACTIVATED PTT 34.7 SECONDS (25.2-36.5)
--- NOTE | 2018-11-11 03:33 | PN ---
Teaching Attending Note Name of Resident: Max Pulido ATTENDING PHYSICIAN STATEMENT I saw and evaluated the patient. I reviewed the resident's note and discussed the case with the resident. I agree with the resident's findings and plan as documented. [place] physicians being confirmed[place] [facility] [place]: Seen and examined; please refer to resident note for additional historical information. Briefly, patient presents with abdominal pain. sudden onset 11PM ; associated with weakness. Pain is out of proportion to exam and radiates to the back. It is diffuse and only slightly improved with IV narcotics. No nausea/vomiting/diarrhea/CP. Recently had AV fistula with diminished flow; saw Dr. Alba for this. He had supratherapeutic INR recently with held coumadin and then restarted; is subtherapeutic. CT done in the ER shows hepatic portal venous gas and gas w/in the sup. mesenteric V and venous branches from the L-upper and L-lower quadrants. Pneumatosis intestinalis present; very suspicious for ischemic enteritis. Dr. Mott has been contacted and will be through to see the patient; deferring further surgical management to their service and placing on broad spectrum abx with careful fluid management given underlying renal issues. ICU has been consulted. He remains critically ill. 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 Confirmed with VBG and US 10 sys ROS done and negative aside from HPI PMH (ESRD on HD (TTS), Pulmonary HTN, Severe Valvular heart disease, HTN, Afib [ was on coumadin], HIT, HTN, HLD, Anemia, Diastolic Dysfunction), PSH (AV repair , IVC filter), Family hx, Social hx reviewed Medication list reviewed; pending reconciliation Home Medications Medication Instructions Recorded Cinacalcet HCl [Sensipar] 30 mg PO DAILY 06/13/18 Sevelamer Carbonate [Renvela -] 800 mg PO TID 06/13/18 Warfarin Sodium [Coumadin] 2.5 mg PO HS 06/13/18 Folic Acid/Vit B Complex and C 0.8 mg PO DAILY 08/29/18 [Dialyvite 800 Tablet] Midodrine HCl 15 mg PO DAILY 11/11/18 Pregabalin [Lyrica -] 50 mg PO BID 11/11/18 Sevelamer Carbonate [Renvela] 800 mg NR TID 11/11/18 OBJECTIVE: VS, labs, imaging reviewed Mild distress, AAO, resting in bed NC AT EOMI PERRLA Pain out of proportion to exam but diffuse dull abdominal tenderness, non- distended, non-tympanic, +BS Lungs CTAB, w/ sym exp Skin normal with no rashes or abrasions CN2-12 wnl, no fnd Normal mood, appropriate behavior ASSESSMENT AND PLAN: Patient presents with abdominal pain; found to have pneumobilia, pneumatosis intestinalis; suspect ischemic enteritis 1) Ischemic Enteritis/pneumobilia 2) Severe Valvular disease/ s/p TAVR 3) Pulmonary HTN 4) ESRD on HD 5) Chronic Anemia 6) Hx HIT 7) HTN 8) HLD 9) Diastolic Dysfunction 10) Valvular Afib Overall, this patient is critically ill. Based on his subtherapeutic INR, it would be more suspect for ischemic enteritis as opposed to erroding biliary process, etc. Pain control with PRN dilaudid, gentle IVF given ESRD (consult his director clinical pharmacology), and vanc and zosyn (consulting his ID specialist). We will defer vent management to critical care team post op should he not be weanable (concern with PHTN) Dr. Mott taking to OR this AM emergently. CVC inserted, moore inserted. Monitor CBC, etc. Discuss with CV/sgy when the AC should be restarted. Involving his skinner pelts given the severe valvular disease. Should mention he is euvolemic. Avoid heparin containing products; will discus post op DVT px with sgy Full Code
[2018-11-11] MEDS ORDERED: ACETAMINOPHEN 1000 MG/100 ML VIAL (NON FORMULARY) IVPB PRN (03:37)
[2018-11-11] MEDS ORDERED: HYDROmorphone HCL CARPU-JECT 2 MG/1 ML DISP.SYRIN IVPUSH SCH (03:45)
--- NOTE | 2018-11-11 03:48 | HP ---
<Max Pulido - Last Filed: 11/13/18 15:43> CHIEF COMPLAINT:Abdominal pain PCP: Dr. Gonzales HISTORY OF PRESENT ILLNESS: Pt. is an 82 y.o. M presenting to the Ed for abdominal pain that started abruptly ~11pm last night. Pt. states jai tthe pain is 9-10/10 and is diffuse. Pt. states jai the also developed generalized weakness around the same time. Pt. denies any nausea, vomiting, diarrhea, constipation, blood in the stool chest pain or shortness of breath Pt. states that he recently restarted his Coumadin last night after being told to discontinue it for a AVF repair (AVF had low throughput). Pt. recently had Coumadin adjusted last week from 5mg to 2.5 mg for a supratherapeutic INR of 8. ER course was notable for: (1)EKG, CTA/P, Abx: Zosyn, Flagyl, Vanco (2)Surgery consult: Alva, Morphine 4mg x 2, Dialudid 1mg x1 (3)Famotidine, repleted K+ Recent Travel: No PAST MEDICAL HISTORY: ESRD(T,Th, Wed), HFpEF, HTN, A. 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 Alcohol: Drinks occasionally in the past, not currently Drugs: Denies. Pt. endorses medical marijuana use Family History: Denies Allergies enoxaparin sodium [From Lovenox] Allergy (Verified 11/11/18 00:05) heparin (porcine) [Heparin,Porcine] Allergy (Verified 11/11/18 00:05) heparin induced platelet antibody as per Paul Tee HOME MEDICATIONS: Home Medications Medication Instructions Recorded Cinacalcet HCl [Sensipar] 30 mg PO DAILY 06/13/18 Sevelamer Carbonate [Renvela -] 800 mg PO TID 06/13/18 Warfarin Sodium [Coumadin] 2.5 mg PO HS 06/13/18 Folic Acid/Vit B Complex and C 0.8 mg PO DAILY 08/29/18 [Dialyvite 800 Tablet] Midodrine HCl 15 mg PO DAILY 11/11/18 Pregabalin [Lyrica -] 50 mg PO BID 11/11/18 Sevelamer Carbonate [Renvela] 800 mg NR TID 11/11/18 REVIEW OF SYSTEMS CONSTITUTIONAL: generalized weakness Absent: fever, chills, diaphoresis, malaise, loss of appetite, weight change HEENT: Absent: rhinorrhea, nasal congestion, throat pain, throat swelling, difficulty swallowing, mouth swelling, ear pain, eye pain, visual changes CARDIOVASCULAR: Absent: chest pain, syncope, palpitations, irregular heart rate, lightheadedness , peripheral edema RESPIRATORY: Absent: cough, shortness of breath, dyspnea with exertion, orthopnea, wheezing, stridor, hemoptysis GASTROINTESTINAL: abdominal pain Absent: abdominal distension, nausea, vomiting, diarrhea, constipation, melena, hematochezia GENITOURINARY: Absent: dysuria, frequency, urgency, hesitancy, hematuria, flank pain, genital pain MUSCULOSKELETAL: back pain Absent: myalgia, arthralgia, joint swelling, , neck pain SKIN: Absent: rash, itching, pallor HEMATOLOGIC/IMMUNOLOGIC: Absent: easy bleeding, easy bruising, lymphadenopathy, frequent infections ENDOCRINE: Absent: unexplained weight gain, unexplained weight loss, heat intolerance, cold intolerance NEUROLOGIC: Absent: headache, focal weakness or paresthesias, dizziness, unsteady gait, seizure, mental status changes, bladder or bowel incontinence PSYCHIATRIC: Absent: anxiety, depression, suicidal or homicidal ideation, hallucinations. PHYSICAL EXAMINATION Vital Signs - 24 hr 11/11/18 11/11/18 11/11/18 00:02 03:21 03:44 Temperature 98.0 F 98.5 F 97.4 F L Pulse Rate 69 Pulse Rate [ 88 102 H Right Radial] Respiratory 21 H 19 17 Rate Blood Pressure 111/54 L Blood Pressure 110/76 126/68 [Right Arm] O2 Sat by Pulse 96 100 95 Oximetry (%) GENERAL: Awake, alert, and fully oriented, in acute distress 2/2 pain. HEAD: Normal with no signs of trauma. EYES: Pupils equal, round and reactive to light, extraocular movements intact, sclera anicteric, conjunctiva clear. No lid lag. EARS, NOSE, THROAT: Ears normal, nares patent, oropharynx clear without exudates. Moist mucous membranes. NECK: Normal range of motion, supple without lymphadenopathy, JVD, or masses. LUNGS: Breath sounds equal, clear to auscultation bilaterally. Bibasilar crackles No accessory muscle use. HEART: Tachycardic, regular rate and rhythm, normal S1 and S2 without murmur, rub or gallop. ABDOMEN: Soft, diffuse abdominal tenderness, not distended, normoactive bowel sounds, no guarding, no rebound, no masses. No hepatomegaly or splenomegaly. MUSCULOSKELETAL: Normal range of motion at all joints. No bony deformities or tenderness. No CVA tenderness. UPPER EXTREMITIES: 2+ pulses, warm, well-perfused. No cyanosis. No clubbing. No peripheral edema. LOWER EXTREMITIES: 2+ pulses, warm, well-perfused. No calf tenderness. No peripheral edema. NEUROLOGICAL: Cranial nerves II-XII intact. Normal speech. Normal gait. PSYCHIATRIC: Cooperative. Good eye contact. Appropriate mood and affect. SKIN: Warm, dry, normal turgor, no rashes or lesions noted, normal capillary refill. Laboratory Results - last 24 hr 11/11/18 11/11/18 11/11/18 00:50 00:50 00:50 WBC 8.2 RBC 3.47 L Hgb 12.0 Hct 35.5 MCV 102.4 H MCH 34.6 H D MCHC 33.8 RDW 17.2 H Plt Count 212 D MPV 9.6 Absolute Neuts (auto) 6.3 Neutrophils % 77.3 D Lymphocytes % 11.2 D Monocytes % 9.6 Eosinophils % 1.2 Basophils % 0.7 Nucleated RBC % 0 PT with INR INR PTT (Actin FS) Sodium 135 L Potassium 3.2 L Chloride 101 Carbon Dioxide 21 Anion Gap 14 BUN 31 H Creatinine 3.9 H Creat Clearance w eGFR 14.91 Random Glucose 169 H Lactic Acid 2.2 H* Calcium 9.1 Magnesium 2.1 Total Bilirubin 0.7 AST 17 ALT 14 Alkaline Phosphatase 111 Creatine Kinase 32 Troponin I 0.10 H Total Protein 7.0 Albumin 2.9 L Lipase 171 Blood Type Antibody Screen 11/11/18 11/11/18 01:58 02:10 WBC RBC Hgb Hct MCV MCH MCHC RDW Plt Count MPV Absolute Neuts (auto) Neutrophils % Lymphocytes % Monocytes % Eosinophils % Basophils % Nucleated RBC % PT with INR 19.40 H INR 1.64 H PTT (Actin FS) 34.7 Sodium Potassium Chloride Carbon Dioxide Anion Gap BUN Creatinine Creat Clearance w eGFR Random Glucose Lactic Acid Calcium Magnesium Total Bilirubin AST ALT Alkaline Phosphatase Creatine Kinase Troponin I Total Protein Albumin Lipase Blood Type B POSITIVE Antibody Screen Negative ASSESSMENT/PLAN: Pt. is an 82 y.o. M w/ PMHx. of ESRD(T,Th, Sat), HFpEF, Hypotension(was previously hypertensive), A. Fib(on Coumadin), DVTs, HIT, Anemia TAVR(January 2018) , IVC Filter(2008) presents to the ED for abdominal pain that started abruptly ~ 11pm last night. #Abdominal pain 2/[address] A/P: portal venous gas, gas in SMV, pneumatosis in several bowel loops of LUQ Consult to Surgery (Dr. Mott) LA: 2.2 Pain management with Dilaudid 1mg Q1H, IV Tylenol 1gm Q8H ID consult (Dr. Jack) #A.Fib Hold warfarin restart per Surgery recs #FEN NS@42ml/hr monitor electrolyte and replete as needed; repleted K+ NPO for surgery #DVT Pt. on Coumadin 2.5mg, will hold Coumadin, defer SCDs until after surgery and follow-up Surgery recs. Visit type - Emergency Visit Emergency Visit: Yes ED Registration Date: 11/11/18 Care time: The patient presented to the Emergency Department on the above date and was hospitalized for further evaluation of their emergent condition. - New Patient This patient is new to me today: Yes Date on this admission: 11/13/18 - Critical Care Critical Care patient: Yes Total Critical Care Time (in minutes): 45 Critical Care Statement: The care of this patient involved high complexity decision making to prevent further life threatening deterioration of the patient 's condition and/or to evaluate & treat vital organ system(s) failure or risk of failure. <Iván Calhoun - Last Filed: 12/12/18 21:50> Seen and examined; agree with above aside from what is supplemented in my own documentation. Repeated all burks parts of exam, supervised all vital parts of patient care.
[2018-11-11] MEDS ORDERED: SODIUM CHLORIDE 1,000 ML IV SCH ×3 (04:00→11:16)
--- NOTE | 2018-11-11 04:34 | CONSULT ---
Consult Consult Specialty:: General Surgery Reason for Consultation:: pneumobilia - History of Present Illness Chief Complaint: abdominal pain History of Present Illness: 82 yo male PMH HTN, Afib on eloquis , CHF, CAD, ESRD on HD (TRS) s/p TVAR 2018, severe , dvt s/p IVC filter here with sudden onset of epigastric abdominal pain several hours prior to presentation. Pt localized px to upper abdomen, epigastric and LUQ. Px is sharp, 10/10, non-radiating, no aggravating, alleviating factors. No associate symptoms. Denies, n/v, d/c, f/c, sob, sick contacts, recent travel. Ct shows pneumobilia vs portal venous gas. We were called to assess. - History Source History Provided By: Patient, Medical Record Limitations to Obtaining History: No Limitations - Past Medical History Cardio/Vascular: Yes: AFIB, Aneurysm, CAD, CHF, HTN, Hyperlipdemia Pulmonary: Yes: Bronchitis, COPD Renal/: Yes: Renal Failure, Hemodialysis - Past Surgical History Past Surgical History: Yes: AV Fistula/Graft - Alcohol/Substance Use Hx Alcohol Use: No - Smoking History Smoking history: Never smoked Have you smoked in the past 12 months: No Aproximately how many cigarettes per day: 0 If you are a former smoker, when did you quit?: 42 years ago Home Medications - Allergies Allergies/Adverse Reactions: Allergies Allergy/AdvReac Type Severity Reaction Status Date / Time enoxaparin sodium Allergy Verified 11/11/18 00:05 [From Lovenox] heparin (porcine) Allergy heparin Verified 11/11/18 00:05 [Heparin,Porcine] induced platelet antibody - Home Medications Home Medications: Ambulatory Orders Cinacalcet HCl [Sensipar] 30 mg PO DAILY 06/13/18 Sevelamer Carbonate [Renvela -] 800 mg PO TID 06/13/18 Warfarin Sodium [Coumadin] 2.5 mg PO HS 06/13/18 Folic Acid/Vit B Complex and C [Dialyvite 800 Tablet] 0.8 mg PO DAILY 08/29/18 Midodrine HCl 15 mg PO DAILY 11/11/18 Pregabalin [Lyrica -] 50 mg PO BID 11/11/18 Sevelamer Carbonate [Renvela] 800 mg NR TID 11/11/18 Review of Systems - Review of Systems Constitutional: denies: Chills, Diaphoresis, Fever Eyes: denies: Blind Spots, Blurred Vision HENT: denies: Difficult Swallowing, Throat Pain Neck: denies: Pain on Movement, Tenderness Cardiovascular: reports: Chest Pain, Palpitations Respiratory: reports: Cough, SOB Gastrointestinal: reports: Abdominal Pain, Indigestion Genitourinary: denies: Discharge, Dysuria, Flank Pain Breasts: reports: No Symptoms Reported. denies: Pain Musculoskeletal: denies: Muscle Pain, Muscle Weakness Integumentary: reports: Incision (left groin for TVAR). denies: Erythema, Lesions Neurological: denies: Seizure, Syncope Endocrine: denies: Unexplained Weight Gain, Unexplained Weight Loss Hematology/Lymphatic: denies: Easily Bruised, Excessive Bleeding Psychiatric: denies: Anxiety, Depression Physical Exam Vital Signs: Vital Signs Temperature 97.4 F L 11/11/18 03:44 Pulse Rate 102 H 11/11/18 03:44 Respiratory Rate 17 11/11/18 03:44 Blood Pressure 126/68 11/11/18 03:44 O2 Sat by Pulse Oximetry (%) 95 11/11/18 03:44 Constitutional: Yes: Well Nourished, No Distress, Calm Eyes: Yes: Conjunctiva Clear, EOM Intact HENT: Yes: Atraumatic, Normocephalic Neck: Yes: Supple, Trachea Midline Cardiovascular: Yes: Regular Rate and Rhythm, S1, S2 Respiratory: Yes: Regular, CTA Bilaterally Gastrointestinal: Yes: Normal Bowel Sounds, Soft, Abdomen, Obese, Tenderness ( RLQ), Tenderness, Epigastrium. No: Pulsatile Mass, Tenderness, Rebound, Vomiting ...Rectal Exam: Yes: Deferred Renal/: Yes: CVA Tenderness - Left, CVA Tenderness - Right Musculoskeletal: No: Muscle Pain, Muscle Weakness Extremities: No: Cool, Cyanosis Edema: No Peripheral Pulses WNL: Yes Integumentary: No: Incision, Jaundice, Tattoos Neurological: Yes: Alert, Oriented Psychiatric: Yes: Alert, Oriented Labs: CBC, BMP 11/11/18 00:50 11/11/18 00:50 Imaging - Results Cat Scan: Report Reviewed (pneumobilia, possible pneumotosis intestinalis), Image Reviewed Problem List - Problems (1) Pneumobilia Assessment/Plan: 82yo male MMP ominous finding of extensive left lobe pneumobilia suggestive of intestinal ischemia given h/o vascular disease s/p TVAR a year ago, less likely gallbladder fistula on the differential. He is tender on exam in RLQ and epigastrium on exam. He appears stable, but is know to be stoic at baseline. We had a lone discussion with daughters at the bedside regarding poor prognosis with surgical intervention given baseline health. They would like to proceed given good functional status. Postopertive ICU Care NPO and IVF hydration empiric IV antibiotics Emergent exploratory laparotomy, possible bowel ressection possible ostomy Discussed with patient risks, benefits and alternatives of aforementioned procedure, including but not limited to bleeding, infection, injury to adjacent structures, leak or injury, intraabdominal abscess, incisional hernia, need for further procedures, ; alternatives include antibiotics, delayed or no surgery - risks of this include failure of nonoperative therapy, perforation, sepsis, recurrence, . Patient desires to proceed with operation - will take to OR for above. Informed consent signed for same. Thank you for the opportunity to participate in the care of this patient. Code(s): K83.8 - OTHER SPECIFIED DISEASES OF BILIARY TRACT (2) Aortic valve prosthesis present Code(s): Z95.2 - PRESENCE OF PROSTHETIC HEART VALVE (3) Atrial fibrillation Code(s): I48.91 - UNSPECIFIED ATRIAL FIBRILLATION Qualifiers: Atrial fibrillation type: chronic Qualified Code(s): I48.2 - Chronic atrial fibrillation (4) CHF (congestive heart failure) Code(s): I50.9 - HEART FAILURE, UNSPECIFIED Qualifiers: Heart failure type: systolic Heart failure chronicity: chronic Qualified Code(s): I50.22 - Chronic systolic (congestive) heart failure (5) COPD (chronic obstructive pulmonary disease) Code(s): J44.9 - CHRONIC OBSTRUCTIVE PULMONARY DISEASE, UNSPECIFIED (6) ESRD (end stage renal disease) on dialysis Code(s): N18.6 - END STAGE RENAL DISEASE; Z99.2 - DEPENDENCE ON RENAL DIALYSIS (7) HTN (hypertension) Code(s): I10 - ESSENTIAL (PRIMARY) HYPERTENSION Qualifiers: Hypertension type: essential hypertension Qualified Code(s): I10 - Essential (primary) hypertension (8) PHT (pulmonary hypertension) Code(s): I27.20 - PULMONARY HYPERTENSION, UNSPECIFIED (9) S/P TAVR (transcatheter aortic valve replacement) Code(s): Z95.2 - PRESENCE OF PROSTHETIC HEART VALVE
[2018-11-11] MEDS ORDERED: HYDROmorphone HCl 2 MG/ML VIAL IVPUSH PRN (04:40)
--- NOTE | 2018-11-11 04:40 | CONSULT ---
Consultation: CONSULT REQUEST: We have been asked to medically evaluate this patient for ( ischemic bowel---ICU admission). PCP: Dr. Gonzales Vascular: Dr. Alba Renal: Dr. Christensen HISTORY OF PRESENT ILLNESS: Patient is an 82 year old male from home brought in by daughter with the chief complaint of severe abdominal pain since 11 pm last night. As per the patient, he was apparently well until 11 pm then he started having severe abdominal pain , located diffusely, 10/10 in intensity, sharp in nature, radiating towards his back. It was associated with generalized weakness. Abdominal pain was so severe that he came in to the ED for further evaluation. Denies nausea, vomiting, headache, fever, chills, rigors, sweating, chest pain, shortness of breath, cough or palpitations. Bowel habit normal, last bowel movement was yesterday morning. Doesn't make urine. Last HD was on morning. Sleep/Appetite normal prior to his illness. Patient reports that due to decreased blood flow in his fistula, he had the ballooning done at Dr. Ocampo office 2 days ago for which coumadin was stopped, restarted coumadin 2.5 mg last night. On arrival to the ED, patient was afebrile, hemodynamically stable. Abdominal tenderness on exam. Abdominal/Pelvis CT was done prelim read suggests ischemic bowel. Patient evaluated by Dr. Mott in the ED, discussed with the family, taking the patient for an emergent Ex. Lap. PAST MEDICAL HISTORY: Diastolic CHF, HTN, HLD, DM, Afib on coumadin, Severe s /p TAVR @ [facility] (2018), Severe Pulmonary HTN due to valvular heart disease, ESRD on dialysis (,, ), Anemia, Post Herpetic Neuralgia; viral erruption of the penis s/p Acylovir, Hx DVT w/ IVC filter, HIT ALLERGIES: Heparin, Lovenox. PAST SURGICAL HISTORY: TAVR, IVC filter SOCIAL HISTORY: Lives independently. Uses a cane. ADLs Smoking- Quit in , smoked few cigarets for a year. Alcohol- Occasional, quit in Drugs- Medical marijuana. OCCUPATION: Retired, owned an [employer] REVIEW OF SYSTEMS: CONSTITUTIONAL: Absent: fever, chills, diaphoresis, generalized weakness, malaise, loss of appetite, weight change HEENT: Absent: rhinorrhea, nasal congestion, throat pain, throat swelling, difficulty swallowing, mouth swelling, ear pain, eye pain, visual changes CARDIOVASCULAR: Absent: chest pain, syncope, palpitations, irregular heart rate, lightheadedness , peripheral edema RESPIRATORY: Absent: cough, shortness of breath, dyspnea with exertion, orthopnea, wheezing, stridor, hemoptysis GASTROINTESTINAL: Present: abdominal pain Absent: abdominal distension, nausea, vomiting, diarrhea, constipation, melena, hematochezia GENITOURINARY: Absent: dysuria, frequency, urgency, hesitancy, hematuria, flank pain, genital pain MUSCULOSKELETAL: Absent: myalgia, arthralgia, joint swelling, back pain, neck pain SKIN: Absent: rash, itching, pallor HEMATOLOGIC/IMMUNOLOGIC: Absent: easy bleeding, easy bruising, lymphadenopathy, frequent infections ENDOCRINE: Absent: unexplained weight gain, unexplained weight loss, heat intolerance, cold intolerance NEUROLOGIC: Absent: headache, focal weakness or paresthesias, dizziness, unsteady gait, seizure, mental status changes, bladder or bowel incontinence PSYCHIATRIC: Absent: anxiety, depression, suicidal or homicidal ideation, hallucinations. PHYSICAL EXAMINATION Vital Signs - 24 hr 11/11/18 11/11/18 11/11/18 00:02 03:21 03:44 Temperature 98.0 F 98.5 F 97.4 F L Pulse Rate 69 Pulse Rate [ 88 102 H Right Radial] Respiratory 21 H 19 17 Rate Blood Pressure 111/54 L Blood Pressure 110/76 126/68 [Right Arm] O2 Sat by Pulse 96 100 95 Oximetry (%) GENERAL: Elderly male, lying comfortably in bed, Awake, alert, and fully oriented, in no acute distress. EYES: EOM intact, no pallor or icterus. EARS, NOSE, THROAT: Ears normal. Moist mucous membranes. NECK: Supple, no JVD. LUNGS: B/L lungs clear, no added sounds. HEART: Irregularly irregular rate and rhythm, normal S1 and S2 with systolic murmur. ABDOMEN: Soft, tender to palpation diffusely, more on the RLQ, hypoactive bowel sounds. UPPER EXTREMITIES: No peripheral edema. LOWER EXTREMITIES: No peripheral edema. NEUROLOGICAL: No facial droop, Power 5/5 in all ext, sensation intact, Cranial nerves II-XII intact. Normal speech. Gait not observed. PSYCHIATRIC: Cooperative. Good eye contact. Appropriate mood and affect. SKIN: Warm, dry, normal turgor, no rashes or lesions noted. Laboratory Results - last 24 hr 11/11/18 11/11/18 11/11/18 00:50 00:50 00:50 WBC 8.2 RBC 3.47 L Hgb 12.0 Hct 35.5 MCV 102.4 H MCH 34.6 H D MCHC 33.8 RDW 17.2 H Plt Count 212 D MPV 9.6 Absolute Neuts (auto) 6.3 Neutrophils % 77.3 D Lymphocytes % 11.2 D Monocytes % 9.6 Eosinophils % 1.2 Basophils % 0.7 Nucleated RBC % 0 PT with INR INR PTT (Actin FS) Sodium 135 L Potassium 3.2 L Chloride 101 Carbon Dioxide 21 Anion Gap 14 BUN 31 H Creatinine 3.9 H Creat Clearance w eGFR 14.91 Random Glucose 169 H Lactic Acid 2.2 H* Calcium 9.1 Magnesium 2.1 Total Bilirubin 0.7 AST 17 ALT 14 Alkaline Phosphatase 111 Creatine Kinase 32 Troponin I 0.10 H Total Protein 7.0 Albumin 2.9 L Lipase 171 Blood Type Antibody Screen 11/11/18 11/11/18 01:58 02:10 WBC RBC Hgb Hct MCV MCH MCHC RDW Plt Count MPV Absolute Neuts (auto) Neutrophils % Lymphocytes % Monocytes % Eosinophils % Basophils % Nucleated RBC % PT with INR 19.40 H INR 1.64 H PTT (Actin FS) 34.7 Sodium Potassium Chloride Carbon Dioxide Anion Gap BUN Creatinine Creat Clearance w eGFR Random Glucose Lactic Acid Calcium Magnesium Total Bilirubin AST ALT Alkaline Phosphatase Creatine Kinase Troponin I Total Protein Albumin Lipase Blood Type B POSITIVE Antibody Screen Negative Active Medications Generic Name Dose Route Start Last Admin Trade Name Freq PRN Reason Stop Dose Admin Acetaminophen 1,000 mg 11/11/18 03:37 Ofirmev Injection - IVPB Q8H PRN PAIN LEVEL 4 - 6 Hydromorphone HCl 1 mg 11/11/18 03:45 11/11/18 04:24 Dilaudid Injection - IVPUSH 1 mg Q1H MATEUS Administration Piperacillin Sod/Tazobactam 50 mls @ 100 mls/hr 11/11/18 10:00 Sod 2.25 gm/ Dextrose IVPB Q8H-IV MATEUS Protocol Sodium Chloride 1,000 mls @ 42 mls/hr 11/11/18 04:00 11/11/18 04:24 Normal Saline - IV 42 mls/hr ASDIR MATEUS Administration IMAGING: Abdomen/Pelvis CT prelim read: CT done in the ER shows hepatic portal venous gas and gas w/in the sup. mesenteric V and venous branches from the L-upper and L-lower quadrants. Pneumatosis intestinalis present; very suspicious for ischemic enteritis. ASSESSMENT/PLAN: Patient is an 82 year old male from home with significant PMHx of Diastolic CHF , HTN, HLD, DM, Afib on coumadin, Severe s/p TAVR @ [facility] (2018), Severe Pulmonary HTN due to valvular heart disease, ESRD on dialysis (,, ), Anemia , Post Herpetic Neuralgia; viral erruption of the penis s/p Acylovir, Hx DVT w/ IVC filter, HIT brought in by daughter with the chief complaint of severe abdominal pain since 11 pm last night. # Abdominal pain secondary to Ischemic bowel On arrival, afebrile, hemodynamically stable, no leukocytosis, lactic acid 2.2 Was given Morphine for pain control IV LR @ 42 ml/hr Pain control with IV Dilaudid One dose of Vanc and Zosyn given in the ED Blood cultures Repeat Lactic acid Emergent Ex lap this morning. Following surgery, patient will require close monitoring in ICU. # Atrial Fibrillation on warfarin with subtherapeutic INR INR 1.64. Had stopped warfarin for ballooning of the fistula 2 days ago, restarted warfarin 2.5 mg night. Repeat INR this morning. Hold Warfarin for emergent surgery. # ESRD on HD (TTS) LUE AV fistula. Last HD on Dr. Christensen consult requested NPO for now, hold sevalemr and cinacalcet # HTN Hold PO meds, will give IV Metoprolol 5mg Q4H with holding parameters. # Hx DVT, Hx HIT IVC filter. Hold ac # Severe pulmonary hypertension Being treated at [facility]. # FEN IV LR @ 42 mls/hr Electrolytes WNL NPO # Prophylaxis For DVT: SCDs FOr GI: Start protonix post surgery. # Code Status: DNR As per HCP (Daughter Simona). Need to sign papers when HCP comes to the hospital this morning. HCP also wants to discuss code status with the patient as he has capacity. Illness, Investigation and and plan of care explained to the patient and his daughters. They verbalized understanding. Case discussed with Dr. Calhoun and Dr. Mott. Katey Roque, PGY-3. Dispo: We will continue to follow the patient. Thank you for this consultative opportunity. Visit type - Emergency Visit Emergency Visit: Yes ED Registration Date: 11/11/18 Care time: The patient presented to the Emergency Department on the above date and was hospitalized for further evaluation of their emergent condition. - New Patient This patient is new to me today: Yes Date on this admission: 11/11/18 - Critical Care Critical Care patient: Yes Total Critical Care Time (in minutes): 35 Critical Care Statement: The care of this patient involved high complexity decision making to prevent further life threatening deterioration of the patient 's condition and/or to evaluate & treat vital organ system(s) failure or risk of failure.
[2018-11-11] MEDS ORDERED: ACETAMINOPHEN 1000 MG/100 ML VIAL (NON FORMULARY) IVPB SCH ×2 (04:45→12:45)
[2018-11-11] MEDS ORDERED: fentaNYL CITRATE 250 MCG/5 ML VIAL ONE (05:41)
[2018-11-11] MEDS ORDERED: ROCURONIUM BROMIDE 50 MG/5 ML VIAL ONE (05:41)
[2018-11-11] MEDS ORDERED: PROPOFOL 20 ML ONE (05:41)
[2018-11-11] MEDS ORDERED: SUCCINYLCHOLINE CHLORIDE 200 MG/10 ML VIAL ONE (05:41)
[2018-11-11] MEDS ORDERED: METOPROLOL TARTRATE 5 MG/5 ML VIAL IVPUSH PRN ×2 (05:50→08:55)
[2018-11-11 06:13] LABS: VENOUS PC02 49.9 mmHg (41-51); VENOUS PH 7.27 (7.31-7.41); VENOUS PO2 33.6 mmHg (30-40)
[2018-11-11] MEDS ORDERED: PHENYLEPHRINE HCL 10 MG/1 ML SINGLE DOSE VIAL ONE (06:17)
[2018-11-11] MEDS ORDERED: DEXAMETHASONE SOD PHOSPHATE 4 MG/1 ML VIAL ONE (07:12)
[2018-11-11] MEDS ORDERED: ONDANSETRON 4 MG/2 ML VIAL ONE (07:12)
[2018-11-11] MEDS ORDERED: NEOSTIGMINE METHYLSULFATE 0.5 MG/1 ML - 10 ML MDV ONE (07:20)
[2018-11-11] MEDS ORDERED: GLYCOPYRROLATE 0.2 MG/1 ML VIAL ONE (07:20)
--- NOTE | 2018-11-11 07:37 | OP ---
Operative Note - Note: Operative Date: 11/11/18 Pre-Operative Diagnosis: portal venous gas vs pneumobilia Operation: exploratory laparotomy, small bowel resection with primary anastomosis Findings: segment of ischemic jejunum Post-Operative Diagnosis: Other (ischemic small intestines (jejunum)) Surgeon: Marcos Mott Slurry Tank Tender: Luis Antonio Alvarez Anesthesiologist/WEB PRODUCTION DESIGNER: Ángel Guzman Anesthesia: General Specimens Removed: segment of small intestines Estimated Blood Loss (mls): 30 Drains & Tubes with Location: NGT Fluid Volume Replaced (mls): 600 Operative Report Dictated: Yes
[2018-11-11] MEDS ORDERED: ONDANSETRON 4 MG/2 ML VIAL IVPUSH PRN (08:26)
--- NOTE | 2018-11-11 09:04 | PN ---
Progress Note (short form) - Note Progress Note: ID consult dictated imp/reccd 82 yo man PMH of afib on coumadin, s/p TAVR, pulmonary HTN, esrd on hd presented to ED with abdominal pain ct scan with pneumotosis intestinalis with day in [facility] and portal venous system patient was taken to OR this AM and had was found to have ischemic small bowel now s/p ex lap with small bowel resection with primary anastomosis he is extubated in the RR and alert no pressors he received vancomycin, zosyn and flagyl in the ER prior to surgery No blood cultures were sent postop labs pending ischemic bowel s/p surgery this am to continue zosyn dosed for ESRD blood cultures ordered afib esrd/hd s/p TAVR seen in recovery room left avf right groin cvp- consider d/c cvp (placed in ER) Problem List - Problems (1) Mesenteric ischemia Code(s): K55.9 - VASCULAR DISORDER OF INTESTINE, UNSPECIFIED (2) Atrial fibrillation Code(s): I48.91 - UNSPECIFIED ATRIAL FIBRILLATION Qualifiers: Atrial fibrillation type: chronic Qualified Code(s): I48.2 - Chronic atrial fibrillation (3) S/P TAVR (transcatheter aortic valve replacement) Code(s): Z95.2 - PRESENCE OF PROSTHETIC HEART VALVE (4) ESRD (end stage renal disease) on dialysis Code(s): N18.6 - END STAGE RENAL DISEASE; Z99.2 - DEPENDENCE ON RENAL DIALYSIS
[2018-11-11] MEDS: HYDROmorphone HCl 2 MG/ML VIAL IVPUSH PRN (09:05)
[2018-11-11 09:49] LABS: BASO % 0.4 % (0-2.0); HEMATOCRIT 37.1 % (35.4-49); HEMOGLOBIN 12.4 GM/dL (11.7-16.9); LYMPH % 2.1 % (8-40); MCH 34.2 pg (25.7-33.7); MCHC 33.5 g/dl (32.0-35.9); MEAN CELL VOLUME 102.1 fl (80-96); NEUT % 91.5 % (42.8-82.8); PLATELET COUNT 221 K/MM3 (134-434); RBC 3.63 M/mm3 (4.00-5.60); RDW 17.4 % (11.9-15.9); WHITE BLOOD COUNT 12.4 K/mm3 (4.0-10.0)
[2018-11-11] MEDS ORDERED: PIPERACILLIN/TAZOB 2.25 GM 2.25 GM in DEXTROSE 5%-WATER - 50 ML IVPB SCH (10:00)
[2018-11-11 10:26] LABS: ALBUMIN 2.9 g/dl (3.4-5.0); ALK PHOS 105 U/L (45-117); ANION GAP 12 MMOL/L (8-16); BILIRUBIN,TOTAL 0.8 mg/dL (0.2-1); BLOOD UREA NITROGEN 34 mg/dL (7-18); CALCIUM 8.9 mg/dL (8.5-10.1); CHLORIDE 102 mmol/L (98-107); CO2 22 mmol/L (21-32); CREATININE 4.1 mg/dL (0.55-1.3); GLUCOSE,RANDOM 117 mg/dL (74-106); MAGNESIUM 1.8 mg/dL (1.8-2.4); PHOSPHOROUS 6.5 mg/dL (2.5-4.9); POTASSIUM 3.7 mmol/L (3.5-5.1); SGOT/AST 25 U/L (15-37); SGPT/ALT 12 U/L (13-61); SODIUM 136 mmol/L (136-145); TOT PROT 7.1 g/dl (6.4-8.2)
[2018-11-11 10:27] LABS: INR 1.74 (0.83-1.09); PROTHROMBIN TIME (PATIENT) 20.7 SEC (9.7-13.0)
[2018-11-11] MEDS: PIPERACILLIN/TAZOB 2.25 GM 2.25 GM in DEXTROSE 5%-WATER - 50 ML IVPB SCH ×2 (10:30→18:00)
[2018-11-11] MEDS: SODIUM CHLORIDE 1,000 ML IV SCH ×2 (10:30→23:01)
--- NOTE | 2018-11-11 10:47 | CONS ---
INFECTIOUS DISEASE CONSULTATION DATE OF CONSULTATION: DATE OF DICTATION: 11/11/2018 REQUESTED BY: The hospitalist service. HISTORY OF PRESENT ILLNESS: This is an 82-year-old man who presented last night with acute onset of abdominal pain. He has a past history significant for atrial fibrillation, aortic stenosis status post TAVR, pulmonary hypertension, end- stage renal disease on dialysis. He had recently had an AV fistula with diminished flow and had been seeing Vascular Surgery for this. He also had a supratherapeutic INR and his Coumadin dose was being adjusted. Given the severe abdominal pain, he had a CAT scan done in the emergency room that showed pneumatosis intestinalis with air in the superior mesenteric vein and the portal venous system. In the ER, he had no fevers or chills. He was seen emergently by General Surgery. He went to the operating room early this morning. He had an exploratory laparotomy and was found to have ischemic small bowel. He had a small-bowel resection with primary anastomosis. He is now postop in the recovery room. He is extubated and awake. He is on no pressors at this time. PAST MEDICAL HISTORY: Notable for end-stage renal disease on dialysis. He has a history of diastolic heart failure, atrial fibrillation, aortic stenosis, pulmonary hypertension. He has a history of DVT, herpes zoster. SURGICAL HISTORY: Notable for aortic valve replacement, TAVR. He had lung surgery. He has a left arm fistula. REVIEW OF SYSTEMS: Currently, he is resting comfortably, denies any fevers or chills. SOCIAL HISTORY: He lives at home with his family. He stopped smoking 42 years ago. ALLERGIES: He is allergic to LOVENOX and HEPARIN. HOME MEDICATIONS: Include Sensipar, Renvela, Coumadin, Dialyvite, midodrine, and Lyrica. PHYSICAL EXAMINATION: General: He is awake and alert. Vital Signs: Temperature is 97.4, pulse of 102, blood pressure is 126/68, respiratory rate 17, he is saturating 95%. HEENT: He is normocephalic. His eyes are anicteric. Neck: Supple. Lungs: Have diminished breath sounds at the bases. Heart: Regular rate and rhythm. Abdomen: He has a dressing intact. He is just out of the OR. I did not do an abdominal exam. Extremities: Slightly cool and his feet and fingers are slightly cyanotic. LABORATORY: Admission labs are notable for a white count of 8.2, hemoglobin 12, platelets are 212, BUN and creatinine are 31 and 3.9, lactic acid was 2.2, troponin was 0.1. ASSESSMENT AND PLAN: 1. In summary, this is an 82-year-old man with ischemic bowel, status post surgery this morning. Would continue Zosyn adjusted for his renal failure. Would obtain blood cultures as well if not done. He received vancomycin, Zosyn, and Flagyl in the ER prior to surgery. 2. History of atrial fibrillation. 3. End-stage renal disease on dialysis. 4. Status post transcatheter aortic valve replacement. Patient was seen in the recovery room. MOO MIJARES M.D. [id number] MTDD
[2018-11-11 10:52] LABS: ANISOCYTOSIS 1+; MACROCYTOSIS 1+; PLATELET ESTIMATE NORMAL
--- NOTE | 2018-11-11 10:59 | EKG ---
Test Reason : Blood Pressure : / mmHG Vent. Rate : 077 BPM Atrial Rate : 250 BPM P-R Int : 000 ms QRS Dur : 106 ms QT Int : 426 ms P-R-T Axes : 000 075 -02 degrees QTc Int : 482 ms ATRIAL FIBRILLATION WITH PREMATURE VENTRICULAR OR ABERRANTLY CONDUCTED COMPLEXES ABNORMAL ECG Confirmed by ROSITA NOE MD ([id number]) on 11/11/2018 10:59:00 AM Referred By: Confirmed By:ROSITA NOE MD
[2018-11-11] MEDS ORDERED: SODIUM CHLORIDE 250 ML IV PRN (11:28)
--- NOTE | 2018-11-11 11:28 | CONSULT ---
Consult - text type - Consultation Consultation Note: Renal Consult for ESRD on HD This is a 82 year old gentleman with hx of ESRD on HD (TTS), HF (normal LV function), Afib on coumadin, DVT, Anemia who presented with acute on set abd pain and found to have ischemic bowel now s/p bowel resection. Pt had dialysis yesterday as an outpatient. Pt seen in recovery room, awake and alert and offers no acute complaints. Son provided history. Pain started yesterday evening as chest/epigastric pain. He is on coumadin, INR has been subtheraputic. No fever, chills, N/V. PMhx: as above Allergies: NKDA Family Hx: NC Social Hx: No T/A/D ROS: as per HPI Home Medications Medication Instructions Recorded Cinacalcet HCl [Sensipar] 30 mg PO DAILY 06/13/18 Sevelamer Carbonate [Renvela -] 800 mg PO TID 06/13/18 Warfarin Sodium [Coumadin] 2.5 mg PO HS 06/13/18 Folic Acid/Vit B Complex and C 0.8 mg PO DAILY 08/29/18 [Dialyvite 800 Tablet] Midodrine HCl 15 mg PO DAILY 11/11/18 Pregabalin [Lyrica -] 50 mg PO BID 11/11/18 Sevelamer Carbonate [Renvela] 800 mg NR TID 11/11/18 Vital Signs Temperature 97.4 F L 11/11/18 03:44 Pulse Rate 102 H 11/11/18 03:44 Respiratory Rate 17 11/11/18 03:44 Blood Pressure 126/68 11/11/18 03:44 O2 Sat by Pulse Oximetry (%) 95 11/11/18 03:44 Intake & Output 11/08/18 11/09/18 11/10/18 11/11/18 23:59 23:59 23:59 23:59 Intake Total 600 Output Total 30 Balance 570 Weight 75.296 kg NAD on Facemask O2 awake and alert neck supple, no JVD irregular, no M/R CTA, no rales Abd with dressing in place No LE edema, clubbing or edema CBC, BMP 11/11/18 09:15 11/11/18 09:15 Current Medications Acetaminophen (Ofirmev Injection -) 1,000 mg IVPB Q8H MATEUS Stop: 11/12/18 04:46 Chlorhexidine Gluconate (Hibiclens For Decolonization -) 1 applic TP HS MATEUS Fentanyl (Sublimaze Injection -) 50 mcg IVPUSH [id number] PRN PRN Reason: PAIN-PACU ORDER X 4 DOSES ONLY Stop: 11/12/18 08:25 Hydromorphone HCl (Dilaudid Vial -) 1 mg IVPUSH Q1H PRN PRN Reason: PAIN LEVEL 6-10 Piperacillin Sod/Tazobactam (Sod 2.25 gm/ Dextrose) 50 mls @ 100 mls/hr IVPB Q8H-IV MATEUS; Protocol Sodium Chloride (Normal Saline -) 1,000 mls @ 75 mls/hr IV ASDIR MATEUS Stop: 11/12/18 05:15 Metoprolol Tartrate (Lopressor Injection -) 5 mg IVPUSH Q4H PRN PRN Reason: HYPERTENSION Mupirocin (Bactroban Ointment (For Decolonization) -) 1 applic NS BID MATEUS Stop: 11/16/18 09:59 Ondansetron HCl (Zofran Injection) 4 mg IVPUSH Q6H PRN PRN Reason: NAUSEA AND/OR VOMITING 82 year old gentleman with hx of ESRD on HD (TTS), HF (normal LV function), Afib on coumadin, DVT, Anemia who presented with acute on set abd pain and found to have ischemic bowel now s/p bowel resection. #Acute Ischemic bowel #ESRD on HD #Diastolic HF #Leukocytosis #Afib on Coumadin #Renal Osteodystrophy no acute indication for SENIOR LINUX UNIX ADMINISTRATOR at this time. Pt appears evolemic and no overt electrolyte abnormalities noted will try to maitain organ profusion pressure with IVF. Maintain on isotonic saline for now with close monitoring of respiratory status given ESRD and Hx of HF. Goal MAP 65-70. Can give PRN bolous if needed to maintain MAP. Will plan for maintiance dialysis tomorrow and UF depending on volume status resume A/c when ok with Surgery Pain control Emperic Abx as needed Cardiology followup regarding hx of HF and Afib Thank you Will monitor closely Juan Christensen DO
--- NOTE | 2018-11-11 13:52 | PN ---
Progress Note (short form) - Note Progress Note: Patient seen and examined in the ICU. Sleepy but awakens to voice command. Borderline hemodynamics that have been somewhat responsive to IVF boluses. Current MAP is 63 and a 500cc IVF bolus was ordered. Right femoral TLC was inserted for additional IV access. Denies CP or SOB. Intake & Output 11/08/18 11/09/18 11/10/18 11/11/18 23:59 23:59 23:59 23:59 Intake Total 1050 Output Total 30 Balance 1020 Weight 166 lb Last Vital Signs Temp Pulse Resp BP Pulse Ox 99.3 F 86 10 91/53 L 100 11/11/18 12:00 11/11/18 12:15 11/11/18 12:15 11/11/18 12:15 11/11/18 12:15 Active Medications Acetaminophen (Ofirmev Injection -) 1,000 mg IVPB Q8H MATEUS Stop: 11/12/18 04:46 Chlorhexidine Gluconate (Hibiclens For Decolonization -) 1 applic TP HS MATEUS Fentanyl (Sublimaze Injection -) 50 mcg IVPUSH [id number] PRN PRN Reason: PAIN-PACU ORDER X 4 DOSES ONLY Stop: 11/12/18 08:25 Hydromorphone HCl (Dilaudid Vial -) 1 mg IVPUSH Q1H PRN PRN Reason: PAIN LEVEL 6-10 Last Admin: 11/11/18 09:05 Dose: 0.5 mg Piperacillin Sod/Tazobactam (Sod 2.25 gm/ Dextrose) 50 mls @ 100 mls/hr IVPB Q8H-IV MATEUS; Protocol Last Admin: 11/11/18 10:30 Dose: 50 mls Sodium Chloride (Normal Saline -) 1,000 mls @ 75 mls/hr IV ASDIR MATEUS Stop: 11/12/18 05:15 Last Admin: 11/11/18 10:30 Dose: 0 mls Sodium Chloride (Normal Saline -) 250 mls @ 3,000 mls/hr IV PRN PRN PRN Reason: Hypotension during Dialysis Stop: 11/12/18 11:28 Metoprolol Tartrate (Lopressor Injection -) 5 mg IVPUSH Q4H PRN PRN Reason: HYPERTENSION Mupirocin (Bactroban Ointment (For Decolonization) -) 1 applic NS BID MATEUS Stop: 11/16/18 09:59 Ondansetron HCl (Zofran Injection) 4 mg IVPUSH Q6H PRN PRN Reason: NAUSEA AND/OR VOMITING GENERAL: Elderly male, NAD, sleepy but easily arousable EYES: EOM intact, no pallor or icterus. EARS, NOSE, THROAT: Ears normal. Moist mucous membranes. NECK: Supple, no JVD. LUNGS: Clear HEART: Irregularly irregular rate and rhythm, normal S1 and S2 with systolic murmur. ABDOMEN: Soft, dressing intact, hypoactive BS. UPPER EXTREMITIES: No peripheral edema. LOWER EXTREMITIES: No peripheral edema. NEUROLOGICAL: Non-focal PSYCHIATRIC: Cooperative. Good eye contact. Appropriate mood and affect. SKIN: Warm, dry, normal turgor, no rashes or lesions noted. Laboratory Results - last 24 hr 11/11/18 11/11/18 11/11/18 00:50 00:50 00:50 WBC 8.2 RBC 3.47 L Hgb 12.0 Hct 35.5 MCV 102.4 H MCH 34.6 H D MCHC 33.8 RDW 17.2 H Plt Count 212 D MPV 9.6 Absolute Neuts (auto) 6.3 Neutrophils % 77.3 D Lymphocytes % 11.2 D Monocytes % 9.6 Eosinophils % 1.2 Basophils % 0.7 Nucleated RBC % 0 PT with INR INR PTT (Actin FS) Sodium 135 L Potassium 3.2 L Chloride 101 Carbon Dioxide 21 Anion Gap 14 BUN 31 H Creatinine 3.9 H Creat Clearance w eGFR 14.91 Random Glucose 169 H Lactic Acid 2.2 H* Calcium 9.1 Magnesium 2.1 Total Bilirubin 0.7 AST 17 ALT 14 Alkaline Phosphatase 111 Creatine Kinase 32 Troponin I 0.10 H Total Protein 7.0 Albumin 2.9 L Lipase 171 Blood Type Antibody Screen 11/11/18 11/11/18 01:58 02:10 WBC RBC Hgb Hct MCV MCH MCHC RDW Plt Count MPV Absolute Neuts (auto) Neutrophils % Lymphocytes % Monocytes % Eosinophils % Basophils % Nucleated RBC % PT with INR 19.40 H INR 1.64 H PTT (Actin FS) 34.7 Sodium Potassium Chloride Carbon Dioxide Anion Gap BUN Creatinine Creat Clearance w eGFR Random Glucose Lactic Acid Calcium Magnesium Total Bilirubin AST ALT Alkaline Phosphatase Creatine Kinase Troponin I Total Protein Albumin Lipase Blood Type B POSITIVE Antibody Screen Negative ASSESSMENT/PLAN: POD # 0: Exploratory laparotomy, small bowel resection with primary anastomosis due to ischemic jejunum Diastolic CHF HTN HLD DM Afib on coumadin Severe s/p TAVR @ [facility] (2018) Severe Pulmonary HTN ESRD on dialysis (T,, ) Anemia Post Herpetic Neuralgia History of viral erruption of the penis s/p Acylovir History of DVT w/ IVC filter History of HIT IVF resuscitation: boluses and maintenance infusion increased If hemodynamics do not stabilize after IVF, start NE for MAP < 65 Strict I & O Pain control ABX per ID AC when cleared by surgery: If needs AC: Argatroban HD per Renal O2 as needed PO when cleared Noted vascular surgery has been called for assessment as there was a concern for peripheral vascular ischemia, likely exacerbated by hypotension Requires ICU monitoring Dr Brandt Critical care time spent in reviewing chart, evaluating patient and formulating plan - 36 minutes.
--- NOTE | 2018-11-11 14:15 | CON.CARD ---
Consult Consult Specialty:: Cardiology Referred by:: Dr. Rosas Reason for Consultation:: Post op cardiac f/u for h/o Atrial Fibrillation - History of Present Illness Chief Complaint: Abdominal Pain History of Present Illness: 1. Severe s/p TAVR 2. 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 ESRD on HD 4. AF on coumadin 5. Hx DVT, HIT, IVC filter 6. 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 He is seen in PACU POD # 0: Exploratory laparotomy, small bowel resection with primary anastomosis due to ischemic jejunum ; INR was subtherapeutic on admission. He is alert and in no distress. He denies CP or SOB. Blood pressure has been low in PACU but responding to fluids. - History Source History Provided By: Medical Record - Past Medical History Cardio/Vascular: Yes: AFIB, Aneurysm, CAD, CHF, HTN, Hyperlipdemia, Other ( s/ p TAVR, severe PHTN, severe MR and TR) Pulmonary: Yes: Bronchitis, COPD Renal/: Yes: Renal Failure, Hemodialysis - Past Surgical History Past Surgical History: Yes: AV Fistula/Graft - Alcohol/Substance Use Hx Alcohol Use: No - Smoking History Smoking history: Never smoked Have you smoked in the past 12 months: No Aproximately how many cigarettes per day: 0 If you are a former smoker, when did you quit?: 42 years ago - Social History Usual Living Arrangement: Other (with family) History of Recent Travel: No Home Medications - Allergies Allergies/Adverse Reactions: Allergies Allergy/AdvReac Type Severity Reaction Status Date / Time enoxaparin sodium Allergy Verified 11/11/18 00:05 [From Lovenox] heparin (porcine) Allergy heparin Verified 11/11/18 00:05 [Heparin,Porcine] induced platelet antibody - Home Medications Home Medications: Ambulatory Orders Cinacalcet HCl [Sensipar] 30 mg PO DAILY 06/13/18 Sevelamer Carbonate [Renvela -] 800 mg PO TID 06/13/18 Warfarin Sodium [Coumadin] 2.5 mg PO HS 06/13/18 Folic Acid/Vit B Complex and C [Dialyvite 800 Tablet] 0.8 mg PO DAILY 08/29/18 Midodrine HCl 15 mg PO DAILY 11/11/18 Pregabalin [Lyrica -] 50 mg PO BID 11/11/18 Sevelamer Carbonate [Renvela] 800 mg NR TID 11/11/18 Family Disease History - Family Disease History Family History: Unremarkable (not pertinent to this presentation) Review of Systems Findings/Remarks: Admission HPI reviewed as patient is now in PACU post and cannot provide detailed hx: "Briefly, patient presents with abdominal pain. sudden onset 11PM; associated with weakness. Pain is out of proportion to exam and radiates to the back. It is diffuse and only slightly improved with IV narcotics. No nausea/vomiting/ diarrhea/CP. Recently had AV fistula with diminished flow; saw Dr. Alba for this. He had supratherapeutic INR recently with held coumadin and then restarted; is subtherapeutic. CT done in the ER shows hepatic portal venous gas and gas w/in the sup. mesenteric V and venous branches from the L-upper and L-lower quadrants. Pneumatosis intestinalis present; very suspicious for ischemic enteritis. Dr. Mott has been contacted and will be through to see the patient; deferring further surgical management to their service and placing on broad spectrum abx with careful fluid management given underlying renal issues. ICU has been consulted. He remains critically ill. Has history of ESRD on TTS HD, Anemia, Severe s/p TAVR (01/2018), Moderate to Severe MR/TR, Severe Pulmonary HTN 2/2 valvular heart disease, Valvular Afib on Coumadin, Hx DVT w/ IVC filter, hx HIT, Post Herpetic Neuralgia, viral erruption of the penis " - Review of Systems Constitutional: reports: Weakness Eyes: denies: No Symptoms, Blind Spots, Blurred Vision, Double Vision, Eye Pain , Floaters, Photophobia, Recent Change in Vision, Other HENT: denies: No Symptoms, Difficult Swallowing, Ear Discharge, Ear Pain, Epistaxis, Gingival Bleeding, Hearing Loss, Mouth Swelling, Nasal Congestion, Ocular Prosthesis, Throat Pain, Toothache, Ringing in Ears, Other Neck: denies: No Symptoms, Decreased ROM, Lumps, Pain on Movement, Stiffness, Swollen Glands, Tenderness, Other Cardiovascular: reports: Shortness of Breath Respiratory: reports: Exercise Intolerance, SOB on Exertion Gastrointestinal: reports: Abdominal Pain Genitourinary: denies: No Symptoms, Burning, Discharge, Dysuria, Flank Pain, Frequency, Hematuria, Incontinence, Lesions, Menses, Pain, Testicular Mass, Testicular Pain, Testicular Swelling, Urgency, Vaginal Bleeding, Other Breasts: denies: No Symptoms Reported, See HPI, Breast Implants, Discharge from Nipple, Lumps, Pain, Skin Changes, Other Musculoskeletal: denies: No Symptoms, Back Pain, Crepitus, Decreased ROM, Extremity Pain, Joint Pain, Joint Swelling, Muscle Pain, Muscle Cramps, Muscle Weakness, Other Integumentary: denies: No Symptoms, Blister, Bruising, Change in Color, Eczema, Erythema, Incision, Lesions, Lump, Pallor, Pruritis, Rash, Wound, Other Neurological: denies: No Symptoms, Change in LOC, Change in Speech, Confusion, Dizziness, Headache, Incoordination, Numbness, Parasthesia, Pre-Existing Deficit , Seizure, Syncope, Tremors, Unsteady Gait, Weakness, Other Endocrine: denies: No Symptoms, Excessive Sweating, Flushing, Increased Hunger, Increased Thirst, Intolerance to Cold, Intolerance to Heat, Unexplained Weight Gain, Unexplained Weight Loss, Other Hematology/Lymphatic: denies: No Symptoms, Easily Bruised, Excessive Bleeding, Swollen Glands, Other Psychiatric: denies: No Symptoms, Altered Sleep Pattern, Anxiety, Depression, Hallucinations, Panic, Paranoia, Suicidal, Other - Risk Factors Known Risk Factors: Yes: Hypercholesterolemia, Hypertension, Prior [place] /Emb Stroke Vital Signs: Vital Signs Temperature 99.3 F 11/11/18 12:00 Pulse Rate 86 11/11/18 12:15 Respiratory Rate 10 11/11/18 12:15 Blood Pressure 91/53 L 11/11/18 12:15 O2 Sat by Pulse Oximetry (%) 100 11/11/18 12:15 Constitutional: Yes: Calm Eyes: Yes: Conjunctiva Clear Neck: Yes: Trachea Midline Respiratory: Yes: Rhonchi Gastrointestinal: Yes: Other (vertical abdominal incision C/D/I) Cardiovascular: Yes: Pulse Irregular JVD: No Carotid Bruit: No Heart Sounds: Yes: S1, S2 (iregular) Murmur: Yes: Systolic Murmur, Grade 1 (RSB) Edema: No Peripheral Pulses WNL: Yes Neurological: Yes: Alert ...Motor Strength: WNL - Other Data Labs, Other Data: CBC, BMP 11/11/18 09:15 11/11/18 09:15 INR, PTT INR 1.74 (0.83-1.09) H 11/11/18 09:15 Troponin, BNP 11/11/18 11/11/18 00:50 09:15 Troponin I 0.10 H 0.12 H Troponin, BNP 11/11/18 11/11/18 00:50 09:15 Troponin I 0.10 H 0.12 H Echo: Report Reviewed Imaging - Results Chest X-ray: Report Reviewed EKG: Image Reviewed Problem List - Problems (1) Mesenteric ischemia Code(s): K55.9 - VASCULAR DISORDER OF INTESTINE, UNSPECIFIED (2) Pneumobilia Code(s): K83.8 - OTHER SPECIFIED DISEASES OF BILIARY TRACT (3) S/P TAVR (transcatheter aortic valve replacement) Code(s): Z95.2 - PRESENCE OF PROSTHETIC HEART VALVE (4) Aortic valve prosthesis present Code(s): Z95.2 - PRESENCE OF PROSTHETIC HEART VALVE (5) Atrial fibrillation Code(s): I48.91 - UNSPECIFIED ATRIAL FIBRILLATION Qualifiers: Atrial fibrillation type: chronic Qualified Code(s): I48.2 - Chronic atrial fibrillation (6) CHF (congestive heart failure) Code(s): I50.9 - HEART FAILURE, UNSPECIFIED Qualifiers: Heart failure type: systolic Heart failure chronicity: chronic Qualified Code(s): I50.22 - Chronic systolic (congestive) heart failure (7) ESRD (end stage renal disease) Code(s): N18.6 - END STAGE RENAL DISEASE (8) Elevated troponin Code(s): R74.8 - ABNORMAL LEVELS OF OTHER SERUM ENZYMES (9) Mitral regurgitation Code(s): I34.0 - NONRHEUMATIC MITRAL (VALVE) INSUFFICIENCY Qualifiers: Cardiac valve disease etiology: nonrheumatic Qualified Code(s): I34.0 - Nonrheumatic mitral (valve) insufficiency (10) Pulmonary hypertension Code(s): I27.20 - PULMONARY HYPERTENSION, UNSPECIFIED (11) Anticoagulation management encounter Code(s): Z51.81 - ENCOUNTER FOR THERAPEUTIC DRUG LEVEL MONITORING; Z79.01 - CUSTODIAL (CURRENT) USE OF ANTICOAGULANTS Assessment/Plan IMP: 1. Ischemic bowel s/p resection, today 2. Permanent AF on AC. 3. Severe s/p TAVR 3. Severe MR 4. Severe, chronic PHTN, follow at [facility] by PHTN service 5. History of DVT, HIT, s/p IVC filter 6. ESRD on HD REC: 1. Cautious use of IVF to support BP and maintain MAP 60mmHg; avoid hypotensive episodes 2. Abx as per General Surgery. 3. Post op ICU care w/ supplimental O2 and daily labs to track WBC, lactate and electrolytes 4. HD as per renal. 5. Rate control is imperative as episodes of SERVANDO may lead to hypotension and potentially further bowel ischemia. Continue IV Lopressor to maintain heart rate < 120 bpm. 6. Resume AC when feasible from surgery standpoint, ideally after 24 hours. [id number] score is elevated and he would be at risk for further embolic events. Goal INR 2-3; bridge therapy would need to be with Argatroban as he has h/o HIT and documented "allergy" to Lovenox. Consider Heme consult. Will follow. Thank you.
--- NOTE | 2018-11-11 15:59 | CONSULT ---
Consult - text type - Consultation Consultation Note: 82 year old man with ESRD on HD followed in my office for access maintenance and new ischemic wounds of left heel and toes. He is now s/p small bowel resection for ischemic bowel. He is sleeping. The left heel ulcer is unchanged from last exam. Feet are warm and there are no new skin changes. Recommend Bactroban to heel with off-loading of feet and heels to prevent new decubitus skin changes. Avoid use of SCD and stockings kaylyn to severe PAD.
--- NOTE | 2018-11-11 17:58 | PN ---
Progress Note, Physician Chief Complaint: Unable to obtain, seeing patient post surgery and sedated. - Current Medication List Current Medications: Active Medications Acetaminophen (Ofirmev Injection -) 1,000 mg IVPB Q8H [facility] Stop: 11/12/18 04:46 Chlorhexidine Gluconate (Hibiclens For Decolonization -) 1 applic TP HS [facility] Fentanyl (Sublimaze Injection -) 50 mcg IVPUSH [id number] PRN PRN Reason: PAIN-PACU ORDER X 4 DOSES ONLY Stop: 11/12/18 08:25 Hydromorphone HCl (Dilaudid Vial -) 1 mg IVPUSH Q1H PRN PRN Reason: PAIN LEVEL 6-10 Last Admin: 11/11/18 09:05 Dose: 0.5 mg Piperacillin Sod/Tazobactam (Sod 2.25 gm/ Dextrose) 50 mls @ 100 mls/hr IVPB Q8H-IV [facility]; Protocol Last Admin: 11/11/18 10:30 Dose: 50 mls Sodium Chloride (Normal Saline -) 1,000 mls @ 75 mls/hr IV ASDIR [facility] Stop: 11/12/18 05:15 Last Admin: 11/11/18 10:30 Dose: 0 mls Sodium Chloride (Normal Saline -) 250 mls @ 3,000 mls/hr IV PRN PRN PRN Reason: Hypotension during Dialysis Stop: 11/12/18 11:28 Metoprolol Tartrate (Lopressor Injection -) 5 mg IVPUSH Q4H PRN PRN Reason: HYPERTENSION Mupirocin (Bactroban Ointment (For Decolonization) -) 1 applic NS BID [facility] Stop: 11/16/18 09:59 Ondansetron HCl (Zofran Injection) 4 mg IVPUSH Q6H PRN PRN Reason: NAUSEA AND/OR VOMITING - Objective Vital Signs: Vital Signs Temperature 37.4 C 11/11/18 12:00 Pulse Rate 90 11/11/18 17:00 Respiratory Rate 10 11/11/18 17:00 Blood Pressure 80/48 L 11/11/18 17:00 O2 Sat by Pulse Oximetry (%) 99 11/11/18 17:00 Constitutional: Yes: No Distress, Other (sedated) Cardiovascular: Yes: Regular Rate and Rhythm. No: Gallop, Murmur, Rub Respiratory: Yes: Regular, On Venti-Mask, Rhonchi. No: CTA Bilaterally, Rales, Wheezes Gastrointestinal: Yes: Hypoactive Bowel Sounds Extremities: Yes: WNL Edema: No Labs: CBC, BMP 11/11/18 09:15 11/11/18 09:15 INR, PTT INR 1.74 (0.83-1.09) H 11/11/18 09:15 Problem List - Problems (1) Mesenteric ischemia Assessment/Plan: -s/p resection per surgery -case d/w Dr Alvarez -continue zosyn Code(s): K55.9 - VASCULAR DISORDER OF INTESTINE, UNSPECIFIED (2) Acute metabolic encephalopathy Assessment/Plan: -secondary to infectious process -continue antibiotics -monitor for improvement Code(s): G93.41 - METABOLIC ENCEPHALOPATHY (3) Atrial fibrillation Assessment/Plan: -currently rate controlled -will need to be anticoagulated -defer to surgery when safe to restart -case d/w Dr Metzger Code(s): I48.91 - UNSPECIFIED ATRIAL FIBRILLATION Qualifiers: Atrial fibrillation type: chronic Qualified Code(s): I48.2 - Chronic atrial fibrillation (4) CHF (congestive heart failure) Assessment/Plan: -very gentle hydration since ESRD on HD and extubated -monitor closely for fluid overload Code(s): I50.9 - HEART FAILURE, UNSPECIFIED Qualifiers: Heart failure type: systolic Heart failure chronicity: chronic Qualified Code(s): I50.22 - Chronic systolic (congestive) heart failure (5) ESRD (end stage renal disease) on dialysis Assessment/Plan: -case d/w Dr Christensen -gentle hydration for hypotension -defer HD to nephrology Code(s): N18.6 - END STAGE RENAL DISEASE; Z99.2 - DEPENDENCE ON RENAL DIALYSIS (6) HTN (hypertension) Assessment/Plan: -currently hypotensive and hydrating -may need pressors Code(s): I10 - ESSENTIAL (PRIMARY) HYPERTENSION Qualifiers: Hypertension type: essential hypertension Qualified Code(s): I10 - Essential (primary) hypertension (7) S/P TAVR (transcatheter aortic valve replacement) Assessment/Plan: -noted Code(s): Z95.2 - PRESENCE OF PROSTHETIC HEART VALVE (8) Shingles Assessment/Plan: -history of Code(s): B02.9 - ZOSTER WITHOUT COMPLICATIONS Assessment/Plan 37 minutes in critical care time spent with this patient
[2018-11-11] MEDS ORDERED: SODIUM CHLORIDE 500 ML IV STA ×2 (19:15→21:24)
[2018-11-11] MEDS: MUPIROCIN 2% TOPICAL OINTMENT FOR DECOLONIZATION NS SCH (23:01)
[2018-11-11] MEDS: CHLORHEXIDINE GLUCONATE 4% CLEANSER FOR DECOLONIZATION TP SCH (23:03)
[2018-11-12] MEDS ORDERED: PIPERACILLIN/TAZOB 2.25 GM 2.25 GM in DEXTROSE 5%-WATER - 50 ML IVPB SCH (02:00)
[2018-11-12] MEDS ORDERED: PT OWN MED DRAWER 7, Y5N ONE (03:09)
[2018-11-12] MEDS ORDERED: DEXTROSE 5%-WATER - 50 ML IVPB ONE ×4 (03:26→23:49)
[2018-11-12] MEDS ORDERED: PIPERACILLIN/TAZOBACTAM 2.25 GM VIAL IVPB ONE ×4 (03:26→23:49)
[2018-11-12] MEDS: PIPERACILLIN/TAZOB 2.25 GM 2.25 GM in DEXTROSE 5%-WATER - 50 ML IVPB SCH ×3 (03:33→17:34)
[2018-11-12 06:25] LABS: HEMATOCRIT 32.6 % (35.4-49); HEMOGLOBIN 10.7 GM/dL (11.7-16.9); MCH 33.7 pg (25.7-33.7); MCHC 32.7 g/dl (32.0-35.9); MEAN CELL VOLUME 103.1 fl (80-96); MEAN PLT VOLUME 9.5 fl (7.5-11.1); PLATELET COUNT 164 K/MM3 (134-434); RBC 3.16 M/mm3 (4.00-5.60); RDW 17.2 % (11.9-15.9); WHITE BLOOD COUNT 8.5 K/mm3 (4.0-10.0)
[2018-11-12 06:38] LABS: INR 3.03 (0.83-1.09); PROTHROMBIN TIME (PATIENT) 36.1 SEC (9.7-13.0)
[2018-11-12 07:26] LABS: ALBUMIN 2.3 g/dl (3.4-5.0); ALK PHOS 56 U/L (45-117); ANION GAP 12 MMOL/L (8-16); BILIRUBIN,TOTAL 0.7 mg/dL (0.2-1); BLOOD UREA NITROGEN 44 mg/dL (7-18); CALCIUM 8.5 mg/dL (8.5-10.1); CHLORIDE 109 mmol/L (98-107); CO2 18 mmol/L (21-32); CREATININE 4.7 mg/dL (0.55-1.3); GLUCOSE,RANDOM 79 mg/dL (74-106); MAGNESIUM 1.9 mg/dL (1.8-2.4); PHOSPHOROUS 7.9 mg/dL (2.5-4.9); POTASSIUM 4.8 mmol/L (3.5-5.1); SGOT/AST 24 U/L (15-37); SGPT/ALT 13 U/L (13-61); SODIUM 138 mmol/L (136-145); TOT PROT 6.1 g/dl (6.4-8.2)
--- NOTE | 2018-11-12 08:41 | PN ---
Progress Note (short form) - Note Progress Note: PULM/CCM POD#1.) S/p Ex-Lap w/ SB Resect Pt Seen & Examined in the ICU. A-Febrile, CA+OX3, NAD. Active Medications Chlorhexidine Gluconate (Hibiclens For Decolonization -) 1 applic TP HS [facility] Last Admin: 11/11/18 23:03 Dose: 1 applic Hydromorphone HCl (Dilaudid Vial -) 1 mg IVPUSH Q1H PRN PRN Reason: PAIN LEVEL 6-10 Last Admin: 11/12/18 09:27 Dose: 1 mg Piperacillin Sod/Tazobactam (Sod 2.25 gm/ Dextrose) 50 mls @ 100 mls/hr IVPB Q8H-IV [facility]; Protocol Last Admin: 11/12/18 17:34 Dose: 100 mls/hr Sodium Chloride (Normal Saline -) 1,000 mls @ 100 mls/hr IV ASDIR [facility] Last Admin: 11/12/18 09:50 Dose: 100 mls/hr Sodium Chloride (Normal Saline -) 1,000 mls @ 125 mls/hr IV ASDIR [facility] Metoprolol Tartrate (Lopressor Injection -) 5 mg IVPUSH Q4H PRN PRN Reason: HYPERTENSION Mupirocin (Bactroban Ointment (For Decolonization) -) 1 applic NS BID [facility] Stop: 11/16/18 22:01 Last Admin: 11/12/18 11:00 Dose: 1 applic Ondansetron HCl (Zofran Injection) 4 mg IVPUSH Q6H PRN PRN Reason: NAUSEA AND/OR VOMITING Vital Signs Period Temp Pulse Resp BP Sys/Montalvo Pulse Ox Last 24 Hr 97.5 F-98.9 F 75-102 8-86 82-128/38-71 95-100 Intake & Output 11/09/18 11/10/18 11/11/18 11/12/18 23:59 23:59 23:59 23:59 Intake Total 2770 3361 Output Total 30 Balance 2740 3361 Weight 75.296 kg GEN: Elderly man in bed, CA+OX3, NAD, friendly, conversant HEENT: PERRL, an-icteric, Dry MMM PULM: CTAB CV: nml S1 S2, RR, Unable to appreciate any G/M/R ABD: Midline Ex-Lap incision c/d/i, Hypoactive BS, S/S N/D X4Q, mild diffuse tenderness EXT: + Pulses, WWP X4, (-) edema CBC, BMP 11/12/18 05:30 11/12/18 05:30 MICRO 11/11/18 13:45 Blood - Peripheral Venous Blood Culture - Preliminary NO GROWTH OBTAINED AFTER 24 HOURS, INCUBATION TO CONTINUE FOR 4 DAYS. 11/11/18 13:44 Blood - Peripheral Venous Blood Culture - Preliminary NO GROWTH OBTAINED AFTER 24 HOURS, INCUBATION TO CONTINUE FOR 4 DAYS. 11/11/18 08:30 Perineal Fluid Gram Stain - Final 11/11/18 08:30 Perineal Fluid Body Fluid Culture - Preliminary NO AEROBIC GROWTH, 24 HRS CXR 11/11: Cardiomegaly. No evidence of blunting of the costophrenic angles. No pneumothorax, or large pleural effusion is seen. The pulmonary vasculature is normal. No evidence of vascular congestive changes. Increased interstitial lung markings noted in both lungs. No interval change from prior study. Vascular stent projecting over the left scapula. No evidence of a pulmonary infiltrates. Impression. Cardiomegaly. No evidence of pneumonia, CHF, pneumothorax, or large pleural effusion ASSESS: POD # 1: s/p Exploratory laparotomy, small bowel resection w/ primary anastomosis due to ischemic jejunum Diastolic CHF HTN HLD DM Afib on coumadin Severe s/p TAVR @ [facility] (2018) Severe Pulmonary HTN ESRD on dialysis (T,Th, ) Anemia Post Herpetic Neuralgia History of viral erruption of the penis s/p Acylovir History of DVT w/ IVC filter History of HIT PLAN: O2 as needed Strict I & O HD today Pain control ABX per ID Start Argatroban when cleared by Heme Advance diet a/p surgery Requires ICU monitoring
[2018-11-12] MEDS: HYDROmorphone HCl 2 MG/ML VIAL IVPUSH PRN (09:27)
--- NOTE | 2018-11-12 09:37 | PN ---
Progress Note (short form) - Note Progress Note: Renal follow up for ESRD on HD Pt seen and examined in the ICU awake and alert reports some abd discomfort BP has been marginal Vital Signs Temperature 98.9 F 11/12/18 02:00 Pulse Rate 86 11/12/18 02:00 Respiratory Rate 15 11/12/18 02:00 Blood Pressure 82/54 L 11/12/18 02:00 O2 Sat by Pulse Oximetry (%) 100 11/11/18 20:36 Intake & Output 11/09/18 11/10/18 11/11/18 11/12/18 23:59 23:59 23:59 23:59 Intake Total 2770 2336 Output Total 30 Balance 2740 2336 Weight 75.296 kg NAD on Facemask O2 awake and alert neck supple, no JVD irregular, no M/R CTA, no rales Abd with dressing in place No LE edema, clubbing or edema CBC, BMP 11/12/18 05:30 11/12/18 05:30 Current Medications Albumin Human (Albumin Human 25%) 12.5 gm IVPB Q6H [facility] Stop: 11/13/18 03:46 Chlorhexidine Gluconate (Hibiclens For Decolonization -) 1 applic TP HS [facility] Last Admin: 11/11/18 23:03 Dose: 1 applic Hydromorphone HCl (Dilaudid Vial -) 1 mg IVPUSH Q1H PRN PRN Reason: PAIN LEVEL 6-10 Last Admin: 11/12/18 09:27 Dose: 1 mg Piperacillin Sod/Tazobactam (Sod 2.25 gm/ Dextrose) 50 mls @ 100 mls/hr IVPB Q8H-IV [facility]; Protocol Last Admin: 11/12/18 03:33 Dose: 100 mls/hr Sodium Chloride (Normal Saline -) 250 mls @ 3,000 mls/hr IV PRN PRN PRN Reason: Hypotension during Dialysis Stop: 11/12/18 11:28 Sodium Chloride (Normal Saline -) 1,000 mls @ 100 mls/hr IV ASDIR [facility] Metoprolol Tartrate (Lopressor Injection -) 5 mg IVPUSH Q4H PRN PRN Reason: HYPERTENSION Mupirocin (Bactroban Ointment (For Decolonization) -) 1 applic NS BID [facility] Stop: 03/27/19 22:01 Last Admin: 11/11/18 23:01 Dose: 1 applic Ondansetron HCl (Zofran Injection) 4 mg IVPUSH Q6H PRN PRN Reason: NAUSEA AND/OR VOMITING 82 year old gentleman with hx of ESRD on HD (TTS), HF (normal LV function), Afib on coumadin, DVT, Anemia who presented with acute on set abd pain and found to have ischemic bowel now s/p bowel resection. #Acute Ischemic bowel #ESRD on HD #Diastolic HF #Leukocytosis #Afib on Coumadin #Renal Osteodystrophy Continue IVF with NS at 100cc per hour, bolous as needed to keep MAP > 65 will give IV albumin to increase intravascular volume for HD today, 0 UF planned closely monitor BP and volume status Surgical follow up ICU monitoring Juan Christensen DO
[2018-11-12] MEDS: SODIUM CHLORIDE 1,000 ML IV SCH (09:50)
--- NOTE | 2018-11-12 09:54 | PN ---
Progress Note (short form) - Note Progress Note: Pot op day#1.S/P Lapratomy with small bowel resection under GA uneventful.P89, BP90/58 and Spo2 100% on O2 FM.Patient stable.No any anesthesia related problem.Patient DC from the anesthesia care.
--- NOTE | 2018-11-12 10:18 | PN ---
Progress Note, Physician Chief Complaint: Mr Dahl says he is having abdominal pain and that his belly is making a lot of noise. Denies cp, sob, n/v. No flatus or bm. - Current Medication List Current Medications: Active Medications Albumin Human (Albumin Human 25%) 12.5 gm IVPB Q6H [facility] Stop: 11/13/18 03:46 Chlorhexidine Gluconate (Hibiclens For Decolonization -) 1 applic TP HS [facility] Last Admin: 11/11/18 23:03 Dose: 1 applic Hydromorphone HCl (Dilaudid Vial -) 1 mg IVPUSH Q1H PRN PRN Reason: PAIN LEVEL 6-10 Last Admin: 11/12/18 09:27 Dose: 1 mg Piperacillin Sod/Tazobactam (Sod 2.25 gm/ Dextrose) 50 mls @ 100 mls/hr IVPB Q8H-IV [facility]; Protocol Last Admin: 11/12/18 10:08 Dose: 100 mls/hr Sodium Chloride (Normal Saline -) 250 mls @ 3,000 mls/hr IV PRN PRN PRN Reason: Hypotension during Dialysis Stop: 11/12/18 11:28 Sodium Chloride (Normal Saline -) 1,000 mls @ 100 mls/hr IV ASDIR [facility] Last Admin: 11/12/18 09:50 Dose: 100 mls/hr Metoprolol Tartrate (Lopressor Injection -) 5 mg IVPUSH Q4H PRN PRN Reason: HYPERTENSION Mupirocin (Bactroban Ointment (For Decolonization) -) 1 applic NS BID [facility] Stop: 11/16/18 22:01 Last Admin: 11/11/18 23:01 Dose: 1 applic Ondansetron HCl (Zofran Injection) 4 mg IVPUSH Q6H PRN PRN Reason: NAUSEA AND/OR VOMITING - Objective Vital Signs: Vital Signs Temperature 37.2 C 11/12/18 02:00 Pulse Rate 86 11/12/18 02:00 Respiratory Rate 15 11/12/18 02:00 Blood Pressure 82/54 L 11/12/18 02:00 O2 Sat by Pulse Oximetry (%) 100 11/11/18 20:36 Constitutional: Yes: Well Nourished, No Distress, Calm Cardiovascular: Yes: Regular Rate and Rhythm. No: Gallop, Murmur, Rub Respiratory: Yes: Regular, CTA Bilaterally, On Venti-Mask. No: Rales, Rhonchi, Wheezes Gastrointestinal: Yes: Soft, Hypoactive Bowel Sounds, Tenderness, Other ( midline incision c/d/i) Extremities: Yes: WNL Edema: No Labs: CBC, BMP 11/12/18 05:30 11/12/18 05:30 INR, PTT INR 3.03 (0.83-1.09) H 11/12/18 05:30 Problem List - Problems (1) Mesenteric ischemia Code(s): K55.9 - VASCULAR DISORDER OF INTESTINE, UNSPECIFIED (2) Acute metabolic encephalopathy Code(s): G93.41 - METABOLIC ENCEPHALOPATHY (3) Atrial fibrillation Code(s): I48.91 - UNSPECIFIED ATRIAL FIBRILLATION Qualifiers: Atrial fibrillation type: chronic Qualified Code(s): I48.2 - Chronic atrial fibrillation (4) CHF (congestive heart failure) Code(s): I50.9 - HEART FAILURE, UNSPECIFIED Qualifiers: Heart failure type: systolic Heart failure chronicity: chronic Qualified Code(s): I50.22 - Chronic systolic (congestive) heart failure (5) ESRD (end stage renal disease) on dialysis Code(s): N18.6 - END STAGE RENAL DISEASE; Z99.2 - DEPENDENCE ON RENAL DIALYSIS (6) HTN (hypertension) Code(s): I10 - ESSENTIAL (PRIMARY) HYPERTENSION Qualifiers: Hypertension type: essential hypertension Qualified Code(s): I10 - Essential (primary) hypertension (7) S/P TAVR (transcatheter aortic valve replacement) Code(s): Z95.2 - PRESENCE OF PROSTHETIC HEART VALVE (8) Shingles Code(s): B02.9 - ZOSTER WITHOUT COMPLICATIONS Assessment/Plan (1) Mesenteric ischemia Assessment/Plan: -s/p resection per surgery -no flatus or bm currently -continue zosyn and flagyl per ID Code(s): K55.9 - VASCULAR DISORDER OF INTESTINE, UNSPECIFIED (2) Acute metabolic encephalopathy Assessment/Plan: -resolved Code(s): G93.41 - METABOLIC ENCEPHALOPATHY (3) Atrial fibrillation Assessment/Plan: -currently rate controlled -INR is therapeutic but has not received anticoagulation -case d/w Dr Calle -will hold on anticoagulation -recheck INR in am -surgery to decide when safe to anticoagulate Code(s): I48.91 - UNSPECIFIED ATRIAL FIBRILLATION Qualifiers: Atrial fibrillation type: chronic Qualified Code(s): I48.2 - Chronic atrial fibrillation (4) CHF (congestive heart failure) Assessment/Plan: -not in exacerbation -currently hydrating, monitor closely to avoid fluid overload Code(s): I50.9 - HEART FAILURE, UNSPECIFIED Qualifiers: Heart failure type: systolic Heart failure chronicity: chronic Qualified Code(s): I50.22 - Chronic systolic (congestive) heart failure (5) ESRD (end stage renal disease) on dialysis Assessment/Plan: -planning for HD today Code(s): N18.6 - END STAGE RENAL DISEASE; Z99.2 - DEPENDENCE ON RENAL DIALYSIS (6) HTN (hypertension) Assessment/Plan: -currently hypotensive and hydrating -also given albumin -no UF with HD -monitor Code(s): I10 - ESSENTIAL (PRIMARY) HYPERTENSION Qualifiers: Hypertension type: essential hypertension Qualified Code(s): I10 - Essential (primary) hypertension (7) S/P TAVR (transcatheter aortic valve replacement) Assessment/Plan: -noted Code(s): Z95.2 - PRESENCE OF PROSTHETIC HEART VALVE (8) Shingles Assessment/Plan: -history of Code(s): B02.9 - ZOSTER WITHOUT COMPLICATIONS 32 minutes spent in critical care time with this patient
--- NOTE | 2018-11-12 10:25 | PN ---
Progress Note, Physician History of Present Illness: AWAKE, ALERT C/O ABDOMINAL PAIN RELIEVED WITH ANALGESICS AFEBRILE WBC IMPROVED CULTURES PENDING - Current Medication List Current Medications: Active Medications Albumin Human (Albumin Human 25%) 12.5 gm IVPB Q6H MATEUS Stop: 11/13/18 03:46 Chlorhexidine Gluconate (Hibiclens For Decolonization -) 1 applic TP HS MATEUS Last Admin: 11/11/18 23:03 Dose: 1 applic Hydromorphone HCl (Dilaudid Vial -) 1 mg IVPUSH Q1H PRN PRN Reason: PAIN LEVEL 6-10 Last Admin: 11/12/18 09:27 Dose: 1 mg Piperacillin Sod/Tazobactam (Sod 2.25 gm/ Dextrose) 50 mls @ 100 mls/hr IVPB Q8H-IV MATEUS; Protocol Last Admin: 11/12/18 10:08 Dose: 100 mls/hr Sodium Chloride (Normal Saline -) 250 mls @ 3,000 mls/hr IV PRN PRN PRN Reason: Hypotension during Dialysis Stop: 11/12/18 11:28 Sodium Chloride (Normal Saline -) 1,000 mls @ 100 mls/hr IV ASDIR MATEUS Last Admin: 11/12/18 09:50 Dose: 100 mls/hr Metoprolol Tartrate (Lopressor Injection -) 5 mg IVPUSH Q4H PRN PRN Reason: HYPERTENSION Mupirocin (Bactroban Ointment (For Decolonization) -) 1 applic NS BID MATEUS Stop: 11/16/18 22:01 Last Admin: 11/11/18 23:01 Dose: 1 applic Ondansetron HCl (Zofran Injection) 4 mg IVPUSH Q6H PRN PRN Reason: NAUSEA AND/OR VOMITING - Objective Vital Signs: Vital Signs Temperature 98.9 F 11/12/18 02:00 Pulse Rate 86 11/12/18 02:00 Respiratory Rate 15 11/12/18 02:00 Blood Pressure 82/54 L 11/12/18 02:00 O2 Sat by Pulse Oximetry (%) 100 11/11/18 20:36 Constitutional: Yes: No Distress Cardiovascular: Yes: Regular Rate and Rhythm, S1, S2 Respiratory: Yes: Diminished Gastrointestinal: Yes: Soft, Tenderness (MILD TENDERNESS) Edema: No Peripheral Pulses WNL: No Labs: CBC, BMP 03/23/19 05:30 11/12/18 05:30 INR, PTT INR 3.03 (0.83-1.09) H 11/12/18 05:30 Assessment/Plan POST OP DAY #1 EXPLORATORY LAPAROTOMY/ SB RESECTION ISCHEMIC BOWEL ESRD S/P TAVR AWAIT C/S CONTINUE EMPIRIC ZOSYN
[2018-11-12] MEDS: MUPIROCIN 2% TOPICAL OINTMENT FOR DECOLONIZATION NS SCH (11:00)
[2018-11-12] MEDS: ALBUMIN HUMAN 25% 12.5 GM/50 ML VIAL IVPB SCH ×4 (12:10→16:55)
[2018-11-12] MEDS ORDERED: SODIUM CHLORIDE 1,000 ML IV SCH (19:15)
[2018-11-12] MEDS ORDERED: SODIUM CHLORIDE 0.9% 500 ML INFUS.BAG IV STA (19:40)
[2018-11-13] MEDS: HYDROmorphone HCl 2 MG/ML VIAL IVPUSH PRN (00:18)
[2018-11-13] MEDS: CHLORHEXIDINE GLUCONATE 4% CLEANSER FOR DECOLONIZATION TP SCH ×2 (00:58→22:30)
[2018-11-13] MEDS: MUPIROCIN 2% TOPICAL OINTMENT FOR DECOLONIZATION NS SCH ×3 (00:58→23:00)
[2018-11-13] MEDS: PIPERACILLIN/TAZOB 2.25 GM 2.25 GM in DEXTROSE 5%-WATER - 50 ML IVPB SCH ×3 (02:00→17:34)
[2018-11-13 06:15] LABS: BASO % 0.4 % (0-2.0); EOS % 0.7 % (0-4.5); HEMATOCRIT 32.1 % (35.4-49); HEMOGLOBIN 10.8 GM/dL (11.7-16.9); LYMPH % 10.6 % (8-40); MCH 33.8 pg (25.7-33.7); MCHC 33.5 g/dl (32.0-35.9); MEAN CELL VOLUME 100.8 fl (80-96); MEAN PLT VOLUME 9.5 fl (7.5-11.1); MONO % 13.4 % (3.8-10.2); NEUT % 74.9 % (42.8-82.8); PLATELET COUNT 179 K/MM3 (134-434); RBC 3.18 M/mm3 (4.00-5.60); RDW 16.9 % (11.9-15.9); WHITE BLOOD COUNT 8.7 K/mm3 (4.0-10.0)
[2018-11-13 06:30] LABS: INR 2.54 (0.83-1.09); PROTHROMBIN TIME (PATIENT) 30.2 SEC (9.7-13.0)
[2018-11-13 06:43] LABS: ALBUMIN 2.6 g/dl (3.4-5.0); ALK PHOS 53 U/L (45-117); ANION GAP 12 MMOL/L (8-16); BILIRUBIN,TOTAL 0.8 mg/dL (0.2-1); BLOOD UREA NITROGEN 23 mg/dL (7-18); CALCIUM 8.4 mg/dL (8.5-10.1); CHLORIDE 104 mmol/L (98-107); CO2 26 mmol/L (21-32); GLUCOSE,RANDOM 76 mg/dL (74-106); MAGNESIUM 1.5 mg/dL (1.8-2.4); PHOSPHOROUS 5.4 mg/dL (2.5-4.9); POTASSIUM 3.9 mmol/L (3.5-5.1); SGOT/AST 29 U/L (15-37); SGPT/ALT 14 U/L (13-61); SODIUM 140 mmol/L (136-145); TOT PROT 6.4 g/dl (6.4-8.2)
--- NOTE | 2018-11-13 07:56 | PN ---
Progress Note, Physician Chief Complaint: A&Ox3; c/o strong pain at site of abdominal surgery; no chest pain or dyspnea. History of Present Illness: 82 white man with PMH DM, HTN, HLD, Afib on coumadin, pulm htn 2/2 severe s/ p TAVR 2017, ESRD HD tts, dvt s/p IVC filter here with sudden onset of epigastric abdominal pain several hours prior to presentation. Pt localized px to upper abdomen, epigastric and LUQ. Px is sharp, 10/10, non-radiating, no aggravating, alleviating factors. No associate symptoms. Denies, n/v, d/c, f/c , sob, sick contacts, recent travel. 1. Severe s/p TAVR 2. 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 ESRD on HD 4. AF on coumadin 5. Hx DVT, HIT, IVC filter 6. 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 - Current Medication List Current Medications: Active Medications Chlorhexidine Gluconate (Hibiclens For Decolonization -) 1 applic TP HS MATEUS Last Admin: 11/13/18 00:58 Dose: 1 applic Hydromorphone HCl (Dilaudid Vial -) 1 mg IVPUSH Q1H PRN PRN Reason: PAIN LEVEL 6-10 Last Admin: 11/13/18 00:18 Dose: 1 mg Piperacillin Sod/Tazobactam (Sod 2.25 gm/ Dextrose) 50 mls @ 100 mls/hr IVPB Q8H-IV MATEUS; Protocol Last Admin: 11/13/18 02:00 Dose: 100 mls/hr Sodium Chloride (Normal Saline -) 1,000 mls @ 100 mls/hr IV ASDIR MATEUS Last Admin: 11/12/18 09:50 Dose: 100 mls/hr Sodium Chloride (Normal Saline -) 1,000 mls @ 125 mls/hr IV ASDIR MATEUS Last Admin: 11/13/18 00:56 Dose: 125 mls/hr Metoprolol Tartrate (Lopressor Injection -) 5 mg IVPUSH Q4H PRN PRN Reason: HYPERTENSION Mupirocin (Bactroban Ointment (For Decolonization) -) 1 applic NS BID MATEUS Stop: 11/16/18 22:01 Last Admin: 11/13/18 00:58 Dose: 1 applic Ondansetron HCl (Zofran Injection) 4 mg IVPUSH Q6H PRN PRN Reason: NAUSEA AND/OR VOMITING - Objective Vital Signs: Vital Signs Temperature 98.4 F 11/13/18 00:00 Pulse Rate 101 H 11/13/18 05:30 Respiratory Rate 16 11/13/18 05:30 Blood Pressure 102/71 11/13/18 05:30 O2 Sat by Pulse Oximetry (%) 100 11/12/18 20:24 Constitutional: Yes: Anxious Eyes: Yes: WNL HENT: Yes: WNL Neck: Yes: WNL Cardiovascular: Yes: Pulse Irregular, S1 (varies in intensity), S2 Respiratory: Yes: WNL Gastrointestinal: Yes: Other (central vertical sugical site bandaged, dry, mildly tender) ...Rectal Exam: Yes: Deferred Genitourinary: Yes: Other (on hemodialysis 3x/wk). No: Anuria Musculoskeletal: Yes: Muscle Weakness Extremities: Yes: Cold Edema: No Peripheral Pulses WNL: No Peripheral Pulses: Left Doralis Pedis: 1+, Right Dorsalis Pedis: 1+ Wound/Incision: Yes: Dressing Dry and Intact Neurological: Yes: Alert, Oriented, Weakness Psychiatric: Yes: Other (anxiety) Labs: CBC, BMP 11/13/18 05:30 11/13/18 05:30 INR, PTT INR 2.54 (0.83-1.09) H 11/13/18 05:30 - ....Imaging Other: Image Reviewed (telemetry: AF, with generally controlled VR) Problem List - Problems (1) Anticoagulation management encounter Assessment/Plan: Pt with hx permanent AF; s/p DVT-->IVC filter. INR subtherapeutic pre-op small bowel ischemia surgery this admission. Prewently, INR is >3. Plan to restart warfarin to maintain INR 2-3 if cleared by surgeon. Code(s): Z51.81 - ENCOUNTER FOR THERAPEUTIC DRUG LEVEL MONITORING; Z79.01 - JAIL (CURRENT) USE OF ANTICOAGULANTS (2) Mesenteric ischemia Assessment/Plan: s/p surgery (jejenum) Pain management per surgeon, PMD. Code(s): K55.9 - VASCULAR DISORDER OF INTESTINE, UNSPECIFIED (3) Anemia due to blood loss Assessment/Plan: Hb 10.7 Code(s): D50.0 - IRON DEFICIENCY ANEMIA SECONDARY TO BLOOD LOSS (CHRONIC) (4) COPD (chronic obstructive pulmonary disease) Code(s): J44.9 - CHRONIC OBSTRUCTIVE PULMONARY DISEASE, UNSPECIFIED (5) Chronic a-fib Assessment/Plan: On metoprolol IVP to maintain HR < 120 bpm. For restart of warfarin to maintain INR 2-3; bridging with agebatran if necessary (INR presently >3). Code(s): I48.2 - CHRONIC ATRIAL FIBRILLATION (6) ESRD (end stage renal disease) on dialysis Assessment/Plan: hemodialysis per dairy cattle farm worker (scheduled for today). Code(s): N18.6 - END STAGE RENAL DISEASE; Z99.2 - DEPENDENCE ON RENAL DIALYSIS (7) HTN (hypertension) Assessment/Plan: Maintain MAP >60; fluids as needed with nephroloist's input). Code(s): I10 - ESSENTIAL (PRIMARY) HYPERTENSION Qualifiers: Hypertension type: essential hypertension Qualified Code(s): I10 - Essential (primary) hypertension (8) Pulmonary hypertension Code(s): I27.20 - PULMONARY HYPERTENSION, UNSPECIFIED (9) S/P TAVR (transcatheter aortic valve replacement) Code(s): Z95.2 - PRESENCE OF PROSTHETIC HEART VALVE (10) Severe pulmonary arterial systolic hypertension Code(s): I27.21 - SECONDARY PULMONARY ARTERIAL HYPERTENSION (11) Shingles Assessment/Plan: last episode (months ago) involved his right eye Code(s): B02.9 - ZOSTER WITHOUT COMPLICATIONS Assessment/Plan CCU time spent: 35 minutes.
--- NOTE | 2018-11-13 08:30 | PN ---
Progress Note, Physician Chief Complaint: A&Ox3;no chest or abdominal pain; c/o dizziness for the past few minutes (on midodrine at home). A-line BP WNl; HR 105 bpm (AF). History of Present Illness: 82 white man with PMH DM, HTN, HLD, Afib on coumadin, pulm htn 2/2 severe --> TAVR 2018, ESRD HD tts, dvt s/p IVC filter here with sudden onset of epigastric abdominal pain several hours prior to presentation. Pt localized px to upper abdomen, epigastric and LUQ. Px is sharp, 10/10, non-radiating, no aggravating , alleviating factors. No associate symptoms. Denies, n/v, d/c, f/c, sob, sick contacts, recent travel. 1. Severe s/p TAVR 2. 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 ESRD on HD 4. AF on coumadin 5. Hx DVT, HIT, IVC filter 6. 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 - Current Medication List Current Medications: Active Medications Chlorhexidine Gluconate (Hibiclens For Decolonization -) 1 applic TP HS MATEUS Last Admin: 11/13/18 00:58 Dose: 1 applic Hydromorphone HCl (Dilaudid Vial -) 1 mg IVPUSH Q1H PRN PRN Reason: PAIN LEVEL 6-10 Last Admin: 11/13/18 00:18 Dose: 1 mg Piperacillin Sod/Tazobactam (Sod 2.25 gm/ Dextrose) 50 mls @ 100 mls/hr IVPB Q8H-IV MATEUS; Protocol Last Admin: 11/13/18 02:00 Dose: 100 mls/hr Sodium Chloride (Normal Saline -) 1,000 mls @ 100 mls/hr IV ASDIR MATEUS Last Admin: 11/12/18 09:50 Dose: 100 mls/hr Sodium Chloride (Normal Saline -) 1,000 mls @ 125 mls/hr IV ASDIR MATEUS Last Admin: 11/13/18 00:56 Dose: 125 mls/hr Metoprolol Tartrate (Lopressor Injection -) 5 mg IVPUSH Q4H PRN PRN Reason: HYPERTENSION Mupirocin (Bactroban Ointment (For Decolonization) -) 1 applic NS BID MATEUS Stop: 11/16/18 22:01 Last Admin: 11/13/18 00:58 Dose: 1 applic Ondansetron HCl (Zofran Injection) 4 mg IVPUSH Q6H PRN PRN Reason: NAUSEA AND/OR VOMITING - Objective Vital Signs: Vital Signs Temperature 98.4 F 11/13/18 00:00 Pulse Rate 101 H 11/13/18 05:30 Respiratory Rate 16 11/13/18 05:30 Blood Pressure 102/71 11/13/18 05:30 O2 Sat by Pulse Oximetry (%) 100 11/12/18 20:24 Constitutional: Yes: Anxious Eyes: Yes: WNL HENT: Yes: WNL Cardiovascular: Yes: Tachycardia, S1 (varies in intensity), S2 Respiratory: Yes: Diminished Gastrointestinal: Yes: Other (surgical abdominal site nontender; dry) ...Rectal Exam: Yes: Deferred Genitourinary: No: Anuria Musculoskeletal: Yes: Muscle Weakness Extremities: Yes: Cool Edema: No Peripheral Pulses WNL: Yes Integumentary: Yes: Incision Wound/Incision: Yes: Dressing Dry and Intact Neurological: Yes: Alert, Oriented, Weakness Psychiatric: Yes: Alert, Oriented, Other (anxiety) Labs: CBC, BMP 11/13/18 05:30 11/13/18 05:30 INR, PTT INR 2.54 (0.83-1.09) H 11/13/18 05:30 Abnormal Lab Results 11/13/18 11/13/18 05:30 05:30 PT with INR 30.20 H INR 2.54 H BUN 23 H Creatinine 3.0 H Calcium 8.4 L Phosphorus 5.4 H Magnesium 1.5 L Albumin 2.6 L - ....Imaging Cat Scan: Image Reviewed Other: Image Reviewed (telemetry: no arrythmias) Problem List - Problems (1) Anticoagulation management encounter Assessment/Plan: Pt with hx permanent AF; s/p DVT-->IVC filter. INR subtherapeutic pre-op small bowel ischemia surgery this admission. INR was >3 yesterday, despite apparently not receving warfarin; this level may still have not been protective against clot. THe INR today is 2.14. Would restart warfarin once CT head is done, and consider agatroban (may check with hematology). Consider meclizine for dizziness. Code(s): Z51.81 - ENCOUNTER FOR THERAPEUTIC DRUG LEVEL MONITORING; Z79.01 - [facility] (CURRENT) USE OF ANTICOAGULANTS (2) Mesenteric ischemia Assessment/Plan: s/p surgery (jejenum) Pain management per surgeon, PMD. Code(s): K55.9 - VASCULAR DISORDER OF INTESTINE, UNSPECIFIED (3) Anemia due to blood loss Assessment/Plan: Hb 10.7 Code(s): D50.0 - IRON DEFICIENCY ANEMIA SECONDARY TO BLOOD LOSS (CHRONIC) (4) COPD (chronic obstructive pulmonary disease) Code(s): J44.9 - CHRONIC OBSTRUCTIVE PULMONARY DISEASE, UNSPECIFIED (5) Chronic a-fib Assessment/Plan: On metoprolol IVP to maintain HR < 120 bpm. Restart of warfarin to maintain INR 2-[address] head does not show bleed; bridging with agebatran if necessary (INR presently 2.14). Code(s): I48.2 - CHRONIC ATRIAL FIBRILLATION (6) ESRD (end stage renal disease) on dialysis Assessment/Plan: hemodialysis per tumbler machine operator helper. Code(s): N18.6 - END STAGE RENAL DISEASE; Z99.2 - DEPENDENCE ON RENAL DIALYSIS (7) HTN (hypertension) Assessment/Plan: Increase IVF to 150 ml/hr; maintain MAP >60; f/u fluids with tumbler machine operator helper's input). Code(s): I10 - ESSENTIAL (PRIMARY) HYPERTENSION Qualifiers: Hypertension type: essential hypertension Qualified Code(s): I10 - Essential (primary) hypertension (8) Pulmonary hypertension Code(s): I27.20 - PULMONARY HYPERTENSION, UNSPECIFIED (9) S/P TAVR (transcatheter aortic valve replacement) Code(s): Z95.2 - PRESENCE OF PROSTHETIC HEART VALVE (10) Severe pulmonary arterial systolic hypertension Code(s): I27.21 - SECONDARY PULMONARY ARTERIAL HYPERTENSION (11) Shingles Assessment/Plan: last episode (months ago) involved his right eye Code(s): B02.9 - ZOSTER WITHOUT COMPLICATIONS (12) Dizziness Assessment/Plan: Pt c/o dizziness, with the room spinning and a feeling his body is going "up and Down"Pt had 2.5 liters fluid removed during yesterday's hemodialysis.THe diddiness has worsened, and is now 8/10 in severity. Now receiving 12t mg IVF; to be increased to 150 ml/hr. O2 sat 100%; HR 105 bpm (AF); BP 95/59 (A-line). For CT head; if no bleed, restart warfarin (and consider agatroban, despite "therapeutic" INR of 3-->2.14 over the past 48 hours, despite not having received any anticoagulants since admission. For consideration of meclizine. Code(s): R42 - DIZZINESS AND GIDDINESS Assessment/Plan CCU time spent: 35 minutes.
[2018-11-13] MEDS ORDERED: PIPERACILLIN/TAZOBACTAM 2.25 GM VIAL IVPB ONE ×2 (08:46→17:25)
[2018-11-13] MEDS ORDERED: DEXTROSE 5%-WATER - 50 ML IVPB ONE ×2 (08:46→17:25)
[2018-11-13] MEDS: SODIUM CHLORIDE 1,000 ML IV SCH ×2 (09:00→10:00)
--- NOTE | 2018-11-13 09:11 | PN ---
Progress Note (short form) - Note Progress Note: PULM/CCM POD#2.) S/p Ex-Lap w/ SB Resect Pt Seen & Examined in the ICU. A-Febrile, CA+OX3, NAD, got HD yesterday. Active Medications Chlorhexidine Gluconate (Hibiclens For Decolonization -) 1 applic TP HS MATEUS Last Admin: 11/13/18 00:58 Dose: 1 applic Hydromorphone HCl (Dilaudid Vial -) 1 mg IVPUSH Q1H PRN PRN Reason: PAIN LEVEL 6-10 Last Admin: 11/13/18 00:18 Dose: 1 mg Piperacillin Sod/Tazobactam (Sod 2.25 gm/ Dextrose) 50 mls @ 100 mls/hr IVPB Q8H-IV MATEUS; Protocol Last Admin: 11/13/18 10:17 Dose: 100 mls/hr Sodium Chloride (Normal Saline -) 1,000 mls @ 150 mls/hr IV ASDIR MATEUS Last Admin: 11/13/18 09:00 Dose: 150 mls/hr Metoprolol Tartrate (Lopressor Injection -) 5 mg IVPUSH Q4H PRN PRN Reason: HYPERTENSION Mupirocin (Bactroban Ointment (For Decolonization) -) 1 applic NS BID MATEUS Stop: 11/16/18 22:01 Last Admin: 11/13/18 10:18 Dose: 1 applic Ondansetron HCl (Zofran Injection) 4 mg IVPUSH Q6H PRN PRN Reason: NAUSEA AND/OR VOMITING Vital Signs Period Temp Pulse Resp BP Sys/Montalvo Pulse Ox Last 24 Hr 98.1 F-98.4 F 87-110 12-16 95-128/48-71 100-100 Intake & Output 11/10/18 11/11/18 11/12/18 11/13/18 23:59 23:59 23:59 23:59 Intake Total 2770 3761 950 Output Total 30 Balance 2740 3761 950 Weight 75.296 kg GEN: Elderly man in bed, CA+OX3, NAD, friendly, conversant HEENT: PERRL, an-icteric, Dry MMM PULM: CTAB CV: nml S1 S2, RR, Unable to appreciate any G/M/R ABD: Midline Ex-Lap incision c/d/i, Hypoactive BS, S/S N/D X4Q, mild diffuse tenderness EXT: + Pulses, WWP X4, (-) edema CBC, BMP 11/13/18 05:30 11/13/18 05:30 Microbiology 11/11/18 13:45 Blood - Peripheral Venous Blood Culture - Preliminary NO GROWTH OBTAINED AFTER 48 HOURS, INCUBATION TO CONTINUE FOR 3 DAYS. 11/11/18 13:44 Blood - Peripheral Venous Blood Culture - Preliminary NO GROWTH OBTAINED AFTER 48 HOURS, INCUBATION TO CONTINUE FOR 3 DAYS. 11/11/18 08:30 Perineal Fluid Gram Stain - Final 11/11/18 08:30 Perineal Fluid Body Fluid Culture - Final NO GROWTH OF AEROBIC ORGANISMS AFTER 48 HOURS INCUBATION 11/11/18 08:30 Perineal Fluid Anaerobic Culture - Final NO ANAEROBES WERE ISOLATED CXR 11/11: Cardiomegaly. No evidence of blunting of the costophrenic angles. No pneumothorax, or large pleural effusion is seen. The pulmonary vasculature is normal. No evidence of vascular congestive changes. Increased interstitial lung markings noted in both lungs. No interval change from prior study. Vascular stent projecting over the left scapula. No evidence of a pulmonary infiltrates. Impression. Cardiomegaly. No evidence of pneumonia, CHF, pneumothorax, or large pleural effusion ASSESS: POD # 2: s/p Ex lap, small bowel resection w/ primary anastomosis due to ischemic jejunum Diastolic CHF HTN HLD DM Afib on coumadin Severe s/p TAVR @ [place] (2018) Severe Pulmonary HTN ESRD on dialysis (T,Th, ) Anemia Post Herpetic Neuralgia History of viral erruption of the penis s/p Acylovir History of DVT w/ IVC filter History of HIT PLAN: O2 as needed Strict I & O HD a/p RENAL Pain control ABX per ID Start low dose Coumadin for a goal INR: 2.5 - 3.0 Advance diet a/p surgery Requires ICU monitoring DGL, ACNP-BC [facility] ICU PULM/CCM [id number]
--- NOTE | 2018-11-13 09:16 | PN ---
Progress Note (short form) - Note Progress Note: Renal follow up for ESRD on HD Pt seen and examined in the ICU awake and alert complains of dizziness BP marginal but stable no sob s/p dialysis yesterday Vital Signs Temperature 98.4 F 11/13/18 00:00 Pulse Rate 110 H 11/13/18 08:33 Respiratory Rate 16 11/13/18 05:30 Blood Pressure 102/71 11/13/18 05:30 O2 Sat by Pulse Oximetry (%) 100 11/13/18 08:33 Intake & Output 11/10/18 11/11/18 11/12/18 11/13/18 23:59 23:59 23:59 23:59 Intake Total 2770 3761 950 Output Total 30 Balance 2740 3761 950 Weight 75.296 kg NAD on Facemask O2 awake and alert neck supple, no JVD irregular, no M/R CTA, no rales Abd with dressing in place No LE edema, clubbing or edema CBC, BMP 11/13/18 05:30 11/13/18 05:30 Current Medications Chlorhexidine Gluconate (Hibiclens For Decolonization -) 1 applic TP HS MATEUS Last Admin: 11/13/18 00:58 Dose: 1 applic Hydromorphone HCl (Dilaudid Vial -) 1 mg IVPUSH Q1H PRN PRN Reason: PAIN LEVEL 6-10 Last Admin: 11/13/18 00:18 Dose: 1 mg Piperacillin Sod/Tazobactam (Sod 2.25 gm/ Dextrose) 50 mls @ 100 mls/hr IVPB Q8H-IV MATEUS; Protocol Last Admin: 11/13/18 02:00 Dose: 100 mls/hr Sodium Chloride (Normal Saline -) 1,000 mls @ 100 mls/hr IV ASDIR MATEUS Last Admin: 11/12/18 09:50 Dose: 100 mls/hr Sodium Chloride (Normal Saline -) 1,000 mls @ 125 mls/hr IV ASDIR MATEUS Last Admin: 11/13/18 00:56 Dose: 125 mls/hr Metoprolol Tartrate (Lopressor Injection -) 5 mg IVPUSH Q4H PRN PRN Reason: HYPERTENSION Mupirocin (Bactroban Ointment (For Decolonization) -) 1 applic NS BID MATEUS Stop: 11/16/18 22:01 Last Admin: 11/13/18 00:58 Dose: 1 applic Ondansetron HCl (Zofran Injection) 4 mg IVPUSH Q6H PRN PRN Reason: NAUSEA AND/OR VOMITING Warfarin Sodium (Coumadin -) 2 mg PO NOW STA Stop: 11/13/18 08:55 82 year old gentleman with hx of ESRD on HD (TTS), HF (normal LV function), Afib on coumadin, DVT, Anemia who presented with acute on set abd pain and found to have ischemic bowel now s/p bowel resection. #Acute Ischemic bowel #ESRD on HD #Diastolic HF #Leukocytosis #Afib on Coumadin #Renal Osteodystrophy Continue IVF, keep MAP 65-[address] head today to r/o any pathology given persistent dizziness as pt has Afib with recent embolic event in abd continue supportive care ICU management monitor respiratory status closely Juan Christensen DO
[2018-11-13] MEDS ORDERED: WARFARIN NA 2 MG TABLET (UD) PO STA (09:46)
--- NOTE | 2018-11-13 11:10 | PN ---
Progress Note, Physician History of Present Illness: AWAKE, ALERT C/O DIZZINESS CT HEAD DONE NO ACUTE CHANGE NO C/O ABDOMINAL; PAIN AFEBRILE WBC WNL CULTURES NO GROWTH - Current Medication List Current Medications: Active Medications Chlorhexidine Gluconate (Hibiclens For Decolonization -) 1 applic TP HS [facility] Last Admin: 11/13/18 00:58 Dose: 1 applic Hydromorphone HCl (Dilaudid Vial -) 1 mg IVPUSH Q1H PRN PRN Reason: PAIN LEVEL 6-10 Last Admin: 11/13/18 00:18 Dose: 1 mg Piperacillin Sod/Tazobactam (Sod 2.25 gm/ Dextrose) 50 mls @ 100 mls/hr IVPB Q8H-IV MATEUS; Protocol Last Admin: 11/13/18 10:17 Dose: 100 mls/hr Sodium Chloride (Normal Saline -) 1,000 mls @ 100 mls/hr IV ASDIR [facility] Last Admin: 11/12/18 09:50 Dose: 100 mls/hr Sodium Chloride (Normal Saline -) 1,000 mls @ 125 mls/hr IV ASDIR [facility] Last Admin: 11/13/18 00:56 Dose: 125 mls/hr Metoprolol Tartrate (Lopressor Injection -) 5 mg IVPUSH Q4H PRN PRN Reason: HYPERTENSION Mupirocin (Bactroban Ointment (For Decolonization) -) 1 applic NS BID [facility] Stop: 11/16/18 22:01 Last Admin: 11/13/18 10:18 Dose: 1 applic Ondansetron HCl (Zofran Injection) 4 mg IVPUSH Q6H PRN PRN Reason: NAUSEA AND/OR VOMITING - Objective Vital Signs: Vital Signs Temperature 98.4 F 11/13/18 00:00 Pulse Rate 110 H 11/13/18 08:33 Respiratory Rate 16 11/13/18 05:30 Blood Pressure 102/71 11/13/18 05:30 O2 Sat by Pulse Oximetry (%) 100 11/13/18 08:33 Constitutional: Yes: No Distress Cardiovascular: Yes: Regular Rate and Rhythm, Tachycardia, S1, S2 Respiratory: Yes: CTA Bilaterally Gastrointestinal: Yes: Normal Bowel Sounds, Soft, Other (MIDLINE SURGICAL WOUND) . No: Tenderness Edema: No Labs: CBC, BMP 11/13/18 05:30 11/13/18 05:30 INR, PTT INR 2.54 (0.83-1.09) H 11/13/18 05:30 Assessment/Plan POST OP EXPLORATORY LAPAROTOMY/ SB RESECTION ISCHEMIC BOWEL ESRD S/P TAVR CONTINUE EMPIRIC ZOSYN
[2018-11-13] MEDS ORDERED: ACETAMINOPHEN 1000 MG/100 ML VIAL (NON FORMULARY) IVPB STA (15:25)
--- NOTE | 2018-11-13 17:33 | PN ---
Progress Note, Physician Chief Complaint: Mr Dahl says he is feeling much better today. Denies cp, sob, n/v. Pain is well controlled. - Current Medication List Current Medications: Active Medications Chlorhexidine Gluconate (Hibiclens For Decolonization -) 1 applic TP HS MATEUS Last Admin: 11/13/18 00:58 Dose: 1 applic Hydromorphone HCl (Dilaudid Vial -) 1 mg IVPUSH Q1H PRN PRN Reason: PAIN LEVEL 6-10 Last Admin: 11/13/18 00:18 Dose: 1 mg Piperacillin Sod/Tazobactam (Sod 2.25 gm/ Dextrose) 50 mls @ 100 mls/hr IVPB Q8H-IV MATEUS; Protocol Last Admin: 11/13/18 10:17 Dose: 100 mls/hr Sodium Chloride (Normal Saline -) 1,000 mls @ 150 mls/hr IV ASDIR MATEUS Last Admin: 11/13/18 09:00 Dose: 150 mls/hr Metoprolol Tartrate (Lopressor Injection -) 5 mg IVPUSH Q4H PRN PRN Reason: HYPERTENSION Mupirocin (Bactroban Ointment (For Decolonization) -) 1 applic NS BID MATEUS Stop: 11/16/18 22:01 Last Admin: 11/13/18 10:18 Dose: 1 applic Ondansetron HCl (Zofran Injection) 4 mg IVPUSH Q6H PRN PRN Reason: NAUSEA AND/OR VOMITING - Objective Vital Signs: Vital Signs Temperature 36.8 C 11/13/18 12:00 Pulse Rate 99 H 11/13/18 12:00 Respiratory Rate 10 11/13/18 12:00 Blood Pressure 94/49 L 11/13/18 12:00 O2 Sat by Pulse Oximetry (%) 100 11/13/18 09:00 Constitutional: Yes: Well Nourished, No Distress, Calm Cardiovascular: Yes: Regular Rate and Rhythm. No: Gallop, Murmur, Rub Respiratory: Yes: Regular, CTA Bilaterally, On Nasal O2. No: Rales, Rhonchi, Wheezes Gastrointestinal: Yes: Soft, Hypoactive Bowel Sounds, Tenderness (slight). No: Distention Extremities: Yes: WNL Edema: No Labs: CBC, BMP 11/13/18 05:30 11/13/18 05:30 INR, PTT INR 2.54 (0.83-1.09) H 11/13/18 05:30 Problem List - Problems (1) Mesenteric ischemia Code(s): K55.9 - VASCULAR DISORDER OF INTESTINE, UNSPECIFIED (2) Acute metabolic encephalopathy Code(s): G93.41 - METABOLIC ENCEPHALOPATHY (3) Atrial fibrillation Code(s): I48.91 - UNSPECIFIED ATRIAL FIBRILLATION Qualifiers: Atrial fibrillation type: chronic Qualified Code(s): I48.2 - Chronic atrial fibrillation (4) CHF (congestive heart failure) Code(s): I50.9 - HEART FAILURE, UNSPECIFIED Qualifiers: Heart failure type: systolic Heart failure chronicity: chronic Qualified Code(s): I50.22 - Chronic systolic (congestive) heart failure (5) ESRD (end stage renal disease) on dialysis Code(s): N18.6 - END STAGE RENAL DISEASE; Z99.2 - DEPENDENCE ON RENAL DIALYSIS (6) HTN (hypertension) Code(s): I10 - ESSENTIAL (PRIMARY) HYPERTENSION Qualifiers: Hypertension type: essential hypertension Qualified Code(s): I10 - Essential (primary) hypertension (7) S/P TAVR (transcatheter aortic valve replacement) Code(s): Z95.2 - PRESENCE OF PROSTHETIC HEART VALVE (8) Shingles Code(s): B02.9 - ZOSTER WITHOUT COMPLICATIONS Assessment/Plan (1) Mesenteric ischemia Assessment/Plan: -s/p resection per surgery -no flatus or bm currently -continue zosyn and flagyl per ID Code(s): K55.9 - VASCULAR DISORDER OF INTESTINE, UNSPECIFIED (2) Acute metabolic encephalopathy Assessment/Plan: -resolved -at baseline Code(s): G93.41 - METABOLIC ENCEPHALOPATHY (3) Atrial fibrillation Assessment/Plan: -currently rate controlled -INR decreased today -begin low dose coumadin -daily INR Code(s): I48.91 - UNSPECIFIED ATRIAL FIBRILLATION Qualifiers: Atrial fibrillation type: chronic Qualified Code(s): I48.2 - Chronic atrial fibrillation (4) CHF (congestive heart failure) Assessment/Plan: -not in exacerbation -currently hydrating, monitor closely to avoid fluid overload Code(s): I50.9 - HEART FAILURE, UNSPECIFIED Qualifiers: Heart failure type: systolic Heart failure chronicity: chronic Qualified Code(s): I50.22 - Chronic systolic (congestive) heart failure (5) ESRD (end stage renal disease) on dialysis Assessment/Plan: -HD per nephrology Code(s): N18.6 - END STAGE RENAL DISEASE; Z99.2 - DEPENDENCE ON RENAL DIALYSIS (6) HTN (hypertension) Assessment/Plan: -increase hydration today Code(s): I10 - ESSENTIAL (PRIMARY) HYPERTENSION Qualifiers: Hypertension type: essential hypertension Qualified Code(s): I10 - Essential (primary) hypertension (7) S/P TAVR (transcatheter aortic valve replacement) Assessment/Plan: -noted Code(s): Z95.2 - PRESENCE OF PROSTHETIC HEART VALVE (8) Shingles Assessment/Plan: -history of Code(s): B02.9 - ZOSTER WITHOUT COMPLICATIONS 33 minutes spent in critical care time with this patient
--- NOTE | 2018-11-13 19:58 | PN ---
Progress Note, Physician Chief Complaint: abdominal History of Present Illness: 82yo male PMH HTN, Afib on eloquis , CHF, CAD, ESRD on HD (TRS) s/p TVAR 2018, severe , dvt s/p IVC filter here with sudden onset of epigastric abdominal pain several hours prior to presentation. he has been stable post operatively. - Current Medication List Current Medications: Active Medications Chlorhexidine Gluconate (Hibiclens For Decolonization -) 1 applic TP HS MATEUS Last Admin: 11/13/18 00:58 Dose: 1 applic Hydromorphone HCl (Dilaudid Vial -) 1 mg IVPUSH Q1H PRN PRN Reason: PAIN LEVEL 6-10 Last Admin: 11/13/18 00:18 Dose: 1 mg Piperacillin Sod/Tazobactam (Sod 2.25 gm/ Dextrose) 50 mls @ 100 mls/hr IVPB Q8H-IV MATEUS; Protocol Last Admin: 11/13/18 17:34 Dose: 100 mls/hr Sodium Chloride (Normal Saline -) 1,000 mls @ 150 mls/hr IV ASDIR MATEUS Last Admin: 11/13/18 09:00 Dose: 150 mls/hr Metoprolol Tartrate (Lopressor Injection -) 5 mg IVPUSH Q4H PRN PRN Reason: HYPERTENSION Mupirocin (Bactroban Ointment (For Decolonization) -) 1 applic NS BID [facility] Stop: 11/16/18 22:01 Last Admin: 11/13/18 10:18 Dose: 1 applic Ondansetron HCl (Zofran Injection) 4 mg IVPUSH Q6H PRN PRN Reason: NAUSEA AND/OR VOMITING - Objective Vital Signs: Vital Signs Temperature 97.8 F 11/13/18 18:05 Pulse Rate 102 H 11/13/18 18:05 Respiratory Rate 12 11/13/18 18:05 Blood Pressure 99/59 L 11/13/18 18:05 O2 Sat by Pulse Oximetry (%) 100 11/13/18 09:00 Vital Signs Period Temp Pulse Resp BP Sys/Montalvo Pulse Ox Last 24 Hr 97.6 F-98.2 F 94-115 12-22 88-113/47-70 98-100 Intake & Output 03/24/19 03/25/19 03/25/19 23:59 07:59 15:59 Intake Total 1750 1286 Output Total 0 Balance 1750 1286 Intake: IV 1550 1236 Normal Saline - 1,000 ml 1550 1236 @ 150 mls/hr IV ASDIR MATEUS Rx#:[id number] IVPB 200 50 Output: Gastric Drainage 0 Other: Voiding Method Indwelling Catheter Bowel Movement No No Constitutional: Yes: Well Nourished, No Distress, Calm Eyes: Yes: Conjunctiva Clear, EOM Intact HENT: Yes: Atraumatic, Normocephalic Neck: Yes: Supple, Trachea Midline Cardiovascular: Yes: Regular Rate and Rhythm, S1, S2 Respiratory: Yes: Regular, CTA Bilaterally Gastrointestinal: Yes: Normal Bowel Sounds, Soft. No: Tenderness ...Rectal Exam: No: Guaiac Positive, Guaiac Trace Genitourinary: No: CVA Tenderness - Left, CVA Tenderness - Right Breast(s): No: Discharge from Nipple, Skin Changes Musculoskeletal: No: Muscle Pain, Muscle Weakness Extremities: Yes: Cyanosis (LE below the knees). No: Cold, Cool Edema: Yes Peripheral Pulses WNL: No Peripheral Pulses: Left Radial: 1+, Right Radial: 1+, Left Doralis Pedis: 1+, Right Dorsalis Pedis: 1+, Left Femoral: 1+, Right Femoral: 1+ Integumentary: No: Incision, Jaundice, Tattoos Neurological: Yes: Alert, Oriented Psychiatric: Yes: Alert, Oriented Labs: CBC, BMP 11/13/18 05:30 11/13/18 05:30 INR, PTT INR 2.54 (0.83-1.09) H 11/13/18 05:30 Problem List - Problems (1) Pneumobilia Assessment/Plan: 82yo male MMP ominous finding of extensive left lobe pneumobilia suggestive of intestinal ischemia given h/o vascular disease s/p TVAR a year ago, less likely gallbladder fistula on the differential. He is tender on exam in RLQ and epigastrium on exam. POD#3 s/p Exploratory Laparotomy and segmental small bowel resection ICU management NPO and NGT until bowel function trend labs correct adequate analgesia local wound care This patient is critically ill. Time spent reviewing chart, examining patient, talking with providers and/or family and documentation is 35 minutes. Code(s): K83.8 - OTHER SPECIFIED DISEASES OF BILIARY TRACT (2) Aortic valve prosthesis present Code(s): Z95.2 - PRESENCE OF PROSTHETIC HEART VALVE (3) Atrial fibrillation Code(s): I48.91 - UNSPECIFIED ATRIAL FIBRILLATION Qualifiers: Atrial fibrillation type: chronic Qualified Code(s): I48.2 - Chronic atrial fibrillation (4) CHF (congestive heart failure) Code(s): I50.9 - HEART FAILURE, UNSPECIFIED Qualifiers: Heart failure type: systolic Heart failure chronicity: chronic Qualified Code(s): I50.22 - Chronic systolic (congestive) heart failure (5) COPD (chronic obstructive pulmonary disease) Code(s): J44.9 - CHRONIC OBSTRUCTIVE PULMONARY DISEASE, UNSPECIFIED (6) ESRD (end stage renal disease) on dialysis Code(s): N18.6 - END STAGE RENAL DISEASE; Z99.2 - DEPENDENCE ON RENAL DIALYSIS (7) HTN (hypertension) Code(s): I10 - ESSENTIAL (PRIMARY) HYPERTENSION Qualifiers: Hypertension type: essential hypertension Qualified Code(s): I10 - Essential (primary) hypertension (8) PHT (pulmonary hypertension) Code(s): I27.20 - PULMONARY HYPERTENSION, UNSPECIFIED (9) S/P TAVR (transcatheter aortic valve replacement) Code(s): Z95.2 - PRESENCE OF PROSTHETIC HEART VALVE
[2018-11-13] MEDS ORDERED: MELATONIN 5 MG TABLETS PO ONE (22:03)
[2018-11-14] MEDS ORDERED: PIPERACILLIN/TAZOBACTAM 2.25 GM VIAL IVPB ONE ×2 (02:44→10:36)
[2018-11-14] MEDS ORDERED: DEXTROSE 5%-WATER - 50 ML IVPB ONE ×2 (02:45→10:36)
[2018-11-14] MEDS: HYDROmorphone HCl 2 MG/ML VIAL IVPUSH PRN (03:37)
[2018-11-14] MEDS: PIPERACILLIN/TAZOB 2.25 GM 2.25 GM in DEXTROSE 5%-WATER - 50 ML IVPB SCH ×2 (03:42→10:39)
[2018-11-14 06:36] LABS: ANION GAP 13 MMOL/L (8-16); BLOOD UREA NITROGEN 37 mg/dL (7-18); CALCIUM 8.6 mg/dL (8.5-10.1); CHLORIDE 107 mmol/L (98-107); CO2 21 mmol/L (21-32); GLUCOSE,RANDOM 81 mg/dL (74-106); HEMATOCRIT 34.6 % (35.4-49); HEMOGLOBIN 11.6 GM/dL (11.7-16.9); MAGNESIUM 1.9 mg/dL (1.8-2.4); MCH 34.5 pg (25.7-33.7); MCHC 33.5 g/dl (32.0-35.9); MEAN CELL VOLUME 102.9 fl (80-96); MEAN PLT VOLUME 9.7 fl (7.5-11.1); PHOSPHOROUS 7.4 mg/dL (2.5-4.9); PLATELET COUNT 177 K/MM3 (134-434); POTASSIUM 4.2 mmol/L (3.5-5.1); RBC 3.37 M/mm3 (4.00-5.60); RDW 16.9 % (11.9-15.9); SODIUM 141 mmol/L (136-145); WHITE BLOOD COUNT 11.6 K/mm3 (4.0-10.0)
--- NOTE | 2018-11-14 07:29 | PN ---
Physical Exam: SUBJECTIVE: Patient seen and examined at bedside. Pt reported no abdominal pain , nausea, vomiting, diarrhea, bloody bowel movements, flatulence, normal bowel movements. OBJECTIVE: Vital Signs Period Temp Pulse Resp BP Sys/Montalvo Pulse Ox Last 24 Hr 97.8 F-98.2 F 95-110 9-12 85-99/45-62 100-100 GENERAL: The patient is awake, alert, and fully oriented, in no acute distress. HEAD: Normal with no signs of trauma. EYES: PERRL, extraocular movements intact, sclera anicteric, conjunctiva clear. No ptosis. ENT: Ears normal, nares patent, oropharynx clear without exudates, moist mucous membranes. NECK: Trachea midline, full range of motion, supple. LUNGS: Breath sounds equal, clear to auscultation bilaterally, no wheezes, no crackles, no accessory muscle use. HEART: Regular rate and rhythm, S1, S2 without murmur, rub or gallop. ABDOMEN: Soft, nontender, nondistended, normoactive bowel sounds, no guarding, no rebound, no hepatosplenomegaly, no masses. EXTREMITIES: 2+ pulses, warm, well-perfused, no edema, no cyanosis. NEUROLOGICAL: Cranial nerves II through XII grossly intact. Normal speech, gait not observed. PSYCH: Normal mood, normal affect. SKIN: Warm, dry, normal turgor, no rashes or lesions noted. Laboratory Results - last 24 hr 11/14/18 05:30 Sodium 141 Potassium 4.2 Chloride 107 Carbon Dioxide 21 Anion Gap 13 BUN 37 H Creatinine 4.0 H Creat Clearance w eGFR 14.48 Random Glucose 81 Calcium 8.6 Phosphorus 7.4 H Magnesium 1.9 Active Medications Generic Name Dose Route Start Last Admin Trade Name Freq PRN Reason Stop Dose Admin Chlorhexidine Gluconate 1 applic 11/11/18 22:00 11/13/18 22:30 Hibiclens For Decolonization - TP 1 applic HS MATEUS Administration Hydromorphone HCl 1 mg 11/11/18 08:55 11/14/18 03:37 Dilaudid Vial - IVPUSH 1 mg Q1H PRN Administration PAIN LEVEL 6-10 Piperacillin Sod/Tazobactam 50 mls @ 100 mls/hr 11/11/18 10:00 11/14/18 03:42 Sod 2.25 gm/ Dextrose IVPB 100 mls/hr Q8H-IV MATEUS Administration Protocol Sodium Chloride 1,000 mls @ 150 mls/hr 11/13/18 11:14 11/13/18 09:00 Normal Saline - IV 150 mls/hr ASDIR MATEUS Administration Metoprolol Tartrate 5 mg 11/11/18 08:55 Lopressor Injection - IVPUSH Q4H PRN HYPERTENSION Mupirocin 1 applic 11/11/18 22:00 11/13/18 23:00 Bactroban Ointment (For Decolonization) - NS 11/16/18 22:01 1 applic BID MATEUS Administration Ondansetron HCl 4 mg 11/11/18 08:26 Zofran Injection IVPUSH Q6H PRN NAUSEA AND/OR VOMITING ASSESSMENT/PLAN: NEURO: #C/O DIZZINESS S/P DIALYSIS 11/13/18 -CT head 11/13/18 negative for acute bleed or acute intracranial pathology CARDIOVASCULAR #HX ATRIAL FIBRILLATION -Lopressor 5 mg IV Q4H PRN -Goal of HR <120 bpm per cardio -Coumadin 2 mg PO HS -INR 2.19 11/14/18 -Continue to monitor INR -Will need to bridge with Argatroban, Hx HIT #HX HTN -Lopressor 5 mg IV Q4H PRN #HX PAD with LLE Ulcer -Bactroban per Dr. Alba PULMONARY -No respiratory distress -Continue to monitor GI #ISCHEMIC COLITIS -CT 11/11: ischemic colitis with portal vein gas, gas in SMV, pneumatosis in several loops of bowel in RUQ -S/P Ex-Lap 11/11: ischemic jejunum with removal of small bowel portion -Zosyn per ID day 4 -Dilaudid 1 mg IV Q1H PRN Pain -Zofran 4 mg IV Q6H PRN Nausea -NS @ 150 cc/hr -GI on board -DC NG tube 11/14/18 -Out of bed -PT ordered ID #ISCHEMIC COLITIS -WBC 8.7>>11.6 -Zosyn day 4 per ID -Flagyl and Vancomycin given in ED for one time doses 11/11/18 -ID on board FEN -Monitor electrolytes -Clear liquid diet per surgery -DC NG tube 11/14/18 -No IVF DISPO: Telemetry Visit type - Emergency Visit Emergency Visit: Yes ED Registration Date: 11/11/18 Care time: The patient presented to the Emergency Department on the above date and was hospitalized for further evaluation of their emergent condition. - New Patient This patient is new to me today: Yes Date on this admission: 11/14/18 - Critical Care Critical Care patient: Yes Total Critical Care Time (in minutes): 35 Critical Care Statement: The care of this patient involved high complexity decision making to prevent further life threatening deterioration of the patient 's condition and/or to evaluate & treat vital organ system(s) failure or risk of failure. - Discharge Referral Referred to [facility] No
[2018-11-14 07:37] LABS: INR 2.19 (0.83-1.09); PROTHROMBIN TIME (PATIENT) 26.1 SEC (9.7-13.0)
--- NOTE | 2018-11-14 08:27 | PN ---
Progress Note, Physician Chief Complaint: seen and examined ICU TELE: rate controlled AF Denies CP, SOB. NGT still in place - Current Medication List Current Medications: Active Medications Chlorhexidine Gluconate (Hibiclens For Decolonization -) 1 applic TP HS MATEUS Last Admin: 11/13/18 22:30 Dose: 1 applic Hydromorphone HCl (Dilaudid Vial -) 1 mg IVPUSH Q1H PRN PRN Reason: PAIN LEVEL 6-10 Last Admin: 11/14/18 03:37 Dose: 1 mg Piperacillin Sod/Tazobactam (Sod 2.25 gm/ Dextrose) 50 mls @ 100 mls/hr IVPB Q8H-IV MATEUS; Protocol Last Admin: 11/14/18 03:42 Dose: 100 mls/hr Sodium Chloride (Normal Saline -) 1,000 mls @ 150 mls/hr IV ASDIR MATEUS Last Admin: 11/13/18 09:00 Dose: 150 mls/hr Metoprolol Tartrate (Lopressor Injection -) 5 mg IVPUSH Q4H PRN PRN Reason: HYPERTENSION Mupirocin (Bactroban Ointment (For Decolonization) -) 1 applic NS BID MATEUS Stop: 11/16/18 22:01 Last Admin: 11/13/18 23:00 Dose: 1 applic Ondansetron HCl (Zofran Injection) 4 mg IVPUSH Q6H PRN PRN Reason: NAUSEA AND/OR VOMITING - Objective Vital Signs: Vital Signs Temperature 97.8 F 11/13/18 18:05 Pulse Rate 115 H 11/14/18 08:21 Respiratory Rate 12 11/13/18 18:05 Blood Pressure 99/59 L 11/13/18 18:05 O2 Sat by Pulse Oximetry (%) 100 11/14/18 08:21 Constitutional: Yes: Calm Cardiovascular: Yes: Pulse Irregular Respiratory: Yes: Other (clear anteriorly and laterally) Gastrointestinal: Yes: Soft Edema: No Neurological: Yes: Alert Labs: CBC, BMP 11/14/18 05:30 11/14/18 05:30 INR, PTT INR 2.19 (0.83-1.09) H 11/14/18 05:30 Microbiology 11/11/18 13:45 Blood - Peripheral Venous Blood Culture - Preliminary NO GROWTH OBTAINED AFTER 48 HOURS, INCUBATION TO CONTINUE FOR 3 DAYS. 11/11/18 13:44 Blood - Peripheral Venous Blood Culture - Preliminary NO GROWTH OBTAINED AFTER 48 HOURS, INCUBATION TO CONTINUE FOR 3 DAYS. Laboratory Tests 09/01/18 09/02/18 09/02/18 08:30 05:30 05:30 WBC 6.3 RBC 3.98 L Hgb Plt Count 169 INR 2.44 H Sodium Potassium BUN Creatinine Magnesium Troponin I 0.07 H 09/02/18 11/14/18 11/14/18 05:30 05:30 05:30 WBC 11.6 H RBC Hgb 11.6 L Plt Count 177 INR 2.19 H Sodium 137 Potassium 5.2 H BUN Creatinine 6.7 H Magnesium Troponin I 11/14/18 05:30 WBC RBC Hgb Plt Count INR Sodium 141 Potassium 4.2 BUN 37 H Creatinine 4.0 H Magnesium 1.9 Troponin I - ....Imaging EKG: Image Reviewed Problem List - Problems (1) Mesenteric ischemia Code(s): K55.9 - VASCULAR DISORDER OF INTESTINE, UNSPECIFIED (2) Pneumobilia Code(s): K83.8 - OTHER SPECIFIED DISEASES OF BILIARY TRACT (3) S/P TAVR (transcatheter aortic valve replacement) Code(s): Z95.2 - PRESENCE OF PROSTHETIC HEART VALVE (4) Aortic valve prosthesis present Code(s): Z95.2 - PRESENCE OF PROSTHETIC HEART VALVE (5) Atrial fibrillation Code(s): I48.91 - UNSPECIFIED ATRIAL FIBRILLATION Qualifiers: Atrial fibrillation type: chronic Qualified Code(s): I48.2 - Chronic atrial fibrillation (6) CHF (congestive heart failure) Code(s): I50.9 - HEART FAILURE, UNSPECIFIED Qualifiers: Heart failure type: systolic Heart failure chronicity: chronic Qualified Code(s): I50.22 - Chronic systolic (congestive) heart failure (7) ESRD (end stage renal disease) Code(s): N18.6 - END STAGE RENAL DISEASE (8) Elevated troponin Code(s): R74.8 - ABNORMAL LEVELS OF OTHER SERUM ENZYMES (9) Mitral regurgitation Code(s): I34.0 - NONRHEUMATIC MITRAL (VALVE) INSUFFICIENCY Qualifiers: Cardiac valve disease etiology: nonrheumatic Qualified Code(s): I34.0 - Nonrheumatic mitral (valve) insufficiency (10) Pulmonary hypertension Code(s): I27.20 - PULMONARY HYPERTENSION, UNSPECIFIED (11) Anticoagulation management encounter Code(s): Z51.81 - ENCOUNTER FOR THERAPEUTIC DRUG LEVEL MONITORING; Z79.01 - JAIL (CURRENT) USE OF ANTICOAGULANTS Assessment/Plan IMP: 1. Ischemic bowel s/p resection, POD #3 2. Permanent AF on AC. 3. Severe s/p TAVR 3. Severe MR 4. Severe, chronic PHTN, follow at [facility] by PHTN service 5. History of DVT, HIT, s/p IVC filter 6. ESRD on HD REC: 1. Cautious use of IVF to support BP and maintain MAP 60mmHg; avoid hypotensive episodes. CXR to assess for congestion, does not appear overloaded on exam. 2. Abx as per General Surgery. 3. Post op ICU care w/ supplimental O2 and daily labs to track WBC, lactate and electrolytes 4. HD as per renal. 5. Rate control is imperative as episodes of SERVANDO may lead to hypotension and potentially further bowel ischemia. Continue IV Lopressor to maintain heart rate < 120 bpm. 6. Resume AC when feasible from surgery standpoint to maintain goal INR 2-3
[2018-11-14] MEDS: SODIUM CHLORIDE 1,000 ML IV SCH (09:00)
[2018-11-14 09:39] VITALS: TEMP 97.6
--- NOTE | 2018-11-14 10:04 | PN ---
Progress Note, Physician History of Present Illness: AWAKE, ALERT C/O DIZZINESS NO C/O ABDOMINAL; PAIN AFEBRILE WBC SLIGHTLY ELEVATED CULTURES NO GROWTH - Current Medication List Current Medications: Active Medications Chlorhexidine Gluconate (Hibiclens For Decolonization -) 1 applic TP HS MATEUS Last Admin: 11/13/18 22:30 Dose: 1 applic Hydromorphone HCl (Dilaudid Vial -) 1 mg IVPUSH Q1H PRN PRN Reason: PAIN LEVEL 6-10 Last Admin: 11/14/18 03:37 Dose: 1 mg Piperacillin Sod/Tazobactam (Sod 2.25 gm/ Dextrose) 50 mls @ 100 mls/hr IVPB Q8H-IV MATEUS; Protocol Last Admin: 11/14/18 03:42 Dose: 100 mls/hr Sodium Chloride (Normal Saline -) 1,000 mls @ 150 mls/hr IV ASDIR MATEUS Last Admin: 11/13/18 09:00 Dose: 150 mls/hr Metoprolol Tartrate (Lopressor Injection -) 5 mg IVPUSH Q4H PRN PRN Reason: HYPERTENSION Mupirocin (Bactroban Ointment (For Decolonization) -) 1 applic NS BID MATEUS Stop: 11/16/18 22:01 Last Admin: 11/13/18 23:00 Dose: 1 applic Ondansetron HCl (Zofran Injection) 4 mg IVPUSH Q6H PRN PRN Reason: NAUSEA AND/OR VOMITING - Objective Vital Signs: Vital Signs Temperature 97.6 F 11/14/18 09:00 Pulse Rate 106 H 11/14/18 09:00 Respiratory Rate 17 11/14/18 09:00 Blood Pressure 113/58 L 11/14/18 09:00 O2 Sat by Pulse Oximetry (%) 100 11/14/18 08:21 Constitutional: Yes: No Distress Eyes: Yes: Conjunctiva Clear Cardiovascular: Yes: Regular Rate and Rhythm, Tachycardia Respiratory: Yes: Diminished Gastrointestinal: Yes: Normal Bowel Sounds, Soft. No: Tenderness Labs: CBC, BMP 11/14/18 05:30 11/14/18 05:30 INR, PTT INR 2.19 (0.83-1.09) H 11/14/18 05:30 Assessment/Plan POST OP EXPLORATORY LAPAROTOMY/ SB RESECTION ISCHEMIC BOWEL ESRD S/P TAVR CONTINUE EMPIRIC ZOSYN
--- NOTE | 2018-11-14 10:20 | PN ---
Progress Note (short form) - Note Progress Note: Renal follow up for ESRD on HD Pt seen and examined in the ICU awake and alert continue to feel dizzy no sob, cp, abd pain on IVF last dialysis was Wednesday Vital Signs Temperature 97.6 F 11/14/18 09:00 Pulse Rate 106 H 11/14/18 09:00 Respiratory Rate 17 11/14/18 09:00 Blood Pressure 113/58 L 11/14/18 09:00 O2 Sat by Pulse Oximetry (%) 100 11/14/18 08:21 Intake & Output 11/11/18 11/12/18 11/13/18 11/14/18 23:59 23:59 23:59 23:59 Intake Total 2770 3761 2700 1286 Output Total 30 0 0 Balance 2740 3761 2700 1286 Weight 75.296 kg 75.296 kg NAD on Facemask O2 awake and alert neck supple, no JVD irregular, no M/R CTA, no rales Abd with dressing in place No LE edema, clubbing or edema CBC, BMP 11/14/18 05:30 11/14/18 05:30 Current Medications Chlorhexidine Gluconate (Hibiclens For Decolonization -) 1 applic TP HS MATEUS Last Admin: 11/13/18 22:30 Dose: 1 applic Hydromorphone HCl (Dilaudid Vial -) 1 mg IVPUSH Q1H PRN PRN Reason: PAIN LEVEL 6-10 Last Admin: 11/14/18 03:37 Dose: 1 mg Piperacillin Sod/Tazobactam (Sod 2.25 gm/ Dextrose) 50 mls @ 100 mls/hr IVPB Q8H-IV MATEUS; Protocol Last Admin: 11/14/18 03:42 Dose: 100 mls/hr Sodium Chloride (Normal Saline -) 1,000 mls @ 150 mls/hr IV ASDIR MATEUS Last Admin: 11/13/18 09:00 Dose: 150 mls/hr Metoprolol Tartrate (Lopressor Injection -) 5 mg IVPUSH Q4H PRN PRN Reason: HYPERTENSION Mupirocin (Bactroban Ointment (For Decolonization) -) 1 applic NS BID MATEUS Stop: 11/16/18 22:01 Last Admin: 11/13/18 23:00 Dose: 1 applic Ondansetron HCl (Zofran Injection) 4 mg IVPUSH Q6H PRN PRN Reason: NAUSEA AND/OR VOMITING 82 year old gentleman with hx of ESRD on HD (TTS), HF (normal LV function), Afib on coumadin, DVT, Anemia who presented with acute on set abd pain and found to have ischemic bowel now s/p bowel resection. #Acute Ischemic bowel #ESRD on HD #Diastolic HF #Leukocytosis #Afib on Coumadin #Renal Osteodystrophy BP remains marginal but this appears to be his baseline BP (compared to last several admissions) can continue IVF for now as pt does not appear to be overloaded will plan for HD tomorrow with minimal or now UF based on volume status continue pain control pt was on midodrine prior to surgery, ? when would it be safe to restart Cardiology follow up Juan Christensen DO
[2018-11-14] MEDS ORDERED: MORPHINE SULFATE 2 MG/ML VIAL IVPUSH PRN (10:54)
[2018-11-14] MEDS ORDERED: MUPIROCIN 2% TOPICAL OINTMENT 22 GM TUBE TP SCH (11:00)
[2018-11-14] MEDS: MUPIROCIN 2% TOPICAL OINTMENT FOR DECOLONIZATION NS SCH (12:28)
--- NOTE | 2018-11-14 13:03 | PN ---
Progress Note (short form) - Note Progress Note: Pt was sitting in his chair eating, complained of dizziness and asked to be placed back in bed. RN assisted the patient to his bed, when he became unresponsive. Pt was hypotensive 60s/40s, bradycardic in the 50s, and hypoxic to 83%. Sternal rub was applied to stimulate cardiac activity, which increased the HR to the 120s. Normal saline 500 cc bolus given for pressure support. Pt was then intubated with a Glidescope with no difficulty. See procedure note. Bilateral lower extremities became dusky. Vent: TV 400, Rate 14, PEEP 5, FiO2 100% Sedation: Versed 2 mg IV Q4H PRN for agitation NG tube ordered Chest X-ray ordered for ET tube placement. Normal saline at 75 cc/hour Bilateral wrist restraints ordered. DISPO Continue care in the ICU.
--- NOTE | 2018-11-14 13:04 | PROC ---
Intubation - Intubation Reason for Intubation: Respiratory Insufficiency Time of Intubation: 12:58 Intubation Method: orotracheal Blade used: Glidescope Tube Size (cm): 8.0 Tube position @ lip (cm): 22 Tube position confirmed by: Direct visualization, CO2 detector Breath Sounds after Intubation: equal Post Intubation Xray: Yes
--- NOTE | 2018-11-14 13:06 | PN ---
Teaching Attending Note Name of Resident: Lelo Kelsey ATTENDING PHYSICIAN STATEMENT I saw and evaluated the patient. I reviewed the resident's note and discussed the case with the resident. I agree with the resident's findings and plan as documented. SUBJECTIVE: Patient seen and examined in the ICU. Appeared clinically well this AM. Reports feeling overall better. No CP or SOB. CORE DRILLING SUPERVISOR called as he became poorly responsive. Hypotensive and hypoxic. Endotracheally intubated with Glidescope 8.0. Airway appeared patent. Intake & Output 11/11/18 11/12/18 11/13/18 11/14/18 23:59 23:59 23:59 23:59 Intake Total 2770 3761 2700 1286 Output Total 30 0 0 Balance 2740 3761 2700 1286 Weight 166 lb 166 lb Last Vital Signs Temp Pulse Resp BP Pulse Ox 97.6 F 112 H 17 91/56 L 98 11/14/18 09:00 11/14/18 12:00 11/14/18 12:00 11/14/18 12:00 11/14/18 12:19 Active Medications Chlorhexidine Gluconate (Hibiclens For Decolonization -) 1 applic TP HS [facility] Last Admin: 11/13/18 22:30 Dose: 1 applic Piperacillin Sod/Tazobactam (Sod 2.25 gm/ Dextrose) 50 mls @ 100 mls/hr IVPB Q8H-IV MATEUS; Protocol Last Admin: 11/14/18 10:39 Dose: 100 mls/hr Metoprolol Tartrate (Lopressor Injection -) 5 mg IVPUSH Q4H PRN PRN Reason: HYPERTENSION Morphine Sulfate (Morphine Sulfate) 2 mg IVPUSH Q4H PRN PRN Reason: PAIN LEVEL 7 - 10 Last Admin: 11/14/18 12:26 Dose: 2 mg Mupirocin (Bactroban Ointment (For Decolonization) -) 1 applic NS BID [facility] Stop: 11/16/18 22:01 Last Admin: 11/14/18 12:28 Dose: 1 applic Mupirocin (Bactroban 2% Ointment -) 1 applic TP BID [facility] Last Admin: 11/14/18 12:28 Dose: 1 applic Ondansetron HCl (Zofran Injection) 4 mg IVPUSH Q6H PRN PRN Reason: NAUSEA AND/OR VOMITING Warfarin Sodium (Coumadin -) 2 mg PO DAILY@1800 MATE[facility] GENERAL: Elderly male, Intubated and sedated EYES: EOM intact, no pallor or icterus. EARS, NOSE, THROAT: Ears normal. Dry mucous membranes. NECK: Supple, no JVD. LUNGS: Clear HEART: Irregularly irregular rate and rhythm, normal S1 and S2 with systolic murmur. ABDOMEN: Soft, dressing intact, hypoactive BS. UPPER EXTREMITIES: No peripheral edema. LOWER EXTREMITIES: No peripheral edema. NEUROLOGICAL: Obtunded PSYCHIATRIC: Obtunded SKIN: Warm, dry, normal turgor, no rashes or lesions noted. Laboratory Results - last 24 hr 11/14/18 11/14/18 11/14/18 05:30 05:30 05:30 WBC 11.6 H RBC 3.37 L Hgb 11.6 L Hct 34.6 L MCV 102.9 H MCH 34.5 H MCHC 33.5 RDW 16.9 H Plt Count 177 MPV 9.7 PT with INR 26.10 H INR 2.19 H Sodium 141 Potassium 4.2 Chloride 107 Carbon Dioxide 21 Anion Gap 13 BUN 37 H Creatinine 4.0 H Creat Clearance w eGFR 14.48 POC Glucometer Random Glucose 81 Calcium 8.6 Phosphorus 7.4 H Magnesium 1.9 11/14/18 12:51 WBC RBC Hgb Hct MCV MCH MCHC RDW Plt Count MPV PT with INR INR Sodium Potassium Chloride Carbon Dioxide Anion Gap BUN Creatinine Creat Clearance w eGFR POC Glucometer 75 Random Glucose Calcium Phosphorus Magnesium ASSESSMENT/PLAN: Acute Respiratory Failure / AMS: (?) due to global drop in perfusion pressures POD # 3: Exploratory laparotomy, small bowel resection with primary anastomosis due to ischemic jejunum Diastolic CHF HTN HLD DM Afib on coumadin Severe s/p TAVR @ [place] (2018) Severe Pulmonary HTN ESRD on dialysis (T,, ) Anemia Post Herpetic Neuralgia History of viral erruption of the penis s/p Acylovir History of DVT w/ IVC filter History of HIT IVF resuscitation: boluses as needed Check ABG Check CXR Send set of labs stat Strict I & O ABX per ID Need to continue AC: If INR subtherapeutic -> Argatroban Requires ICU monitoring Dr Brandt Critical care time spent in reviewing chart, evaluating patient and formulating plan - 36 minutes.
[2018-11-14] MEDS ORDERED: MIDAZOLAM HCL 2 MG/2 ML SINGLE DOSE VIAL IVPUSH PRN (13:20)
[2018-11-14] MEDS ORDERED: SODIUM CHLORIDE 1,000 ML IV SCH ×2 (13:30→13:33)
--- NOTE | 2018-11-14 13:39 | PN ---
Progress Note, Physician Chief Complaint: abdominal History of Present Illness: 82yo male PMH HTN, Afib on eloquis , CHF, CAD, ESRD on HD (TRS) s/p TVAR 2018, severe , dvt s/p IVC filter here with sudden onset of epigastric abdominal pain several hours prior to presentation. he has been stable post operatively. - Current Medication List Current Medications: Active Medications Chlorhexidine Gluconate (Hibiclens For Decolonization -) 1 applic TP HS [facility] Last Admin: 11/13/18 22:30 Dose: 1 applic Piperacillin Sod/Tazobactam (Sod 2.25 gm/ Dextrose) 50 mls @ 100 mls/hr IVPB Q8H-IV MATEUS; Protocol Last Admin: 11/14/18 10:39 Dose: 100 mls/hr Sodium Chloride (Normal Saline -) 1,000 mls @ 150 mls/hr IV ASDIR MATEUS Metoprolol Tartrate (Lopressor Injection -) 5 mg IVPUSH Q4H PRN PRN Reason: HYPERTENSION Midazolam HCl (Versed -) 2 mg IVPUSH Q4H PRN PRN Reason: AGITATION Morphine Sulfate (Morphine Sulfate) 2 mg IVPUSH Q4H PRN PRN Reason: PAIN LEVEL 7 - 10 Last Admin: 11/14/18 12:26 Dose: 2 mg Mupirocin (Bactroban Ointment (For Decolonization) -) 1 applic NS BID [facility] Stop: 11/16/18 22:01 Last Admin: 11/14/18 12:28 Dose: 1 applic Mupirocin (Bactroban 2% Ointment -) 1 applic TP BID [facility] Last Admin: 11/14/18 12:28 Dose: 1 applic Ondansetron HCl (Zofran Injection) 4 mg IVPUSH Q6H PRN PRN Reason: NAUSEA AND/OR VOMITING Warfarin Sodium (Coumadin -) 2 mg PO DAILY@1800 [facility] - Objective Vital Signs: Vital Signs Temperature 97.6 F 11/14/18 09:00 Pulse Rate 112 H 11/14/18 12:00 Respiratory Rate 22 H 11/14/18 13:18 Blood Pressure 91/56 L 11/14/18 12:00 O2 Sat by Pulse Oximetry (%) 98 11/14/18 12:19 Vital Signs Period Temp Pulse Resp BP Sys/Montalvo Pulse Ox Last 24 Hr 97.6 F-98.2 F 94-115 12-22 88-113/47-70 98-100 Intake & Output 11/13/18 11/14/18 11/14/18 23:59 07:59 15:59 Intake Total 1750 1286 Output Total 0 Balance 1750 1286 Intake: IV 1550 1236 Normal Saline - 1,000 ml 1550 1236 @ 150 mls/hr IV ASDIR MATEUS Rx#:[id number] IVPB 200 50 Output: Gastric Drainage 0 Other: Voiding Method Indwelling Catheter Bowel Movement No No Constitutional: Yes: Well Nourished, No Distress, Calm Eyes: Yes: Conjunctiva Clear, EOM Intact HENT: Yes: Atraumatic, Normocephalic Neck: Yes: Supple, Trachea Midline Cardiovascular: Yes: Regular Rate and Rhythm, S1, S2 Respiratory: Yes: Regular, CTA Bilaterally, Mechanically Ventilated Gastrointestinal: Yes: Normal Bowel Sounds, Soft. No: Tenderness ...Rectal Exam: Yes: Deferred Genitourinary: No: CVA Tenderness - Left, CVA Tenderness - Right Breast(s): No: Discharge from Nipple, Nipple Inversion Musculoskeletal: No: Muscle Pain, Muscle Weakness Extremities: No: Cool, Cyanosis, External Rotation Edema: No Peripheral Pulses WNL: Yes Peripheral Pulses: Left Radial: 2+, Right Radial: 2+, Left Doralis Pedis: 2+, Right Dorsalis Pedis: 2+, Left Femoral: 2+, Right Femoral: 2+ Integumentary: No: Jaundice Wound/Incision: Yes: Clean/Dry, [place] Intact, Open to air Neurological: Yes: Alert, Oriented Psychiatric: Yes: Alert, Oriented Labs: CBC, BMP 11/14/18 05:30 11/14/18 05:30 INR, PTT INR 2.19 (0.83-1.09) H 11/14/18 05:30 Problem List - Problems (1) Pneumobilia Assessment/Plan: 82yo male MMP ominous finding of extensive left lobe pneumobilia suggestive of intestinal ischemia given h/o vascular disease s/p TVAR a year ago, less likely gallbladder fistula on the differential. He is tender on exam in RLQ and epigastrium on exam. POD#4 s/p Exploratory Laparotomy and segmental small bowel resection, he has resumed bowel function and was started on clears. While sitting out of bed his nurse noticed that became acutely non-responsive. ICU management Replace trend labs correct adequate analgesia local wound care This patient is critically ill. Time spent reviewing chart, examining patient, talking with providers and/or family and documentation is 35 minutes. Code(s): K83.8 - OTHER SPECIFIED DISEASES OF BILIARY TRACT (2) Aortic valve prosthesis present Code(s): Z95.2 - PRESENCE OF PROSTHETIC HEART VALVE (3) Atrial fibrillation Code(s): I48.91 - UNSPECIFIED ATRIAL FIBRILLATION Qualifiers: Atrial fibrillation type: chronic Qualified Code(s): I48.2 - Chronic atrial fibrillation (4) CHF (congestive heart failure) Code(s): I50.9 - HEART FAILURE, UNSPECIFIED Qualifiers: Heart failure type: systolic Heart failure chronicity: chronic Qualified Code(s): I50.22 - Chronic systolic (congestive) heart failure (5) COPD (chronic obstructive pulmonary disease) Code(s): J44.9 - CHRONIC OBSTRUCTIVE PULMONARY DISEASE, UNSPECIFIED (6) ESRD (end stage renal disease) on dialysis Code(s): N18.6 - END STAGE RENAL DISEASE; Z99.2 - DEPENDENCE ON RENAL DIALYSIS (7) HTN (hypertension) Code(s): I10 - ESSENTIAL (PRIMARY) HYPERTENSION Qualifiers: Hypertension type: essential hypertension Qualified Code(s): I10 - Essential (primary) hypertension (8) PHT (pulmonary hypertension) Code(s): I27.20 - PULMONARY HYPERTENSION, UNSPECIFIED (9) S/P TAVR (transcatheter aortic valve replacement) Code(s): Z95.2 - PRESENCE OF PROSTHETIC HEART VALVE
--- NOTE | 2018-11-14 14:06 | PN ---
Progress Note (short form) - Note Progress Note: Pt became bradycardic, hypotensive and unresponsive. IV fluids were running. Sternal rub was applied without cardiac response. Pt was a DNR. Pt progressed to asystole. Time of 1359. Family was at the bedside.
[2018-11-14 14:23] VITALS: BP 57/41; PULSE 92
--- NOTE | 2018-11-14 14:49 | PATH ---
Surgical Pathology Report Patient Name: NELLIE BARRERA Med. Rec. 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 PHYSICIAN EMERGENCY DEPT Specimen(s) Received PORTION OF SMALL BOWEL Clinical History Pneumobilia, portal venous gas Final Diagnosis SEGMENT OF SMALL BOWEL, JEJUNUM, RESECTION: SMALL BOWEL MUCOSA WITH AREAS OF HEMORRHAGE AND MUCOSAL NECROSIS CONSISTENT WITH ISCHEMIC CHANGES. SURGICAL MARGINS ARE VIABLE. Electronically Signed Joceline Welch M.D. Gross Description Received in formalin labeled "segment of small bowel," is a 66 cm in length portion of small bowel with 2 stapled mucosal margins and moderate attached fat. The serosa is luong-brown with an ischemic appearance. The lumen contains abundant red blood. The mucosa is diffusely red-brown with an ischemic and focally necrotic appearance. No mucosal masses are identified. Separately received within the same container is a 3.4 x 1.1 x 0.7 cm portion of bowel with a staple line, likely consistent with a donut. Tuck Pointer sections are submitted in 7 cassettes as follows: 6-5-asonrogsxreb stapled mucosal margins; 4-2-cpzlcizmvluqea bowel; 7-donut. 11/11/2018 [facility]11/11/2018
[2018-11-14] MEDS ORDERED: WARFARIN NA 2 MG TABLET (UD) PO SCH (18:00)
[2018-11-14] MEDS ORDERED: WARFARIN NA 2.5 MG TABLET (FP) PO SCH (18:00)
--- NOTE | 2018-11-14 19:12 | DS ---
Physical Exam: SUBJECTIVE: OBJECTIVE: Vital Signs Period Temp Pulse Resp BP Sys/Montalvo Pulse Ox Last 24 Hr 97.6 F 66-129 12-26 57-113/41-82 98-100 PHYSICAL EXAM LABS Laboratory Results - last 24 hr 11/14/18 11/14/18 11/14/18 05:30 05:30 05:30 WBC 11.6 H RBC 3.37 L Hgb 11.6 L Hct 34.6 L MCV 102.9 H MCH 34.5 H MCHC 33.5 RDW 16.9 H Plt Count 177 MPV 9.7 PT with INR 26.10 H INR 2.19 H Sodium 141 Potassium 4.2 Chloride 107 Carbon Dioxide 21 Anion Gap 13 BUN 37 H Creatinine 4.0 H Creat Clearance w eGFR 14.48 POC Glucometer Random Glucose 81 Calcium 8.6 Phosphorus 7.4 H Magnesium 1.9 11/14/18 12:51 WBC RBC Hgb Hct MCV MCH MCHC RDW Plt Count MPV PT with INR INR Sodium Potassium Chloride Carbon Dioxide Anion Gap BUN Creatinine Creat Clearance w eGFR POC Glucometer 75 Random Glucose Calcium Phosphorus Magnesium HOSPITAL COURSE: Date of Admission:11/11/18 Date of Discharge: 11/14/18 This is a 82 year old male s/p, Exploratory laparotomy, small bowel resection with primary anastomosis due to ischemic jejunum. Patient initially doing well untill had some abdominal pain, given morphine and started to scottie down,then in asystole. Family at bedside. Did not want intervention. Acute Respiratory Failure / AMS: (?) due to global drop in perfusion pressures POD # 3: Diastolic CHF HTN HLD DM Afib on coumadin Severe s/p TAVR @ [place] (2017) Severe Pulmonary HTN ESRD on dialysis (T,, ) Anemia Post Herpetic Neuralgia History of viral erruption of the penis s/p Acylovir History of DVT w/ IVC filter History of HIT Minutes to complete discharge: 35 Discharge Summary Reason For Visit: MESENTERIC ISCHEMIA - Instructions Diet, Activity, Other Instructions: Postoperative instructions: You had an exploratory laparotomy, segmental ressection of small bowel on 11/11/[address] Marcos Mott of [facility]. Activity: Resume your usual activities gradually, but no heavy exertion or lifting more than 10-15 pounds for 4-6 weeks. Remove dressings 48 hours after surgery, if they are not already off. You may shower daily starting then, just pat the incision areas dry. No bath or swimming until skin incisions have healed. Garrett should not need to be recovered with any dressings, unless you have been told otherwise. Eat lightly at first, but advance to your usual diet as tolerated. Pain: For pain, you may use and alternate Tylenol (acetaminophen) 1-2 pills and/ or ibuprofen 200 mg (1-3 pills) every 6 hours each as needed; this means that you can take one OR the other at 3-hour intervals. If you are prescribed a Tylenol/narcotic combination for severe pain, use it instead of plain Tylenol as needed and switch back when your pain starts decreasing. Do not take more than 4000 mg of acetaminophen in a day. Take medications as prescribed or indicated on the labeling. Follow-up: Call Dr. Mott' office at [phone] to make your postop appointment (Wednesday in approximately 2 weeks after surgery as advised). Clinic is held in the Diagnostic [facility] on the first floor of [facility]. Call the office if you have: * increasing pain not responsive to pain medication * fever of 101F or higher * vomiting * unusual or increasing bleeding or drainage from wounds * increasing redness or swelling at wound sites * inability to urinate Also, see your primary medical doctor within 1-2 weeks. Referrals: Paul Harris MD [Primary Care Provider] - Disposition: - Home Medications Comprehensive Discharge Medication List: Ambulatory Orders Cinacalcet HCl [Sensipar] 30 mg PO DAILY 06/13/18 Sevelamer Carbonate [Renvela -] 800 mg PO TID 06/13/18 Warfarin Sodium [Coumadin] 2.5 mg PO HS 06/13/18 Folic Acid/Vit B Complex and C [Dialyvite 800 Tablet] 0.8 mg PO DAILY 08/29/18 Midodrine HCl 15 mg PO DAILY 11/11/18 Pregabalin [Lyrica -] 50 mg PO BID 11/11/18 Sevelamer Carbonate [Renvela] 800 mg NR TID 11/11/18 This patient is new to me today: Yes Date on this admission: 11/14/18 Emergency Visit: Yes ED Registration Date: 11/11/18 Care time: The patient presented to the Emergency Department on the above date and was hospitalized for further evaluation of their emergent condition. Critical Care patient: Yes Total Critical Care Time (in minutes): 35 Critical Care Statement: The care of this patient involved high complexity decision making to prevent further life threatening deterioration of the patient 's condition and/or to evaluate & treat vital organ system(s) failure or risk of failure. - Discharge Referral Referred to [facility] Med P.C.: No
--- NOTE | 2018-11-14 22:44 | OP ---
DATE OF OPERATION: 11/11/2018 PREOPERATIVE DIAGNOSIS: Portal venous gas or pneumobilia. POSTOPERATIVE DIAGNOSIS: Ischemic segment of jejunum, 60 cm. OPERATION: Exploratory laparotomy, small-bowel resection with primary stapled anastomosis. ATTENDING SURGEON: Marcos Mott MD POLISHER EYEGLASS FRAMES: Luis Antonio Alvarez MD ANESTHESIOLOGIST: Ángel Guzman DO ANESTHESIA TYPE: General. ESTIMATED BLOOD LOSS: 30 mL. INTRAVENOUS FLUID ADMINISTERED: Crystalloid [address] mL. DRAINS LEFT IN PLACE: NG tube. SPECIMEN SENT FOR ANALYSIS: Segment of small intestines. FINDINGS: Patient had a segment of ischemic small intestines in the jejunum. It was large caliber, had ischemic changes throughout. The ends were viable. INDICATION: Patient is an 82-year-old male presenting with acute onset of abdominal pain after dinner, persisted overnight, and daughter brought him in the following morning. He had peritonitis. A CT scan of the abdomen showed portal venous gas, a significant amount, primarily in the left lobe of the liver. He was identified to have these problems and taken urgently for surgical intervention mid morning. He was counseled regarding risks, benefits, and alternatives to surgical procedure proposed; healthcare proxy signed informed consent; and he was taken for procedure. DESCRIPTION OF PROCEDURE: Patient was brought to the operating room, placed in supine position on the operating table. Lower extremities had SCDs placed to sequential compression. The patient was induced with general anesthesia, endotracheally intubated. The anterior abdominal wall was clipped, prepped, and draped in standard surgical fashion. A midline incision was scribed with a marker and then incised with a 15-blade scalpel, deepened and widened through the subcutaneous tissue. This was after a formal timeout was completed. We proceeded then to control hemostasis at the skin to the midline rectus which was opened, and then, to open the peritoneum, it was elevated with clamps and then entered with Metzenbaum scissor. Fingers were then used to protect the interior abdominal viscera which appeared to be distended loops of small bowel. This was done cranially to caudally in the midline. The patient was then eviscerated. It was clear at this point that there was a segment of jejunum which appeared mildly adherent to the surrounding tissue. Culture was sent from the peritoneal fluid. The small bowel, once isolated into the field, was run from the Treitz to the terminal ileum. The colon appeared normal. Liver also normal without signs of implants or hematoma. The segment of jejunum was noted to be purple and black with ischemic changes that appeared to be delineated. An area proximal and distal to this of normal intestines was isolated for stapler. A YUSEF stapler, size 60 mm, was then delivered through the mesenteric window created by a clamp and transected at the proximal and distal ends. No effort was made to nadeen the bowel for proximal and distal aspects. At this point, the specimen was passed off after its mesentery was taken with the LigaSure device, and we then turned our attention to the cut ends. The cut ends were approximated with 3-0 silk pop-offs to allow for a stapled, latr-yb-vjwe, functional, end-to-end anastomosis. Additional enterotomy was made proximal and distal, and the area was sucked clear. At which point, YUSEF was used on the antimesenteric border of the 2 limbs and stapled, and then, the remaining enterotomy was closed with a TA size 60 stapler. At which point, we proceeded then with irrigation of the site and closing the rent in the mesentery. This was approximated using 2-0 Vicryl in interrupted fashion from its most-deep aspect towards the wall of the bowel. With this done, the abdomen was irrigated copiously with approximately 2 L of sterile irrigation fluid. The abdominal viscera was returned to its anatomic position and then covered with omentum. Care was taken then to close the midline with looped PDS number 1 times two from the inferior and superior poles, and it was tied just in the supraumbilical position. Care was then taken to bury the knot and close the skin with eva. Patient was awoken from general anesthesia, having tolerated the procedure well, after sterile dressings were placed. He was transferred to the ICU for recovery. MD MAURA Guzmán/[id number]
--- NOTE | 2018-11-15 09:24 | EKG ---
Test Reason : Blood Pressure : / mmHG Vent. Rate : 135 BPM Atrial Rate : 120 BPM P-R Int : 000 ms QRS Dur : 140 ms QT Int : 322 ms P-R-T Axes : 000 078 -26 degrees QTc Int : 483 ms ATRIAL FIBRILLATION WITH RAPID VENTRICULAR RESPONSE RIGHT BUNDLE BRANCH BLOCK SEPTAL INFARCT , AGE UNDETERMINED ABNORMAL ECG WHEN COMPARED WITH ECG OF 11-NOV-2018 02:15, VENT. RATE HAS INCREASED BY 58 BPM RIGHT BUNDLE BRANCH BLOCK IS NOW PRESENT SEPTAL INFARCT IS NOW PRESENT Confirmed by PORSHA VALDERRAMA, BERT ([id number]) on 11/15/2018 9:23:55 AM Referred By: Jaja TAMAYO Confirmed By:BERT STORY MD
== END 2018-11-14 13:59 | disposition expired | DRG 329 ==
LOC: JER 23:55 → JERBED 11-11 01:58 → JICU 11-11 19:46
PROVIDERS: ADMIT Internal Medicine; ATTEND Internal Medicine
PROC: 0DBA0ZZ Excision of Jejunum, Open Approach (ICD-10-PCS; principal; 2018-11-11 05:30)
PROC: 5A1D70Z Performance of Urinary Filtration, Intermittent, Less than 6 Hours Per Day (ICD-10-PCS; 2018-11-12)
PROC: 0CHY7BZ Insertion of Airway into Mouth and Throat, Via Natural or Artificial Opening (ICD-10-PCS; 2018-11-14)
DX: K55.059 Acute (reversible) ischemia of intestine, part and extent unspecified (principal); N18.6 End stage renal disease; G93.41 Metabolic encephalopathy; J96.01 Acute respiratory failure with hypoxia; I13.2 Hypertensive heart and chronic kidney disease with heart failure and with stage 5 chronic kidney disease, or end stage renal disease; I50.22 Chronic systolic (congestive) heart failure; B02.29 Other postherpetic nervous system involvement; E11.22 Type 2 diabetes mellitus with diabetic chronic kidney disease; I27.20 Pulmonary hypertension, unspecified; E78.5 Hyperlipidemia, unspecified; D75.82 Heparin induced thrombocytopenia (HIT); D64.9 Anemia, unspecified; I25.10 Atherosclerotic heart disease of native coronary artery without angina pectoris; J44.9 Chronic obstructive pulmonary disease, unspecified; K83.8 Other specified diseases of biliary tract; Z95.2 Presence of prosthetic heart valve; I48.2 Chronic atrial fibrillation; N25.0 Renal osteodystrophy; D72.829 Elevated white blood cell count, unspecified; I08.1 Rheumatic disorders of both mitral and tricuspid valves; L89.152 Pressure ulcer of sacral region, stage 2; D50.0 Iron deficiency anemia secondary to blood loss (chronic); R42 Dizziness and giddiness; R00.1 Bradycardia, unspecified; Z66 Do not resuscitate; Z86.718 Personal history of other venous thrombosis and embolism; Z87.891 Personal history of nicotine dependence; Z79.01 Long term (current) use of anticoagulants; Z99.2 Dependence on renal dialysis
CPT/HCPCS: 31500; 36415; 70450-TC; 71045-TC-FY; 74176-TC; 80048; 80053; 82550; 82803; 82962; 83605; 83690; 83735; 84100; 84484; 85025; 85027; 85610; 85730; 86704; 86706; 86708; 86803; 86850; 86900; 86901; 87040; 87070; 87075; 87205; 87340; 88307-TC; 93005; 93010; 94760; 99284-25; J0131; J7030; P9047